=== PATIENT | female | born 1940 | race Caucasian/White ===

== ENCOUNTER 2018-02-14 10:00 | Emergency (ER) | payer MEDICARE ==
[~2018-02-14] VITALS: Ht 152.4 cm; Wt 63.5 kg
[~2018-02-14 10:00] MED LIST: MELO15TA14 PO; METO100T PO; QUIN1TAB3 PO
--- OUTSIDE RECORDS SUMMARY | 2018-02-14 10:07 | XMS REPORT ---
Author Author SAUL FREEDMAN Organization [employer] Address Unknown Phone Unavailable Care Team Providers Care [facility] [employer] Name Role Phone SAUL FREEDMAN CP Unavailable Allergies, Adverse Reactions, Alerts Substance Reaction Event Type N.K.D.A. Info Not Available Non Drug Allergy Problems Problem Type Condition Code Onset Dates Condition Status Assessment Cat bite, initial encounter [id number] Active Medications Medication Code System Code Instructions Start Date End Date Status Dosage Citalopram Hydrobromide [facility] [address]-74 10 MG Orally Once a day 1/2 tablet Metoprolol Tartrate [facility] [address]-11 50 MG Orally Twice a day 1 tablet Augmentin [facility] [address]-85 875-125 MG Orally every 12 hrs Nov 16, 2015 Nov 23, 2015 1 tablet with food Quinapril-Hydrochlorothiazide [facility] [address]-33 20-25 MG Orally Once a day 1 tablet Meloxicam [facility] [address]-33 15 MG Orally Once a day 1 tablet Procedures Procedure Coding System Code Date Office Visit, Est Pt., Level 3 CPT-4 64386 Nov 16, 2015 TDAP (BOOSTRIX) CPT-4 61431 Nov 16, 2015 [facility] VISIT ESTABLISHED PATIENT CPT-4 G0467 Nov 16, 2015 SINGLE IMMUNIZATION ADMIN CPT-4 38747 Nov 16, 2015 Vital Signs Date/Time: Nov 16, 2015 Temperature 98.1 F Weight 142.4 lbs Height 61 in BMI 26.90 Index Blood Pressure Diastolic 84 mmHg Blood Pressure Systolic 152 mmHg Cardiac Monitoring Heart Rate 64 bpm Results No Known Results Immunizations Vaccine Administration Date TDAP (BOOSTRIX) Nov 16, 2015 Summary Purpose [employer] Submission
--- OUTSIDE RECORDS SUMMARY | 2018-02-14 10:07 | XMS REPORT | Continuity of Care Document ---
Author Author [facility] Address Unknown Phone Unavailable Allergies There is no data. Medications There is no data. Problems There is no data. Procedures There is no data. Results There is no data. Encounters ACCT No. Visit Date/Time Discharge Status Pt. Type Provider Facility Loc./Unit Complaint [id number] 06/06/2015 22:05:58 06/06/2015 23:59:59 CLS Outpatient Catalina Vences
[2018-02-14] MEDS ORDERED: NS IV 500 ML 500 ML IV ONE (10:16)
[2018-02-14 10:37] LABS: BASOPHILS % (AUTO) 0 % (0-10); EOSINOPHILS % (AUTO) 0 % (0-10); HEMATOCRIT 38 % (35-52); HEMOGLOBIN 13.9 G/DL (11.5-16.0); LYMPHOCYTES # (AUTO) 1.2 X 10^3 (1.0-4.0); LYMPHOCYTES % (AUTO) 11 % (12-44); MEAN CORPUSCULAR HEMOGLOBIN 29 PG (25-34); MEAN CORPUSCULAR HGB CONC 37 G/DL (32-36); MEAN CORPUSCULAR VOLUME 79 FL (80-99); MEAN PLATELET VOLUME 10.2 FL (7.4-10.4); MONOCYTES # (AUTO) 0.9 X 10^3 (0.0-1.0); MONOCYTES % (AUTO) 9 % (0-12); NEUTROPHILS # (AUTO) 8.1 X 10^3 (1.8-7.8); NEUTROPHILS % (AUTO) 79 % (42-75); PLATELET COUNT 227 10^3/uL (130-400); RED BLOOD COUNT 4.84 10^6/uL (4.35-5.85); RED CELL DISTRIBUTION WIDTH 12.4 % (10.0-14.5); WHITE BLOOD COUNT 10.3 10^3/uL (4.3-11.0)
--- NOTE | 2018-02-14 10:45 | ED General ---
General Stated Complaint: N/V/FEVER/LEFT SIDE PAIN FROM FALLING 02/10 Source of Information: Patient Exam Limitations: No Limitations History of Present Illness Date Seen by Provider: Feb 14, 2018 Time Seen by Provider: 10:10 Initial Comments Here with report of left-sided pain from a fall that occurred 4 days ago. She states that she was moving a duck cage when the ground gave way and the cage tilted and pressure into a doorway. She has pain on her left posterior rib margin with bruising there. She's had some coughing since. Reports that she's had a mild cough for months now. Thought she may have had a some fever but none documented. Has history of falls. Timing/Duration: 4-5 Days Severity: Mild Associated Systoms: No Chest Pain; Cough, Fever/Chills, Nausea/Vomiting; No Shortness of Air, No Weakness Allergies and Home Medications Allergies Coded Allergies: No Known Drug Allergies (Unverified , 04/09/10) Home Medications Cefdinir 300 Mg Capsule, 300 MG PO BID Prescribed by: YA ALFONSO on 02/14/18 1218 Losartan Potassium 100 Mg Tablet, 100 MG PO DAILY Prescribed by: YA ALFONSO on 02/14/18 1218 Meloxicam 15 Mg Tablet, 1 EACH PO DAILY, (Reported) Metoprolol Tartrate 100 Mg Tablet, 1 EACH PO DAILY, (Reported) Quinapril/Hydrochlorothiazide 1 Tab Tablet, 1 TAB PO DAILY, (Reported) Patient Home Medication List Home Medication List Reviewed: Yes Review of Systems Constitutional: see HPI; No chills, No fever EENTM: no symptoms reported Respiratory: cough; No short of breath Cardiovascular: No chest pain, No edema Gastrointestinal: No abdominal pain, No diarrhea; nausea, vomiting Genitourinary: no symptoms reported Musculoskeletal: muscle pain, muscle stiffness Skin: change in color; No lesions Psychiatric/Neurological: Denies Headache, Denies Paresthesia Hematologic/Lymphatic: See HPI All Other Systems Reviewed Negative Unless Noted: Yes Past Pdjxvvi-Cyvsmx-Tjhfuj Hx Past Med/Social Hx: Reviewed Nursing Past Med/Soc Hx Patient Social History Alcohol Use: Denies Use Recreational Drug Use: No Smoking Status: Never a Smoker Recent Foreign Travel: No Contact w/Someone Who Travel: No Past Medical History Surgeries: No Respiratory: No Cardiac: Yes Hypertension Neurological: No Musculoskeletal: Yes Fractures Family Medical History Reviewed Nursing Family Hx No Pertinent Family Hx Physical Exam Vital Signs Vital Signs - First Documented 02/14/18 10:07 Temp 97.6 Pulse 66 B/P (MAP) 189/88 (121) O2 Delivery Room Air Capillary Refill : General Appearance: No Apparent Distress, WD/WN HEENT: PERRL/EOMI, Pharynx Normal Neck: Non Tender, Supple Respiratory: Lungs Clear, Normal Breath Sounds Cardiovascular: Regular Rate, Rhythm, No Murmur Gastrointestinal: Non Tender, Soft Back: Normal Inspection, No CVA Tenderness, No Vertebral Tenderness Extremity: Normal Range of Motion, Non Tender Neurologic/Psychiatric: Alert, Oriented x3 Skin: Warm/Dry, Ecchymosis (left posterior chest wall at the area of the scapula 4 x 10 cm ecchymosis noted.) Focused Exam Lactate Level 02/14/18 10:25: Lactic Acid Level 1.42 Lactic Acid Level Laboratory Tests Test 02/14/18 10:25 Lactic Acid Level 1.42 MMOL/L (0.50-2.00) Progress/Results/Core Measures Suspected Sepsis SIRS Temperature: Pulse: Respiratory Rate: Laboratory Tests 02/14/18 10:25: White Blood Count 10.3 Blood Pressure / Mean: 02/14/18 10:25: Lactic Acid Level 1.42 Laboratory Tests 02/14/18 10:25: Creatinine 0.74, Platelet Count 227, Total Bilirubin 3.2H Results/Orders Lab Results Laboratory Tests Test 02/14/18 10:25 Range/Units White Blood Count 10.3 4.3-11.0 10^3/uL Red Blood Count 4.84 4.35-5.85 10^6/uL Hemoglobin 13.9 11.5-16.0 G/DL Hematocrit 38 35-52 % Mean Corpuscular Volume 79 L 80-99 FL Mean Corpuscular Hemoglobin 29 25-34 PG Mean Corpuscular Hemoglobin Concent 37 H 32-36 G/DL Red Cell Distribution Width 12.4 10.0-14.5 % Platelet Count 227 130-400 10^3/uL Mean Platelet Volume 10.2 7.4-10.4 FL Neutrophils (%) (Auto) 79 H 42-75 % Lymphocytes (%) (Auto) 11 L 12-44 % Monocytes (%) (Auto) 9 0-12 % Eosinophils (%) (Auto) 0 0-10 % Basophils (%) (Auto) 0 0-10 % Neutrophils # (Auto) 8.1 H 1.8-7.8 X 10^3 Lymphocytes # (Auto) 1.2 1.0-4.0 X 10^3 Monocytes # (Auto) 0.9 0.0-1.0 X 10^3 Eosinophils # (Auto) 0.0 0.0-0.3 10^3/uL Basophils # (Auto) 0.0 0.0-0.1 10^3/uL Sodium Level 120 *L 135-145 MMOL/L Potassium Level 3.7 3.6-5.0 MMOL/L Chloride Level 84 L 98-107 MMOL/L Carbon Dioxide Level 27 21-32 MMOL/L Anion Gap 9 5-14 MMOL/L Blood Urea Nitrogen 11 7-18 MG/DL Creatinine 0.74 0.60-1.30 MG/DL Estimat Glomerular Filtration Rate > 60 BUN/Creatinine Ratio 15 Glucose Level 114 H 70-105 MG/DL Lactic Acid Level 1.42 0.50-2.00 MMOL/L Calcium Level 9.7 8.5-10.1 MG/DL Total Bilirubin 3.2 H 0.1-1.0 MG/DL Aspartate Amino Transf (AST/SGOT) 20 5-34 U/L Alanine Aminotransferase (ALT/SGPT) 10 0-55 U/L Alkaline Phosphatase 78 40-136 U/L C-Reactive Protein High Sensitivity 0.27 0.00-0.50 MG/DL Total Protein 7.2 6.4-8.2 GM/DL Albumin 4.5 3.2-4.5 GM/DL My Orders Orders - YA ALFONSO MD Chest Pa/Lat (2 View) (02/14/18 10:16) Cbc With Automated Diff (02/14/18 10:16) Comprehensive Metabolic Panel (02/14/18 10:16) Hs C Reactive Protein (02/14/18 10:16) Lactic Acid Analyzer (02/14/18 10:16) Blood Culture (02/14/18 10:16) Saline Lock/Iv-Start (02/14/18 10:16) Ns Iv 500 Ml (Sodium Chloride 0.9%) (02/14/18 10:16) Medications Given in ED Current Medications Medications Dose Ordered Sig/Carolyn Route Start Time Stop Time Status Last Admin Dose Admin Sodium Chloride 500 ml @ 0 mls/hr Q0M ONCE IV 02/14/18 10:16 02/14/18 10:22 DC 02/14/18 10:45 500 MLS/HR Vital Signs/I&O 02/14/18 10:07 Temp 97.6 Pulse 66 B/P (MAP) 189/88 (121) O2 Delivery Room Air Capillary Refill : Progress Note : Progress Note Seen and evaluated. IV, labs, chest x-ray, normal saline 500 mL bolus ordered. Monitor patient. Noted low sodium. I did discuss the case with Dr. Haney. She has noted low sodium at her office on previous visits and she is been directed to drink Gatorade twice a day. Given her history of low sodium in the range of 125 and the fact that she does not appear to be symptomatic and this appears to be chronic, we will attempt outpatient treatment. We will stop the hydrochlorothiazide combination and just keep her on low certain 100 mg daily. Patient has had increase of her metoprolol from 50-75 mg twice a day and we will increase that to 100 mg twice a day as her heart rate is currently in the mid to upper 60s to 70 and this could help control her blood pressure. I did discuss all this with the patient and her family. They're okay with outpatient attempt. I did discuss the need of drinking Gatorade with her and she says that she's never heard that before but will do as instructed. Patient is set up for appointment with a practitioner at Dr. Haney's office on Saturday at [address] Haney's instructions. 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 If this does not help, consideration for losartan as a cause will be made. All of the findings, concerns and instructions were discussed with the patient and family who agree. Repeat bolus of normal saline 500 mL bolus. Discharged home with return precautions. Patient and family verbalize understanding instructions and agreement with plan. Diagnostic Imaging Diagonstic Imaging: Xray Plain Films/CT/US/NM/MRI: chest Comments NAME: DINA MEAD MED REC#: [id number] PT STATUS: REG ER : 1940 PHYSICIAN: YA ALFONSO MD ADMIT DATE: 02/14/18/ER Signed Date of Exam: 02/14/18 CHEST PA/LAT (2 VIEW) INDICATION: Post recent fall, bruising, pain. Subsequent development of cough.. TECHNIQUE: Two view chest 11:15 AM CORRELATION STUDY: 12/03/2011 FINDINGS: Heart size is mildly enlarged with a left ventricular configuration. Annular valvular calcification is present. Vascularity overall within normal limits. There appears to be minimal subsegmental basilar atelectasis. No significant infiltrate, contusion or pneumothorax. No significant displaced fracture, accentuated thoracic kyphotic curvature. IMPRESSION: 1. No radiographic evidence for acute abnormality of the chest. Dictated by: Dictated on workstation # [id number] Dict: 02/14/18 1111 Trans: 02/14/18 1134 Interpreted by: STEFFANY AGUIRRE DO Electronically signed by: STEFFANY AGUIRRE DO 02/14/18 1134 Departure Impression Primary Impression: Hyponatremia Additional Impression: Chronic cough Disposition: 01 HOME, SELF-CARE Condition: Stable Departure-Patient Inst. Referrals: BEL HANEY MD (PCP/Family) Primary Care Physician Patient Instructions: Cough in Adults, Hyponatremia (DC) Add. Discharge Instructions: You should stop the combination medicine losartan/hydrochlorothiazide and start the losartan only medication that was prescribed today. Take the antibiotic as directed. Follow-up with your doctor on Saturday at 1030 at her office. You should take your metoprolol 2 tablets in the morning and evening now and it is important that you discussed all of your medicines and higher taken them with your doctor on Saturday. Return for worse pain, fever, vomiting, weakness, breathing problems or other concerns as needed. You should drink a small bottle of Gatorade twice daily to help keep your sodium level and a normal range. Scripts Ondansetron (Ondansetron Odt) 4 Mg Tab.rapdis 4 MG PO Q6H PRN for NAUSEA/VOMITING, #8 TAB 0 Refills Prov: YA ALFONSO MD 02/14/18 Cefdinir (Cefdinir) 300 Mg Capsule 300 MG PO BID, #20 CAP 0 Refills Prov: YA ALFONSO MD 02/14/18 Losartan Potassium (Losartan Potassium) 100 Mg Tablet 100 MG PO DAILY, #15 TAB 0 Refills Prov: YA ALFONSO MD 02/14/18 Copy Copies To 1: BEL HANEY MD, TIMOTHY D MD Feb 14, 2018 10:45
[2018-02-14 10:56] LABS: ALANINE AMINOTRANSFERASE 10 U/L (0-55); ALBUMIN 4.5 GM/DL (3.2-4.5); ALKALINE PHOSPHATASE 78 U/L (40-136); BILIRUBIN,TOTAL 3.2 MG/DL (0.1-1.0); BUN/CREATININE RATIO 15; CALCIUM 9.7 MG/DL (8.5-10.1); CARBON DIOXIDE 27 MMOL/L (21-32); CHLORIDE 84 MMOL/L (98-107); CREATININE SERUM 0.74 MG/DL (0.60-1.30); GFR ESTIMATED > 60; GLUCOSE 114 MG/DL (70-105); POTASSIUM 3.7 MMOL/L (3.6-5.0); TOTAL PROTEIN 7.2 GM/DL (6.4-8.2)
[2018-02-14 11:09] LABS: SODIUM 120 MMOL/L (135-145)
--- NOTE | 2018-02-14 11:28 | Diagnostic Imaging Report ---
INDICATION: Post recent fall, bruising, pain. Subsequent development of cough.. TECHNIQUE: Two view chest 11:15 AM CORRELATION STUDY: 12/03/2011 FINDINGS: Heart size is mildly enlarged with a left ventricular configuration. Annular valvular calcification is present. Vascularity overall within normal limits. There appears to be minimal subsegmental basilar atelectasis. No significant infiltrate, contusion or pneumothorax. No significant displaced fracture, accentuated thoracic kyphotic curvature. IMPRESSION: 1. No radiographic evidence for acute abnormality of the chest. Dictated by: Dictated on workstation # [id number]
[2018-02-14] MEDS ORDERED: NS IV 500 ML 500 ML IV SCH (12:00)
[2018-02-14] MEDS ORDERED: CEFD300C3 PO (12:18)
[2018-02-14] MEDS ORDERED: LOSA100T28 PO (12:18)
[2018-02-14] MEDS ORDERED: ONDANSETRON 4 MG (ZOFRAN) ORAL DISSOLVE TAB SL STA (12:19)
[2018-02-14] MEDS ORDERED: ONDA4TAB11 PO (12:20)
[2018-02-14 13:05] VITALS: BP 168/97
== END 2018-02-14 13:11 | disposition home or self-care (01) ==
LOC: EDUNIT# 10:00 → ER 10:03
DX: E87.1 Hypo-osmolality and hyponatremia (principal); R05 Cough; R29.6 Repeated falls; I10 Essential (primary) hypertension; Z87.81 Personal history of (healed) traumatic fracture
CPT/HCPCS: 36415; 71046; 80053; 83605; 85025; 86141; 87040; 96360; 96361

== ENCOUNTER 2019-08-25 08:38 | Inpatient (IN) | payer MEDICARE ==
[~2019-08-25] VITALS: Ht 152.4 cm; Wt 54.0 kg
[~2019-08-25 08:38] MED LIST changes: +CEFD300C3 PO; +LOSA100T57 PO; +ONDA4TAB11 PO
--- NOTE | 2019-08-25 11:58 | NUR ---
Gina Chandler admitted to room 230 , with an admitting diagnosis of Right Total Hip Replacment , on 08/25/19 from [facility] via private vehicle, accompanied by son.GINA CHANDLER introduced to surroundings, call light, bed controls, phone, TV, temperature control, lights, meal times, smoking policy, visitor policy, side rail policy, bathrooms and showers. Patient Rights given to patient in the handbook.GINA CHANDLER verbalizes understanding that [facility] is not responsible for the loss or damage to any personal effects or valuables that are kept in the patients possession during their hospitalization. The following Patient Care Plans were discussed with the patient: Discharge Planning, Altered Peripheral Tissue Perfusion,Pain, High Risk Post Op Complications and Knowledge Deficit of Total Hip Replacement. GINA CHANDLER verbalizes understanding of Interdisciplinary Patient Education. Patient received Patient Rights Booklet, which includes Privacy Act Statement and Data Collection Information Summary.
[2019-08-25 12:00] VITALS: BP 122/72
[2019-08-25] MEDS ORDERED: ASCO-262 PO (13:01)
[2019-08-25] MEDS ORDERED: AMLO10TA7 PO (13:01)
[2019-08-25] MEDS ORDERED: HYDR-3812 PO (13:01)
[2019-08-25] MEDS ORDERED: ESCI5TAB12 PO (13:01)
[2019-08-25] MEDS ORDERED: CHOL10007 PO (13:01)
[2019-08-25] MEDS ORDERED: NYST1POW4 TOP (13:01)
[2019-08-25] MEDS ORDERED: CYAN-41 PO (13:01)
[2019-08-25] MEDS ORDERED: OMG1KC PO (13:01)
[2019-08-25] MEDS ORDERED: DICL100G31 TOP (13:01)
[2019-08-25] MEDS ORDERED: LOSA100T57 PO (13:01)
[2019-08-25] MEDS ORDERED: VIT-10 PO (13:01)
[2019-08-25] MEDS ORDERED: DOCU-143 PO (13:01)
[2019-08-25] MEDS ORDERED: METO100T12 PO (13:01)
[2019-08-25] MEDS ORDERED: ACET325T38 PO (13:01)
--- NOTE | 2019-08-25 13:02 | NUR ---
UPDATED MED REC WITH DISCHARGE MEDICATION INSTRUCTIONS FROM [facility]. NOTE THE FOLLOWING CHANGES WERE MADE AT THAT DISCHARGE: START: HYDROCODONE 5-325MG 1 Q6H PRN STOP: MELOXICAM CLOBETASOL CREAM I WILL UPDATE THE MED REC BACK TO THE MEDICATIONS THE PATIENT WAS TAKING PRIOR TO THIS DISCHARGE AT A LATER DATE FOR PROPER DISCHARGE TO HOME ORDERS. Addendum: 08/25/19 at 1627 by ANGEL FRIAS [facility] REMOVED THE NEW SCRIPT FOR HYDROCODONE AND ADDED BACK THE MELOXICAM THAT WAS STOPPED. I DID NOT ADD THE CLOBETASOL CREAM AT THIS TIME IT DOES NOT LOOK LIKE IT HAS BEEN FILLED RECENTLY. IN ADDITION TO WHAT WAS ADDRESSED ON THE DISCHARGE ORDERS THE PATIENT HAS RECENTLY FILLED FLONASE NASAL SPRAY, I ADDED IT TO THE MED REC AT THIS TIME PRN TO BE ADDRESSED AT DISCHARGE. OTC MEDS REPORTED AT DISCHARGE FROM [facility]: TYLENOL 325MG 2 HS VITAMIN C 500MG 2 DAILY B12 1000MCG DAILY COLACE 100MG BID FISH OIL 1000MG HS VISION TAB DAILY VITAMIN D3 1000 UNITS 2 DAILY
--- NOTE | 2019-08-25 13:22 | Occupational Therapy Eval ---
OT Evaluation-General/PLF Medical Diagnosis Admission Date Aug 25, 2019 at 12:04 Medical Diagnosis: right total hip replacement Onset Date: Aug 20, 2019 Therapy Diagnosis Therapy Diagnosis: decreased self care skills Height/Weight Height (Feet): 5 Height (Inches): 0 Weight (Pounds): 140 Referral Physician: Moreno Medical History Pertinent Medical History: GERD, HTN, OA Additional Medical History depression, chronic edema, chronic pain, dermatitis, right humerus fracture, lef t TKA Current History Pt had fall with right hip fracture. Now s/p right total hip with hip precautions. Social History Home: Single Level Current Living Status: Spouse ADL-Prior Level of Function SCALE: Activities may be completed with or without assistive devices. 0-Euqewpeyee-qnouein completes the activity by him/herself with no assistance from a helper. 5-Set-up or Clean-up Assistance-helper sets up or cleans up; patient completes activity. [place] assists only prior to or following the activity. 4-Supervision or Touching Assistance-helper provides verbal cues and/or touching/steadying and/or contact guard assistance as patient completes ac tivity. Assistance may be provided throughout the activity or intermittently. 3-Partial/Moderate Assistance-helper does LESS THAN HALF the effort. [place] lifts, holds or supports trunk or limbs, but provides less than half the effort. 2-Substantial/Maximal Assistance-helper does MORE THAN HALF the effort. [place] lifts or holds trunk or limbs and provides more than half the effort. 5-Cghnwjydd-tcqimt does ALL the effort. Patient does none of the effort to complete the activity. Or, the assistance of 2 or more helpers is required for the patient to complete the activity. If activity was not attempted, code reason: 7-Patient Refused. 9-Not Applicable-not attempted and the patient did not perform the activity before the current illness, exacerbation or injury. 10-Not Attempted due to Environmental Limitations-(lack of equipment, weather restraints, etc.). 88-Not Attempted due to Medical Conditions or Safety Concerns. ADL PLOF Comments Pt reports being independent prior to fall. Does not use any assistive devices. Self Care: Independent DME/Equipment: Tub/Shower Drive Self: Yes OT Current Status Subjective Pt sitting in w/c, agrees to therapy. Pt reports no pain at rest. States pain is "not too bad" with movement, but does not rate. Mental Status/Objective Patient Orientation: Person, Place, Situation Current Glasses/Contacts: Yes Hearing Aids: No Dentures/Partials: Yes Hand Dominance: Right Upper Extremity ROM Grossly WFL Upper Extremity Coordination Intact Upper Extremity Sensation Intact per pt report Upper Extremity Strength Grossly 4/5 ADL-Treatment ADL-Current Pt sitting in w/c, participated in UE assessment. Pt combed hair and washed face with set up while seated. Pt performed sit to stand with mod assist and cues for hand placement. Pt stood with FWW for balance, cues for safety. Pt declined need to use restroom or transfer to chair at this time. Education was provided regarding role of OT and plan of care. Pt states understanding of education. Care was transferred to [facility] for continued therapy. No needs at this time. Education OT Patient Education: Rehab process Teaching Recipient: Patient Teaching Methods: Discussion Response to Teaching: Verbalize Understanding OT Short Term Goals Short Term Goals Time Frame: Sep 01, 2019 Lower Body Dressing(FIM): 4 Toileting(FIM): 4 Toilet/Commode Transfer(FIM): 4 Additional Short Term Goals: 2-Verbalize Understanding, 3-ImproveStrength/Miah 1=Demonstrate adherence to instructed precautions during ADL tasks. 2=Patient will verbalize/demonstrate understanding of assistive devices/modifications for ADL. 3=Patient will improve strength/tolerance for activity to enable patient to perform ADL's. OT Junior Php Developer Goals Detention Goals Time Frame: Sep 15, 2019 Eating (QC): 6 Oral Hygiene (QC): 6 Shower/Bathe Self (QC): 5 Upper Body Dressing (QC): 6 Lower Body Dressing (QC): 5 On/Off Footwear (QC): 5 Toileting Hygiene (QC): 6 Toilet/Commode Transfer (QC): 6 Additional Goals: 1-Demonstrate ADL Tasks, 2-Verbalize Understanding, 3- ImproveStrength/Miah 1=Demonstrate adherence to instructed precautions during ADL tasks. 2=Patient will verbalize/demonstrate understanding of assistive devices/modifications for ADL. 3=Patient will improve strength/tolerance for activity to enable patient to perform ADL's. OT Education/Plan Problem List/Assessment Assessment: Decreased Activ Tolerance, Decreased UE Strength, Dependent Transfers, Impaired Funct Balance, Impaired I ADL's, Impaired Self-Care Skills Pt to benefit from skilled OT intervention for ADL training, transfers, strengthening, and home safety education to increase level of independence and allow safe discharge home. Discharge Recommendations Plan/Recommendations: Continue POC Treatment Plan/Plan of Care Treatment,Training & Education: Yes Patient would benefit from OT for education, treatment and training to promote independence in ADL's, mobility, safety and/or upper extremity function for ADL's. Plan of Care: ADL Retraining, Functional Mobility, Group Exercise/Act as Ind, UE Funct Exercise/Act Treatment Duration: Sep 15, 2019 Frequency: At least 5 of 7 days/Wk (IRF) Estimated Hrs Per Day: 1.5 hours per day Rehab Potential: Good Time/GCodes Start Time: 12:30 Stop Time: 13:00 Total Time Billed (hr/min): 30 Billed Treatment Time 1 visit, EVM(20minutes), ADL(10minutes) PEGGY ACO OT Aug 25, 2019 13:22 POS
[2019-08-25] MEDS ORDERED: HYDROcodone/APAP 5 MG/325 MG (LORTAB) TAB PO PRN (14:00)
--- NOTE | 2019-08-25 14:07 | NUR ---
C/O PAIN AFTER WORKING WITH THERAPY. PER DR. ESCOBAR, CHANGE LORTAB TO Q4 HOURS INSTEAD OF Q6 HOURS.
--- NOTE | 2019-08-25 14:20 | Occupational Ther Daily Note ---
OT Current Status-Daily Note Subjective Pt alert, sitting in w/c. Took over care from OTR/L. Pt agrees to therapy. Pt c/o pain in R LE, reported to nrsg. Mental Status/Objective Patient Orientation: Person, Place, Time, Situation ADL-Treatment Pt states that she had a shower earlier today. Pt agrees to work on lower body dressing. Pt takes increased time to complete ADL tasks due to fatigue and pain. Max A for sit to stand from low surface, mod A for elevated surface. CGA in standing using FWW to hike pants over hips (down/up). Due to hip precautions, pt requires max A to don/doff pants, underpants, socks and shoes. Assist to don/doff ADIEL hose. Pt introduced to AE for lower body dressing. Pt requires verbal and physical cues to use effectively. Pt ambulated with CGA using FWW to bathroom. Using BSC, FWW and grabbars pt able to complete with toilet transfer SBA. Pt cleansed self on toilet then due to fatigue, assist to hike pants. LOB during transfer off of toilet to w/c, min A. Pt washed hands at sink. Lunch in front of pt. Pt is able to set meal up and use regular utensils to eat. After therapy, pt sitting in w/c with call light/phone in reach. All needs met in room. Therapy Code Descriptions/Definitions Functional [place] Measure: 0=Not Assessed/NA 4=Minimal Assistance 1=Total Assistance 5=Supervision or Setup 2=Maximal Assistance 6=Modified [place] 3=Moderate Assistance 7=Complete IndependenceSCALE: Activities may be completed with or without assistive devices. 9-Hqxxpkfqch-ciaijvq completes the activity by him/herself with no assistance from a helper. 5-Set-up or Clean-up Assistance-helper sets up or cleans up; patient completes activity. [place] assists only prior to or following the activity. 4-Supervision or Touching Assistance-helper provides verbal cues and/or touching/steadying and/or contact guard assistance as patient completes activity. Assistance may be provided throughout the activity or intermittently. 3-Partial/Moderate Assistance-helper does LESS THAN HALF the effort. [place] lifts, holds or supports trunk or limbs, but provides less than half the effort. 2-Substantial/Maximal Assistance-helper does MORE THAN HALF the effort. [place] lifts or holds trunk or limbs and provides more than half the effort. 4-Zwxapgodq-prvwkv does ALL the effort. Patient does none of the effort to complete the activity. Or, the assistance of 2 or more helpers is required for the patient to complete the activity. If activity was not attempted, code reason: 7-Patient Refused. 9-Not Applicable-not attempted and the patient did not perform the activity before the current illness, exacerbation or injury. 10-Not Attempted due to Environmental Limitations-(lack of equipment, weather restraints, etc.). 88-Not Attempted due to Medical Conditions or Safety Concerns. Eating (QC): 6 Oral Hygiene (QC): 7 (Stated that she had dentures and soaks them over night so declined to complete oral care at this time.) Shower/Bathe Self (QC): 7 Upper Body Dressing (QC): 5 (After set up, pt able to complete.) Lower Body Dressing (QC): 2 Toileting Hygiene (QC): 2 Toilet Transfer (QC): 3 OT Short Term Goals Short Term Goals Time Frame: Sep 01, 2019 Lower Body Dressing(FIM): 4 Toileting(FIM): 4 Toilet/Commode Transfer(FIM): 4 Additional Short Term Goals: 2-Verbalize Understanding, 3-ImproveStrength/Miah 1=Demonstrate adherence to instructed precautions during ADL tasks. 2=Patient will verbalize/demonstrate understanding of assistive devices/modifications for ADL. 3=Patient will improve strength/tolerance for activity to enable patient to pe rform ADL's. OT Console Operator Goals Mcfp Goals Time Frame: Sep 15, 2019 Eating (QC): 6 Oral Hygiene (QC): 6 Shower/Bathe Self (QC): 5 Upper Body Dressing (QC): 6 Lower Body Dressing (QC): 5 On/Off Footwear (QC): 5 Toileting Hygiene (QC): 6 Toilet/Commode Transfer (QC): 6 Additional Goals: 1-Demonstrate ADL Tasks, 2-Verbalize Understanding, 3- ImproveStrength/Miah 1=Demonstrate adherence to instructed precautions during ADL tasks. 2=Patient will verbalize/demonstrate understanding of assistive devices/modifications for ADL. 3=Patient will improve strength/tolerance for activity to enable patient to perform ADL's. OT Education/Plan Problem List/Assessment Assessment: Decreased Activ Tolerance, Decreased UE Strength, Impaired Coordination, Impaired Funct Balance, Impaired I ADL's, Impaired Self-Care Skills Pt to benefit from skilled OT intervention for ADL training, transfers, strengthening, and home safety education to increase level of independence and allow safe discharge home. Discharge Recommendations Plan/Recommendations: Continue POC Treatment Plan/Plan of Care Patient would benefit from OT for education, treatment and training to promote independence in ADL's, mobility, safety and/or upper extremity function for ADL's. Plan of Care: ADL Retraining, Functional Mobility, Group Exercise/Act as Ind, UE Funct Exercise/Act Treatment Duration: Sep 15, 2019 Frequency: At least 5 of 7 days/Wk (IRF) Estimated Hrs Per Day: 1.5 hours per day Rehab Potential: Good Time/GCodes Start Time: 13:00 Stop Time: 14:00 Total Time Billed (hr/min): 60 Billed Treatment Time 1 visit-ADL 4 (60 min) CONOR SAHU Aug 25, 2019 14:19 POS
--- NOTE | 2019-08-25 15:29 | Physical Therapy Evaluation ---
PT Evaluation-General Medical Diagnosis Admission Date Aug 25, 2019 at 12:04 Medical Diagnosis: right total hip replacement Onset Date: Aug 20, 2019 Therapy Diagnosis Therapy Diagnosis: decreased LE strength/endurance, abn gait, s/p surgical Height/Weight Height (Feet): 5 Height (Inches): 0 Weight (Pounds): 140 Precautions Precautions/Isolations: Fall Prevention, Standard Precautions Weight Bear Status Right Lower Extremity: Right Weight Bearing/Tolerated Left Lower Extremity: Left Full Weight Bearing Referral Physician: Moreno Reason for Referral: Evaluation/Treatment Medical History Pertinent Medical History: GERD, HTN, OA Additional Medical History Medical History Pertinent Medical History: GERD, HTN, OA Additional Medical History depression, chronic edema, chronic pain, dermatitis, right humerus fracture, left TKA Current History Pt had fall with right hip fracture. Now s/p right total hip with hip precautions. Social History Home: Single Level Current Living Status: Spouse Entry Into Home: Level Entry Prior Prior Level of Function SCALE: Activities may be completed with or without assistive devices. 6-Rqyqjqqhxx-misuluj completes the activity by him/herself with no assistance fr om a helper. 5-Set-up or Clean-up Assistance-helper sets up or cleans up; patient completes activity. [place] assists only prior to or following the activity. 4-Supervision or Touching Assistance-helper provides verbal cues and/or touching/steadying and/or contact guard assistance as patient completes activity. Assistance may be provided throughout the activity or intermittently. 3-Partial/Moderate Assistance-helper does LESS THAN HALF the effort. [place] lifts, holds or supports trunk or limbs, but provides less than half the effort. 2-Substantial/Maximal Assistance-helper does MORE THAN HALF the effort. [place] lifts or holds trunk or limbs and provides more than half the effort. 2-Rkbifaniy-syfxeh does ALL the effort. Patient does none of the effort to complete the activity. Or, the assistance of 2 or more helpers is required for the patient to complete the activity. If activity was not attempted, code reason: 7-Patient Refused. 9-Not Applicable-not attempted and the patient did not perform the activity before the current illness, exacerbation or injury. 10-Not Attempted due to Environmental Limitations-(lack of equipment, weather restraints, etc.). 88-Not Attempted due to Medical Conditions or Safety Concerns. Bed Mobility: 6 Transfers (B,C,W/C): 6 Gait: 6 Stairs: 6 Indoor Mobility (Ambulation): Independent Prior Devices Use: None PT Evaluation-Current Subjective pt in WC pre-tx. Pt agrees to PT this afternoon. Pt states she feels like she has been worn out today since she got here. Pt reports 8/10 pain in her R hip, nurse aware of pain and working on getting her pain meds. Pt/Family Goals pt in bed post-tx. pt with call light, room phone, tray table in reach and all needs met at this time. Pt with adductor pillow in place and bed alarm set at this time. RN in room at this time. Objective Patient Orientation: Person, Confused, Situation Attachments: IV Pt was asking what would happen here at this hospital and this PT was explaining rehab, directly after the explanation the pt asked "where the hell am I" pt knows her name and birthday and that she "broke her leg" but is forgetful and confused this session. Pt does not remember her hip precautions today. ROM/Strength Strength Lower Extremities RLE not tested secondary to S/P L LE hip flexion 4-/5, knee flexion 4/5, knee extension 4/5 Integumentary/Posture Integumentary see nursing notes. Bowel Incontinence: No Bladder Incontinence: No Sensory Vision: Wears Glasses Hearing: Functional Hand Dominance: Right Sensation Right Lower Extremit: Intact Sensation Left Lower Extremity: Intact Transfers Roll Left to Right (QC): 3 (Shawn) Sit to Lying (QC): 3 (modA for RLE into bed) Lying to Sitting/Side of Bed(Q: 2 (maxA to lower the RLE from the bed and for sitting shoulders up in bed.) Sit to Stand (QC): 2 (MaxA. Pt had multiple attempts that require only Shawn. pt seems to require more assist from lower surfaces to stand.) Chair/Xie-rs-Aafmg Xfer(QC): 3 (mod assist for stepping and turning) Car Transfer (QC): 2 (MaxA) Gait Does the Patient Walk?: Yes Mode of Locomotion: Both Anticipated Mode of Locomotion: Both Distance: 1=up to 49 ft Walk 10 feet (QC): 3 (Shawn) Walk 50 ft with 2 Turns(QC): 88 Walk 150 ft (QC): 88 Walking 10ft/uneven surface-QC: 88 Distance: 20' Gait Assistive Device: FWW Comments/Gait Description Pt ambulated 20' with FWW with a forward posture with a slow step through gait pattern. pt keeps the R knee in a flexed position and lacks TKE. the pt ambulates with the RLE in slight genu valgus and is reminded multiple times of hip precautions Pt ambulated 8'x2 in // bars with mod retropulsion and slow step through gait patterns. Wheelchair Training Does the Pt Use a Wheelchair?: Yes Distance: 150' Wheel 50 ft with 2 turns (QC): 3 (Shawn for steering.) Wheel 150 ft (QC): 3 (Shawn for steering) Type of Wheelchair: Manual Stairs 1 Step (curb) (QC): 88 4 Steps (QC): 88 12 Steps (QC): 88 Patient did not perform stairs due to having poor ambulation and she will not be safe to go up and down stairs. Balance Sitting Static: Normal Sitting Dynamic: Normal Standing Static: Fair Standing Dynamic: Poor Picking up an Object (QC): 88 Treatment pt performed supine LE ex (hip abd/add, SLR, AP's, SAQ's, heel slides, glute sets, quad sets. all 1set 10 reps) and seated LE ex (LAQ, AP's all 2 sets 10 reps), skilled ambulation training, transfer training, wheelchair training, and education this date. Assessment/Needs Pt is having mod pain this session that limits her ability to complete a mbulation and standing activities this afternoon. Pt seems to be forgetful at times and has difficulty following directions. Rehab Potential: Fair PT Short Term Goals Short Term Goals Time Frame: Sep 01, 2019 Gait Distance Comment: 50' Gait Assistive Device: FWW (CGA) PT Cable Engineer Outside Plant Goals Cable Engineer Outside Plant Goals PT Cable Engineer Outside Plant Goals Time Frame: Sep 15, 2019 Sit to Lying (QC): 4 (CGA) Lying-Sitting on Side/Bed(QC): 4 (CGA) Sit to Stand (QC): 4 (CGA) Roll Left to Right (QC): 4 (SBA) Chair/Rtb-ql-Rmbhm Xfer(QC): 4 (CGA) Car Transfer (QC): 4 (CGA) Does the Patient Walk: Yes Distance: 150' Walk 10 feet (QC): 4 (SBA) Walk 10ft-Uneven Surface(QC): 4 (CGA) Walk 50ft with 2 Turns (QC): 4 (CGA) Walk 150 ft (QC): 4 (SBA) Gait Assistive Device: FWW Distance: 300' Wheel 50 feet with 2 turns (QC: 4 (SBA) PT Plan Problem List Problem List: Activity Tolerance, Functional Strength, Safety, Balance, Gait, Transfer, Bed Mobility, ROM Treatment/Plan Treatment Plan: Continue Plan of Care Treatment Plan: Bed Mobility, Concurrent Therapy, Education, Functional Activity Miah, Functional Strength, Group Therapy, Gait, Safety, Therapeutic Exercise, Transfers Frequency: At least 5 of 7 days/Wk (IRF) Estimated Hrs Per Day: 1.5 hours per day Patient and/or Family Agrees t: Yes Safety Risks/Education Patient Education: Gait Training, Transfer Techniques, Reviewed Precautions, C orrect Positioning, W/C Management, Safety Issues Teaching Recipient: Patient Teaching Methods: Demonstration, Discussion Response to Teaching: Unable to Return Demonstration, Reinforcement Needed Discharge Recommendations Plan Patient will perform bed mobility and transfer training, balance and endurance training, functional strengthening, stair training, gait training, and education, to improve functional mobility and independence at home. Therapy Discharge Recommendati: Scheduled Assistance, Assisted Living, Other, See Comments (home with son that lives in home.) Equpiment Recommendations-D/C: Front Wheeled Walker, Manual Wheelchair Time/GCodes Time In: 1400 Time Out: 1530 Total Billed Treatment Time: 90 Total Billed Treatment 1 visit EVM 30' EX 30' WC 15' GT 15' MICHAELLE WILBURN PT Aug 25, 2019 15:29 POS
[2019-08-25 15:40] VITALS: BP 122/72
--- NOTE | 2019-08-25 15:46 | Progress Note ---
NOELLE MCDOWELL MED STUDENT 08/25/19 1546: Progress Note CC: s/p Right Total Hip Replacment Barriers to discharge * fell and broke R hip in [employer] last , had total hip replacement * Vitals: HR 82, RR 18, BP 122/72 * Only complaint when seen today is of pain in her R hip * Denies any fevers, chills, h/a, cough, congestion, sore throat, SOB, CP, dys uria, frequency, n/v, abdominal pain, constipation, diarrhea, paresthesia, numbness, or tingling * Reports having swelling in her legs and feet, particularly when she has been standing and working for a long time. Wearing compression stockings today. * On auscultation, lungs CTAB, heart RRR with no gallops or murmurs. 2+ pedal pulses bilaterally, mild pedal edema, no edema when palpating legs, no calf pain on palpation * Barriers: * Prior to admission, she was able to walk unassisted and performed all daily tasks without issue, including help feeding birds for her * She has her , son, and grandson living with her who are able to help her * Reports today that her main concern is with her ability to walk without pain, she currently uses a walker. * Some concern with her endurance. * Denies any concern with balance or strength. JOANNE ESCOBAR DO 08/26/19 1644: Supervisory-Addendum Brief Verification & Attestation Participated in pt care: history, MDM, physical Personally performed: exam, history, MDM, supervision of care Care discussed with: Medical Student Procedures: n/a Results interpretation: Verified all documentation Verification and Attestation of Medical Student E/M Service A medical student performed and documented this service in my presence. I reviewed and verified all information documented by the medical student and made modifications to such information, when appropriate. I personally performed the physical exam and medical decision making. Joanne Escobar, Aug 26, 2019,16:43 NOELLE MCDOWELL MED STUDENT Aug 25, 2019 15:46 JOANNE PATEL DO Aug 26, 2019 16:44 POS
--- NOTE | 2019-08-25 16:08 | NUR ---
PER DR. ESCOBAR, HOLD BP MEDS FOR SBP <120.
[2019-08-25] MEDS ORDERED: FLUT16SP22 NS (16:24)
[2019-08-25] MEDS ORDERED: MELO15TA39 PO (16:24)
--- NOTE | 2019-08-25 16:36 | NUR ---
PER DR. ESCOBAR, START LOVENOX- 40 MG SQ DAILY. CBC, CMP, AND IRON IN AM. PATIENT REC'D 30 MG OF LOVENOX THIS AM AT 0745 AT [facility].
[2019-08-25 17:25] VITALS: BP 138/70
[2019-08-25] MEDS: HYDROcodone/APAP 5 MG/325 MG (LORTAB) TAB PO PRN (18:29)
[2019-08-25 20:00] VITALS: BP 143/70
[2019-08-25] MEDS: DOCUSATE SODIUM 100 MG (COLACE) CAP PO SCH (20:38)
[2019-08-25] MEDS: OMEGA 3 (FISH OIL) 1000 MG CAP PO SCH (20:38)
[2019-08-25] MEDS: meTOprolol TARTRATE 50 MG (LOPRESSOR) TAB PO SCH (20:38)
[2019-08-25] MEDS: amLODIPine 10 MG (NORVASC) TAB PO SCH (20:39)
[2019-08-25] MEDS: ACETAMINOPHEN 325 MG TABLET PO SCH (20:41)
[2019-08-25] MEDS: MICONAZOLE 2% POWDER (DESENEX AF) 90 GM TOP SCH (20:42)
[2019-08-25 23:55] VITALS: BP 143/70
--- NOTE | 2019-08-26 04:20 | NUR ---
THIS RN NOTED DRESSING TO RT HIP INCISION PEELED AWAY FROM SKIN AND ADHESIVE MATERIAL STUCK TO ITSELF, SLIGHT SEROSANGUINEOUS DRAINAGE NOTED TO DRESSING. THIS RN CLEANED STAPLE LINE WITH ALCOHOL AND APPLIED [place] DRESSING. DRESSING DATED, TIMED AND INITIALED BY THIS RN.
[2019-08-26] MEDS: HYDROcodone/APAP 5 MG/325 MG (LORTAB) TAB PO PRN ×3 (04:35→21:04)
[2019-08-26 05:14] LABS: BASOPHILS % (AUTO) 0 % (0-10); EOSINOPHILS # (AUTO) 0.3 10^3/uL (0.0-0.3); EOSINOPHILS % (AUTO) 4 % (0-10); HEMATOCRIT 30 % (35-52); HEMOGLOBIN 9.7 G/DL (11.5-16.0); LYMPHOCYTES # (AUTO) 1.4 X 10^3 (1.0-4.0); LYMPHOCYTES % (AUTO) 20 % (12-44); MEAN CORPUSCULAR HEMOGLOBIN 30 PG (25-34); MEAN CORPUSCULAR HGB CONC 33 G/DL (32-36); MEAN CORPUSCULAR VOLUME 91 FL (80-99); MEAN PLATELET VOLUME 11.3 FL (7.4-10.4); MONOCYTES # (AUTO) 0.9 X 10^3 (0.0-1.0); MONOCYTES % (AUTO) 12 % (0-12); NEUTROPHILS # (AUTO) 4.5 X 10^3 (1.8-7.8); NEUTROPHILS % (AUTO) 63 % (42-75); PLATELET COUNT 247 10^3/uL (130-400); RED CELL DISTRIBUTION WIDTH 13.3 % (10.0-14.5); WHITE BLOOD COUNT 7.2 10^3/uL (4.3-11.0)
[2019-08-26 05:26] VITALS: BP 130/70
[2019-08-26 05:38] LABS: ALANINE AMINOTRANSFERASE 38 U/L (0-55); ALKALINE PHOSPHATASE 105 U/L (40-136); BILIRUBIN,TOTAL 1.7 MG/DL (0.1-1.0); BUN/CREATININE RATIO 21; CALCIUM 9.2 MG/DL (8.5-10.1); CARBON DIOXIDE 25 MMOL/L (21-32); CHLORIDE 103 MMOL/L (98-107); CREATININE SERUM 0.76 MG/DL (0.60-1.30); GFR ESTIMATED > 60; GLUCOSE 107 MG/DL (70-105); POTASSIUM 4.4 MMOL/L (3.6-5.0); SODIUM 138 MMOL/L (135-145); TOTAL PROTEIN 5.7 GM/DL (6.4-8.2)
[2019-08-26] MEDS: LOSARTAN 100 MG (COZAAR) TABLET PO SCH (08:07)
[2019-08-26] MEDS: DOCUSATE SODIUM 100 MG (COLACE) CAP PO SCH ×2 (08:07→20:31)
[2019-08-26] MEDS: CYANOCOBALAMIN 1,000 MCG (VITAMIN B-12) TABLET PO SCH (08:07)
[2019-08-26] MEDS: meTOprolol TARTRATE 50 MG (LOPRESSOR) TAB PO SCH ×2 (08:07→20:32)
[2019-08-26] MEDS: VITAMIN D3 1,000 UNITS (CHOLECALCIFEROL) TABLET PO SCH (08:07)
[2019-08-26] MEDS: ASCORBIC ACID (VIT C) 500 MG TABLET PO SCH (08:07)
[2019-08-26] MEDS: MULTIVIT W/MINERALS TAB (THERAGRAN M) PO SCH (08:07)
[2019-08-26] MEDS: ENOXAPARIN 40 MG/0.4 ML (LOVENOX) SYR SC SCH (08:07)
[2019-08-26] MEDS: MICONAZOLE 2% POWDER (DESENEX AF) 90 GM TOP SCH ×2 (08:08→20:34)
--- NOTE | 2019-08-26 08:20 | PM&R H&P / Post Admit Assess ---
History of Present Illness HPI/Chief Complaint Chief complaint: Right hip facture s/p uncomplicated repair on 08/22/[address] Benitez. HPI: This is a 79yoWF clinic Pt of Dr. Haney who presents to inpatient rehab in need of intense therapy prior to going home after suffering a fall at the [employer] dinner last , and resulted in right hip fracture s/p repai r by Dr. Benitez on Saturday08/22/19 after blood was obtained for adequate crossmatch of which she did receive 1 unit of blood in surgery. She has done very well at [facility] Hgb 8.6 today on repeat labs, and her bowels are moving, she is using her IS and her prior level of functioning was ambulating without assistive devices and completely independent with ADLs, living with her in [place], so the goal is to resume therapies and intensify to be able to go home with home health. She has indication for IV iron so that will be ordered. She does have some subtle memory deficit, so will evaluate slum score by speech therapy when they see her. Spoke to patient with son at the bedside and she appeared to be overwhelmed so I did speak with therapy and we will go at a slower pace today and allow her to regain her composure and gaining confidence in order to be successful in inpatient rehabilitation. I am waiting on the slums score since her memory deficit that I identified at the very beginning at [facility] appears to be a factor in slow recovery. Source: patient, RN/MD, old records Exam Limitations: no limitations Date Seen 08/26/19 Time Seen by a Provider: 08:30 Attending Physician Joanne Escobar DO PCP Anaid Haney MD Referring Physician Date of Admission Aug 25, 2019 at 12:04 Home Medications & Allergies Home Medications Reviewed patient Home Medication Reconciliation performed by pharmacy medication reconciliations orthodontic lab technician and/or nursing. Patients Allergies have been reviewed. Allergies Allergies Coded Allergies lisinopril (Verified Adverse Reaction, Unknown, COUGH, 08/25/19) Past Mminric-Hkxsub-Aidumw Hx Past Med/Social Hx: Reviewed Nursing Past Med/Soc Hx, Reviewed and Corrections made Patient Social History Marrital Status: Employed/Student: retired Alcohol Use: Denies Use Recreational Drug Use: No Smoking Status: Never a Smoker Physical Abuse Screen: No Sexual Abuse: No Recent Foreign Travel: No Contact w/other who traveled: No Recent Hopitalizations: No Recent Infectious Disease Expo: No Immunizations Up To Date Pediatric: No Date of Pneumonia Vaccine: Jul 28, 2019 Date of Influenza Vaccine: Jul 28, 2019 Seasonal Allergies Seasonal Allergies: Yes Past Medical History Surgeries: Orthopedic (08/22/[address] Benitez) Currently Using CPAP: No Currently Using BIPAP: No Cardiac: Hypertension Sexually Transmitted Disease: No HIV/AIDS: No Female Reproductive Disorders: Denies Musculoskeletal: Fractures Did You Recieve Any Treatments: No History of Blood Disorders: No Adverse Reaction to Blood Bell: No Family History No Pertinent Family Hx Review of Systems Constitutional: see HPI, weakness EENTM: no symptoms reported Respiratory: no symptoms reported Cardiovascular: no symptoms reported Gastrointestinal: no symptoms reported Genitourinary: no symptoms reported Musculoskeletal: joint pain (right hip) Psychiatric/Neurological: Anxiety All Other Systems Reviewed Negative Unless Noted: Yes Physical Exam Exam Vital Signs Vital Signs Date Time Temp Pulse Resp B/P (MAP) Pulse Ox O2 Delivery O2 Flow Rate FiO2 08/26/19 05:26 37.1 81 16 130/70 (90) 97 Room Air Capillary Refill : Less Than 3 Seconds General Appearance: No Apparent Distress, WD/WN, Chronically ill HEENT: PERRL/EOMI, Normal ENT Inspection, Pharynx Normal, Moist Mucous Membranes Neck: Full Range of Motion, Normal Inspection, Non Tender, Supple Respiratory: Chest Non Tender, Lungs Clear, Normal Breath Sounds, No Accessory Muscle Use, No Respiratory Distress Cardiovascular: Regular Rate, Rhythm, No Edema, No Gallop, No JVD, No Murmur Gastrointestinal: Normal Bowel Sounds, No Organomegaly, No Pulsatile Mass, Non Tender, Soft Back: Normal Inspection, No CVA Tenderness, No Vertebral Tenderness Extremity: Normal Capillary Refill, Normal Inspection, Normal Range of Motion (except right leg due to hip fracture repair pain), Non Tender, No Calf Tenderness, No Pedal Edema Neurologic/Psychiatric: Alert, Oriented x3, No Motor/Sensory Deficits (right leg weakness 3/5 limited ROM), Normal Mood/Affect Skin: Normal Color, Warm/Dry Lymphatic: No Adenopathy Results Results/Procedures Labs Laboratory Tests 08/26/19 04:30 08/26/19 04:40 Patient resulted labs reviewed. Assessment/Plan Assessment and Plan Assess & Plan/Chief Complaint Assessment: s/p right hip fracture repair following fall POD # 4 HTN Memory loss? Post op delirium Post op anemia Mild elevation in ALT Decreased albumin Plan: Monitor hgb Iron IRF protocol but slower pace today since she was overwhelmed yesterday Pain meds BM regimen (1) Hypertension (2) Memory deficit (3) Postoperative anemia (4) Transfusion of blood during current hospitalisation (5) Delirium (6) Fall (7) Hip fracture, right (8) Abnormal albumin (9) ALT (SGPT) level raised Post Admission Physician Asses Date seen by provider: Aug 26, 2019 Time seen by provider: 08:30 Admisison Dx: (1) Hip fracture, right The preadmission screen agrees with the post admission assessment that the patient is a good candidate for inpatient rehabilitation. The patient will have a comprehensive program of inpatient rehabilitation with a goal of maximizing level of functional independence prior to discharge home with . The patient will have PT/OT ninety minutes per day, each discipline, five days a week for gait, strengthening, conditioning, balance, ADLs, any patient/family/caregiver training as necessary. Speech therapy to do cognitive assessment and treat as indicated. Rehabilitation nursing to assist with bowel, bladder, skin, wound care, medication administration, pain management. Speedboat Operator to assist with discharge planning, community reentry. SCD's for DVT prophylaxis. She appears to be well motivated to participate in three hours of therapy a day. She should be able to tolerate three hours of therapy a day from a medical standpoint. She should benefit from the three hours of therapy a day. She has a reasonable discharge plan, reasonable discharge rehabilitation goals and a supportive family. She has various comorbidities that need to be closely monitored with medications and treatments adjusted on a daily basis as needed. These include: see list Barriers to discharge for this patient who had been independent prior to this are for her to be modified independent to supervision for ADLs and mobility skills prior to discharge home with , so as to lessen the burden of the caregivers. Risks for this patient include: 1. Fall 2. Fracture 3. DVT 4. Pulmonary embolism 5. Wound infection 6. Skin breakdown 7. Contractures 8. Poorly controlled pain 9. Urinary retention 10. UTI 11. Respiratory infection 12. Aspiration Estimated Length of Stay: 14 days Prognosis: Rehab prognosis appears good for goal of discharge home with modified independent to supervision for ADLs and mobility skills. JOANNE ESCOBAR DO Aug 26, 2019 08:20 POS
--- NOTE | 2019-08-26 08:30 | NUR ---
maparviz left on this worker's phone at 20:59, last night, stating, "My mother had rehab today and she had a very, very bad experience with it. The one doing rehab with her took it as being mean to her and after she had done the rehab couldn't hardly stand up as it is. I don't know what's going on, but I need something to get straightened out as it is. Like I said, I don't want to have this starting off the very first day of a bad experience and the next ten days she has a bad experience all together." The Hotel Assistant General Manager assigned to this patient has been informed.
--- NOTE | 2019-08-26 08:49 | Physical Therapy Daily Note ---
PT Daily Note-Current Subjective Patient is in bed and agrees to PT at this time. Patient reports that she feels uncomfortable and restrained with abduction pillow. Pain Numeric Pain Scale: 6 Location: Right Location Body Site: Hip Pain Description: Ache Mental Status Patient Orientation: Person, Place, Time, Situation, Normal For Age Attachments: Other-See Comments (hip abd pillow) Transfers SCALE: Activities may be completed with or without assistive devices. 0-Tfclazzrmp-iuvidle completes the activity by him/herself with no assistance from a helper. 5-Set-up or Clean-up Assistance-helper sets up or cleans up; patient completes activity. [place] assists only prior to or following the activity. 4-Supervision or Touching Assistance-helper provides verbal cues and/or touching/steadying and/or contact guard assistance as patient completes activity. Assistance may be provided throughout the activity or intermittently. 3-Partial/Moderate Assistance-helper does LESS THAN HALF the effort. [place] lifts, holds or supports trunk or limbs, but provides less than half the effort. 2-Substantial/Maximal Assistance-helper does MORE THAN HALF the effort. [place] lifts or holds trunk or limbs and provides more than half the effort. 6-Oycealmio-tojvhn does ALL the effort. Patient does none of the effort to complete the activity. Or, the assistance of 2 or more helpers is required for the patient to complete the activity. If activity was not attempted, code reason: 7-Patient Refused. 9-Not Applicable-not attempted and the patient did not perform the activity before the current illness, exacerbation or injury. 10-Not Attempted due to Environmental Limitations-(lack of equipment, weather restraints, etc.). 88-Not Attempted due to Medical Conditions or Safety Concerns. Transfers (B, C, W/C): 3 Roll Left to Right (QC): 3 Sit to Stand (QC): 3 (required raised bed to accomplish) Weight Bearing Right Lower Extremity: Right Weight Bearing/Tolerated Left Lower Extremity: Left Full Weight Bearing Gait Training Does the Patient Walk?: Yes Gait: 4 Distance: 30' Walk 10 feet (QC): 4 Gait Assistive Device: FWW Step through pattern, antalgic gait, lacked hip extension, uneven step length Exercises Supine Ex: Ankle pumps, Quad Set, Glut sets, Heel Slides, Scooting, Straight leg raise, Hip abd/add Supine Reps: 10 hip abd, SLR assisted Assessment Patient tolerated supine exercises well, with limited strength in heel slides and assistance required for SLR and hip abduction. Patient able to sit to EOB with assistance to move RLE and cues to push upper body up. Patient tolerated walking 30' with FWW with antalgic gait and required cues to not step too far into walker for safety. Positioned patient in chair with feet up for comfort and position change. PT Short Term Goals Short Term Goals Time Frame: Sep 01, 2019 Gait Distance Comment: 50' Gait Assistive Device: FWW (CGA) Wheelchair Distance: 150' PT Mcfp Goals Mcfp Goals PT Mcfp Goals Time Frame: Sep 15, 2019 Sit to Lying (QC): 4 (CGA) Lying-Sitting on Side/Bed(QC): 4 (CGA) Sit to Stand (QC): 4 (CGA) Roll Left to Right (QC): 4 (SBA) Chair/Mti-am-Fccqd Xfer(QC): 4 (CGA) Car Transfer (QC): 4 (CGA) Does the Patient Walk: Yes Distance: 150' Walk 10 feet (QC): 4 (SBA) Walk 10ft-Uneven Surface(QC): 4 (CGA) Walk 50ft with 2 Turns (QC): 4 (CGA) Walk 150 ft (QC): 4 (SBA) Gait Assistive Device: FWW Distance: 300' Wheel 50 feet with 2 turns (QC: 4 (SBA) PT Plan Treatment/Plan Treatment Plan: Continue Plan of Care Treatment Plan: Bed Mobility, Concurrent Therapy, Education, Functional Activity Miah, Functional Strength, Group Therapy, Gait, Safety, Therapeutic Exercise, Transfers Frequency: At least 5 of 7 days/Wk (IRF) Estimated Hrs Per Day: 1.5 hours per day Patient and/or Family Agrees t: Yes Safety Risks/Education Patient Education: Gait Training, Transfer Techniques, Correct Positioning, Disease Process, Safety Issues Teaching Recipient: Patient Teaching Methods: Demonstration, Discussion Response to Teaching: Verbalize Understanding, Return Demonstration Time/GCodes Time In: 800 Time Out: 845 Total Billed Treatment Time: 45 Total Billed Treatment 1 visit EX 15min GT 15min FA 15min JOHN ROMAN PTA Aug 26, 2019 08:49 POS
--- NOTE | 2019-08-26 09:07 | NUR ---
Met with patient and her son, Geremias, to compete initial assessment and to address concerns regarding intensity of therapy (see note entered by BEN Beard). Explained Medicare criteria guidelines for inpatient rehab to patient and her son; both verbalized understanding. Reassured patient and her son that the goal of therapy was to improve level of function and address deficits to ensure a safe discharge home. Both the patient and her son verbalized understanding and the patient stated, "I just want to go home." Provided encouragement and support to patient. Patient reported she lives at home with her spouse, Adal. The home is single-level with level entry. Patient reported she was independent with functional mobility and ADLs prior to hospitalization. Patient and her son report they have the following adaptive equipment at home available for use: FWW, 4WW, manual wheelchair, shower chair, BSC, hypoid gear tester and sock aid. Patient's son, Geremisa, lives across the street from the patient and is able to provided assistance as needed. Patient also has a daughter who lives in [place], [place] and is a nurse practitioner. Patient's preferred pharmacy is [facility] in [place]. Patient confirmed her PCP as Dr. Haney. She confirmed her primary insurance as Medicare with [employer] supplement secondary. Patient's son reported they would like to utilize [facility] at discharge. The weekly team conference was discussed with the patient and her son and both verbalized understanding.
--- NOTE | 2019-08-26 10:01 | Progress Note ---
NOELLE MCDOWELL MED STUDENT 08/26/19 1001: Progress Note CC: s/p total R hip replacement * Vitals: HR 81, RR 16, BP 130/7 * When seen today, she complains of being woken up at 2 in the morning, and hasn't slept well since. * Reports that her PT session yesterday was very rough on her, she had a lot of R hip pain * Complains of R hip pain when active but not at rest, complains of mild R knee pain at rest, which she reports is located on the medial and inferior knee, but has difficulty describing the qualities of the pain. The knee does not hurt on palpation. * Concerned about her family not being able to visit her, has not seen her in 4 days. Reports she did not eat breakfast due to anxiousness, but normally doesn't eat breakfast anyway. * Nursing reports dressing on R hip incision peeled away from skin and adhesive material stuck to itself, slight serosanguineous drainage noted on dressing. Nursing cleaned staple line with alcohol and applied new island dressing. * Noted patient seemed confused at times, somewhat overwhelmed by changing hospitals and by going to therapy. * Denies fevers/chills, headaches, congestion, cough, SOB, CP, palpitations, N/V, abdominal pain, constipation, diarrhea, dysuria, hematuria, paresthesias, numbness or tingling * On auscultation, lungs CTAB, heart RRR with no gallops or murmurs. * 2+ pedal pulses bilaterally, no pedal edema, no LE edema, no calf pain on palpation * Labs: iron level pending, Hgb 9.7, Hct 30, glucose 107, creatinine 0.76 JOANNE ESCOBAR DO 08/26/19 1644: Supervisory-Addendum Brief Verification & Attestation Participated in pt care: history, MDM, physical Personally performed: exam, history, MDM, supervision of care Care discussed with: Medical Student Procedures: n/a Results interpretation: Verified all documentation Verification and Attestation of Medical Student E/M Service A medical student performed and documented this service in my presence. I reviewed and verified all information documented by the medical student and made modifications to such information, when appropriate. I personally performed the physical exam and medical decision making. Joanne Escobar, Aug 26, 2019,16:47 NOELLE MCDOWELL STUDENT Aug 26, 2019 10:01 JOANNE PATEL DO Aug 26, 2019 16:44 POS
--- NOTE | 2019-08-26 10:31 | Occupational Ther Daily Note ---
OT Current Status-Daily Note Subjective Pt sitting in chair, agrees to treatment. Pt states she has been up since 2a.m. and is tired this morning. Pt reports pain in right hip, but does not rate. ADL-Treatment Pt declined to shower today, but agrees to sponge bath. Sit to stand from chair with min assist. Gait to restroom with FWW, slow pace. Sponge bath completed seated at sink. Upper body bathing completed with SBA. Pt able to wash bilateral upper legs and mayo area, but requires assist for lower legs/feet and buttocks. Pt unable to recall hip precautions and requires cues during ADL tasks. Pt donned pullover shirt with set up. Reviewed use of adaptive equipment for LE dressing. Pt required max assist overall to don underwear and pants using tungsten refiner to start over feet. Pt stood with min assist during pant hike. Pt donned socks with mod assist using sock aid. Transfer to [facility] over toilet with min assist. Pt requires assist for thorough hygiene and to manage clothing. Pt requires increased time for ADL tasks. Pt sitting in chair with needs met after session. Therapy Code Descriptions/Definitions Functional Edwards Measure: 0=Not Assessed/NA 4=Minimal Assistance 1=Total Assistance 5=Supervision or Setup 2=Maximal Assistance 6=Modified Edwards 3=Moderate Assistance 7=Complete IndependenceSCALE: Activities may be completed with or without assistive devices. 7-Rocnazfwai-bgracol completes the activity by him/herself with no assistance from a helper. 5-Set-up or Clean-up Assistance-helper sets up or cleans up; patient completes activity. [place] assists only prior to or following the activity. 4-Supervision or Touching Assistance-helper provides verbal cues and/or touching/steadying and/or contact guard assistance as patient completes activity. Assistance may be provided throughout the activity or intermittently. 3-Partial/Moderate Assistance-helper does LESS THAN HALF the effort. [place] lifts, holds or supports trunk or limbs, but provides less than half the effort. 2-Substantial/Maximal Assistance-helper does MORE THAN HALF the effort. [place] lifts or holds trunk or limbs and provides more than half the effort. 6-Blqtdsvwe-ozdseu does ALL the effort. Patient does none of the effort to complete the activity. Or, the assistance of 2 or more helpers is required for the patient to complete the activity. If activity was not attempted, code reason: 7-Patient Refused. 9-Not Applicable-not attempted and the patient did not perform the activity before the current illness, exacerbation or injury. 10-Not Attempted due to Environmental Limitations-(lack of equipment, weather restraints, etc.). 88-Not Attempted due to Medical Conditions or Safety Concerns. Shower/Bathe Self (QC): 3 Upper Body Dressing (QC): 5 Lower Body Dressing (QC): 2 Toilet Transfer (QC): 3 Education OT Patient Education: Modified ADL techniques Teaching Recipient: Patient Teaching Methods: Demonstration, Discussion Response to Teaching: Return Demonstration, Reinforcement Needed OT Short Term Goals Short Term Goals Time Frame: Sep 01, 2019 Lower Body Dressing(FIM): 4 Toileting(FIM): 4 Toilet/Commode Transfer(FIM): 4 Additional Short Term Goals: 2-Verbalize Understanding, 3-ImproveStrength/Miah 1=Demonstrate adherence to instructed precautions during ADL tasks. 2=Patient will verbalize/demonstrate understanding of assistive devices/modifications for ADL. 3=Patient will improve strength/tolerance for activity to enable patient to perform ADL's. OT Frame Straightener Goals Frame Straightener Goals Time Frame: Sep 15, 2019 Eating (QC): 6 Oral Hygiene (QC): 6 Shower/Bathe Self (QC): 5 Upper Body Dressing (QC): 6 Lower Body Dressing (QC): 5 On/Off Footwear (QC): 5 Toileting Hygiene (QC): 6 Toilet/Commode Transfer (QC): 6 Additional Goals: 1-Demonstrate ADL Tasks, 2-Verbalize Understanding, 3- ImproveStrength/Miah 1=Demonstrate adherence to instructed precautions during ADL tasks. 2=Patient will verbalize/demonstrate understanding of assistive devices/modifications for ADL. 3=Patient will improve strength/tolerance for activity to enable patient to perform ADL's. OT Education/Plan Discharge Recommendations Plan/Recommendations: Continue POC Treatment Plan/Plan of Care Patient would benefit from OT for education, treatment and training to promote independence in ADL's, mobility, safety and/or upper extremity function for ADL's. Plan of Care: ADL Retraining, Functional Mobility, Group Exercise/Act as Ind, UE Funct Exercise/Act Treatment Duration: Sep 15, 2019 Frequency: At least 5 of 7 days/Wk (IRF) Estimated Hrs Per Day: 1.5 hours per day Rehab Potential: Fair Time/GCodes Start Time: 09:00 Stop Time: 10:00 Total Time Billed (hr/min): 60 Billed Treatment Time 1 visit, ADLx4(60minutes) PEGGY CAO OT Aug 26, 2019 10:31 POS
--- NOTE | 2019-08-26 10:50 | NUR ---
Pastoral care visit.
--- NOTE | 2019-08-26 11:54 | ST Cognitive Linguistic Eval ---
Speech Evaluation-General Medical Diagnosis right total hip replacement Onset Date: Aug 20, 2019 Therapy Diagnosis Therapy Diagnosis: Cognitive-communication Referral Referring Physician: Dr. Mayer Medical History Pertinent Medical History: GERD, HTN, OA Reviewed History: Yes Social History Home: Single Level Current Living Status: Spouse Speech PLF-Current Status Prior Level of Function Patient lived at home with her . She was independent for much of her daily needs. Subjective Patient was cooperative with the cognitive assessment. Language Eval: Auditory Comprehends Simple Yes/No Ques: Functional Indent/Objects [place]: Functional Ident/Pics in [place]: Functional Follows 1-Step Commands: Functional Follows Complex Directions: Mild Follows General Conversations: Functional Language Eval: Verbal Language Completes Spontaneous Greeting: Functional Produces Auto, Serial Info: Functional Imitates Simple Words/Phrases: Functional Word Finding: Mild Requests Basic Needs: Functional States Basic Personal Info: Functional Expresses Complex Ideas: Mild Objective Cognitive Domain Attention: WNL Memory: Moderate Problem Solving: Mild Executive Functions: Mild Visuospatial Skills: Mild Composite Severity Rating: Mild Clock Drawing Severity Rating: WNL Objective Formal/Standardized Tests [facility] Mental Status ([facility]) Results , 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 The UMS was given with the results of . This score places patient in the MNCD range of function which indicates the need for skilled ST. Patient will receive skilled ST for memory, problem solving and safety awareness in order to return home safely. Speech Patient Assess Expression of Ideas/Wants: Exhibits (3) Understanding Verbal Content: Usually Understands (3) Brief Interview-Mental Status: Yes Repetition of Three Words: Three (3) Temporal Orientation: Year: Correct (3) Temporal Orientation: Month: Accurate within 5 days(2) Temporal Orientation: Day: Correct (1) Recall : Wear to say "Sock": No, could not recall (0) Recall : Color: Yes, after cueing (1) Recall : Bed: Yes,after cueing (1) Memory/Recall Ability: Current season, That he or she is in a hsp/hsp unit Speech Short Term Goals Short Term Goals Short Term Goals 1) The patient will complete memory tasks with 90% or greater given 10% cues. 2) The patient will complete problem solving tasks with 90% or greater given 10% cues. 3) The patient will complete safety awareness tasks with 90% or greater given 10% cues. Speech Photo Editor Goals Photo Editor Goals Patient will improve cognitive-communication necessary for safety and daily living tasks with minimal assist. Speech-Plan Patient/Family Goals Patient/Family Goals: The patient plans on returning home post rehab. Treatment Plan Speech Therapy Treatment Plan: Continue Plan of Care Patient will receive skilled ST services for improving cognitive functional level. Treatment Duration: Sep 04, 2019 Frequency: 5 times per week Estimated Hrs Per Day: .5 hour per day Rehab Potential: Fair Barriers to Learning: Patient has mild cognitive deficits. Pt/Family Agrees to Plan: Yes Safety Risks/Education Teaching Recipient: Patient Teaching Methods: Discussion Response to Teaching: Verbalize Understanding Education Topics Provided: Safety within her room and communication of her wants/needs. Time Speech Therapy Time In: 10:00 Speech Therapy Time Out: 10:15 Total Billed Time: 15 Billed Treatment Time 1, SPSNDAVNI [place] Aug 26, 2019 11:54 POS
--- NOTE | 2019-08-26 14:39 | Therapy Group Daily Note ---
Therapy Daily Group Note Patient Education Topic Other List Below (memory and strategies ) Exercises LE Seated Exercise, UE Exercise Session Ratio (pt:therapist): 4:1 Goal of Session: Education on ARU Expectations, Memory Strategies Goal Met for this Session: Yes Pt Benefit of Group: Contributions to Others, Increased Functional Safety, Increased Functional Strength, Improved Cognition, Socialization Other/Notes Pt. participated in group PT OT session . Pt. came went via w/c with assist. Pt. was social and participated sharing name and contributing to exercises session by demonstrating exercises from written illustrated card. Pt. also active participant in memory activity utilizing matching images challenge. Pts were reviewed in the routines and expectations of ARU. Pt. to room after group with assist to bed , call ball at hand Start Time: 13:00 Stop Time: 14:15 Total Billed Treatment Time: 75 Total Billed Treatment 1,GRP JOHN ROMAN HELPDESK SPECIALIST Aug 26, 2019 14:39 POS
--- NOTE | 2019-08-26 15:38 | NUR ---
"RD ASSESSMENT PMHx: HTN PT INTERACTION: Pt was awake and pleasant during nutrition assessment. Pt states current appetite is poor, and attributes to loss of appetite. Note pt has been refusing meals but drinking 2 Ensure a day, per chart review. Pt states following a regular diet at home and having no chewing/swallowing problems at this time. Pt states no issues with n/v/c/d at this time. Last BM was recorded 08/26. Pt states no recent wt changes. Note unable to determine recent wt hx, per chart review. ABNORMAL NUTRITION-RELATED LAB VALUES: glu 107 (H); bili 1.7 (H); AST 50 (H); Pro 5.7 (L); alb 3.0 (L) Est. kcal needs: 2278-5389 kcal (20-25 kcal/kg) Est. Pro needs: 54-68 g Pro (0.8-1.0 g Pro/kg) PES STATEMENT: Inadequate oral intake (NI-2.1) related to loss of appetite as evidenced by pt refusing meals | pt interview INTERVENTION: Continue with current diet order of Heart Healthy diet. Encouraged pt to eat when able. Continue with current supplementation order of Ensure Plus TID. Provides 350 kcal and 13 g Pro per serving. MONITOR/EVALUATE: PO Intake; Plan of Care; Hydration Status; Weight Status; Lab Values Shon Walton, MS, RD, LD Ext. 133"
--- NOTE | 2019-08-26 15:40 | NUR ---
Weekly team conference Attempted to meet with patient to discuss weekly team conference; however, patient has a visitor at bedside. Will attempt to meet with patient tomorrow.
--- NOTE | 2019-08-26 16:49 | Progress Note ---
Progress Note Hgb is 9.7 Albumin3.0 ALT of 60 Had very difficult time with PT yesterday so I did tell therapy to do a slower pace with 157 instead of 15/5 and that will allow her to gain some confidence Son at the bedside and I counseled the need to be patient and I will adjust the structure of PT to allow her the time to rest Did not sleep well after 2:00 had a BM Drinking Ensure but really didn't like breakfast and doesn't usually eat breakfast Conferred with RN Reviewed meds and labs Reviewed therapy notes DANIEL ESCOBAR DO Aug 26, 2019 16:49 POS
--- NOTE | 2019-08-26 16:56 | Individualized Plan of Care ---
Individualized Plan of Care Rehab Nursing IPOC Order Admission Date Aug 25, 2019 at 12:04 Current Orders Orders Admission Order(Inpt,Obs,Sdc) (08/25/19 08:54) Vital Signs: Per Unit Policy ( 08,16,00 (08/25/19 08:54) Strategic Planning Consultant-Inpt Rehab Con (08/25/19 08:54) Rehab Nursing Orders-Ipoc (08/25/19 08:54) Physical Therapy Rehab Orders (08/25/19 08:54) Occupational Therapy Rehab Ord (08/25/19 08:54) Speech Therapy Rehab Orders (08/25/19 08:54) Intake & Output 06,14,22 (08/25/19 08:54) Precautions (Aru) (08/25/19 08:54) Weekly Weight WEEK (08/25/19 08:54) Rehab-Intensity Of Therapy (08/25/19 08:54) Initiate Admission Nursing Pro .admission (08/25/19 08:54) Code/Resuscitation (08/25/19 08:54) Initiate Admission Nursing Pro .admission (08/25/19 08:54) Admission Arrival Bed Request (08/25/19 12:04) Follow-Up Appointment (08/25/19 12:23) Weight Bearing Status (08/25/19 12:23) Nursing Communication (Order) (08/25/19 12:23) Staple/Suture Removal ONCE (09/05/19 09:00) Heart Healthy (08/25/19 Lunch) Ensure Plus (08/25/19 Lunch) Hydrocodone/Apap 5/325 Tablet (Lortab 5 (08/25/19 14:00) Hydrocodone/Apap 5/325 Tablet (Lortab 5 (08/25/19 14:15) Acetaminophen Tablet/Caplet (Tylenol T (08/25/19 21:00) Cyanocobalamin Tablet (Vitamin B-12 Tabl (08/26/19 09:00) Docusate Sodium Capsule (Colace Capsule) (08/25/19 21:00) Losartan Tablet (Cozaar Tablet) (08/26/19 09:00) [place] 3 Capsule (Fish Oil Capsule) (08/25/19 21:00) Amlodipine Tablet (Norvasc Tablet) (08/25/19 21:00) Ascorbic Acid Tablet (Vitamin C Tablet) (08/26/19 09:00) Cholecalciferol Capsule/Tablet (Vitamin (08/26/19 09:00) Citalopram Tablet (Celexa Tablet) (08/26/19 09:00) Metoprolol Tartrate (Ir) Tab (Lopressor (08/25/19 21:00) Therapeutic Multivitamin Tab (Vitamins, (08/26/19 07:00) Miconazole 2% Powder (Desenex Af 2% Powd (08/25/19 21:00) Ambulate 08,12,20 (08/25/19 15:55) Sequential Compression Device Q4H (08/25/19 15:55) Dvt/Vte Risk - Notifiy Physici Q4H (08/25/19 15:55) Patient Visit (08/25/19 ) Pt Eval Moderate Complexity (08/25/19 ) Wheelchair Mgmt/Propulsn 15min (08/25/19 ) Gait Training, Ea 15 Min (08/25/19 ) Exercise Therap, Ea 15 Min (08/25/19 ) Cbc With Automated Diff (08/26/19 06:00) Comprehensive Metabolic Panel (08/26/19 06:00) Iron Test (Fe) (08/26/19 06:00) Enoxaparin Injection (Lovenox Injection) (08/26/19 09:00) Patient Visit (08/26/19 ) Speech Sound Lang Comp (08/26/19 ) Patient Visit (08/26/19 ) Gait Training, Ea 15 Min (08/26/19 ) Exercise Therap, Ea 15 Min (08/26/19 ) Functional Activities, Ea 15 (08/26/19 ) Therapeutic, Group (08/26/19 ) Iron Sucrose Injection (Venofer Injectio (08/27/19 09:00) Knee, Right, 3 Views (08/27/19 08:55) Patient Visit (08/27/19 ) Exercise Therap, Ea 15 Min (08/27/19 ) Gait Training, Ea 15 Min (08/27/19 ) Functional Activities, Ea 15 (08/27/19 ) Patient Visit (08/27/19 ) Treat. Speech/Lang/Voice (08/27/19 ) Rehab Nursing Orders: Ongoing Assess. of Cognitive Status, Ongoing Assess. of Function Status, Bladder Management, Bladder Scan, Bladder Training, Bowel Management, Bowel Training, Disease Management & Educaiton, DVT Prophylaxis, Fall Prevention, Fluid/Electrolyte/Nutrition Mgmt, Infection Prevention, Medication Management & Education, Management of Risks & Complications, Management of Skin Intergrity, Nutrition Management, Pain Management, Patient/Family Support, Safety Management Intensity of Therapy to be met Patient to be seen: 15 hrs over 7 cons. days PT IPOC Problem List: Activity Tolerance, Functional Strength, Safety, Balance, Gait, Transfer, Bed Mobility, ROM Treatment Plan: Continue Plan of Care Bed Mobility, Concurrent Therapy, Education, Functional Activity Miah, Functional Strength, Group Therapy, Gait, Safety, Therapeutic Exercise, Transfers Treatment Duration: Aug 26, 2019 Frequency: At least 5 of 7 days/Wk (IRF) Estimated Hrs Per Day: 1.5 hours per day OT IPOC Problems: Decreased Activ Tolerance, Decreased UE Strength, Impaired Coordination, Impaired Funct Balance, Impaired I ADL's, Impaired Self-Care Skills OT Treatment, Training and Edu: Yes Plan of Care: ADL Retraining, Functional Mobility, Group Exercise/Act as Ind, UE Funct Exercise/Act Treatment Duration: Sep 15, 2019 Frequency: At least 5 of 7 days/Wk (IRF) Estimated Hrs Per Day: 1.[address] IPOC Speech Therapy Treatment Plan: Continue Plan of Care Treatment Duration: Sep 04, 2019 Frequency: 5 times per week Estimated Hrs Per Day: .5 hour per day Strategic Planning Consultant/Case Mgmt Strategic Planning Consultant/Case Managemen: Discharge Planning Dietitian/Senior Lead Java Developer Dietitian/Senior Lead Java Developer to monitor nutritional status and make changes and/or recommendations as needed and work with speech pathology on dietary upgrades as the occur. Physician IPOC Medical Issues being managed closely and that require the 24 hour availability of a physician: Memory loss with anemia will require close monitoring of BP Medical Issues: Bowel/Bladder Function, DVT Prophylaxis, Falls Precautions, Fluid/Electrolyte/Nutrition Balance, Pain Management Brief Synthesis of Preadmission Screen, Post-Admission Evaluation, and Therapy Evaluations: PT will focus on regaining ambulation with walker OT will help ADL independence ST will focus on cognition Medical Prognosis: Good Anticipated Length of Stay: 14 days DANIEL ESCOBAR DO Aug 26, 2019 16:56 POS
[2019-08-26 18:13] VITALS: BP 133/73
--- NOTE | 2019-08-26 19:32 | Consultation ---
History of Present Illness History of Present Illness Patient Consulted On(krystina/time) 08/26/19 19:32 Date Seen by Provider: Aug 26, 2019 Time Seen by Provider: 19:00 Reason for Visit: HIP FRACUTRE AFTER CARE History of Present Illness PT IS A 79 Y/O FEMALE WHO IS KNOWN TO ME FROM CLINIC. SHE REPORTS THAT SHE WAS AT [employer] CLEANING UP AFTER A DINNER WHEN SHE WAS CARRYING HER FOOD CONTAINERS AROUND A TABLE. SHE REPORTS THAT HER FOOT GOT CAUGHT IN THE HANDLES OF A BAG THAT HAD BEEN PLACED AT THE EDGE OF THE TABLE AND SHE FELL DOWN TO THE FLOOR HITTING HER RIGHT HIP AND SUSTAINING A FRACTURE OF THE RIGHT HIP. SHE STATES THAT SHE HAD HIP FRACTURE REPAIR ON 08/22/19 AND WAS TRANSFERRED TO VIA [facility] FOR INTENSIVE THERAPY PRIOR TO GOING HOME SINCE SHE CARES FOR HER IN THEIR HOME. Allergies and Home Medications Allergies Coded Allergies: lisinopril (Verified Adverse Reaction, Unknown, COUGH, 08/25/19) Home Medications Acetaminophen 325 Mg Tablet, 650 MG PO HS, (Reported) TAKES 2 (325MG) TABLETS Amlodipine Besylate 10 Mg Tablet, 10 MG PO HS, (Reported) Ascorbate Calcium 500 Mg Tablet, 1,000 MG PO DAILY, (Reported) TAKES 2 (500MG) TABLETS Cholecalciferol (Vitamin D3) 1,000 Unit Capsule, 2,000 UNIT PO DAILY, (Reported) Cyanocobalamin (Vitamin B-12) 1,000 Mcg Tablet, 1,000 MCG PO DAILY, (Reported) Diclofenac Sodium 100 Gm Gel..gram., TOP QID, (Reported) APPLY TO BOTH HANDS AND KNEES Docusate Sodium 100 Mg Capsule, 100 MG PO BID, (Reported) Escitalopram Oxalate 5 Mg Tablet, 5 MG PO DAILY, (Reported) Fluticasone Propionate 16 Gm [place].susp, 2 SPRAYS NS DAILY PRN for ALLERGIES, (Reported) Losartan Potassium 100 Mg Tablet, 100 MG PO DAILY, (Reported) Meloxicam 15 Mg Tablet, 15 MG PO DAILY, (Reported) Metoprolol Tartrate 100 Mg Tablet, 100 MG PO BID, (Reported) Nystatin 1 Each Powder.ea., TOP TID PRN for RASH, (Reported) [place] 3 Polyunsat Fatty Acids 1,000 Mg Cap, 1,000 MG PO HS, (Reported) Vit A/C/E/Zinc/Selenium/Copper 1 Each Tablet, 1 TAB PO DAILY, (Reported) Patient Home Medication List Home Medication List Reviewed: Yes Past Uvnnpbs-Yyfwzj-Ujzpbz Hx Past Med/Social Hx: Reviewed Nursing Past Med/Soc Hx, Reviewed and Corrections made Patient Social History Alcohol Use: Denies Use Recreational Drug Use: No Smoking Status: Never a Smoker 2nd Hand Smoke Exposure: No Recent Foreign Travel: No Contact w/Someone Who Travel: No Recent Infectious Disease Expo: No Recent Hopitalizations: No Immunizations Up To Date PED Vaccines UTD: No Date of Pneumonia Vaccine: Jul 28, 2019 Date of Influenza Vaccine: Jul 28, 2019 Seasonal Allergies Seasonal Allergies: Yes Past Medical History Surgeries: No Orthopedic (08/22/[address] Benitez) Respiratory: No Currently Using CPAP: No Currently Using BIPAP: No Cardiac: No Hypertension Neurological: No Female Reproductive Disorders: Denies Sexually Transmitted Disease: No HIV/AIDS: No Genitourinary: No Gastrointestinal: No Musculoskeletal: No Fractures Endocrine: No HEENT: No Cancer: No Did You Recieve Any Treatments: No Psychosocial: No Integumentary: No Blood Disorders: No Adverse Reaction/Blood Tranf: No Family Medical History Reviewed Nursing Family Hx No Pertinent Family Hx Review of Systems-General Constitutional: No chills, No fever, No malaise, No weakness EENTM: No hoarseness, No throat pain Respiratory: No cough, No dyspnea on exertion, No short of breath Cardiovascular: No chest pain, No palpitations Gastrointestinal: No abdominal pain, No constipation, No diarrhea, No nausea, No vomiting Genitourinary: no symptoms reported Musculoskeletal: No back pain; joint pain (RIGHT HIP) Skin: no symptoms reported Psychiatric/Neurological: Denies Anxiety, Denies Depressed; Weakness All Other Systems Reviewed Negative Unless Noted: Yes Physical Exam-General Problems Physical Exam Vital Signs Vital Signs - First Documented 08/25/19 12:00 Temp 37.0 Pulse 82 Resp 18 B/P (MAP) 122/72 (89) Pulse Ox 97 O2 Delivery Room Air Capillary Refill : Less Than 3 Seconds General Appearance: WD/WN, no apparent distress Eyes: Bilateral Eye Normal Inspection, Bilateral Eye PERRL, Bilateral Eye EOMI HEENT: PERRL/EOMI, pharynx normal Neck: non-tender, full range of motion, supple, normal inspection Respiratory: chest non-tender, lungs clear, normal breath sounds Cardiovascular: regular rate, rhythm Gastrointestinal: normal bowel sounds, non tender, soft, no organomegaly, no pulsatile mass Back: normal inspection Extremities: normal capillary refill, other (DECREASED MOVEMENT RIGHT LEG AT HIP) Neurologic/Psychiatric: registrar museum II-XII nml as tested, no motor/sensory deficits, alert, normal mood/affect, oriented x 3 Skin: normal color, warm/dry Lymphatic: no adenopathy Assessment/Plan Assessment/Plan Admission Diagnosis/Plan STATUS POST RIGHT HIP FRACTURE WITH REPAIR HYPERTENSION HYPERLIPIDEMIA DEPRESSION CHRONIC OSTEOARTHRITIS CHRONIC CONSTIPATION STATUS POST RIGHT HIP FRACTURE WITH REPAIR - PT IS PARTICIPATING IN THERAPY - HAD TO DECREASE THE INTENSITY A LITTLE DINA WAS FEELING A LITTLE OVERWHELMED BY THE INTENSITY OF THE ACTIVITY. - CONTINUE WITH PT/OT/REC THERAPY HYPERTENSION - PT'S HOME REGIMEN HAS BEEN RE-INITIATED- MONITOR BLOOD PRESSURE HYPERLIPIDEMIA - CONTINUE WITH FISH OIL SUPPLEMENTATION DEPRESSION - PT ON LEXAPRO OUTPATIENT - WILL BE ON CELEXA INPATIENT AND RESTART UPON DISCHARGE HER USUAL LEXAPRO DOSING. CHRONIC OSTEOARTHRITIS - PT ON MELOXICAM OUTPATIENT CHRONIC CONSTIPATION Admission Status: Inpatient Order (span 2 midnights) Reason for Inpatient Admission: INPT REHAB UNIT Clinical Quality Measures DVT/VTE Risk/Contraindication: Risk Factor Score Per Nursin RFS Level Per Nursing on Admit: 4+=Very High BEL GRAY MD Aug 26, 2019 19:32 POS
[2019-08-26] MEDS: amLODIPine 10 MG (NORVASC) TAB PO SCH (20:31)
[2019-08-26] MEDS: OMEGA 3 (FISH OIL) 1000 MG CAP PO SCH (20:32)
[2019-08-26] MEDS: ACETAMINOPHEN 325 MG TABLET PO SCH (20:32)
[2019-08-27] MEDS: MULTIVIT W/MINERALS TAB (THERAGRAN M) PO SCH (05:29)
[2019-08-27] MEDS: HYDROcodone/APAP 5 MG/325 MG (LORTAB) TAB PO PRN ×3 (05:29→17:51)
[2019-08-27 05:30] VITALS: BP 159/93
--- NOTE | 2019-08-27 09:12 | Occupational Ther Daily Note ---
OT Current Status-Daily Note Subjective Pt sleeping in bed, woke to name. Pt agrees to therapy. Pt c/o pain though does not rate, reported to nrsg and nrsg brought pain medications. Mental Status/Objective Patient Orientation: Person, Place, Time, Situation Attachments: IV ADL-Treatment Pt agrees to shower. Min A supine to sitting with HOB elevated. With bed raised, sit to stand with CGA, lower surfaces pt requires max A. Pt ambulated to bathroom using FWW, CGA. CGA stand to sit for toilet transfer, min A sit to stand toilet transfer. CGA to manipulate clothing and cleansing self. Min A for shower transfer using shower bench, grabbars and FWW. Pt complete all bathing/drying in sitting, assist only for lower legs/feet. Donned/doffed upper body clothing by self after set up. Pt required continued education to use AE for lower body clothing appropriately. Physical cues for placement and position of equipment to don/doff lower body clothing. CGA in standing to hike pants over hips. Modified independent sitting at sink to complete oral care. Therapy Code Descriptions/Definitions Functional [place] Measure: 0=Not Assessed/NA 4=Minimal Assistance 1=Total Assistance 5=Supervision or Setup 2=Maximal Assistance 6=Modified [place] 3=Moderate Assistance 7=Complete IndependenceSCALE: Activities may be completed with or without assistive devices. 2-Svxmjusjyz-outwiee completes the activity by him/herself with no assistance from a helper. 5-Set-up or Clean-up Assistance-helper sets up or cleans up; patient completes activity. [place] assists only prior to or following the activity. 4-Supervision or Touching Assistance-helper provides verbal cues and/or touching/steadying and/or contact guard assistance as patient completes activity. Assistance may be provided throughout the activity or intermittently. 3-Partial/Moderate Assistance-helper does LESS THAN HALF the effort. [place] lifts, holds or supports trunk or limbs, but provides less than half the effort. 2-Substantial/Maximal Assistance-helper does MORE THAN HALF the effort. [place] lifts or holds trunk or limbs and provides more than half the effort. 4-Ndbwabvov-iwepmo does ALL the effort. Patient does none of the effort to complete the activity. Or, the assistance of 2 or more helpers is required for the patient to complete the activity. If activity was not attempted, code reason: 7-Patient Refused. 9-Not Applicable-not attempted and the patient did not perform the activity before the current illness, exacerbation or injury. 10-Not Attempted due to Environmental Limitations-(lack of equipment, weather restraints, etc.). 88-Not Attempted due to Medical Conditions or Safety Concerns. Oral Hygiene (QC): 6 Shower/Bathe Self (QC): 3 Upper Body Dressing (QC): 5 Lower Body Dressing (QC): 2 Toileting Hygiene (QC): 4 Toilet Transfer (QC): 3 Other Treatment Pt ambulated out of room and to [facility] using FWW with CGA then recovery break taken before returning to room. After therapy, pt sitting in recliner with call light/phone in reach. All needs met in room. OT Short Term Goals Short Term Goals Time Frame: Sep 01, 2019 Lower Body Dressing(FIM): 4 Toileting(FIM): 4 Toilet/Commode Transfer(FIM): 4 Additional Short Term Goals: 2-Verbalize Understanding, 3-ImproveStrength/Miah 1=Demonstrate adherence to instructed precautions during ADL tasks. 2=Patient will verbalize/demonstrate understanding of assistive devices/modifications for ADL. 3=Patient will improve strength/tolerance for activity to enable patient to perform ADL's. OT Nursing Home Goals Nursing Home Goals Time Frame: Sep 15, 2019 Eating (QC): 6 Oral Hygiene (QC): 6 Shower/Bathe Self (QC): 5 Upper Body Dressing (QC): 6 Lower Body Dressing (QC): 5 On/Off Footwear (QC): 5 Toileting Hygiene (QC): 6 Toilet/Commode Transfer (QC): 6 Additional Goals: 1-Demonstrate ADL Tasks, 2-Verbalize Understanding, 3- ImproveStrength/Miah 1=Demonstrate adherence to instructed precautions during ADL tasks. 2=Patient will verbalize/demonstrate understanding of assistive devices/modifications for ADL. 3=Patient will improve strength/tolerance for activity to enable patient to perform ADL's. OT Education/Plan Problem List/Assessment Assessment: Decreased Activ Tolerance, Decreased Safety Aware, Decreased UE Strength, Impaired Coordination, Impaired Funct Balance, Impaired Self-Care Skills, Restricted Funct UE ROM Discharge Recommendations Plan/Recommendations: Continue POC Treatment Plan/Plan of Care Patient would benefit from OT for education, treatment and training to promote independence in ADL's, mobility, safety and/or upper extremity function for ADL's. Plan of Care: ADL Retraining, Functional Mobility, Group Exercise/Act as Ind, UE Funct Exercise/Act Treatment Duration: Sep 15, 2019 Frequency: At least 5 of 7 days/Wk (IRF) Estimated Hrs Per Day: 1.5 hours per day Rehab Potential: Fair Time/GCodes Start Time: 08:30 Stop Time: 10:00 Total Time Billed (hr/min): 90 Billed Treatment Time 1 visit-ADL 5 (80 min) FA 1 (10 min) CONOR SAHU Aug 27, 2019 09:12 POS
[2019-08-27] MEDS: CYANOCOBALAMIN 1,000 MCG (VITAMIN B-12) TABLET PO SCH (09:31)
[2019-08-27] MEDS: VITAMIN D3 1,000 UNITS (CHOLECALCIFEROL) TABLET PO SCH (09:32)
[2019-08-27] MEDS: ASCORBIC ACID (VIT C) 500 MG TABLET PO SCH (09:33)
[2019-08-27] MEDS: LOSARTAN 100 MG (COZAAR) TABLET PO SCH (09:33)
[2019-08-27] MEDS: meTOprolol TARTRATE 50 MG (LOPRESSOR) TAB PO SCH ×2 (09:34→20:37)
[2019-08-27] MEDS: DOCUSATE SODIUM 100 MG (COLACE) CAP PO SCH ×2 (09:36→20:37)
[2019-08-27] MEDS: ENOXAPARIN 40 MG/0.4 ML (LOVENOX) SYR SC SCH (09:37)
[2019-08-27] MEDS: MICONAZOLE 2% POWDER (DESENEX AF) 90 GM TOP SCH ×3 (09:37→20:38)
--- NOTE | 2019-08-27 09:39 | NUR ---
Pt denies needing the Desenex powder. States that she doesn't need it anywhere.
--- NOTE | 2019-08-27 10:06 | Progress Note ---
NOELLE MCDOWELL MED STUDENT 08/27/19 1006: Progress Note CC: s/p total R hip replacement * Vitals: HR 74, RR 18, BP 159/93 * When seen today, she continues to report not getting enough sleep, reports waking up frequently during the night * Reports that her PT session yesterday went better. Was taken at a slower pace. * Continues to have R hip pain when active but not at rest * Complains of increase R knee pain today. Yesterday did not hurt to palpation and was located on the medial and inferior knee. Today it was tender to palpation, and she reports it hurts all over. Reports swelling and heat in that leg yesterday. On exam today, R knee was slightly swollen, did not note any heat * Patient seemed more comfortable this morning, settling into routine may help with prior confusion * Denies fevers/chills, headaches, congestion, cough, SOB, CP, N/V, abdominal pain, constipation, diarrhea, dysuria, hematuria, paresthesias, numbness, or tingling * On auscultation, lungs CTAB, heart RRR with no gallops or murmurs. * 2+ pedal pulses bilaterally, no pedal edema, no LE edema, no calf pain on palpation * Labs: iron level 26, Hgb 9.7, Hct 30, glucose 107, creatinine 0.76 JOANNE ESCOBAR DO 08/28/19 0828: Supervisory-Addendum Brief Verification & Attestation Participated in pt care: history, MDM, physical Personally performed: exam, history, MDM, supervision of care Care discussed with: Medical Student Procedures: n/a Results interpretation: Verified all documentation Verification and Attestation of Medical Student E/M Service A medical student performed and documented this service in my presence. I reviewed and verified all information documented by the medical student and made modifications to such information, when appropriate. I personally performed the physical exam and medical decision making. Joanne Escobar, Aug 28, 2019,08:28 NOELLE MCDOWELL MED STUDENT Aug 27, 2019 10:06 JOANNE PATEL DO Aug 28, 2019 08:28 POS
--- NOTE | 2019-08-27 10:34 | Diagnostic Imaging Report ---
INDICATION: Right knee pain. TECHNIQUE: AP and lateral and oblique views of the right knee are obtained. FINDINGS: There is advanced degenerative change of the right knee joint with prominent medial and lateral and patellofemoral joint space narrowing. There is some chondrocalcinosis. There is no acute fracture. There is abnormal soft tissue gas noted in the distal thigh posteriorly, best seen on the lateral view. The possibility of an infectious process is therefore not excluded. 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 Abnormal soft tissue gas is seen in the posterior thigh soft tissues, just posterior to distal femur, raising the possibility of an infectious process. Consider CT or MRI if clinically warranted. Dictated by: Dictated on workstation # [id number]
--- NOTE | 2019-08-27 11:13 | Speech Therapy Daily Note ---
Speech Daily Progress Note Subjective Date Seen by Provider: Aug 27, 2019 Time Seen by Provider: 00:30 Patient was resting in her bed when I entered her room. Patient stated her pain is getting better. Objective Patient completed q/a related to her daily needs at 80% with self correction noted and 20% verbal cuing. Assessment Assessment Current Status: Good Progress Treatment Plan Continue Plan of Care Speech Short Term Goals Short Term Goals Short Term Goals 1) The patient will complete memory tasks with 90% or greater given 10% cues. 2) The patient will complete problem solving tasks with 90% or greater given 10% cues. 3) The patient will complete safety awareness tasks with 90% or greater given 10% cues. Speech Jail Goals Pest Control Pilot Goals Patient will improve cognitive-communication necessary for safety and daily living tasks with minimal assist. Speech-Plan Patient/Family Goals Patient/Family Goals: Patient plans on returning home where she lives with her son and . Treatment Plan Speech Therapy Treatment Plan: Continue Plan of Care Patient was more alert and oriented today. Treatment Duration: Sep 04, 2019 Frequency: 5 times per week Estimated Hrs Per Day: .5 hour per day Rehab Potential: Fair Barriers to Learning: Patient has cognitive deficits. Pt/Family Agrees to Plan: Yes Safety Risks/Education Teaching Recipient: Patient Teaching Methods: Demonstration, Discussion Response to Teaching: Verbalize Understanding, Return Demonstration Education Topics Provided: Continued safety within her room Time Speech Therapy Time In: 10:30 Speech Therapy Time Out: 11:00 Total Billed Time: 30 Billed Treatment Time [id number] ST Aug 27, 2019 11:13 POS
--- NOTE | 2019-08-27 12:04 | NUR ---
Weekly team conference Met with patient to discuss weekly team conference and recommendation to reevaluate patient next Saturday. Patient verbalized understanding and is agreeable to plan.
--- NOTE | 2019-08-27 12:07 | Physical Therapy Daily Note ---
PT Daily Note-Current Subjective Pt laying Supine in bed upon arrival. Pt agrees to PT but reports pain in R hip. Pain Numeric Pain Scale: 7 Location: Right Location Body Site: Hip Pain Description: Ache, Tightness Comment: Pt reports pain in R hip, Nurse notified. Mental Status Patient Orientation: Person, Place, Time, Situation Transfers SCALE: Activities may be completed with or without assistive devices. 8-Sxnxikkdsc-msmqrev completes the activity by him/herself with no assistance from a helper. 5-Set-up or Clean-up Assistance-helper sets up or cleans up; patient completes activity. [place] assists only prior to or following the activity. 4-Supervision or Touching Assistance-helper provides verbal cues and/or touching/steadying and/or contact guard assistance as patient completes activity. Assistance may be provided throughout the activity or intermittently. 3-Partial/Moderate Assistance-helper does LESS THAN HALF the effort. [place] lifts, holds or supports trunk or limbs, but provides less than half the effort. 2-Substantial/Maximal Assistance-helper does MORE THAN HALF the effort. [place] lifts or holds trunk or limbs and provides more than half the effort. 4-Ivtnrukkw-knwnop does ALL the effort. Patient does none of the effort to complete the activity. Or, the assistance of 2 or more helpers is required for the patient to complete the activity. If activity was not attempted, code reason: 7-Patient Refused. 9-Not Applicable-not attempted and the patient did not perform the activity before the current illness, exacerbation or injury. 10-Not Attempted due to Environmental Limitations-(lack of equipment, weather restraints, etc.). 88-Not Attempted due to Medical Conditions or Safety Concerns. Roll Left to Right (QC): 4 Sit to Lying (QC): 4 Sit to Stand (QC): 4 Weight Bearing Right Lower Extremity: Right Weight Bearing/Tolerated Left Lower Extremity: Left Full Weight Bearing Gait Training Does the Patient Walk?: Yes Gait: 4 Distance: 50' x2 Walk 10 feet (QC): 4 Walk 50 ft with 2 Turns(QC): 4 Gait Persons Needed: 1 Gait Assistive Device: FWW Pt walks with slow but steady jorgito. Pt walks with antalgic gait pattern and is encouraged to WBAT. Exercises Supine Ex: Ankle pumps, Quad Set, Glut sets, Heel Slides, Straight leg raise, Hip abd/add Supine Reps: 15 Seated Therapy Exercises: Ankle pumps, Long arc quads, Hip flexion, Kicking activity Seated Reps: 15 Treatments Pt completes Supine Ex in bed with RB as needed. Pt transfers from Supine to EOB needing assistance lifting R LE out of bed. Pt transfers to standing then ambulates in hallway before resting in chair. Pt completes Seated EX before returning to room to rest in bed. SENIOR TECHNICAL BUSINESS ANALYST instructs on importance of sitting up to improve deeper breathing. Pt has all needs met, call light in hand. Assessment Current Status: Fair Progress Pain and anxiety limits pt at this time. SENIOR TECHNICAL BUSINESS ANALYST encourages pt with benefits of PT. PT Short Term Goals Short Term Goals Time Frame: Sep 01, 2019 Gait Distance Comment: 50' Gait Assistive Device: FWW (CGA) Wheelchair Distance: 150' PT Group Home Goals Binding Nicker Goals PT Group Home Goals Time Frame: Sep 15, 2019 Sit to Lying (QC): 4 (CGA) Lying-Sitting on Side/Bed(QC): 4 (CGA) Sit to Stand (QC): 4 (CGA) Roll Left to Right (QC): 4 (SBA) Chair/Hcy-hm-Rsujg Xfer(QC): 4 (CGA) Car Transfer (QC): 4 (CGA) Does the Patient Walk: Yes Distance: 150' Walk 10 feet (QC): 4 (SBA) Walk 10ft-Uneven Surface(QC): 4 (CGA) Walk 50ft with 2 Turns (QC): 4 (CGA) Walk 150 ft (QC): 4 (SBA) Gait Assistive Device: FWW Distance: 300' Wheel 50 feet with 2 turns (QC: 4 (SBA) PT Plan Problem List Problem List: Activity Tolerance, Functional Strength, Safety, Balance, Gait, Transfer, Bed Mobility Treatment/Plan Treatment Plan: Continue Plan of Care Treatment Plan: Bed Mobility, Concurrent Therapy, Education, Functional Activity Miah, Functional Strength, Group Therapy, Gait, Safety, Therapeutic Exercise, Transfers Frequency: At least 5 of 7 days/Wk (IRF) Estimated Hrs Per Day: 1.5 hours per day Patient and/or Family Agrees t: Yes Safety Risks/Education Patient Education: Gait Training, Transfer Techniques, Correct Positioning, Safety Issues Teaching Recipient: Patient Teaching Methods: Discussion Response to Teaching: Verbalize Understanding Time/GCodes Time In: 1100 Time Out: 1145 Total Billed Treatment Time: 45 Total Billed Treatment 1, EX x2 (30m) & GT (15m) ABRAM QUIJANO SENIOR TECHNICAL BUSINESS ANALYST Aug 27, 2019 12:07 POS
--- NOTE | 2019-08-27 13:36 | PM&R Progress Note ---
Subjective HPI/CC On Admission Date Seen by Provider: Aug 27, 2019 Time Seen by Provider: 09:00 Chief complaint: Right hip facture s/p uncomplicated repair on 08/22/[address] Benitez. HPI: This is a 79yoWF clinic Pt of Dr. Haney who presents to inpatient rehab in need of intense therapy prior to going home after suffering a fall at the [employer] dinner last , and resulted in right hip fracture s/p repair by Dr. Benitez on Saturday08/22/19 after blood was obtained for adequate crossmatch of which she did receive 1 unit of blood in surgery. She has done very [place] [facility] [place] 8.6 today on repeat labs, and her bowels are moving, she is using her IS and her prior level of functioning was ambulating without assistive devices and completely independent with ADLs, living with her in [place], so the goal is to resume therapies and intensify to be able to go home with home health. She has indication for IV iron so that will be ordered. She does have some subtle memory deficit, so will evaluate slum score by speech therapy when they see her. Spoke to patient with son at the bedside and she appeared to be overwhelmed so I did speak with therapy and we will go at a slower pace today and allow her to regain her composure and gaining confidence in order to be successful in inpatient rehabilitation. I am waiting on the slums score since her memory deficit that I identified at the very beginning at [facility] appears to be a factor in slow recovery. Subjective/Events-last exam Slower therapy activity is helpful. Drainage of the incision as expected and the dressing is being changed. Iron level is 26, will initiate IV iron as I discussed with her. X-Ray of the right knee will be obtained because since she does have some pain and swelling with that. Bowels are moving. Doesn't eat real well but that is a chronic issue, she does drink ensure. Checked meds and labs Reviewed therapy notes Conferred with box coverer hand of Systems General: Fatigue Musculoskeletal: leg pain Objective Exam Vital Signs Vital Signs Date Time Temp Pulse Resp B/P (MAP) Pulse Ox O2 Delivery O2 Flow Rate FiO2 08/28/19 08:07 79 134/81 (98) 08/28/19 05:05 36.8 16 96 Room Air Capillary Refill : Less Than 3 Seconds General Appearance: No Apparent Distress, WD/WN, Chronically ill HEENT: PERRL/EOMI, Normal ENT Inspection, Pharynx Normal, Moist Mucous Membranes Neck: Full Range of Motion, Normal Inspection, Non Tender, Supple Respiratory: Chest Non Tender, Lungs Clear, Normal Breath Sounds, No Accessory Muscle Use, No Respiratory Distress Cardiovascular: Regular Rate, Rhythm, No Edema, No Gallop, No JVD, No Murmur Gastrointestinal: Normal Bowel Sounds, No Organomegaly, No Pulsatile Mass, Non Tender, Soft Back: Normal Inspection, No CVA Tenderness, No Vertebral Tenderness Extremity: Normal Capillary Refill, Normal Inspection, Normal Range of Motion (except right leg due to hip fracture repair pain), Non Tender, No Calf Tenderness, No Pedal Edema Neurologic/Psychiatric: Alert, Oriented x3, No Motor/Sensory Deficits (right leg weakness 3/5 limited ROM), Normal Mood/Affect Skin: Normal Color, Warm/Dry Lymphatic: No Adenopathy Results/Procedures Lab Patient resulted labs reviewed. FIM Transfers Therapy Code Descriptions/Definitions Functional [place] Measure: 0=Not Assessed/NA 4=Minimal Assistance 1=Total Assistance 5=Supervision or Setup 2=Maximal Assistance 6=Modified [place] 3=Moderate Assistance 7=Complete IndependenceSCALE: Activities may be completed with or without assistive devices. 2-Aamfzkmwdv-ehjubms completes the activity by him/herself with no assistance from a helper. 5-Set-up or Clean-up Assistance-helper sets up or cleans up; patient completes activity. [place] assists only prior to or following the activity. 4-Supervision or Touching Assistance-helper provides verbal cues and/or touc bob/steadying and/or contact guard assistance as patient completes activity. Assistance may be provided throughout the activity or intermittently. 3-Partial/Moderate Assistance-helper does LESS THAN HALF the effort. [place] lifts, holds or supports trunk or limbs, but provides less than half the effort. 2-Substantial/Maximal Assistance-helper does MORE THAN HALF the effort. [place] lifts or holds trunk or limbs and provides more than half the effort. 2-Rzeisygfe-flqkpv does ALL the effort. Patient does none of the effort to complete the activity. Or, the assistance of 2 or more helpers is required for the patient to complete the activity. If activity was not attempted, code reason: 7-Patient Refused. 9-Not Applicable-not attempted and the patient did not perform the activity before the current illness, exacerbation or injury. 10-Not Attempted due to Environmental Limitations-(lack of equipment, weather restraints, etc.). 88-Not Attempted due to Medical Conditions or Safety Concerns. Transfers (B, C, W/C) (FIM): 3 Roll Left to Right (QC): 3 Sit to Lying (QC): 3 (modA for RLE into bed) Sit to Stand (QC): 3 (required raised bed to accomplish) Chair/Dch-ja-Fqrcl Xfer(QC): 3 (mod assist for stepping and turning) Car Transfer (QC): 2 (MaxA) Gait Training Does the Patient Walk?: Yes Gait (FIM): 4 Distance (FIM): 1=up to 49 ft Distance: 30' Walk 10 feet (QC): 4 Walk 50 ft with 2 Turns(QC): 88 Walk 150 ft (QC): 88 Walking 10ft/uneven surface-QC: 88 Gait Assistive Device: FWW Wheelchair Training Does the Pt Use a Wheelchair?: Yes Distance: 150' Wheel 50 ft with 2 turns (QC): 3 (Shawn for steering.) Wheel 150 ft (QC): 3 (Shawn for steering) Type of Wheelchair: Manual Stair Training 1 Step (curb) (QC): 88 4 Steps (QC): 88 12 Steps (QC): 88 Balance Picking up an Object (QC): 88 ADL-Treatment Eating (QC): 6 Oral Hygiene (QC): 6 Shower/Bathe Self (QC): 3 Upper Body Dressing (QC): 5 Lower Body Dressing (QC): 2 Toileting Hygiene (QC): 4 Toilet Transfer (QC): 3 Assessment/Plan Assessment and Plan Assess & Plan/Chief Complaint Assessment: s/p right hip fracture repair following fall POD # 5 HTN Memory loss? Post op delirium Post op anemia Mild elevation in ALT Decreased albumin Plan: Monitor hgb Iron IRF protocol but slower pace is successful Pain meds BM regimen (1) Hip fracture, right (2) Delirium (3) Hypertension (4) Fall (5) Memory deficit (6) Postoperative anemia (7) Transfusion of blood during current hospitalisation (8) Abnormal albumin (9) ALT (SGPT) level raised DANIEL ESCOBAR DO Aug 27, 2019 13:36 POS
--- NOTE | 2019-08-27 15:16 | Physical Therapy Daily Note ---
PT Daily Note-Current Subjective Pt asleep Supine in bed upon arrival. Pt reluctantly agrees to PT stating, "I just can't get my mind awake, give me a minute". Pain Numeric Pain Scale: 7 Location: Right Location Body Site: Hip Pain Description: Ache, Tightness Mental Status Patient Orientation: Person, Place, Time, Situation Transfers SCALE: Activities may be completed with or without assistive devices. 1-Bmseymvgbd-tpcvhsk completes the activity by him/herself with no assistance from a helper. 5-Set-up or Clean-up Assistance-helper sets up or cleans up; patient completes activity. [place] assists only prior to or following the activity. 4-Supervision or Touching Assistance-helper provides verbal cues and/or touching/steadying and/or contact guard assistance as patient completes acti vity. Assistance may be provided throughout the activity or intermittently. 3-Partial/Moderate Assistance-helper does LESS THAN HALF the effort. [place] lifts, holds or supports trunk or limbs, but provides less than half the effort. 2-Substantial/Maximal Assistance-helper does MORE THAN HALF the effort. [place] lifts or holds trunk or limbs and provides more than half the effort. 6-Mpnasqfws-bxaldl does ALL the effort. Patient does none of the effort to complete the activity. Or, the assistance of 2 or more helpers is required for the patient to complete the activity. If activity was not attempted, code reason: 7-Patient Refused. 9-Not Applicable-not attempted and the patient did not perform the activity before the current illness, exacerbation or injury. 10-Not Attempted due to Environmental Limitations-(lack of equipment, weather restraints, etc.). 88-Not Attempted due to Medical Conditions or Safety Concerns. Roll Left to Right (QC): 4 Sit to Lying (QC): 4 Sit to Stand (QC): 4 Weight Bearing Right Lower Extremity: Right Weight Bearing/Tolerated Left Lower Extremity: Left Full Weight Bearing Gait Training Does the Patient Walk?: Yes Gait: 4 Distance: 50' x2 Walk 10 feet (QC): 4 Walk 50 ft with 2 Turns(QC): 4 Gait Persons Needed: 1 Gait Assistive Device: FWW Pt reports fatigue and pain limiting distance of ambulation. Treatments Pt transfers from Supine to EOB with assistance from BLURB WRITER for lifting R LE out of bed. Pt stands then ambulates to restroom. After finishing, pt ambulates in hallway before needing to RB. Pt then ambulates back to room to rest in bed. BLURB WRITER, pt & son discuss progress, benefits of PT and fall prevention techniques and practice of getting up from floor that will be practiced at later date when pt is stronger. Pt has all needs met, call light in hand. Assessment Current Status: Fair Progress Pt is limited by pain which limits participation in Rx. PT Short Term Goals Short Term Goals Time Frame: Sep 01, 2019 Gait Distance Comment: 50' Gait Assistive Device: FWW (CGA) Wheelchair Distance: 150' PT Loss Prevention Agent Goals Nursing Home Goals PT Nursing Home Goals Time Frame: Sep 15, 2019 Sit to Lying (QC): 4 (CGA) Lying-Sitting on Side/Bed(QC): 4 (CGA) Sit to Stand (QC): 4 (CGA) Roll Left to Right (QC): 4 (SBA) Chair/Tgr-un-Nvavm Xfer(QC): 4 (CGA) Car Transfer (QC): 4 (CGA) Does the Patient Walk: Yes Distance: 150' Walk 10 feet (QC): 4 (SBA) Walk 10ft-Uneven Surface(QC): 4 (CGA) Walk 50ft with 2 Turns (QC): 4 (CGA) Walk 150 ft (QC): 4 (SBA) Gait Assistive Device: FWW Distance: 300' Wheel 50 feet with 2 turns (QC: 4 (SBA) PT Plan Problem List Problem List: Activity Tolerance, Functional Strength, Safety, Balance, Gait, Transfer, Bed Mobility Treatment/Plan Treatment Plan: Continue Plan of Care Treatment Plan: Bed Mobility, Concurrent Therapy, Education, Functional Activity Miah, Functional Strength, Group Therapy, Gait, Safety, Therapeutic Exercise, Transfers Frequency: At least 5 of 7 days/Wk (IRF) Estimated Hrs Per Day: 1.5 hours per day Patient and/or Family Agrees t: Yes Safety Risks/Education Patient Education: Gait Training, Transfer Techniques, Correct Positioning, Safety Issues Teaching Recipient: Patient, Family Teaching Methods: Discussion Response to Teaching: Verbalize Understanding Time/GCodes Time In: 1330 Time Out: 1400 Total Billed Treatment Time: 30 Total Billed Treatment 1, FA (15m) & GT (15m) ABRAM QUIJANO BLURB WRITER Aug 27, 2019 15:16 POS
[2019-08-27] MEDS: IRON SUCROSE 200 MG/10 ML (VENOFER) VIAL IV SCH (15:38)
[2019-08-27 17:42] VITALS: BP 148/80
[2019-08-27 20:35] VITALS: BP 151/74
[2019-08-27] MEDS: OMEGA 3 (FISH OIL) 1000 MG CAP PO SCH (20:36)
[2019-08-27] MEDS: amLODIPine 10 MG (NORVASC) TAB PO SCH (20:37)
[2019-08-27] MEDS: ACETAMINOPHEN 325 MG TABLET PO SCH (20:37)
[2019-08-28] MEDS: HYDROcodone/APAP 5 MG/325 MG (LORTAB) TAB PO PRN ×3 (04:16→17:58)
[2019-08-28 05:05] VITALS: BP 154/71
[2019-08-28] MEDS: MULTIVIT W/MINERALS TAB (THERAGRAN M) PO SCH (06:01)
[2019-08-28 08:07] VITALS: BP 134/81
[2019-08-28] MEDS: CYANOCOBALAMIN 1,000 MCG (VITAMIN B-12) TABLET PO SCH (08:08)
[2019-08-28] MEDS: LOSARTAN 100 MG (COZAAR) TABLET PO SCH (08:08)
[2019-08-28] MEDS: meTOprolol TARTRATE 50 MG (LOPRESSOR) TAB PO SCH ×2 (08:08→21:01)
[2019-08-28] MEDS: ENOXAPARIN 40 MG/0.4 ML (LOVENOX) SYR SC SCH (08:09)
[2019-08-28] MEDS: DOCUSATE SODIUM 100 MG (COLACE) CAP PO SCH ×2 (08:09→21:01)
[2019-08-28] MEDS: ASCORBIC ACID (VIT C) 500 MG TABLET PO SCH (08:09)
[2019-08-28] MEDS: VITAMIN D3 1,000 UNITS (CHOLECALCIFEROL) TABLET PO SCH (08:09)
[2019-08-28] MEDS: MICONAZOLE 2% POWDER (DESENEX AF) 90 GM TOP SCH ×2 (08:15→21:06)
--- NOTE | 2019-08-28 10:12 | Occupational Ther Daily Note ---
OT Current Status-Daily Note Subjective Pt sitting in chair, agrees to therapy. Pt reports pain in right hip, but does not rate. ADL-Treatment Pt declined shower today, agrees to sponge bath. Doff shirt without assist. Pt completed upper body bathing with SBA. Pt sit to stand with min assist to pull pants down over hips. Used dressing stick to doff pants over feet and to doff socks. Pt requires skilled cues for technique. Pt able to wash buttocks and mayo area while standing with min assist for balance. Instructed in use of long handled sponge to wash lower legs and feet. Pt able to recall 2/3 hip precautions, but requires cues to follow them during ADL tasks. Don shirt with SBA.Pt used picture enlarger to start underwear and pants over feet with min assist. Stood with min assist for pant hike. Pt donned socks with min assist using sock aid, skilled cues for technique. Pt requires increased time for bathing and dressing tasks. Sit to stand with min assist. Gait to restroom with FWW, slow pace. Pt transferred to [facility] over toilet with CGA. Pt able to manipulate clothing with CGA, min assist for thorough hygiene. Pt stood at sink to wash hands, comb hair, and rinse dentures with SBA. Pt returned to chair with needs met after session. Therapy Code Descriptions/Definitions Functional [place] Measure: 0=Not Assessed/NA 4=Minimal Assistance 1=Total Assistance 5=Supervision or Setup 2=Maximal Assistance 6=Modified [place] 3=Moderate Assistance 7=Complete IndependenceSCALE: Activities may be completed with or without assistive devices. 0-Rqvulhyoue-kwiqlmj completes the activity by him/herself with no assistance from a helper. 5-Set-up or Clean-up Assistance-helper sets up or cleans up; patient completes activity. [place] assists only prior to or following the activity. 4-Supervision or Touching Assistance-helper provides verbal cues and/or touching/steadying and/or contact guard assistance as patient completes activity. Assistance may be provided throughout the activity or intermittently. 3-Partial/Moderate Assistance-helper does LESS THAN HALF the effort. [place] lifts, holds or supports trunk or limbs, but provides less than half the effort. 2-Substantial/Maximal Assistance-helper does MORE THAN HALF the effort. [place] lifts or holds trunk or limbs and provides more than half the effort. 7-Xrwwnyqtm-riajhq does ALL the effort. Patient does none of the effort to complete the activity. Or, the assistance of 2 or more helpers is required for the patient to complete the activity. If activity was not attempted, code reason: 7-Patient Refused. 9-Not Applicable-not attempted and the patient did not perform the activity before the current illness, exacerbation or injury. 10-Not Attempted due to Environmental Limitations-(lack of equipment, weather restraints, etc.). 88-Not Attempted due to Medical Conditions or Safety Concerns. Oral Hygiene (QC): 4 Shower/Bathe Self (QC): 3 Upper Body Dressing (QC): 4 Lower Body Dressing (QC): 3 Toileting Hygiene (QC): 3 Toilet Transfer (QC): 3 Education OT Patient Education: Modified ADL techniques Teaching Recipient: Patient Teaching Methods: Discussion Response to Teaching: Verbalize Understanding, Reinforcement Needed OT Short Term Goals Short Term Goals Time Frame: Sep 01, 2019 Lower Body Dressing(FIM): 4 Toileting(FIM): 4 Toilet/Commode Transfer(FIM): 4 Additional Short Term Goals: 2-Verbalize Understanding, 3-ImproveStrength/Miah 1=Demonstrate adherence to instructed precautions during ADL tasks. 2=Patient will verbalize/demonstrate understanding of assistive devices /modifications for ADL. 3=Patient will improve strength/tolerance for activity to enable patient to perform ADL's. OT Long-Term Goals Certified Registered Locksmith Goals Time Frame: Sep 15, 2019 Eating (QC): 6 Oral Hygiene (QC): 6 Shower/Bathe Self (QC): 5 Upper Body Dressing (QC): 6 Lower Body Dressing (QC): 5 On/Off Footwear (QC): 5 Toileting Hygiene (QC): 6 Toilet/Commode Transfer (QC): 6 Additional Goals: 1-Demonstrate ADL Tasks, 2-Verbalize Understanding, 3- ImproveStrength/Miah 1=Demonstrate adherence to instructed precautions during ADL tasks. 2=Patient will verbalize/demonstrate understanding of assistive devices/modifications for ADL. 3=Patient will improve strength/tolerance for activity to enable patient to perform ADL's. OT Education/Plan Discharge Recommendations Plan/Recommendations: Continue POC Treatment Plan/Plan of Care Patient would benefit from OT for education, treatment and training to promote independence in ADL's, mobility, safety and/or upper extremity function for ADL's. Plan of Care: ADL Retraining, Functional Mobility, Group Exercise/Act as Ind, UE Funct Exercise/Act Treatment Duration: Sep 15, 2019 Frequency: At least 5 of 7 days/Wk (IRF) Estimated Hrs Per Day: 1.5 hours per day Rehab Potential: Fair Time/GCodes Start Time: 09:00 Stop Time: 10:00 Total Time Billed (hr/min): 60 Billed Treatment Time 1 visit, ADLx4(60minutes) PEGGY CAO OT Aug 28, 2019 10:12 POS
--- NOTE | 2019-08-28 10:48 | PM&R Progress Note ---
Subjective HPI/CC On Admission Date Seen by Provider: Aug 28, 2019 Time Seen by Provider: 08:45 Chief complaint: Right hip facture s/p uncomplicated repair on 08/22/[address] Benitez. HPI: This is a 79yoWF clinic Pt of Dr. Haney who presents to inpatient rehab in need of intense therapy prior to going home after suffering a fall at the [employer] dinner last , and resulted in right hip fracture s/p repair by Dr. Benitez on Saturday08/22/19 after blood was obtained for adequate crossmatch of which she did receive 1 unit of blood in surgery. She has done very well at [facility] Hgb 8.6 today on repeat labs, and her bowels are moving, she is using her IS and her prior level of functioning was ambulating without assistive devices and completely independent with ADLs, living with her in [place], so the goal is to resume therapies and intensify to be able to go home with home health. She has indication for IV iron so that will be ordered. She does have some subtle memory deficit, so will evaluate slum score by speech therapy when they see her. Spoke to patient with son at the bedside and she appeared to be overwhelmed so I did speak with therapy and we will go at a slower pace today and allow her to regain her composure and gaining confidence in order to be successful in inpatient rehabilitation. I am waiting on the slums score since her memory deficit that I identified at the very beginning at [facility] appears to be a factor in slow recovery. Subjective/Events-last exam Slower therapy activity is helpful and she feels really good about the fact that she gave herself a shower and wash her hair today A lot more pain in the hip and I think should be present so we'll check x-ray IV iron as tolerated X-Ray of the right knee updated the patient and she reports she was supposed to have the knee replacement many years ago until her fell ill Bowels are moving. Doesn't eat real well but that is a chronic issue, she does drink ensure. Checked meds and labs Reviewed therapy notes Conferred with runway model of Systems Musculoskeletal: leg pain Objective Exam Vital Signs Vital Signs Date Time Temp Pulse Resp B/P (MAP) Pulse Ox O2 Delivery O2 Flow Rate FiO2 08/28/19 08:27 Room Air 08/28/19 08:07 79 134/81 (98) 08/28/19 05:05 36.8 16 96 Capillary Refill : Less Than 3 Seconds General Appearance: No Apparent Distress, WD/WN, Chronically ill HEENT: PERRL/EOMI, Normal ENT Inspection, Pharynx Normal, Moist Mucous Membranes Neck: Full Range of Motion, Normal Inspection, Non Tender, Supple Respiratory: Chest Non Tender, Lungs Clear, Normal Breath Sounds, No Accessory Muscle Use, No Respiratory Distress Cardiovascular: Regular Rate, Rhythm, No Edema, No Gallop, No JVD, No Murmur Gastrointestinal: Normal Bowel Sounds, No Organomegaly, No Pulsatile Mass, Non Tender, Soft Back: Normal Inspection, No CVA Tenderness, No Vertebral Tenderness Extremity: Normal Capillary Refill, Normal Inspection, Normal Range of Motion (except right leg due to hip fracture repair pain), Non Tender, No Calf Tenderness, No Pedal Edema Neurologic/Psychiatric: Alert, Oriented x3, No Motor/Sensory Deficits (right leg weakness 3/5 limited ROM), Normal Mood/Affect Skin: Normal Color, Warm/Dry Lymphatic: No Adenopathy Results/Procedures Lab Patient resulted labs reviewed. FIM Transfers Therapy Code Descriptions/Definitions Functional [place] Measure: 0=Not Assessed/NA 4=Minimal Assistance 1=Total Assistance 5=Supervision or Setup 2=Maximal Assistance 6=Modified [place] 3=Moderate Assistance 7=Complete IndependenceSCALE: Activities may be completed with or without assistive devices. 6-Ctsunblzzd-azrvhrs completes the activity by him/herself with no assistance from a helper. 5-Set-up or Clean-up Assistance-helper sets up or cleans up; patient completes activity. [place] assists only prior to or following the activity. 4-Supervision or Touching Assistance-helper provides verbal cues and/or touching/steadying and/or contact guard assistance as patient completes activity. Assistance may be provided throughout the activity or intermittently. 3-Partial/Moderate Assistance-helper does LESS THAN HALF the effort. [place] lifts, holds or supports trunk or limbs, but provides less than half the effort. 2-Substantial/Maximal Assistance-helper does MORE THAN HALF the effort. [place] lifts or holds trunk or limbs and provides more than half the effort. 2-Nuvmdtbqc-farbsh does ALL the effort. Patient does none of the effort to complete the activity. Or, the assistance of 2 or more helpers is required for the patient to complete the activity. If activity was not attempted, code reason: 7-Patient Refused. 9-Not Applicable-not attempted and the patient did not perform the activity before the current illness, exacerbation or injury. 10-Not Attempted due to Environmental Limitations-(lack of equipment, weather restraints, etc.). 88-Not Attempted due to Medical Conditions or Safety Concerns. Transfers (B, C, W/C) (FIM): 3 Roll Left to Right (QC): 4 Sit to Lying (QC): 4 Sit to Stand (QC): 4 Chair/Ljp-og-Quuih Xfer(QC): 3 (mod assist for stepping and turning) Car Transfer (QC): 2 (MaxA) Gait Training Does the Patient Walk?: Yes Gait (FIM): 4 Distance (FIM): 1=up to 49 ft Distance: 50' x2 Walk 10 feet (QC): 4 Walk 50 ft with 2 Turns(QC): 4 Walk 150 ft (QC): 88 Walking 10ft/uneven surface-QC: 88 Gait Persons Needed: 1 Gait Assistive Device: FWW Wheelchair Training Does the Pt Use a Wheelchair?: Yes Distance: 150' Wheel 50 ft with 2 turns (QC): 3 (Shawn for steering.) Wheel 150 ft (QC): 3 (Shawn for steering) Type of Wheelchair: Manual Stair Training 1 Step (curb) (QC): 88 4 Steps (QC): 88 12 Steps (QC): 88 Balance Picking up an Object (QC): 88 ADL-Treatment Eating (QC): 6 Oral Hygiene (QC): 4 Shower/Bathe Self (QC): 3 Upper Body Dressing (QC): 4 Lower Body Dressing (QC): 3 Toileting Hygiene (QC): 3 Toilet Transfer (QC): 3 Assessment/Plan Assessment and Plan Assess & Plan/Chief Complaint Assessment: s/p right hip fracture repair following fall POD # 6 HTN Memory loss? Post op delirium Post op anemia Mild elevation in ALT Decreased albumin Plan: Monitor hgb Iron IRF protocol but slower pace is successful Pain meds BM regimen Increase pain medication but check right hip x-ray to be sure alignment is okay (1) Hip fracture, right (2) Delirium (3) Hypertension (4) Fall (5) Memory deficit (6) Postoperative anemia (7) Transfusion of blood during current hospitalisation (8) Abnormal albumin (9) ALT (SGPT) level raised DANIEL ESCOBAR DO Aug 28, 2019 10:48 POS
--- NOTE | 2019-08-28 11:14 | Physical Therapy Daily Note ---
PT Daily Note-Current Subjective Pt agreeable to PT session. States she is tired and didn't sleep well at all last night. Pain Numeric Pain Scale: 8 Comment: 8-9/10 R hip with movement, 1-2 at rest, states had pain med early this am Appearance At beginning of session, pt sitting up in recliner with LE's elevated, awake and alert. At end of session, pt sitting up in recliner with LE's elevated, call light, phone and bedside table within reach Mental Status Patient Orientation: Person, Place, Time, Eyes Open, Situation Attachments: [place] Transfers SCALE: Activities may be completed with or without assistive devices. 9-Iehvxapkwv-yjxntzt completes the activity by him/herself with no assistance from a helper. 5-Set-up or Clean-up Assistance-helper sets up or cleans up; patient completes activity. [place] assists only prior to or following the activity. 4-Supervision or Touching Assistance-helper provides verbal cues and/or touching/steadying and/or contact guard assistance as patient completes activity. Assistance may be provided throughout the activity or intermittently. 3-Partial/Moderate Assistance-helper does LESS THAN HALF the effort. [place] lifts, holds or supports trunk or limbs, but provides less than half the effort. 2-Substantial/Maximal Assistance-helper does MORE THAN HALF the effort. [place] lifts or holds trunk or limbs and provides more than half the effort. 7-Ctqodresy-ggbrai does ALL the effort. Patient does none of the effort to complete the activity. Or, the assistance of 2 or more helpers is required for the patient to complete the activity. If activity was not attempted, code reason: 7-Patient Refused. 9-Not Applicable-not attempted and the patient did not perform the activity before the current illness, exacerbation or injury. 10-Not Attempted due to Environmental Limitations-(lack of equipment, weather restraints, etc.). 88-Not Attempted due to Medical Conditions or Safety Concerns. Transfers (B, C, W/C): 4 Sit to Stand (QC): 4 (SBA to CGA provided for safety, mod skilled instruction for technique with body positioning to ease transition, decrease pain and maintain R hip precautions) Weight Bearing Right Lower Extremity: Right Weight Bearing/Tolerated Left Lower Extremity: Left Full Weight Bearing Gait Training Does the Patient Walk?: Yes Distance: 120 x2 Walk 10 feet (QC): 4 Walk 50 ft with 2 Turns(QC): 4 Walk 150 ft (QC): 4 Gait Persons Needed: 1 Gait Assistive Device: FWW very slow pace, inconsistent steps and step length, antalgic with decreased stance time RLE, decreased hip R hip flex during swing through, increased R knee flex Exercises Seated Therapy Exercises: Ankle pumps (x20), Sit to stand (2x5 ), Long arc quads (x10), Hip abd/add (x10) fatigued easily, several rest breaks, skilled inst required to maintain hip neutral to slight ER as pt tends to IR R hip Treatments Education, safety, transfers, hip precaution review, gait, strength, balance, activity tolerance, functional mobility Assessment Current Status: Good Progress PT Short Term Goals Short Term Goals Time Frame: Sep 01, 2019 Gait Distance Comment: 50' Gait Assistive Device: FWW (CGA) Wheelchair Distance: 150' PT Senior Living Goals Senior Living Goals PT Senior Living Goals Time Frame: Sep 15, 2019 Sit to Lying (QC): 4 (CGA) Lying-Sitting on Side/Bed(QC): 4 (CGA) Sit to Stand (QC): 4 (CGA) Roll Left to Right (QC): 4 (SBA) Chair/Wor-md-Zrhos Xfer(QC): 4 (CGA) Car Transfer (QC): 4 (CGA) Does the Patient Walk: Yes Distance: 150' Walk 10 feet (QC): 4 (SBA) Walk 10ft-Uneven Surface(QC): 4 (CGA) Walk 50ft with 2 Turns (QC): 4 (CGA) Walk 150 ft (QC): 4 (SBA) Gait Assistive Device: FWW Distance: 300' Wheel 50 feet with 2 turns (QC: 4 (SBA) PT Plan Treatment/Plan Treatment Plan: Continue Plan of Care Treatment Plan: Bed Mobility, Concurrent Therapy, Education, Functional Activity Miah, Functional Strength, Group Therapy, Gait, Safety, Therapeutic Exercise, Transfers Treatment Duration: Aug 26, 2019 Frequency: At least 5 of 7 days/Wk (IRF) Estimated Hrs Per Day: 1.5 hours per day Patient and/or Family Agrees t: Yes Safety Risks/Education Patient Education: Gait Training, Transfer Techniques, Reviewed Precautions, Correct Positioning, Safety Issues Teaching Recipient: Patient Teaching Methods: Demonstration, Discussion Response to Teaching: Verbalize Understanding, Return Demonstration, Reinforcement Needed pt able to recall x1 hip precaution by memory, other 2 with min cuing twice during treatment session Time/GCodes Time In: 1100 Time Out: 1151 Total Billed Treatment Time: 51 Total Billed Treatment 1 visit, GT x31 min, EX x20 min ARNAUD MOSES LARD BLEACHER Aug 28, 2019 11:14 POS
--- NOTE | 2019-08-28 11:24 | NUR ---
PATIENT DIFFICULTY WORKING WITH THERAPY DUE TO C/O PAIN 04/06 POST MEDICATION ADMINISTRATION OF HYDROCODONE 5. DR ESCOBAR NOTIFIED WITH NEW ORDERS FOR XRAY FEMUR , HIP, INCREASE HYDRO 1-2 TABS. PATIENT INFORMED OF NEW ORDERS. CONT TO MONITOR.
[2019-08-28] MEDS ORDERED: HYDROcodone/APAP 5 MG/325 MG (LORTAB) TAB PO PRN (11:30)
--- NOTE | 2019-08-28 11:32 | Speech Therapy Daily Note ---
Speech Daily Progress Note Subjective Date Seen by Provider: Aug 28, 2019 Time Seen by Provider: 00:30 Patient was resting in her recliner when I entered her room. Objective Patient completed a series of safety awareness cards with unsafe scenarios she may encounter when he returns home at 80% with 25% verbal cues. Assessment Assessment Current Status: Good Progress Treatment Plan Continue Plan of Care Speech Short Term Goals Short Term Goals Short Term Goals 1) The patient will complete memory tasks with 90% or greater given 10% cues. 2) The patient will complete problem solving tasks with 90% or greater given 10% cues. 3) The patient will complete safety awareness tasks with 90% or greater given 10% cues. Speech Intermediate Goals Auriculotherapist Goals Patient will improve cognitive-communication necessary for safety and daily living tasks with minimal assist. Speech-Plan Patient/Family Goals Patient/Family Goals: Patient plans on returning to her home with family post rehab. Treatment Plan Speech Therapy Treatment Plan: Continue Plan of Care Patient participates well with therapy. Treatment Duration: Sep 04, 2019 Frequency: 5 times per week Estimated Hrs Per Day: .5 hour per day Rehab Potential: Fair Barriers to Learning: Patient has cognitive deficits. Pt/Family Agrees to Plan: Yes Safety Risks/Education Teaching Recipient: Patient Teaching Methods: Demonstration, Discussion Response to Teaching: Verbalize Understanding, Return Demonstration Education Topics Provided: Continued safety within her room. Time Speech Therapy Time In: 10:30 Speech Therapy Time Out: 11:00 Total Billed Time: 30 Billed Treatment Time [address]MYA [address] ST Aug 28, 2019 11:32 POS
--- NOTE | 2019-08-28 14:00 | NUR ---
DR GRAY HERE THIS AFTERNOON TO SEE PATIENT. NEW ORDERS RECEIVED.
--- NOTE | 2019-08-28 14:12 | Progress Note ---
Subjective Date Seen by a Provider: Aug 28, 2019 Time Seen by a Provider: 14:00 Subjective/Events-last exam PT IS A 79 Y/O FEMALE WHO IS KNOWN TO ME FROM CLINIC. SHE HAS HX OF A RIGHT HIP FRACTURE SUSTAINED AT A [facility] WITH SURGICAL FIXATION AT [facility]. SHE IS AT [facility] WITH PLANS TO RETURN HOME ON DISCHARGE. SHE STATES THAT SHE IS HAVING PAIN, BUT IT IS FAIRLY WELL MANAGED. SHE DENIES ANY OTHER CONCERNS AT THIS TIME. Review of Systems General: Fatigue HEENT: No Head Aches Pulmonary: No Dyspnea, No Cough Cardiovascular: No: Chest Pain, Palpitations Gastrointestinal: No: Nausea, Abdominal Pain Genitourinary: No Dysuria Neurological: Weakness; No: Confusion Objective Exam Last Set of Vital Signs Vital Signs Date Time Temp Pulse Resp B/P (MAP) Pulse Ox O2 Delivery O2 Flow Rate FiO2 08/28/19 08:27 Room Air 08/28/19 08:07 79 134/81 (98) 08/28/19 05:05 36.8 16 96 Capillary Refill : Less Than 3 Seconds I&O Intake and Output 08/28/19 00:00 Intake Total 1275 ml Balance 1275 ml Intake Oral 1275 ml # Voids 6 # Bowel Movements 1 General: Alert, Oriented X3, Cooperative, No Acute Distress HEENT: Atraumatic, PERRLA Neck: Supple Lungs: Clear to Auscultation Heart: Regular Rate Abdomen: Normal Bowel Sounds, Soft, No Tenderness Extremities: Other (PAIN IN RIGHT HIP) Psych/Mental Status: Mental Status NL, Mood NL Assessment/Plan Assessment/Plan Assess & Plan/Chief Complaint STATUS POST RIGHT HIP FRACTURE WITH REPAIR HYPERTENSION HYPERLIPIDEMIA DEPRESSION CHRONIC OSTEOARTHRITIS CHRONIC CONSTIPATION STATUS POST RIGHT HIP FRACTURE WITH REPAIR - PT IS PARTICIPATING IN THERAPY - HAD TO DECREASE THE INTENSITY A LITTLE DINA WAS FEELING A LITTLE OVERWHELMED BY THE INTENSITY OF THE ACTIVITY. - CONTINUE WITH PT/OT/REC THERAPY HYPERTENSION - PT'S HOME REGIMEN HAS BEEN RE-INITIATED- MONITOR BLOOD PRESSURE HYPERLIPIDEMIA - CONTINUE WITH FISH OIL SUPPLEMENTATION DEPRESSION - PT ON LEXAPRO OUTPATIENT - WILL BE ON CELEXA INPATIENT AND RESTART UPON DISCHARGE HER USUAL LEXAPRO DOSING. CHRONIC OSTEOARTHRITIS - PT ON MELOXICAM OUTPATIENT CHRONIC CONSTIPATION Clinical Quality Measures DVT/VTE Risk/Contraindication: Risk Factor Score Per Nursin RFS Level Per Nursing on Admit: 4+=Very High BEL GRAY MD Aug 28, 2019 14:12 POS
[2019-08-28 14:53] LABS: HEMOGLOBIN 10.6 G/DL (11.5-16.0); MEAN PLATELET VOLUME 10.4 FL (7.4-10.4); WHITE BLOOD COUNT 9.6 10^3/uL (4.3-11.0)
--- NOTE | 2019-08-28 14:56 | Diagnostic Imaging Report ---
INDICATION: Increased pain. COMPARISON: Imaging from the same date. TECHNIQUE: Four radiographs of the right femur obtained dated August 28, 2019. FINDINGS: Recent placement of a right total hip arthroplasty is noted with postsurgical skin cuong in place. No evidence of hardware complication. Subcutaneous emphysema also noted posterior to the distal femoral shaft. No acute fracture or dislocation. No destructive osseous process. Advanced degenerative changes of the right knee are noted with joint space narrowing and osteophyte formation. Chondrocalcinosis of the menisci. No suspicious radiopaque foreign body. IMPRESSION: Recent placement of a right total hip arthroplasty without evidence of hardware complication or acute osseous abnormality. Soft tissue gas posterior to the distal femoral shaft, relatively similar to the prior exam. This may be postsurgical in nature, though gas-forming organism is not excluded. Advanced degenerative changes of the knee. Dictated by: Dictated on workstation # [id number]
--- NOTE | 2019-08-28 15:00 | Diagnostic Imaging Report ---
INDICATION: Increased pain. COMPARISON: Imaging from the same date. TECHNIQUE: Two radiographs of the right hip are obtained dated August 28, 2019. FINDINGS: Recent placement of a right total hip arthroplasty with postsurgical subcutaneous emphysema and surgical skin clips in place. No evidence of hardware complication. No acute fracture or dislocation. No destructive osseous process. No suspicious radiopaque foreign body. IMPRESSION: Recent placement of a right total hip arthroplasty without evidence of hardware complication or acute osseous abnormality. Dictated by: Dictated on workstation # [id number]
--- NOTE | 2019-08-28 15:08 | Therapy Group Daily Note ---
Therapy Daily Group Note Patient Education Topic Home Safety, Other List Below (handwashing) Exercises LE Seated Exercise, UE Exercise Session Ratio (pt:therapist): 7:2 Goal of Session: Home Safety Strategies, UE/LE Strengthing Goal Met for this Session: Yes Pt Benefit of Group: Contributions to Others, F/U Use of Strategies @Home, Increased Functional Safety, Increased Functional Strength, Improved Cognition, Recognition of Peers, Socialization Other/Notes Pt ambulated to [facility] for OT/PT group. Group consisted of introductions (name, place born, favorite fall food), socialization, UE/LE seated exercises, educational topics of hand washing and home safety. Pt able to introduce self appropriately and actively listened to peers. Pt was able to complete exercises and tolerated well. Pt acknowledge understanding of educational topics by giving own personal strategies and stories pertaining to topic. After therapy, pt lying in bed with call light/phone in reach. All needs met in room. Start Time: 13:00 Stop Time: 14:10 Total Billed Treatment Time: 70 Total Billed Treatment 1-GRP CONOR SAHU Aug 28, 2019 15:08 POS
[2019-08-28 15:15] LABS: ALANINE AMINOTRANSFERASE 29 U/L (0-55); ALBUMIN 3.4 GM/DL (3.2-4.5); ALKALINE PHOSPHATASE 106 U/L (40-136); BILIRUBIN,TOTAL 1.2 MG/DL (0.1-1.0); BUN/CREATININE RATIO 22; CALCIUM 9.1 MG/DL (8.5-10.1); CARBON DIOXIDE 24 MMOL/L (21-32); CHLORIDE 102 MMOL/L (98-107); CREATININE SERUM 0.87 MG/DL (0.60-1.30); GFR ESTIMATED > 60; GLUCOSE 112 MG/DL (70-105); SODIUM 140 MMOL/L (135-145); TOTAL PROTEIN 6.2 GM/DL (6.4-8.2)
--- NOTE | 2019-08-28 15:40 | NUR ---
LAB RESULTS FAXED TO DR GRAY'S OFFICE.
[2019-08-28 18:10] VITALS: BP 146/80
--- NOTE | 2019-08-28 18:30 | NUR ---
PATIENT PAIN MANAGED. RATING PAIN 1/10. UP IN CHAIR. DENIES NEEDS OR C/O. CONT TO MONITOR.
[2019-08-28] MEDS: amLODIPine 10 MG (NORVASC) TAB PO SCH (21:01)
[2019-08-28] MEDS: OMEGA 3 (FISH OIL) 1000 MG CAP PO SCH (21:02)
[2019-08-28] MEDS: ACETAMINOPHEN 325 MG TABLET PO SCH (21:02)
[2019-08-29 05:26] VITALS: BP 126/71
[2019-08-29] MEDS: HYDROcodone/APAP 5 MG/325 MG (LORTAB) TAB PO PRN ×2 (06:24→18:43)
[2019-08-29] MEDS: MULTIVIT W/MINERALS TAB (THERAGRAN M) PO SCH (06:24)
[2019-08-29] MEDS: ENOXAPARIN 40 MG/0.4 ML (LOVENOX) SYR SC SCH (08:58)
[2019-08-29] MEDS: IRON SUCROSE 200 MG/10 ML (VENOFER) VIAL IV SCH (08:58)
[2019-08-29] MEDS: VITAMIN D3 1,000 UNITS (CHOLECALCIFEROL) TABLET PO SCH (08:58)
[2019-08-29] MEDS: MICONAZOLE 2% POWDER (DESENEX AF) 90 GM TOP SCH ×3 (08:59→20:06)
[2019-08-29] MEDS: LOSARTAN 100 MG (COZAAR) TABLET PO SCH (08:59)
[2019-08-29] MEDS: CYANOCOBALAMIN 1,000 MCG (VITAMIN B-12) TABLET PO SCH (08:59)
[2019-08-29] MEDS: meTOprolol TARTRATE 50 MG (LOPRESSOR) TAB PO SCH ×2 (08:59→20:05)
[2019-08-29] MEDS: DOCUSATE SODIUM 100 MG (COLACE) CAP PO SCH ×2 (08:59→20:04)
[2019-08-29] MEDS: ASCORBIC ACID (VIT C) 500 MG TABLET PO SCH (08:59)
--- NOTE | 2019-08-29 11:49 | PM&R Progress Note ---
Subjective HPI/CC On Admission Date Seen by Provider: Aug 29, 2019 Time Seen by Provider: 11:30 Chief complaint: Right hip facture s/p uncomplicated repair on 08/22/[address] Benitez. HPI: This is a 79yoWF clinic Pt of Dr. Haney who presents to inpatient rehab in need of intense therapy prior to going home after suffering a fall at the [employer] dinner last , and resulted in right hip fracture s/p repair by Dr. Benitez on Saturday08/22/19 after blood was obtained for adequate crossmatch of which she did receive 1 unit of blood in surgery. She has done very well at [facility] Hgb 8.6 today on repeat labs, and her bowels are moving, she is using her IS and her prior level of functioning was ambulating without assistive devices and completely independent with ADLs, living with her in [place], so the goal is to resume therapies and intensify to be able to go home with home health. She has indication for IV iron so that will be ordered. She does have some subtle memory deficit, so will evaluate slum score by speech therapy when they see her. Spoke to patient with son at the bedside and she appeared to be overwhelmed so I did speak with therapy and we will go at a slower pace today and allow her to re gain her composure and gaining confidence in order to be successful in inpatient rehabilitation. I am waiting on the slums score since her memory deficit that I identified at the very beginning at [facility] appears to be a factor in slow recovery. Subjective/Events-last exam Slower therapy activity is helpful and she feels really good about that Hip x-ray was reviewed IV iron is tolerated Pain of the hip is much improved today Bowels are moving. Doesn't eat real well but that is a chronic issue, she does drink ensure. Checked meds and labs Reviewed therapy notes Conferred with plastering supervisor of Systems Musculoskeletal: leg pain Objective Exam Vital Signs Vital Signs Date Time Temp Pulse Resp B/P (MAP) Pulse Ox O2 Delivery O2 Flow Rate FiO2 08/29/19 09:00 Room Air 08/29/19 07:20 36.8 08/29/19 05:26 72 18 126/71 (89) 95 Capillary Refill : Less Than 3 Seconds General Appearance: No Apparent Distress, WD/WN, Chronically ill HEENT: PERRL/EOMI, Normal ENT Inspection, Pharynx Normal, Moist Mucous Membr anes Neck: Full Range of Motion, Normal Inspection, Non Tender, Supple Respiratory: Chest Non Tender, Lungs Clear, Normal Breath Sounds, No Accessory Muscle Use, No Respiratory Distress Cardiovascular: Regular Rate, Rhythm, No Edema, No Gallop, No JVD, No Murmur Gastrointestinal: Normal Bowel Sounds, No Organomegaly, No Pulsatile Mass, Non Tender, Soft Back: Normal Inspection, No CVA Tenderness, No Vertebral Tenderness Extremity: Normal Capillary Refill, Normal Inspection, Normal Range of Motion (except right leg due to hip fracture repair pain), Non Tender, No Calf Tenderness, No Pedal Edema Neurologic/Psychiatric: Alert, Oriented x3, No Motor/Sensory Deficits (right leg weakness 3/5 limited ROM), Normal Mood/Affect Skin: Normal Color, Warm/Dry Lymphatic: No Adenopathy Results/Procedures Lab Laboratory Tests 08/28/19 14:40 Patient resulted labs reviewed. FIM Transfers Therapy Code Descriptions/Definitions Functional [place] Measure: 0=Not Assessed/NA 4=Minimal Assistance 1=Total Assistance 5=Supervision or Setup 2=Maximal Assistance 6=Modified [place] 3=Moderate Assistance 7=Complete IndependenceSCALE: Activities may be completed with or without assistive devices. 4-Wsewscdkaq-edktehb completes the activity by him/herself with no assistance from a helper. 5-Set-up or Clean-up Assistance-helper sets up or cleans up; patient completes activity. [place] assists only prior to or following the activity. 4-Supervision or Touching Assistance-helper provides verbal cues and/or touching/steadying and/or contact guard assistance as patient completes activity. Assistance may be provided throughout the activity or intermittently. 3-Partial/Moderate Assistance-helper does LESS THAN HALF the effort. [place] lifts, holds or supports trunk or limbs, but provides less than half the effort. 2-Substantial/Maximal Assistance-helper does MORE THAN HALF the effort. [place] lifts or holds trunk or limbs and provides more than half the effort. 5-Gjdinvlly-bfowoc does ALL the effort. Patient does none of the effort to complete the activity. Or, the assistance of 2 or more helpers is required for the patient to complete the activity. If activity was not attempted, code reason: 7-Patient Refused. 9-Not Applicable-not attempted and the patient did not perform the activity before the current illness, exacerbation or injury. 10-Not Attempted due to Environmental Limitations-(lack of equipment, weather restraints, etc.). 88-Not Attempted due to Medical Conditions or Safety Concerns. Transfers (B, C, W/C) (FIM): 4 Roll Left to Right (QC): 4 Sit to Lying (QC): 4 Sit to Stand (QC): 4 (SBA to CGA provided for safety, mod skilled instruction for technique with body positioning to ease transition, decrease pain and maintain R hip precautions) Chair/Nzc-oo-Isghh Xfer(QC): 3 (mod assist for stepping and turning) Car Transfer (QC): 2 (MaxA) Gait Training Does the Patient Walk?: Yes Gait (FIM): 4 Distance (FIM): 1=up to 49 ft Distance: 120 x2 Walk 10 feet (QC): 4 Walk 50 ft with 2 Turns(QC): 4 Walk 150 ft (QC): 4 Walking 10ft/uneven surface-QC: 88 Gait Persons Needed: 1 Gait Assistive Device: FWW Wheelchair Training Does the Pt Use a Wheelchair?: Yes Distance: 150' Wheel 50 ft with 2 turns (QC): 3 (Shawn for steering.) Wheel 150 ft (QC): 3 (Shawn for steering) Type of Wheelchair: Manual Stair Training 1 Step (curb) (QC): 88 4 Steps (QC): 88 12 Steps (QC): 88 Balance Picking up an Object (QC): 88 ADL-Treatment Eating (QC): 6 Oral Hygiene (QC): 4 Shower/Bathe Self (QC): 3 Upper Body Dressing (QC): 4 Lower Body Dressing (QC): 3 Toileting Hygiene (QC): 3 Toilet Transfer (QC): 3 Assessment/Plan Assessment and Plan Assess & Plan/Chief Complaint Assessment: s/p right hip fracture repair following fall POD # 7 HTN Memory loss? Post op delirium Post op anemia Mild elevation in ALT Decreased albumin Plan: Monitor hgb IRF protocol but slower pace is successful Pain meds BM regimen Much improved the pain today and feels like she is making progress IV iron (1) Hip fracture, right (2) Delirium (3) Hypertension (4) Fall (5) Memory deficit (6) Postoperative anemia (7) Transfusion of blood during current hospitalisation (8) Abnormal albumin (9) ALT (SGPT) level raised DANIEL ESCOBAR DO Aug 29, 2019 11:48 POS
--- NOTE | 2019-08-29 12:16 | Physical Therapy Daily Note ---
PT Daily Note-Current Subjective Pt agreeable to treatment. REviewed Hip precautions. Pt able to recall 2/3 hip precautions, explained and reminder of avoiding hip flexion >90deg required. Mental Status Patient Orientation: Person, Place, Situation Transfers SCALE: Activities may be completed with or without assistive devices. 3-Ebezrtdqvm-loyruws completes the activity by him/herself with no assistance fr om a helper. 5-Set-up or Clean-up Assistance-helper sets up or cleans up; patient completes activity. [place] assists only prior to or following the activity. 4-Supervision or Touching Assistance-helper provides verbal cues and/or touching/steadying and/or contact guard assistance as patient completes activity. Assistance may be provided throughout the activity or intermittently. 3-Partial/Moderate Assistance-helper does LESS THAN HALF the effort. [place] lifts, holds or supports trunk or limbs, but provides less than half the effort. 2-Substantial/Maximal Assistance-helper does MORE THAN HALF the effort. [place] lifts or holds trunk or limbs and provides more than half the effort. 9-Bduendagh-dstfko does ALL the effort. Patient does none of the effort to complete the activity. Or, the assistance of 2 or more helpers is required for the patient to complete the activity. If activity was not attempted, code reason: 7-Patient Refused. 9-Not Applicable-not attempted and the patient did not perform the activity before the current illness, exacerbation or injury. 10-Not Attempted due to Environmental Limitations-(lack of equipment, weather restraints, etc.). 88-Not Attempted due to Medical Conditions or Safety Concerns. Weight Bearing Right Lower Extremity: Right Weight Bearing/Tolerated Left Lower Extremity: Left Full Weight Bearing Treatments Pt performed (B) LE ther ex per protocol with min A as needed for heel slide, hip abd (R) LE. Transfers min A for (R) LE. Pt able vanita lower leg and scoot to EOB as needed once (R) LE passively moved to EOB. Pt sit to stand mod (I). Pt used BR with SBA for all. Pt amb with FWW and CGA, WBAT 120ft. Pt back to bedside chair with call light and all needs met. Assessment Current Status: Good Progress Pt making steady progress with pt noting today was her best day yet as she was able to move the (R) LE better getting out of bed and able to toilet herself. Pt vanita very well without increased pain during treatment session. Pt denied pain post therapy session. PT Short Term Goals Short Term Goals Time Frame: Sep 01, 2019 Gait Distance Comment: 50' Gait Assistive Device: FWW (CGA) Wheelchair Distance: 150' PT Fdc Goals Truck Farmer Goals PT Truck Farmer Goals Time Frame: Sep 15, 2019 Sit to Lying (QC): 4 (CGA) Lying-Sitting on Side/Bed(QC): 4 (CGA) Sit to Stand (QC): 4 (CGA) Roll Left to Right (QC): 4 (SBA) Chair/Wsj-jk-Obfnd Xfer(QC): 4 (CGA) Car Transfer (QC): 4 (CGA) Does the Patient Walk: Yes Distance: 150' Walk 10 feet (QC): 4 (SBA) Walk 10ft-Uneven Surface(QC): 4 (CGA) Walk 50ft with 2 Turns (QC): 4 (CGA) Walk 150 ft (QC): 4 (SBA) Gait Assistive Device: FWW Distance: 300' Wheel 50 feet with 2 turns (QC: 4 (SBA) PT Plan Treatment/Plan Treatment Plan: Continue Plan of Care Treatment Plan: Bed Mobility, Concurrent Therapy, Education, Functional Activity Miah, Functional Strength, Group Therapy, Gait, Safety, Therapeutic Exercise, Transfers Treatment Duration: Aug 26, 2019 Frequency: At least 5 of 7 days/Wk (IRF) Estimated Hrs Per Day: 1.5 hours per day Patient and/or Family Agrees t: Yes Time/GCodes Time In: 925 Time Out: 1000 Total Billed Treatment Time: 35 Total Billed Treatment 1, Gait 15', Ther ex 15', FA 5' ANNI SMITH CPTA Aug 29, 2019 12:16 POS
[2019-08-29 17:24] VITALS: BP 135/73
--- NOTE | 2019-08-29 18:43 | NUR ---
pt requested 1 pain pill at this time
[2019-08-29] MEDS: OMEGA 3 (FISH OIL) 1000 MG CAP PO SCH (20:04)
[2019-08-29] MEDS: amLODIPine 10 MG (NORVASC) TAB PO SCH (20:04)
[2019-08-29] MEDS: ACETAMINOPHEN 325 MG TABLET PO SCH (20:04)
[2019-08-30 05:08] VITALS: BP 127/71
[2019-08-30] MEDS: MULTIVIT W/MINERALS TAB (THERAGRAN M) PO SCH (06:13)
[2019-08-30] MEDS: HYDROcodone/APAP 5 MG/325 MG (LORTAB) TAB PO PRN ×2 (06:13→16:56)
[2019-08-30] MEDS: MICONAZOLE 2% POWDER (DESENEX AF) 90 GM TOP SCH ×2 (09:58→21:02)
[2019-08-30] MEDS: ASCORBIC ACID (VIT C) 500 MG TABLET PO SCH (09:58)
[2019-08-30] MEDS: DOCUSATE SODIUM 100 MG (COLACE) CAP PO SCH ×2 (09:58→21:00)
[2019-08-30] MEDS: LOSARTAN 100 MG (COZAAR) TABLET PO SCH (09:58)
[2019-08-30] MEDS: VITAMIN D3 1,000 UNITS (CHOLECALCIFEROL) TABLET PO SCH (09:58)
[2019-08-30] MEDS: ENOXAPARIN 40 MG/0.4 ML (LOVENOX) SYR SC SCH (09:58)
[2019-08-30] MEDS: meTOprolol TARTRATE 50 MG (LOPRESSOR) TAB PO SCH ×2 (09:58→20:59)
[2019-08-30] MEDS: CYANOCOBALAMIN 1,000 MCG (VITAMIN B-12) TABLET PO SCH (09:58)
--- NOTE | 2019-08-30 14:03 | PM&R Progress Note ---
Subjective HPI/CC On Admission Date Seen by Provider: Aug 30, 2019 Time Seen by Provider: 13:30 Chief complaint: Right hip facture s/p uncomplicated repair on 08/22/[address] Benitez. HPI: This is a 79yoWF clinic Pt of Dr. Haney who presents to inpatient rehab in need of intense therapy prior to going home after suffering a fall at the [employer] dinner last , and resulted in right hip fracture s/p repair by Dr. Benitez on Saturday08/22/19 after blood was obtained for adequate crossmatch of which she did receive 1 unit of blood in surgery. She has done very well at [facility] [place] Hgb 8.6 today on repeat labs, and her bowels are moving, she is using her IS and her prior level of functioning was ambulating without assistive devices and completely independent with ADLs, living with her in [place], so the goal is to resume therapies and intensify to be able to go home with home health. She has indication for IV iron so that will be ordered. She does have some subtle memory deficit, so will evaluate slum score by speech therapy when they see her. Spoke to patient with son at the bedside and she appeared to be overwhelmed so I did speak with therapy and we will go at a slower pace today and allow her to regain her composure and gaining confidence in order to be successful in inpatient rehabilitation. I am waiting on the slums score since her memory deficit that I identified at the very beginning at [facility] appears to be a factor in slow recovery. Subjective/Events-last exam Slower therapy activity is helpful and she feels really good about that and is ambulating well today Hip pain comes and goes she reports IV iron is tolerated, 2nd dose today [place] removed 09/05/19 No drainage from the incision now Pain of the hip is much improved today Bowels are moving. Doesn't eat real well but that is a chronic issue, she does drink ensure. Checked meds and labs Reviewed therapy notes Conferred with research phlebotomist of Systems Musculoskeletal: leg pain Objective Exam Vital Signs Vital Signs Date Time Temp Pulse Resp B/P (MAP) Pulse Ox O2 Delivery O2 Flow Rate FiO2 08/30/19 08:45 Room Air 08/30/19 05:08 36.8 69 18 127/71 (89) 99 Capillary Refill : Less Than 3 Seconds General Appearance: No Apparent Distress, WD/WN, Chronically ill HEENT: PERRL/EOMI, Normal ENT Inspection, Pharynx Normal, Moist Mucous Membranes Neck: Full Range of Motion, Normal Inspection, Non Tender, Supple Respiratory: Chest Non Tender, Lungs Clear, Normal Breath Sounds, No Accessory Muscle Use, No Respiratory Distress Cardiovascular: Regular Rate, Rhythm, No Edema, No Gallop, No JVD, No Murmur Gastrointestinal: Normal Bowel Sounds, No Organomegaly, No Pulsatile Mass, Non Tender, Soft Back: Normal Inspection, No CVA Tenderness, No Vertebral Tenderness Extremity: Normal Capillary Refill, Normal Inspection, Normal Range of Motion (except right leg due to hip fracture repair pain), Non Tender, No Calf Tenderness, No Pedal Edema Neurologic/Psychiatric: Alert, Oriented x3, No Motor/Sensory Deficits (right leg weakness 3/5 limited ROM), Normal Mood/Affect Skin: Normal Color, Warm/Dry Lymphatic: No Adenopathy Results/Procedures Lab Patient resulted labs reviewed. FIM Transfers Therapy Code Descriptions/Definitions Functional [place] Measure: 0=Not Assessed/NA 4=Minimal Assistance 1=Total Assistance 5=Supervision or Setup 2=Maximal Assistance 6=Modified [place] 3=Moderate Assistance 7=Complete IndependenceSCALE: Activities may be completed with or without assistive devices. 0-Gldodqqbvx-aszrzko completes the activity by him/herself with no assistance from a helper. 5-Set-up or Clean-up Assistance-helper sets up or cleans up; patient completes activity. [place] assists only prior to or following the activity. 4-Supervision or Touching Assistance-helper provides verbal cues and/or touching/steadying and/or contact guard assistance as patient completes activity. Assistance may be provided throughout the activity or intermittently. 3-Partial/Moderate Assistance-helper does LESS THAN HALF the effort. [place] lifts, holds or supports trunk or limbs, but provides less than half the effort. 2-Substantial/Maximal Assistance-helper does MORE THAN HALF the effort. [place] lifts or holds trunk or limbs and provides more than half the effort. 0-Dfpimwwsi-xqoqwv does ALL the effort. Patient does none of the effort to complete the activity. Or, the assistance of 2 or more helpers is required for the patient to complete the activity. If activity was not attempted, code reason: 7-Patient Refused. 9-Not Applicable-not attempted and the patient did not perform the activity before the current illness, exacerbation or injury. 10-Not Attempted due to Environmental Limitations-(lack of equipment, weather restraints, etc.). 88-Not Attempted due to Medical Conditions or Safety Concerns. Transfers (B, C, W/C) (FIM): 4 Roll Left to Right (QC): 4 Sit to Lying (QC): 4 Sit to Stand (QC): 4 (SBA to CGA provided for safety, mod skilled instruction for technique with body positioning to ease transition, decrease pain and maintain R hip precautions) Chair/Wav-uv-Vfvvl Xfer(QC): 3 (mod assist for stepping and turning) Car Transfer (QC): 2 (MaxA) Gait Training Does the Patient Walk?: Yes Gait (FIM): 4 Distance (FIM): 1=up to 49 ft Distance: 120 x2 Walk 10 feet (QC): 4 Walk 50 ft with 2 Turns(QC): 4 Walk 150 ft (QC): 4 Walking 10ft/uneven surface-QC: 88 Gait Persons Needed: 1 Gait Assistive Device: FWW Wheelchair Training Does the Pt Use a Wheelchair?: Yes Distance: 150' Wheel 50 ft with 2 turns (QC): 3 (Shawn for steering.) Wheel 150 ft (QC): 3 (Shawn for steering) Type of Wheelchair: Manual Stair Training 1 Step (curb) (QC): 88 4 Steps (QC): 88 12 Steps (QC): 88 Balance Picking up an Object (QC): 88 ADL-Treatment Eating (QC): 6 Oral Hygiene (QC): 4 Shower/Bathe Self (QC): 3 Upper Body Dressing (QC): 4 Lower Body Dressing (QC): 3 Toileting Hygiene (QC): 3 Toilet Transfer (QC): 3 Assessment/Plan Assessment and Plan Assess & Plan/Chief Complaint Assessment: s/p right hip fracture repair following fall POD # 8 HTN Memory loss? Post op delirium Post op anemia Mild elevation in ALT Decreased albumin Plan: Monitor hgb IRF protocol but slower pace is successful Pain meds BM regimen Much improved the pain today and feels like she is making progress IV iron (1) Hip fracture, right (2) Delirium (3) Hypertension (4) Fall (5) Memory deficit (6) Postoperative anemia (7) Transfusion of blood during current hospitalisation (8) Abnormal albumin (9) ALT (SGPT) level raised DANIEL ESCOBAR DO Aug 30, 2019 14:03 POS
[2019-08-30 17:05] VITALS: BP 155/69
[2019-08-30 20:59] VITALS: BP 127/80
[2019-08-30] MEDS: OMEGA 3 (FISH OIL) 1000 MG CAP PO SCH (21:00)
[2019-08-30] MEDS: amLODIPine 10 MG (NORVASC) TAB PO SCH (21:00)
[2019-08-30] MEDS: ACETAMINOPHEN 325 MG TABLET PO SCH (21:01)
[2019-08-31] MEDS: MULTIVIT W/MINERALS TAB (THERAGRAN M) PO SCH (05:34)
[2019-08-31] MEDS: HYDROcodone/APAP 5 MG/325 MG (LORTAB) TAB PO PRN ×3 (05:35→19:17)
[2019-08-31 05:49] VITALS: BP 121/81
[2019-08-31 06:13] LABS: BASOPHILS # (AUTO) 0.1 10^3/uL (0.0-0.1); BASOPHILS % (AUTO) 1 % (0-10); EOSINOPHILS # (AUTO) 0.5 10^3/uL (0.0-0.3); EOSINOPHILS % (AUTO) 5 % (0-10); HEMATOCRIT 34 % (35-52); LYMPHOCYTES # (AUTO) 2.1 X 10^3 (1.0-4.0); LYMPHOCYTES % (AUTO) 23 % (12-44); MEAN CORPUSCULAR HEMOGLOBIN 30 PG (25-34); MEAN CORPUSCULAR HGB CONC 32 G/DL (32-36); MEAN CORPUSCULAR VOLUME 92 FL (80-99); MEAN PLATELET VOLUME 10.3 FL (7.4-10.4); MONOCYTES # (AUTO) 0.7 X 10^3 (0.0-1.0); MONOCYTES % (AUTO) 8 % (0-12); NEUTROPHILS # (AUTO) 5.9 X 10^3 (1.8-7.8); NEUTROPHILS % (AUTO) 64 % (42-75); PLATELET COUNT 414 10^3/uL (130-400); RED CELL DISTRIBUTION WIDTH 13.7 % (10.0-14.5); WHITE BLOOD COUNT 9.3 10^3/uL (4.3-11.0)
[2019-08-31 06:27] LABS: ALANINE AMINOTRANSFERASE 22 U/L (0-55); ALBUMIN 3.6 GM/DL (3.2-4.5); ALKALINE PHOSPHATASE 88 U/L (40-136); BUN/CREATININE RATIO 17; CALCIUM 9.7 MG/DL (8.5-10.1); CARBON DIOXIDE 24 MMOL/L (21-32); CHLORIDE 103 MMOL/L (98-107); CREATININE SERUM 0.82 MG/DL (0.60-1.30); GFR ESTIMATED > 60; GLUCOSE 95 MG/DL (70-105); POTASSIUM 4.2 MMOL/L (3.6-5.0); SODIUM 139 MMOL/L (135-145); TOTAL PROTEIN 6.3 GM/DL (6.4-8.2)
[2019-08-31] MEDS: MICONAZOLE 2% POWDER (DESENEX AF) 90 GM TOP SCH ×2 (09:00→19:18)
--- NOTE | 2019-08-31 09:01 | PM&R Progress Note ---
Subjective HPI/CC On Admission Date Seen by Provider: Aug 31, 2019 Time Seen by Provider: 08:30 Chief complaint: Right hip facture s/p uncomplicated repair on 08/22/[address] Benitez. HPI: This is a 79yoWF clinic Pt of Dr. Haney who presents to inpatient rehab in need of intense therapy prior to going home after suffering a fall at the [employer] dinner last , and resulted in right hip fracture s/p repair by Dr. Benitez on Saturday08/22/19 after blood was obtained for adequate crossmatch of which she did receive 1 unit of blood in surgery. She has done very well at [facility] Hgb 8.6 today on repeat labs, and her bowels are moving, she is using her IS and her prior level of functioning was ambulating without assistive devices and completely independent with ADLs, living with her in [place], so the goal is to resume therapies and intensify to be able to go home with home health. She has indication for IV iron so that will be ordered. She does have some subtle memory deficit, so will evaluate slum score by speech therapy when they see her. Spoke to patient with son at the bedside and she appeared to be overwhelmed so I did speak with therapy and we will go at a slower pace today and allow her to re gain her composure and gaining confidence in order to be successful in inpatient rehabilitation. I am waiting on the slums score since her memory deficit that I identified at the very beginning at [facility] appears to be a factor in slow recovery. Subjective/Events-last exam Pt feels like she is doing pretty good but she feels like she does have a confidence problem Hgb is already increased to 11.0 Checked meds and labs Pain is pretty well tolerated as long as she is not moving Overall improved form admission Checked meds and labs Reviewed therapy notes Conferred with electrician's helper of Systems Musculoskeletal: leg pain Objective Exam Vital Signs Vital Signs Date Time Temp Pulse Resp B/P (MAP) Pulse Ox O2 Delivery O2 Flow Rate FiO2 08/31/19 16:09 37.0 68 16 124/76 (92) 97 Room Air Capillary Refill : Less Than 3 Seconds General Appearance: No Apparent Distress, WD/WN, Chronically ill HEENT: PERRL/EOMI, Normal ENT Inspection, Pharynx Normal, Moist Mucous Membranes Neck: Full Range of Motion, Normal Inspection, Non Tender, Supple Respiratory: Chest Non Tender, Lungs Clear, Normal Breath Sounds, No Accessory Muscle Use, No Respiratory Distress Cardiovascular: Regular Rate, Rhythm, No Edema, No Gallop, No JVD, No Murmur Gastrointestinal: Normal Bowel Sounds, No Organomegaly, No Pulsatile Mass, Non Tender, Soft Back: Normal Inspection, No CVA Tenderness, No Vertebral Tenderness Extremity: Normal Capillary Refill, Normal Inspection, Normal Range of Motion (except right leg due to hip fracture repair pain), Non Tender, No Calf Tenderness, No Pedal Edema Neurologic/Psychiatric: Alert, Oriented x3, No Motor/Sensory Deficits (right leg weakness 3/5 limited ROM), Normal Mood/Affect Skin: Normal Color, Warm/Dry Lymphatic: No Adenopathy Results/Procedures Lab Laboratory Tests 08/31/19 05:37 Patient resulted labs reviewed. FIM Transfers Therapy Code Descriptions/Definitions Functional [place] Measure: 0=Not Assessed/NA 4=Minimal Assistance 1=Total Assistance 5=Supervision or Setup 2=Maximal Assistance 6=Modified [place] 3=Moderate Assistance 7=Complete IndependenceSCALE: Activities may be completed with or without assistive devices. 4-Nwhizpjznc-lfmnefi completes the activity by him/herself with no assistance from a helper. 5-Set-up or Clean-up Assistance-helper sets up or cleans up; patient completes activity. [place] assists only prior to or following the activity. 4-Supervision or Touching Assistance-helper provides verbal cues and/or touching/steadying and/or contact guard assistance as patient completes activity. Assistance may be provided throughout the activity or intermittently. 3-Partial/Moderate Assistance-helper does LESS THAN HALF the effort. [place] lifts, holds or supports trunk or limbs, but provides less than half the effort. 2-Substantial/Maximal Assistance-helper does MORE THAN HALF the effort. [place] lifts or holds trunk or limbs and provides more than half the effort. 4-Apsiwocom-lkwbma does ALL the effort. Patient does none of the effort to complete the activity. Or, the assistance of 2 or more helpers is required for the patient to complete the activity. If activity was not attempted, code reason: 7-Patient Refused. 9-Not Applicable-not attempted and the patient did not perform the activity before the current illness, exacerbation or injury. 10-Not Attempted due to Environmental Limitations-(lack of equipment, weather restraints, etc.). 88-Not Attempted due to Medical Conditions or Safety Concerns. Transfers (B, C, W/C) (FIM): 4 Roll Left to Right (QC): 4 Sit to Lying (QC): 4 Sit to Stand (QC): 4 (SBA to CGA provided for safety, mod skilled instruction for technique with body positioning to ease transition, decrease pain and maintain R hip precautions) Chair/Yuo-gw-Wtsxf Xfer(QC): 3 (mod assist for stepping and turning) Car Transfer (QC): 2 (MaxA) Gait Training Does the Patient Walk?: Yes Gait (FIM): 4 Distance (FIM): 1=up to 49 ft Distance: 120 x2 Walk 10 feet (QC): 4 Walk 50 ft with 2 Turns(QC): 4 Walk 150 ft (QC): 4 Walking 10ft/uneven surface-QC: 88 Gait Persons Needed: 1 Gait Assistive Device: FWW Wheelchair Training Does the Pt Use a Wheelchair?: Yes Distance: 150' Wheel 50 ft with 2 turns (QC): 3 (Shawn for steering.) Wheel 150 ft (QC): 3 (Shawn for steering) Type of Wheelchair: Manual Stair Training 1 Step (curb) (QC): 88 4 Steps (QC): 88 12 Steps (QC): 88 Balance Picking up an Object (QC): 88 ADL-Treatment Eating (QC): 6 Oral Hygiene (QC): 4 Shower/Bathe Self (QC): 3 Upper Body Dressing (QC): 4 Lower Body Dressing (QC): 3 Toileting Hygiene (QC): 3 Toilet Transfer (QC): 3 Assessment/Plan Assessment and Plan Assess & Plan/Chief Complaint Assessment: s/p right hip fracture repair following fall POD # 9 HTN Memory loss? Post op delirium Post op anemia Mild elevation in ALT Decreased albumin Plan: Monitor hgb IRF protocol but slower pace is successful Pain meds BM regimen Much improved the pain today and feels like she is making progress IV iron (1) Hip fracture, right (2) Delirium (3) Hypertension (4) Fall (5) Memory deficit (6) Postoperative anemia (7) Transfusion of blood during current hospitalisation (8) Abnormal albumin (9) ALT (SGPT) level raised DANIEL ESCOBAR DO Aug 31, 2019 09:01 POS
[2019-08-31] MEDS: meTOprolol TARTRATE 50 MG (LOPRESSOR) TAB PO SCH ×2 (09:09→19:20)
[2019-08-31] MEDS: VITAMIN D3 1,000 UNITS (CHOLECALCIFEROL) TABLET PO SCH (09:09)
[2019-08-31] MEDS: ENOXAPARIN 40 MG/0.4 ML (LOVENOX) SYR SC SCH (09:09)
[2019-08-31] MEDS: DOCUSATE SODIUM 100 MG (COLACE) CAP PO SCH ×2 (09:09→19:17)
[2019-08-31] MEDS: CYANOCOBALAMIN 1,000 MCG (VITAMIN B-12) TABLET PO SCH (09:09)
[2019-08-31] MEDS: ASCORBIC ACID (VIT C) 500 MG TABLET PO SCH (09:09)
[2019-08-31] MEDS: LOSARTAN 100 MG (COZAAR) TABLET PO SCH (09:09)
--- NOTE | 2019-08-31 09:36 | Physical Therapy Daily Note ---
PT Daily Note-Current Subjective Pt. states she is very happy that she has made such improvement. Feels some pain but it decreases with movement Pain Location: No Pain Reported Mental Status Patient Orientation: Normal For Age Transfers SCALE: Activities may be completed with or without assistive devices. 3-Fryiawbywz-ywanjqq completes the activity by him/herself with no assistance from a helper. 5-Set-up or Clean-up Assistance-helper sets up or cleans up; patient completes activity. [place] assists only prior to or following the activity. 4-Supervision or Touching Assistance-helper provides verbal cues and/or touching/steadying and/or contact guard assistance as patient completes activity. Assistance may be provided throughout the activity or intermittently. 3-Partial/Moderate Assistance-helper does LESS THAN HALF the effort. [place] lifts, holds or supports trunk or limbs, but provides less than half the effort. 2-Substantial/Maximal Assistance-helper does MORE THAN HALF the effort. [place] lifts or holds trunk or limbs and provides more than half the effort. 1-Vmxtqxasv-almsdo does ALL the effort. Patient does none of the effort to complete the activity. Or, the assistance of 2 or more helpers is required for the patient to complete the activity. If activity was not attempted, code reason: 7-Patient Refused. 9-Not Applicable-not attempted and the patient did not perform the activity before the current illness, exacerbation or injury. 10-Not Attempted due to Environmental Limitations-(lack of equipment, weather restraints, etc.). 88-Not Attempted due to Medical Conditions or Safety Concerns. Transfers (B, C, W/C): 4 Roll Left to Right (QC): 5 Sit to Lying (QC): 4 Sit to Stand (QC): 5 Chair/Oqg-wj-Jnrqz Xfer(QC): 5 Bed to/from Chair: 5 Weight Bearing Right Lower Extremity: Right Weight Bearing/Tolerated Left Lower Extremity: Left Full Weight Bearing Gait Training Does the Patient Walk?: Yes Gait: 5 Walk 10 feet (QC): 5 Walk 50 ft with 2 Turns(QC): 5 Walk 150 ft (QC): 5 Gait Persons Needed: 1 Gait Assistive Device: FWW some step to and some step through, equalizes with cuing Exercises Supine Ex: Ankle pumps, Quad Set, Rolling, Glut sets, Heel Slides, Short Arc Quads, Scooting, Straight leg raise (assisted), Hip abd/add (assisted) Supine Reps: 15 Seated Therapy Exercises: Ankle pumps, Sit to stand, Long arc quads Seated Reps: 15 NuStep Minutes: 8 NuStep Workload: 2 Assessment Current Status: Good Progress PT Short Term Goals Short Term Goals Time Frame: Sep 01, 2019 Gait Distance Comment: 50' Gait Assistive Device: FWW (CGA) Wheelchair Distance: 150' PT Skilled Nursing Goals Resolution Specialist Goals PT Resolution Specialist Goals Time Frame: Sep 15, 2019 Sit to Lying (QC): 4 (CGA) Lying-Sitting on Side/Bed(QC): 4 (CGA) Sit to Stand (QC): 4 (CGA) Roll Left to Right (QC): 4 (SBA) Chair/Sgi-jq-Vthzt Xfer(QC): 4 (CGA) Car Transfer (QC): 4 (CGA) Does the Patient Walk: Yes Distance: 150' Walk 10 feet (QC): 4 (SBA) Walk 10ft-Uneven Surface(QC): 4 (CGA) Walk 50ft with 2 Turns (QC): 4 (CGA) Walk 150 ft (QC): 4 (SBA) Gait Assistive Device: FWW Distance: 300' Wheel 50 feet with 2 turns (QC: 4 (SBA) PT Plan Treatment/Plan Treatment Plan: Continue Plan of Care Treatment Plan: Bed Mobility, Concurrent Therapy, Education, Functional Activity Miah, Functional Strength, Group Therapy, Gait, Safety, Therapeutic Exercise, Transfers Treatment Duration: Aug 26, 2019 Frequency: At least 5 of 7 days/Wk (IRF) Estimated Hrs Per Day: 1.5 hours per day Patient and/or Family Agrees t: Yes Safety Risks/Education Patient Education: Gait Training, Transfer Techniques, Steps, Correct Positioning, Disease Process, Safety Issues Teaching Recipient: Patient Teaching Methods: Demonstration, Discussion Response to Teaching: Verbalize Understanding, Return Demonstration, Reinforcement Needed Time/GCodes Time In: 845 Time Out: 930 Total Billed Treatment Time: 45 Total Billed Treatment 1,EX20m,FA10m,GT15m JOHN ROMAN TRANSIT PLANNING MANAGER Aug 31, 2019 09:36 POS
--- NOTE | 2019-08-31 10:31 | Occupational Ther Daily Note ---
OT Current Status-Daily Note Subjective Pt alert and willing to participate with ADL training this morning. Pt complaining of no pain this date, however reports a mild burning sensation at site of incision. Nursing notified and came to assess incision. ADL-Treatment Therapy Code Descriptions/Definitions Functional [place] Measure: 0=Not Assessed/NA 4=Minimal Assistance 1=Total Assistance 5=Supervision or Setup 2=Maximal Assistance 6=Modified [place] 3=Moderate Assistance 7=Complete IndependenceSCALE: Activities may be completed with or without assistive devices. 8-Wvkoymchxt-wygtcul completes the activity by him/herself with no assistance from a helper. 5-Set-up or Clean-up Assistance-helper sets up or cleans up; patient completes activity. [place] assists only prior to or following the activity. 4-Supervision or Touching Assistance-helper provides verbal cues and/or touching/steadying and/or contact guard assistance as patient completes activity. Assistance may be provided throughout the activity or intermittently. 3-Partial/Moderate Assistance-helper does LESS THAN HALF the effort. [place] lif ts, holds or supports trunk or limbs, but provides less than half the effort. 2-Substantial/Maximal Assistance-helper does MORE THAN HALF the effort. [place] lifts or holds trunk or limbs and provides more than half the effort. 3-Azgwckdll-vuedng does ALL the effort. Patient does none of the effort to complete the activity. Or, the assistance of 2 or more helpers is required for the patient to complete the activity. If activity was not attempted, code reason: 7-Patient Refused. 9-Not Applicable-not attempted and the patient did not perform the activity before the current illness, exacerbation or injury. 10-Not Attempted due to Environmental Limitations-(lack of equipment, weather restraints, etc.). 88-Not Attempted due to Medical Conditions or Safety Concerns. Shower/Bathe Self (QC): 3 (Pt required [place] to thoroughly cleanse buttocks region while standing with grab bars and CGA. ) Upper Body Dressing (QC): 5 (Pt required Set-up for UBD. ) Lower Body Dressing (QC): 3 (Pt required [place] to linh shoe on RLE. Pt utilized fur dry cleaner and shoe horn for LBD tasks, and was able to following total hip precautions with minimal verbal cues. ) Toileting Hygiene (QC): 4 (CGA for toileting hygiene. ) Toilet Transfer (QC): 4 (CGA for toileting transfers. ) Education OT Patient Education: Modified ADL techniques, Reviewed precautions, Safety issues, Transfer techniques, Use of adapted equipment Teaching Recipient: Patient Teaching Methods: Demonstration, Discussion Response to Teaching: Verbalize Understanding OT Short Term Goals Short Term Goals Time Frame: Sep 01, 2019 Lower Body Dressing(FIM): 4 Toileting(FIM): 4 Toilet/Commode Transfer(FIM): 4 Additional Short Term Goals: 2-Verbalize Understanding, 3-ImproveStrength/Miah 1=Demonstrate adherence to instructed precautions during ADL tasks. 2=Patient will verbalize/demonstrate understanding of assistive devices/modifications for ADL. 3=Patient will improve strength/tolerance for activity to enable patient to perform ADL's. OT Chief Mechanical Officer Goals Chief Mechanical Officer Goals Time Frame: Sep 15, 2019 Eating (QC): 6 Oral Hygiene (QC): 6 Shower/Bathe Self (QC): 5 Upper Body Dressing (QC): 6 Lower Body Dressing (QC): 5 On/Off Footwear (QC): 5 Toileting Hygiene (QC): 6 Toilet/Commode Transfer (QC): 6 Additional Goals: 1-Demonstrate ADL Tasks, 2-Verbalize Understanding, 3- ImproveStrength/Miah 1=Demonstrate adherence to instructed precautions during ADL tasks. 2=Patient will verbalize/demonstrate understanding of assistive samra dagmar/modifications for ADL. 3=Patient will improve strength/tolerance for activity to enable patient to perform ADL's. OT Education/Plan Discharge Recommendations Plan/Recommendations: Continue POC Treatment Plan/Plan of Care Patient would benefit from OT for education, treatment and training to promote independence in ADL's, mobility, safety and/or upper extremity function for ADL's. Plan of Care: ADL Retraining, Functional Mobility, Group Exercise/Act as Ind, UE Funct Exercise/Act Treatment Duration: Sep 15, 2019 Frequency: At least 5 of 7 days/Wk (IRF) Estimated Hrs Per Day: 1.5 hours per day Rehab Potential: Fair Time/GCodes Start Time: 09:30 Stop Time: 10:30 Total Time Billed (hr/min): 60 Billed Treatment Time 1, ADL4 MICHELLE LOW OT Aug 31, 2019 10:31 POS
[2019-08-31] MEDS: IRON SUCROSE 200 MG/10 ML (VENOFER) VIAL IV SCH (10:57)
--- NOTE | 2019-08-31 13:31 | Speech Therapy Daily Note ---
Speech Daily Progress Note Subjective Date Seen by Provider: Aug 31, 2019 Time Seen by Provider: 00:30 Patient resting in her recliner when I entered her room. Patient alert and participated well with therapy. Objective Patient completed memory tasks related to her daily needs upon her return home with 80% given 10% verbal cuing. Assessment Assessment Current Status: Good Progress Treatment Plan Continue Plan of Care Speech Short Term Goals Short Term Goals Short Term Goals 1) The patient will complete memory tasks with 90% or greater given 10% cues. 2) The patient will complete problem solving tasks with 90% or greater given 10% cues. 3) The patient will complete safety awareness tasks with 90% or greater given 10% cues. Speech Die Grinder Goals Die Grinder Goals Patient will improve cognitive-communication necessary for safety and daily living tasks with minimal assist. Speech-Plan Patient/Family Goals Patient/Family Goals: Patient plans to return home where she lives with her and son. Treatment Plan Speech Therapy Treatment Plan: Continue Plan of Care Patient participates well with skilled ST sessions. Treatment Duration: Sep 04, 2019 Frequency: 5 times per week Estimated Hrs Per Day: .5 hour per day Rehab Potential: Fair Barriers to Learning: Patient has cognitive deficits.. Pt/Family Agrees to Plan: Yes Safety Risks/Education Teaching Recipient: Patient Teaching Methods: Demonstration, Discussion Response to Teaching: Verbalize Understanding, Return Demonstration Education Topics Provided: Continued safety in her room. Time Speech Therapy Time In: 11:30 Speech Therapy Time Out: 12:00 Total Billed Time: 30 Billed Treatment Time 1SOWMYA [address] ST Aug 31, 2019 13:31 POS
--- NOTE | 2019-08-31 14:41 | Therapy Group Daily Note ---
Therapy Daily Group Note Patient Education Topic Other List Below (pain strategies management, bed mob and TRF skills) Exercises LE Seated Exercise, Sit to/from Stand Session Ratio (pt:therapist): 4:1 Goal of Session: Safety with Transfers, Other (list) (pain and the brain, bed mob and TRF skills) Goal Met for this Session: Yes Pt Benefit of Group: F/U Use of Strategies @Home, Increased Functional Safety, Increased Functional Strength, Socialization Other/Notes Pt. participated in group PT OT session this date. Pt. came and went via ambulation with CGA . Pt. was pleasant and social, sharing her name and her favorite place she has traveled. Education focused on bed mobility , sup to side to sit TRFs, sit to stand TRFs, car TRFs and tub bench TRFs all demonstrated with equipment and explanation. Pts. participated, shared their experiences and asked pertinent questions. Pts participated in group exercises sharing the seated exercises they could recall and demonstrating them for others . Sit to stand was broken down and practiced by each participant. Pain management strategies were discussed as well as information derived from "explain pain" topics. Pt. to room after group, in bed with pope at hand, needs met Start Time: 13:00 Stop Time: 14:15 Total Billed Treatment Time: 75 Total Billed Treatment 1,GRP JOHN ROMAN THIRD HAND Aug 31, 2019 14:41 POS
[2019-08-31 16:09] VITALS: BP 124/76
[2019-08-31 19:15] VITALS: BP 118/67
[2019-08-31] MEDS: OMEGA 3 (FISH OIL) 1000 MG CAP PO SCH (19:16)
[2019-08-31] MEDS: ACETAMINOPHEN 325 MG TABLET PO SCH (19:17)
[2019-08-31] MEDS: amLODIPine 10 MG (NORVASC) TAB PO SCH (19:20)
[2019-09-01 06:02] VITALS: BP 135/79
[2019-09-01] MEDS: MULTIVIT W/MINERALS TAB (THERAGRAN M) PO SCH (06:02)
[2019-09-01] MEDS: HYDROcodone/APAP 5 MG/325 MG (LORTAB) TAB PO PRN ×2 (06:02→19:06)
[2019-09-01] MEDS: VITAMIN D3 1,000 UNITS (CHOLECALCIFEROL) TABLET PO SCH (08:00)
[2019-09-01] MEDS: DOCUSATE SODIUM 100 MG (COLACE) CAP PO SCH ×2 (08:00→21:03)
[2019-09-01] MEDS: ASCORBIC ACID (VIT C) 500 MG TABLET PO SCH (08:00)
[2019-09-01] MEDS: LOSARTAN 100 MG (COZAAR) TABLET PO SCH (08:00)
[2019-09-01] MEDS: meTOprolol TARTRATE 50 MG (LOPRESSOR) TAB PO SCH ×2 (08:00→21:03)
[2019-09-01] MEDS: CYANOCOBALAMIN 1,000 MCG (VITAMIN B-12) TABLET PO SCH (08:00)
[2019-09-01] MEDS: MICONAZOLE 2% POWDER (DESENEX AF) 90 GM TOP SCH ×2 (08:00→21:04)
[2019-09-01] MEDS: ENOXAPARIN 40 MG/0.4 ML (LOVENOX) SYR SC SCH (08:00)
--- NOTE | 2019-09-01 08:51 | Occupational Ther Daily Note ---
OT Current Status-Daily Note Subjective Pt in bed, agrees to therapy. Pt reports no pain at rest and "minimal" pain with movement. ADL-Treatment Pt declined shower this morning, but agrees to sponge bath. Supine to sit with SBA. Sit to stand with supervision. Gait to restroom with FWW. Transfer to [facility] over toilet with supervision. Pt able to complete toileting hygiene and clothing management with supervision. Sponge bath completed seated at sink. Pt able to state 1/3 hip precautions and requires cues to follow them during session. Doffed shirt without assist. Pt used dressing stick to doff lower body clothing Upper body bathing completed with SBA. Pt uses long handled sponge to wash lower legs and feet. Don shirt with set up. Pt used wealth management consultant to thread LE into underwear and pants. Stood with supervision for balance during pant hike. Don slip on shoes using long handled shoe horn. Pt able to don left without assist, min assist to don right shoe. Therapy Code Descriptions/Definitions Functional [place] Measure: 0=Not Assessed/NA 4=Minimal Assistance 1=Total Assistance 5=Supervision or Setup 2=Maximal Assistance 6=Modified [place] 3=Moderate Assistance 7=Complete IndependenceSCALE: Activities may be completed with or without assistive devices. 7-Dmmuhzzien-yfjzlnk completes the activity by him/herself with no assistance from a helper. 5-Set-up or Clean-up Assistance-helper sets up or cleans up; patient completes activity. [place] assists only prior to or following the activity. 4-Supervision or Touching Assistance-helper provides verbal cues and/or touching/steadying and/or contact guard assistance as patient completes activity. Assistance may be provided throughout the activity or intermittently. 3-Partial/Moderate Assistance-helper does LESS THAN HALF the effort. [place] lifts, holds or supports trunk or limbs, but provides less than half the effort. 2-Substantial/Maximal Assistance-helper does MORE THAN HALF the effort. [place] lifts or holds trunk or limbs and provides more than half the effort. 7-Nobddwduy-kbutal does ALL the effort. Patient does none of the effort to complete the activity. Or, the assistance of 2 or more helpers is required for the patient to complete the activity. If activity was not attempted, code reason: 7-Patient Refused. 9-Not Applicable-not attempted and the patient did not perform the activity before the current illness, exacerbation or injury. 10-Not Attempted due to Environmental Limitations-(lack of equipment, weather restraints, etc.). 88-Not Attempted due to Medical Conditions or Safety Concerns. Other Treatment Gait to therapy gym with FWW. Arm bike [id number] to increase overall strength and activity tolerance needed for functional task completion. Pt completed task with minimal resistance and slow pace. No rest breaks needed. Pt completed bilateral UE exercises to increase strength for ADLs and transfers. Pt completed 3 exercises x10 reps with 1# dowel pam. Pt returned to room, transferred to bed with SBA. Sit to supine with SBA. Pt resting in bed with needs met after session. OT Short Term Goals Short Term Goals Time Frame: Sep 01, 2019 Lower Body Dressing(FIM): 4 Toileting(FIM): 4 Toilet/Commode Transfer(FIM): 4 Additional Short Term Goals: 2-Verbalize Understanding, 3-ImproveStrength/Miah 1=Demonstrate adherence to instructed precautions during ADL tasks. 2=Patient will verbalize/demonstrate understanding of assistive devices/modifications for ADL. 3=Patient will improve strength/tolerance for activity to enable patient to perform ADL's. OT Fdc Goals Fdc Goals Time Frame: Sep 15, 2019 Eating (QC): 6 Oral Hygiene (QC): 6 Shower/Bathe Self (QC): 5 Upper Body Dressing (QC): 6 Lower Body Dressing (QC): 5 On/Off Footwear (QC): 5 Toileting Hygiene (QC): 6 Toilet/Commode Transfer (QC): 6 Additional Goals: 1-Demonstrate ADL Tasks, 2-Verbalize Understanding, 3- ImproveStrength/Miah 1=Demonstrate adherence to instructed precautions during ADL tasks. 2=Patient will verbalize/demonstrate understanding of assistive d evices/modifications for ADL. 3=Patient will improve strength/tolerance for activity to enable patient to perform ADL's. OT Education/Plan Discharge Recommendations Plan/Recommendations: Continue POC Treatment Plan/Plan of Care Patient would benefit from OT for education, treatment and training to promote independence in ADL's, mobility, safety and/or upper extremity function for ADL's. Plan of Care: ADL Retraining, Functional Mobility, Group Exercise/Act as Ind, UE Funct Exercise/Act Treatment Duration: Sep 15, 2019 Frequency: At least 5 of 7 days/Wk (IRF) Estimated Hrs Per Day: 1.5 hours per day Rehab Potential: Fair Time/GCodes Start Time: 08:00 Stop Time: 09:15 Total Time Billed (hr/min): 75 Billed Treatment Time 1 visit, ADLx3(50minutes), EXx2(25minutes) PEGGY CAO OT Sep 01, 2019 08:51 POS
--- NOTE | 2019-09-01 09:21 | NUR ---
Medications not able to be scanned in room due to computer issues. Morning medications marked manually.
--- NOTE | 2019-09-01 10:54 | Physical Therapy Daily Note ---
PT Daily Note-Current Subjective Pt layijng Supine in bed upon arrival. Pt agrees to PT. Pt reports feeling much less pain with movement. Pain Numeric Pain Scale: 7 Location: Right Location Body Site: Hip Pain Description: Tightness, Sharp Comment: Pt reports pain with NuStep. Pt is not always reliable fbi profiler of pain. Mental Status Patient Orientation: Person, Place Transfers SCALE: Activities may be completed with or without assistive devices. 5-Dvwmiyxxhb-mikqbcy completes the activity by him/herself with no assistance from a helper. 5-Set-up or Clean-up Assistance-helper sets up or cleans up; patient completes activity. [place] assists only prior to or following the activity. 4-Supervision or Touching Assistance-helper provides verbal cues and/or touch ing/steadying and/or contact guard assistance as patient completes activity. Assistance may be provided throughout the activity or intermittently. 3-Partial/Moderate Assistance-helper does LESS THAN HALF the effort. [place] lifts, holds or supports trunk or limbs, but provides less than half the effort. 2-Substantial/Maximal Assistance-helper does MORE THAN HALF the effort. [place] lifts or holds trunk or limbs and provides more than half the effort. 2-Qrxioramu-bpukib does ALL the effort. Patient does none of the effort to complete the activity. Or, the assistance of 2 or more helpers is required for the patient to complete the activity. If activity was not attempted, code reason: 7-Patient Refused. 9-Not Applicable-not attempted and the patient did not perform the activity before the current illness, exacerbation or injury. 10-Not Attempted due to Environmental Limitations-(lack of equipment, weather restraints, etc.). 88-Not Attempted due to Medical Conditions or Safety Concerns. Roll Left to Right (QC): 4 Sit to Lying (QC): 4 Sit to Stand (QC): 5 Weight Bearing Right Lower Extremity: Right Weight Bearing/Tolerated Left Lower Extremity: Left Full Weight Bearing Gait Training Does the Patient Walk?: Yes Gait: 5 Distance: 150' Walk 10 feet (QC): 5 Walk 50 ft with 2 Turns(QC): 5 Walk 150 ft (QC): 5 Gait Persons Needed: 1 Gait Assistive Device: FWW Pt walks with slightly flexed posture at hips. Pt walks with slow jorgito. Exercises Supine Ex: Ankle pumps, Quad Set, Glut sets, Heel Slides, Straight leg raise, Hip abd/add Supine Reps: 20 Seated Therapy Exercises: Ankle pumps, Long arc quads, Hip flexion, Kicking activity, Hamstring Curls Seated Reps: 15 Treatments Pt completes Supine Ex in bed. Pt transfers from bed to standing then ambulates in hallway. Pt completes Seated Ex then ambulates in hallway before returning to room to rest Supine in bed. Pt has all needs met, call light in hand. Assessment Current Status: Good Progress Pt is fixated on discomfort after attempting NuStep. Pt needs redirection to complete Rx. PT Short Term Goals Short Term Goals Time Frame: Sep 01, 2019 Gait Distance Comment: 50' Gait Assistive Device: FWW (CGA) Wheelchair Distance: 150' PT Intermediate Goals Intermediate Goals PT Intermediate Goals Time Frame: Sep 15, 2019 Sit to Lying (QC): 4 (CGA) Lying-Sitting on Side/Bed(QC): 4 (CGA) Sit to Stand (QC): 4 (CGA) Roll Left to Right (QC): 4 (SBA) Chair/Yow-sx-Jsmgy Xfer(QC): 4 (CGA) Car Transfer (QC): 4 (CGA) Does the Patient Walk: Yes Distance: 150' Walk 10 feet (QC): 4 (SBA) Walk 10ft-Uneven Surface(QC): 4 (CGA) Walk 50ft with 2 Turns (QC): 4 (CGA) Walk 150 ft (QC): 4 (SBA) Gait Assistive Device: FWW Distance: 300' Wheel 50 feet with 2 turns (QC: 4 (SBA) PT Plan Problem List Problem List: Activity Tolerance, Functional Strength, Safety, Balance, Gait Treatment/Plan Treatment Plan: Continue Plan of Care Treatment Plan: Bed Mobility, Concurrent Therapy, Education, Functional Activity Miah, Functional Strength, Group Therapy, Gait, Safety, Therapeutic Exercise, Transfers Treatment Duration: Aug 26, 2019 Frequency: At least 5 of 7 days/Wk (IRF) Estimated Hrs Per Day: 1.5 hours per day Patient and/or Family Agrees t: Yes Safety Risks/Education Patient Education: Gait Training, Transfer Techniques, Correct Positioning, Safety Issues Teaching Recipient: Patient Teaching Methods: Discussion Response to Teaching: Verbalize Understanding Time/GCodes Time In: 1000 Time Out: 1045 Total Billed Treatment Time: 45 Total Billed Treatment 1, GT (20m) & EX x2 (25m) ABRAM QUIJANO RETAIL BRANCH MANAGER Sep 01, 2019 10:54 POS
--- NOTE | 2019-09-01 11:51 | NUR ---
Met with patient to discuss discharge planning. Patient states her pain is much improved since admission. She reports she was able to lift her legs off the bed and move to the edge of the bed without pain today. Patient confirms she would like to utilize [facility] at discharge. Will discuss discharge at team conference tomorrow. Patient verbalizes no concerns at this time. Continue with plan of care.
--- NOTE | 2019-09-01 12:02 | PM&R Progress Note ---
Subjective HPI/CC On Admission Date Seen by Provider: Sep 01, 2019 Time Seen by Provider: 07:30 Chief complaint: Right hip facture s/p uncomplicated repair on 08/22/[address] Benitez. HPI: This is a 79yoWF clinic Pt of Dr. Haney who presents to inpatient rehab in need of intense therapy prior to going home after suffering a fall at the [employer] dinner last , and resulted in right hip fracture s/p repair by Dr. Benitez on Saturday08/22/19 after blood was obtained for adequate crossmatch of which she did receive 1 unit of blood in surgery. She has done very well at [facility] Hgb 8.6 today on repeat labs, and her bowels are moving, she is using her IS and her prior level of functioning was ambulating without assistive devices and completely independent with ADLs, living with her in [place], so the goal is to resume therapies and intensify to be able to go home with home health. She has indication for IV iron so that will be ordered. She does have some subtle memory deficit, so will evaluate slum score by speech therapy when they see her. Spoke to patient with son at the bedside and she appeared to be overwhelmed so I did speak with therapy and we will go at a slower pace today and allow her to regain her composure and gaining confidence in order to be successful in inpatient rehabilitation. I am waiting on the slums score since her memory deficit that I identified at the very beginning at [facility] appears to be a factor in slow recovery. Subjective/Events-last exam Pt doing much better. Bowels are moving. Pain is well controlled on pain medication. Gaining more and more confidence as the days go by. Checked meds and labs Reviewed therapy notes Conferred with plastics sheet finishing press operator of Systems Musculoskeletal: leg pain Objective Exam Vital Signs Vital Signs Date Time Temp Pulse Resp B/P (MAP) Pulse Ox O2 Delivery O2 Flow Rate FiO2 09/01/19 18:19 36.9 89 20 146/79 (101) 100 Room Air Capillary Refill : Less Than 3 Seconds General Appearance: No Apparent Distress, WD/WN, Chronically ill HEENT: PERRL/EOMI, Normal ENT Inspection, Pharynx Normal, Moist Mucous Membranes Neck: Full Range of Motion, Normal Inspection, Non Tender, Supple Respiratory: Chest Non Tender, Lungs Clear, Normal Breath Sounds, No Accessory Muscle Use, No Respiratory Distress Cardiovascular: Regular Rate, Rhythm, No Edema, No Gallop, No JVD, No Murmur Gastrointestinal: Normal Bowel Sounds, No Organomegaly, No Pulsatile Mass, Non Tender, Soft Back: Normal Inspection, No CVA Tenderness, No Vertebral Tenderness Extremity: Normal Capillary Refill, Normal Inspection, Normal Range of Motion (except right leg due to hip fracture repair pain), Non Tender, No Calf Tenderness, No Pedal Edema Neurologic/Psychiatric: Alert, Oriented x3, No Motor/Sensory Deficits (right leg weakness 3/5 limited ROM), Normal Mood/Affect Skin: Normal Color, Warm/Dry Lymphatic: No Adenopathy Results/Procedures Lab Patient resulted labs reviewed. FIM Transfers Therapy Code Descriptions/Definitions Functional [place] Measure: 0=Not Assessed/NA 4=Minimal Assistance 1=Total Assistance 5=Supervision or Setup 2=Maximal Assistance 6=Modified [place] 3=Moderate Assistance 7=Complete IndependenceSCALE: Activities may be completed with or without assistive devices. 4-Ubqttqabzp-cqimuua completes the activity by him/herself with no assistance from a helper. 5-Set-up or Clean-up Assistance-helper sets up or cleans up; patient completes activity. [place] assists only prior to or following the activity. 4-Supervision or Touching Assistance-helper provides verbal cues and/or touching/steadying and/or contact guard assistance as patient completes activity. Assistance may be provided throughout the activity or intermittently. 3-Partial/Moderate Assistance-helper does LESS THAN HALF the effort. [place] lifts, holds or supports trunk or limbs, but provides less than half the effort. 2-Substantial/Maximal Assistance-helper does MORE THAN HALF the effort. [place] lifts or holds trunk or limbs and provides more than half the effort. 2-Gdmwejbib-uafpgn does ALL the effort. Patient does none of the effort to complete the activity. Or, the assistance of 2 or more helpers is required for the patient to complete the activity. If activity was not attempted, code reason: 7-Patient Refused. 9-Not Applicable-not attempted and the patient did not perform the activity before the current illness, exacerbation or injury. 10-Not Attempted due to Environmental Limitations-(lack of equipment, weather restraints, etc.). 88-Not Attempted due to Medical Conditions or Safety Concerns. Transfers (B, C, W/C) (FIM): 4 Roll Left to Right (QC): 5 Sit to Lying (QC): 4 Sit to Stand (QC): 5 Chair/Cbh-rr-Rnnyx Xfer(QC): 5 Bed to/from Chair: 5 Car Transfer (QC): 2 (MaxA) Gait Training Does the Patient Walk?: Yes Gait (FIM): 5 Distance (FIM): 1=up to 49 ft Distance: 120 x2 Walk 10 feet (QC): 5 Walk 50 ft with 2 Turns(QC): 5 Walk 150 ft (QC): 5 Walking 10ft/uneven surface-QC: 88 Gait Persons Needed: 1 Gait Assistive Device: FWW Wheelchair Training Does the Pt Use a Wheelchair?: Yes Distance: 150' Wheel 50 ft with 2 turns (QC): 3 (Shawn for steering.) Wheel 150 ft (QC): 3 (Shawn for steering) Type of Wheelchair: Manual Stair Training 1 Step (curb) (QC): 88 4 Steps (QC): 88 12 Steps (QC): 88 Balance Picking up an Object (QC): 88 ADL-Treatment Eating (QC): 6 Oral Hygiene (QC): 4 Shower/Bathe Self (QC): 3 (Pt required Shawn to thoroughly cleanse buttocks region while standing with grab bars and CGA. ) Upper Body Dressing (QC): 5 (Pt required Set-up for UBD. ) Lower Body Dressing (QC): 3 (Pt required Shawn to linh shoe on RLE. Pt utilized skiver welt end and shoe horn for LBD tasks, and was able to following total hip precautions with minimal verbal cues. ) Toileting Hygiene (QC): 4 (CGA for toileting hygiene. ) Toilet Transfer (QC): 4 (CGA for toileting transfers. ) Assessment/Plan Assessment and Plan Assess & Plan/Chief Complaint Assessment: s/p right hip fracture repair following fall POD # 10 HTN Memory loss? Post op delirium Post op anemia Mild elevation in ALT Decreased albumin Plan: Monitor hgb IRF protocol but slower pace is successful Pain meds BM regimen Much improved the pain today and feels like she is making progress IV iron (1) Hip fracture, right (2) Delirium (3) Hypertension (4) Fall (5) Memory deficit (6) Postoperative anemia (7) Transfusion of blood during current hospitalisation (8) Abnormal albumin (9) ALT (SGPT) level raised DANIEL ESCOBAR DO Sep 01, 2019 12:01 POS
--- NOTE | 2019-09-01 13:25 | Speech Therapy Daily Note ---
Speech Daily Progress Note Subjective Date Seen by Provider: Sep 01, 2019 Time Seen by Provider: 00:30 Patient c/o leg pain bilaterally due to difficulty on the NuStep. Objective Patient completed a series of q/a related to her daily needs with 80% given 15% cues and/or repetitions. Assessment Assessment Current Status: Good Progress Treatment Plan Continue Plan of Care Speech Short Term Goals Short Term Goals Short Term Goals 1) The patient will complete memory tasks with 90% or greater given 10% cues. 2) The patient will complete problem solving tasks with 90% or greater given 10% cues. 3) The patient will complete safety awareness tasks with 90% or greater given 10% cues. Speech Prison Goals Prison Goals Patient will improve cognitive-communication necessary for safety and daily li ving tasks with minimal assist. Speech-Plan Patient/Family Goals Patient/Family Goals: Patient plans on returning to her home where she lives with her and son. Treatment Plan Speech Therapy Treatment Plan: Continue Plan of Care Patient is progressing as a result of skilled ST. Treatment Duration: Sep 09, 2019 Frequency: 5 times per week Estimated Hrs Per Day: .5 hour per day Rehab Potential: Fair Barriers to Learning: Patient has cognitive deficits Pt/Family Agrees to Plan: Yes Safety Risks/Education Teaching Recipient: Patient Teaching Methods: Demonstration, Discussion Response to Teaching: Verbalize Understanding, Return Demonstration Education Topics Provided: Continued safety and communication of her wants/needs. Time Speech Therapy Time In: 11:00 Speech Therapy Time Out: 11:30 Total Billed Time: 30 Billed Treatment Time 1, AVNI Brito Sep 01, 2019 13:25 POS
--- NOTE | 2019-09-01 14:38 | Physical Therapy Daily Note ---
PT Daily Note-Current Subjective Pt laying Supine in bed upon arrival. Pt agrees to PT. Pain Numeric Pain Scale: 5-Moderate Pain Location: Right Location Body Site: Hip Pain Description: Ache, Tightness Mental Status Patient Orientation: Person, Confused, Place Transfers SCALE: Activities may be completed with or without assistive devices. 5-Atudtxqbhn-cquvory completes the activity by him/herself with no assistance from a helper. 5-Set-up or Clean-up Assistance-helper sets up or cleans up; patient completes activity. [place] assists only prior to or following the activity. 4-Supervision or Touching Assistance-helper provides verbal cues and/or touching/steadying and/or contact guard assistance as patient completes activity. Assistance may be provided throughout the activity or intermittently. 3-Partial/Moderate Assistance-helper does LESS THAN HALF the effort. [place] lifts, holds or supports trunk or limbs, but provides less than half the effort. 2-Substantial/Maximal Assistance-helper does MORE THAN HALF the effort. [place] lifts or holds trunk or limbs and provides more than half the effort. 4-Gdxakpwak-idlzje does ALL the effort. Patient does none of the effort to complete the activity. Or, the assistance of 2 or more helpers is required for the patient to complete the activity. If activity was not attempted, code reason: 7-Patient Refused. 9-Not Applicable-not attempted and the patient did not perform the activity before the current illness, exacerbation or injury. 10-Not Attempted due to Environmental Limitations-(lack of equipment, weather restraints, etc.). 88-Not Attempted due to Medical Conditions or Safety Concerns. Roll Left to Right (QC): 4 Sit to Lying (QC): 4 Sit to Stand (QC): 5 Weight Bearing Right Lower Extremity: Right Weight Bearing/Tolerated Left Lower Extremity: Left Full Weight Bearing Gait Training Does the Patient Walk?: Yes Gait: 5 Distance: 250' Walk 10 feet (QC): 5 Walk 50 ft with 2 Turns(QC): 5 Walk 150 ft (QC): 5 Gait Persons Needed: 1 Gait Assistive Device: FWW Wheelchair Training Does the Pt Use a Wheelchair?: No Treatments Pt transfers from bed to standing then ambulates in hallway before returning to use restroom. Pt returns to bed to rest at end of Rx with all needs met, call light in hand. Assessment Current Status: Good Progress Pt tolerated Rx well. PT Short Term Goals Short Term Goals Time Frame: Sep 01, 2019 Gait Distance Comment: 50' Gait Assistive Device: FWW (CGA) Wheelchair Distance: 150' PT Metal Riveting Machine Operator Goals Custodial Goals PT Metal Riveting Machine Operator Goals Time Frame: Sep 15, 2019 Sit to Lying (QC): 4 (CGA) Lying-Sitting on Side/Bed(QC): 4 (CGA) Sit to Stand (QC): 4 (CGA) Roll Left to Right (QC): 4 (SBA) Chair/Wxe-oq-Zrrcx Xfer(QC): 4 (CGA) Car Transfer (QC): 4 (CGA) Does the Patient Walk: Yes Distance: 150' Walk 10 feet (QC): 4 (SBA) Walk 10ft-Uneven Surface(QC): 4 (CGA) Walk 50ft with 2 Turns (QC): 4 (CGA) Walk 150 ft (QC): 4 (SBA) Gait Assistive Device: FWW Distance: 300' Wheel 50 feet with 2 turns (QC: 4 (SBA) PT Plan Problem List Problem List: Activity Tolerance, Functional Strength Treatment/Plan Treatment Plan: Continue Plan of Care Treatment Plan: Bed Mobility, Concurrent Therapy, Education, Functional Activity Miah, Functional Strength, Group Therapy, Gait, Safety, Therapeutic Exercise, Transfers Treatment Duration: Aug 26, 2019 Frequency: At least 5 of 7 days/Wk (IRF) Estimated Hrs Per Day: 1.5 hours per day Patient and/or Family Agrees t: Yes Safety Risks/Education Patient Education: Gait Training, Transfer Techniques, Correct Positioning, Safety Issues Teaching Recipient: Patient Teaching Methods: Discussion Response to Teaching: Verbalize Understanding Time/GCodes Time In: 1400 Time Out: 1430 Total Billed Treatment Time: 30 Total Billed Treatment 1, GT (15m) & FA (15m) ABRAM QUIJANO TRAIN RESERVATION CLERK Sep 01, 2019 14:37 POS
[2019-09-01] MEDS: POLYETHYLENE GLYCOL 17 GM (MIRALAX) PACK PO PRN (17:35)
[2019-09-01 18:19] VITALS: BP 146/79
[2019-09-01 21:03] VITALS: BP 135/76
[2019-09-01] MEDS: amLODIPine 10 MG (NORVASC) TAB PO SCH (21:03)
[2019-09-01] MEDS: OMEGA 3 (FISH OIL) 1000 MG CAP PO SCH (21:03)
[2019-09-01] MEDS: ACETAMINOPHEN 325 MG TABLET PO SCH (21:03)
[2019-09-02 06:00] VITALS: BP 138/74
[2019-09-02] MEDS: HYDROcodone/APAP 5 MG/325 MG (LORTAB) TAB PO PRN ×2 (06:05→17:32)
[2019-09-02] MEDS: MULTIVIT W/MINERALS TAB (THERAGRAN M) PO SCH (06:05)
--- NOTE | 2019-09-02 08:50 | PM&R Progress Note ---
Subjective HPI/CC On Admission Date Seen by Provider: Sep 02, 2019 Time Seen by Provider: 08:45 Chief complaint: Right hip facture s/p uncomplicated repair on 08/22/[address] Benitez. HPI: This is a 79yoWF clinic Pt of Dr. Haney who presents to inpatient rehab in need of intense therapy prior to going home after suffering a fall at the [employer] dinner last , and resulted in right hip fracture s/p repair by Dr. Benitez on Saturday08/22/19 after blood was obtained for adequate crossmatch of which she did receive 1 unit of blood in surgery. She has [place] [facility] [place].6 today on repeat labs, and her bowels are moving, she is using her IS and her prior level of functioning was ambulating without assistive devices and completely independent with ADLs, living with her in [place], so the goal is to resume therapies and intensify to be able to go home with home health. She has indication for IV iron so that will be ordered. She does have some subtle memory deficit, so will evaluate slum score by speech therapy when they see her. Spoke to patient with son at the bedside and she appeared to be overwhelmed so I did speak with therapy and we will go at a slower pace today and allow her to regain her composure and gaining confidence in order to be successful in inpatient rehabilitation. I am waiting on the slums score since her memory deficit that I identified at the very beginning at [facility] appears to be a factor in slow recovery. Subjective/Events-last exam Doing pretty well Knee pain continues to be an issue Needs to have a BM so will initiate aggressive medications for that Doing better than she feels like she is DC date 09/09/19 Checked meds and labs Reviewed therapy notes Conferred with neon sign servicer of Systems General: Fatigue Musculoskeletal: leg pain Objective Exam Vital Signs Vital Signs Date Time Temp Pulse Resp B/P (MAP) Pulse Ox O2 Delivery O2 Flow Rate FiO2 09/03/19 05:07 36.2 62 16 138/76 (96) 99 Room Air Capillary Refill : Less Than 3 Seconds General Appearance: No Apparent Distress, WD/WN, Chronically ill HEENT: PERRL/EOMI, Normal ENT Inspection, Pharynx Normal, Moist Mucous Membranes Neck: Full Range of Motion, Normal Inspection, Non Tender, Supple Respiratory: Chest Non Tender, Lungs Clear, Normal Breath Sounds, No Accessory Muscle Use, No Respiratory Distress Cardiovascular: Regular Rate, Rhythm, No Edema, No Gallop, No JVD, No Murmur Gastrointestinal: Normal Bowel Sounds, No Organomegaly, No Pulsatile Mass, Non Tender, Soft Back: Normal Inspection, No CVA Tenderness, No Vertebral Tenderness Extremity: Normal Capillary Refill, Normal Inspection, Normal Range of Motion (except right leg due to hip fracture repair pain), Non Tender, No Calf Tenderness, No Pedal Edema Neurologic/Psychiatric: Alert, Oriented x3, No Motor/Sensory Deficits (right leg weakness 3/5 limited ROM), Normal Mood/Affect Skin: Normal Color, Warm/Dry Lymphatic: No Adenopathy Results/Procedures Lab Patient resulted labs reviewed. FIM Transfers Therapy Code Descriptions/Definitions Functional [place] Measure: 0=Not Assessed/NA 4=Minimal Assistance 1=Total Assistance 5=Supervision or Setup 2=Maximal Assistance 6=Modified [place] 3=Moderate Assistance 7=Complete IndependenceSCALE: Activities may be completed with or without assistive devices. 3-Oozyhjyxmq-jjplmzf completes the activity by him/herself with no assistance from a helper. 5-Set-up or Clean-up Assistance-helper sets up or cleans up; patient completes activity. [place] assists only prior to or following the activity. 4-Supervision or Touching Assistance-helper provides verbal cues and/or touching/steadying and/or contact guard assistance as patient completes activity. Assistance may be provided throughout the activity or intermittently. 3-Partial/Moderate Assistance-helper does LESS THAN HALF the effort. [place] lifts, holds or supports trunk or limbs, but provides less than half the effort. 2-Substantial/Maximal Assistance-helper does MORE THAN HALF the effort. [place] lifts or holds trunk or limbs and provides more than half the effort. 4-Nmwiojufk-maivzi does ALL the effort. Patient does none of the effort to complete the activity. Or, the assistance of 2 or more helpers is required for the patient to complete the activity. If activity was not attempted, code reason: 7-Patient Refused. 9-Not Applicable-not attempted and the patient did not perform the activity before the current illness, exacerbation or injury. 10-Not Attempted due to Environmental Limitations-(lack of equipment, weather restraints, etc.). 88-Not Attempted due to Medical Conditions or Safety Concerns. Transfers (B, C, W/C) (FIM): 4 Roll Left to Right (QC): 4 Sit to Lying (QC): 4 Sit to Stand (QC): 5 Chair/Yeb-ny-Gghdk Xfer(QC): 5 Bed to/from Chair: 5 Car Transfer (QC): 2 (MaxA) Gait Training Does the Patient Walk?: Yes Gait (FIM): 5 Distance (FIM): 1=up to 49 ft Distance: 250' Walk 10 feet (QC): 5 Walk 50 ft with 2 Turns(QC): 5 Walk 150 ft (QC): 5 Walking 10ft/uneven surface-QC: 88 Gait Persons Needed: 1 Gait Assistive Device: FWW Wheelchair Training Does the Pt Use a Wheelchair?: No Distance: 150' Wheel 50 ft with 2 turns (QC): 3 (Shawn for steering.) Wheel 150 ft (QC): 3 (Shawn for steering) Type of Wheelchair: Manual Stair Training 1 Step (curb) (QC): 88 4 Steps (QC): 88 12 Steps (QC): 88 Balance Picking up an Object (QC): 88 ADL-Treatment Eating (QC): 6 Oral Hygiene (QC): 4 Shower/Bathe Self (QC): 3 (Pt required Shawn to thoroughly cleanse buttocks region while standing with grab bars and CGA. ) Upper Body Dressing (QC): 5 (Pt required Set-up for UBD. ) Lower Body Dressing (QC): 3 (Pt required Shawn to linh shoe on RLE. Pt utilized supplier engineer and shoe horn for LBD tasks, and was able to following total hip precautions with minimal verbal cues. ) Toileting Hygiene (QC): 4 (CGA for toileting hygiene. ) Toilet Transfer (QC): 4 (CGA for toileting transfers. ) Assessment/Plan Assessment and Plan Assess & Plan/Chief Complaint Assessment: s/p right hip fracture repair following fall POD # 11 HTN Memory loss? Post op delirium Post op anemia Mild elevation in ALT Decreased albumin Plan: Monitor hgb IRF protocol but slower pace is successful Pain meds BM regimen Much improved the pain today and feels like she is making progress IV iron to complete by pass? (1) Hip fracture, right (2) Delirium (3) Hypertension (4) Fall (5) Memory deficit (6) Postoperative anemia (7) Transfusion of blood during current hospitalisation (8) Abnormal albumin (9) ALT (SGPT) level raised DANIEL ESCOBAR DO Sep 02, 2019 08:50 POS
[2019-09-02] MEDS: LOSARTAN 100 MG (COZAAR) TABLET PO SCH (09:41)
[2019-09-02] MEDS: meTOprolol TARTRATE 50 MG (LOPRESSOR) TAB PO SCH ×2 (09:42→20:08)
[2019-09-02] MEDS: ASCORBIC ACID (VIT C) 500 MG TABLET PO SCH (09:42)
[2019-09-02] MEDS: ENOXAPARIN 40 MG/0.4 ML (LOVENOX) SYR SC SCH (09:42)
[2019-09-02] MEDS: DOCUSATE SODIUM 100 MG (COLACE) CAP PO SCH ×2 (09:42→20:08)
[2019-09-02] MEDS: CYANOCOBALAMIN 1,000 MCG (VITAMIN B-12) TABLET PO SCH (09:42)
[2019-09-02] MEDS: MICONAZOLE 2% POWDER (DESENEX AF) 90 GM TOP SCH ×2 (09:43→20:14)
[2019-09-02] MEDS: IRON SUCROSE 200 MG/10 ML (VENOFER) VIAL IV SCH (09:43)
--- NOTE | 2019-09-02 10:08 | Occupational Ther Daily Note ---
OT Current Status-Daily Note Subjective Pt sitting EOB, agrees to treatment. Pt states she is having very minimal pain this morning. ADL-Treatment Pt declined shower or sponge bath, but requests to get dressed. Pt donned bra and pullover shirt with set up while seated EOB. Pt able to state 2/3 hip precautions. Pt used drivability technician to thread bilateral LE into pants. Stood with supervision for balance during pant hike using FWW for balance. Increased time for dressing tasks. Pt washed face with set up. States she already completed oral care. Therapy Code Descriptions/Definitions Functional [place] Measure: 0=Not Assessed/NA 4=Minimal Assistance 1=Total Assistance 5=Supervision or Setup 2=Maximal Assistance 6=Modified [place] 3=Moderate Assistance 7=Complete IndependenceSCALE: Activities may be completed with or without assistive devices. 7-Hjoqkewglw-dbchelo completes the activity by him/herself with no assistance from a helper. 5-Set-up or Clean-up Assistance-helper sets up or cleans up; patient completes activity. [place] assists only prior to or following the activity. 4-Supervision or Touching Assistance-helper provides verbal cues and/or touching/steadying and/or contact guard assistance as patient completes activity. Assistance may be provided throughout the activity or intermittently. 3-Partial/Moderate Assistance-helper does LESS THAN HALF the effort. [place] lifts, holds or supports trunk or limbs, but provides less than half the effort. 2-Substantial/Maximal Assistance-helper does MORE THAN HALF the effort. [place] lifts or holds trunk or limbs and provides more than half the effort. 9-Wmslmwhwr-povjft does ALL the effort. Patient does none of the effort to complete the activity. Or, the assistance of 2 or more helpers is required for the patient to complete the activity. If activity was not attempted, code reason: 7-Patient Refused. 9-Not Applicable-not attempted and the patient did not perform the activity before the current illness, exacerbation or injury. 10-Not Attempted due to Environmental Limitations-(lack of equipment, weather restraints, etc.). 88-Not Attempted due to Medical Conditions or Safety Concerns. Upper Body Dressing (QC): 5 Lower Body Dressing (QC): 4 Other Treatment Pt performed gait to therapy gym with FWW, slow pace. Pt completed resistance peg activity with bilateral UE with 1# weights in place to increase strength and coordination/manipulation. Pt completed task with increased time. Arm bike [id number] to increase overall strength and activity tolerance needed for functional task completion. Pt completed task with minimal resistance and slow pace. No rest breaks needed. Putty activity completed with bilateral hands to increase lime kiln and recausticizing operator strength and coordination. Pt returned to room, transferred to bed with supervision. Sit to supine with min assist for right LE. Pt resting in bed with needs met after session. OT Short Term Goals Short Term Goals Time Frame: Sep 01, 2019 Lower Body Dressing(FIM): 4 Toileting(FIM): 4 Toilet/Commode Transfer(FIM): 4 Additional Short Term Goals: 2-Verbalize Understanding, 3-ImproveStrength/Miah 1=Demonstrate adherence to instructed precautions during ADL tasks. 2=Patient will verbalize/demonstrate understanding of assistive devices/modifications for ADL. 3=Patient will improve strength/tolerance for activity to enable patient to perform ADL's. OT Shelter Goals Shelter Goals Time Frame: Sep 15, 2019 Eating (QC): 6 Oral Hygiene (QC): 6 Shower/Bathe Self (QC): 5 Upper Body Dressing (QC): 6 Lower Body Dressing (QC): 5 On/Off Footwear (QC): 5 Toileting Hygiene (QC): 6 Toilet/Commode Transfer (QC): 6 Additional Goals: 1-Demonstrate ADL Tasks, 2-Verbalize Understanding, 3- ImproveStrength/Miah 1=Demonstrate adherence to instructed precautions during ADL tasks. 2=Patient will verbalize/demonstrate understanding of assistive devices/mod ifications for ADL. 3=Patient will improve strength/tolerance for activity to enable patient to perform ADL's. OT Education/Plan Discharge Recommendations Plan/Recommendations: Continue POC Treatment Plan/Plan of Care Patient would benefit from OT for education, treatment and training to promote independence in ADL's, mobility, safety and/or upper extremity function for ADL's. Plan of Care: ADL Retraining, Functional Mobility, Group Exercise/Act as Ind, UE Funct Exercise/Act Treatment Duration: Sep 15, 2019 Frequency: At least 5 of 7 days/Wk (IRF) Estimated Hrs Per Day: 1.5 hours per day Rehab Potential: Fair Time/GCodes Start Time: 08:00 Stop Time: 09:00 Total Time Billed (hr/min): 60 Billed Treatment Time 1 visit, ADLx2(30minutes), EXx2(30minutes) PEGGY CAO OT Sep 02, 2019 10:08 POS
--- NOTE | 2019-09-02 10:57 | Physical Therapy Daily Note ---
PT Daily Note-Current Subjective Patient agrees to PT at this time. Patient is lying in bed with HOB elevated. Patient reports that she is having a moderate amount of pain in the anterior aspect of her R hip but she is willing to work today. Pain Numeric Pain Scale: 5-Moderate Pain Location: Right Location Body Site: Hip Pain Description: Ache Mental Status Patient Orientation: Normal For Age Transfers SCALE: Activities may be completed with or without assistive devices. 5-Qlcklylsnm-wxirrrj completes the activity by him/herself with no assistance from a helper. 5-Set-up or Clean-up Assistance-helper sets up or cleans up; patient completes activity. [place] assists only prior to or following the activity. 4-Supervision or Touching Assistance-helper provides verbal cues and/or touching /steadying and/or contact guard assistance as patient completes activity. Assistance may be provided throughout the activity or intermittently. 3-Partial/Moderate Assistance-helper does LESS THAN HALF the effort. [place] lifts, holds or supports trunk or limbs, but provides less than half the effort. 2-Substantial/Maximal Assistance-helper does MORE THAN HALF the effort. [place] lifts or holds trunk or limbs and provides more than half the effort. 5-Vqpqthypi-nfpouj does ALL the effort. Patient does none of the effort to complete the activity. Or, the assistance of 2 or more helpers is required for the patient to complete the activity. If activity was not attempted, code reason: 7-Patient Refused. 9-Not Applicable-not attempted and the patient did not perform the activity before the current illness, exacerbation or injury. 10-Not Attempted due to Environmental Limitations-(lack of equipment, weather restraints, etc.). 88-Not Attempted due to Medical Conditions or Safety Concerns. Transfers (B, C, W/C): 4 Roll Left to Right (QC): 4 Sit to Lying (QC): 4 Sit to Stand (QC): 5 Weight Bearing Right Lower Extremity: Right Weight Bearing/Tolerated Left Lower Extremity: Left Full Weight Bearing Gait Training Does the Patient Walk?: Yes Gait: 5 Distance: 125' Walk 10 feet (QC): 5 Walk 50 ft with 2 Turns(QC): 5 Gait Assistive Device: FWW Antalgic gait, slight internal rotation of R hip Stair Training Stair Training: Handrails/: uses walker #of Steps: 1 1 Step (curb) (QC): 4 Pt. required skilled verbal instruction for sequence ans safety thru this task Exercises Supine Ex: Ankle pumps, Quad Set, Glut sets, Heel Slides, Straight leg raise, Hip abd/add Supine Reps: 10 Seated Therapy Exercises: Ankle pumps, Sit to stand, Long arc quads, Hip abd/add Seated Reps: 10 NuStep Minutes: 10 NuStep Workload: 4 Assessment Patient able to perform bed mobility with little assistance, mainly to maneuver RLE into the bed. Patient instructed on how to use LLE to bring RLE into bed but still had difficulty with lifting fully to height of bed. Patient performed supine exercises in bed, requiring assistance with L SLR and heel slides to a chieve full ROM. Patient ambulated 125' to therapy gym with slightly antalgic gait, requiring no rests, and then ambulated another 100' at conclusion of treatment. Patient performed seated exercises independently, demonstrating fair strength. NuStep was used for 10 minutes to improve strength and joint mobility in BLE. Patient performed one step using walker to practice proper stair technique. Patient left supine in bed with HOB elevated at conclusion of treatment. PT Short Term Goals Short Term Goals Time Frame: Sep 01, 2019 Gait Distance Comment: 50' Gait Assistive Device: FWW (CGA) Wheelchair Distance: 150' PT Class C Truck Driver Goals Group Home Goals PT Class C Truck Driver Goals Time Frame: Sep 15, 2019 Sit to Lying (QC): 4 (CGA) Lying-Sitting on Side/Bed(QC): 4 (CGA) Sit to Stand (QC): 4 (CGA) Roll Left to Right (QC): 4 (SBA) Chair/Aoq-ht-Bggdp Xfer(QC): 4 (CGA) Car Transfer (QC): 4 (CGA) Does the Patient Walk: Yes Distance: 150' Walk 10 feet (QC): 4 (SBA) Walk 10ft-Uneven Surface(QC): 4 (CGA) Walk 50ft with 2 Turns (QC): 4 (CGA) Walk 150 ft (QC): 4 (SBA) Gait Assistive Device: FWW Distance: 300' Wheel 50 feet with 2 turns (QC: 4 (SBA) PT Plan Treatment/Plan Treatment Plan: Continue Plan of Care Treatment Plan: Bed Mobility, Concurrent Therapy, Education, Functional Activity Miah, Functional Strength, Group Therapy, Gait, Safety, Therapeutic Exercise, Transfers Treatment Duration: Aug 26, 2019 Frequency: At least 5 of 7 days/Wk (IRF) Estimated Hrs Per Day: 1.5 hours per day Patient and/or Family Agrees t: Yes Safety Risks/Education Patient Education: Gait Training, Steps, Reviewed Precautions, Disease Process Teaching Recipient: Patient Teaching Methods: Demonstration, Discussion Response to Teaching: Verbalize Understanding, Return Demonstration Time/GCodes Time In: 1000 Time Out: 1100 Total Billed Treatment Time: 60 Total Billed Treatment 1 visit EX x2 30min GT 15min FA 15min JOHN ROMAN ACCOUNTING PROFESSOR Sep 02, 2019 10:57 POS
[2019-09-02] MEDS: VITAMIN D3 1,000 UNITS (CHOLECALCIFEROL) TABLET PO SCH (11:27)
--- NOTE | 2019-09-02 11:58 | Speech Therapy Daily Note ---
Speech Daily Progress Note Subjective Date Seen by Provider: Sep 02, 2019 Time Seen by Provider: 00:30 Patient was resting in bed following PT. She stated her pain isn't bad today but just got tired during PT. Objective Patient completed general information questions with 80% given 10% cues and/or repetitions. Assessment Assessment Current Status: Good Progress Treatment Plan Continue Plan of Care Speech Short Term Goals Short Term Goals Short Term Goals 1) The patient will complete memory tasks with 90% or greater given 10% cues. 2) The patient will complete problem solving tasks with 90% or greater given 10% cues. 3) The patient will complete safety awareness tasks with 90% or greater given 10% cues. Speech Prison Goals Medicaid Eligibility Specialist Goals Patient will improve cognitive-communication necessary for safety and daily living tasks with minimal assist. Speech-Plan Patient/Family Goals Patient/Family Goals: Patient plans on returning home with family upon rehab discharge. Treatment Plan Speech Therapy Treatment Plan: Continue Plan of Care Patient is progressing well toward meeting goals. Treatment Duration: Sep 09, 2019 Frequency: 5 times per week Estimated Hrs Per Day: .5 hour per day Rehab Potential: Fair Barriers to Learning: Cognitive deficits Pt/Family Agrees to Plan: Yes Safety Risks/Education Teaching Recipient: Patient Teaching Methods: Demonstration, Discussion Response to Teaching: Verbalize Understanding, Return Demonstration Education Topics Provided: Continued safety within her room. Time Speech Therapy Time In: 11:00 Speech Therapy Time Out: 11:30 Total Billed Time: 30 Billed Treatment Time 1SOWMYA BETHAN[address] ST Sep 02, 2019 11:58 POS
--- NOTE | 2019-09-02 14:24 | NUR ---
"RD ASSESSMENT PMHx: HTN PT INTERACTION: Pt was awake and pleasant during nutrition follow-up. Pt states current is still pretty poor since last assessment. Note pt avg PO intake of 25% x2d, per chart review. Pt states consuming at least 2 Ensure supplements per day. Pt states no issues with n/v since last assessment, but is still dealing with some constipation. Note last BM was 08/31, and pt currently on bowel regimen of miralax, colace, per chart review. ABNORMAL NUTRITION-RELATED LAB VALUES: Pro 5.3 (L) Est. kcal needs: 3994-3098 kcal (25-30 kcal/kg) Est. Pro needs: 54-68 g Pro (0.8-1.0 g Pro/kg) PES STATEMENT: Inadequate oral intake (NI-2.1) related to loss of appetite as evidenced by avg PO intake 25% meals x2d | pt interview INTERVENTION: Continue with current diet order of Heart Healthy diet. Continue with current supplementation order of Ensure Plus with meals TID. Encouraged pt to eat when able. MONITOR/EVALUATE: PO Intake; Plan of Care; Hydration Status; Weight Status; Lab Values Shon Walton, MS, RD, LD Ext. 133"
--- NOTE | 2019-09-02 14:36 | Therapy Group Daily Note ---
Therapy Daily Group Note Patient Education Topic Home Safety Exercises LE Seated Exercise, UE Exercise Session Ratio (pt:therapist): 6:2 Goal of Session: Home Safety Strategies, UE/LE Strengthing Goal Met for this Session: Yes Pt Benefit of Group: Contributions to Others, F/U Use of Strategies @Home, Increased Functional Safety, Increased Functional Strength, Improved Cognition, Recognition of Peers, Socialization Other/Notes Pt ambulated using FWW to [facility] for OT/PT group. Group consisted of introductions (name, place living, favorite room), socialization, UE/LE seated exercises and educational topics over home safety environment/adaptive equipment. Pt introduced self appropriately and actively listened to peers. Pt was able to complete UE/LE exercises without difficulty. Pt acknowledged understanding of educational topics with personal stories and strategies used at own home. After therapy, pt lying in bed with call light/phone in reach. All needs met in room. Start Time: 12:55 Stop Time: 14:10 Total Billed Treatment Time: 75 Total Billed Treatment 1-GRP CONOR SAHU Sep 02, 2019 14:36 POS
--- NOTE | 2019-09-02 14:53 | NUR ---
Weekly Team Conference Discussed weekly team conference with patient. Recommendation is for discharge home with spouse and assistance from son on 09/09/19. Patient is agreeable to this plan. Discussed a day pass for this weekend; patient would like to check with her son regarding this and will let this worker know if she will leave on pass. Also discussed moving patient to independent living room on 09/04/19. Patient wants to make sure the bed is not too high and that she is able to get into and out of the bed. Will ask PT to show patient the independent living room tomorrow during treatment. If patient is agreeable, she will move to independent living room on Saturday. Julia Becerril, PT will work with patient tomorrow and show her the independent living room; if appropriate, will proceed with moving patient on Saturday. Patient needs a hip kit; however, she reports having a engine assembler, sock aid and long handled sponge at home, and does not feel she will need a hip kit. Will clarify this with her son. Therapy team feels patient would benefit from home health care PT and OT; however, on admission, patient's son verbalized wanting to utilize [facility] outpatient therapy. Will discuss recommendation for home health care with son and patient and proceed with ordering PT and OT, either in home or outpatient, at discharge.
[2019-09-02] MEDS ORDERED: BISACODYL 10 MG SUPP (DULCOLAX) PR PRN (15:45)
[2019-09-02 17:33] VITALS: BP 129/78
[2019-09-02] MEDS: OMEGA 3 (FISH OIL) 1000 MG CAP PO SCH (20:08)
[2019-09-02] MEDS: amLODIPine 10 MG (NORVASC) TAB PO SCH (20:08)
[2019-09-02] MEDS: ACETAMINOPHEN 325 MG TABLET PO SCH (20:09)
[2019-09-02] MEDS: POLYETHYLENE GLYCOL 17 GM (MIRALAX) PACK PO PRN (20:10)
[2019-09-03 05:07] VITALS: BP 138/76
[2019-09-03] MEDS: HYDROcodone/APAP 5 MG/325 MG (LORTAB) TAB PO PRN ×3 (06:28→21:17)
[2019-09-03] MEDS: MULTIVIT W/MINERALS TAB (THERAGRAN M) PO SCH (06:28)
[2019-09-03] MEDS: CYANOCOBALAMIN 1,000 MCG (VITAMIN B-12) TABLET PO SCH (07:57)
[2019-09-03] MEDS: meTOprolol TARTRATE 50 MG (LOPRESSOR) TAB PO SCH ×2 (07:57→21:17)
[2019-09-03] MEDS: LOSARTAN 100 MG (COZAAR) TABLET PO SCH (07:57)
[2019-09-03] MEDS: VITAMIN D3 1,000 UNITS (CHOLECALCIFEROL) TABLET PO SCH (07:58)
[2019-09-03] MEDS: MICONAZOLE 2% POWDER (DESENEX AF) 90 GM TOP SCH ×2 (07:58→21:21)
[2019-09-03] MEDS: DOCUSATE SODIUM 100 MG (COLACE) CAP PO SCH ×2 (07:58→21:17)
[2019-09-03] MEDS: ASCORBIC ACID (VIT C) 500 MG TABLET PO SCH (07:58)
[2019-09-03] MEDS: ENOXAPARIN 40 MG/0.4 ML (LOVENOX) SYR SC SCH (08:01)
--- NOTE | 2019-09-03 09:06 | Speech Therapy Daily Note ---
Speech Daily Progress Note Subjective Date Seen by Provider: Sep 03, 2019 Time Seen by Provider: 00:30 Patient sitting up in her chair following breakfast. Patient c/o constipation, however she states she is getting help at 1:00 today. Objective Patient completed a series of problem solving tasks with cards related to various situations at 90% with 10% verbal cues and/or repetitions. Assessment Assessment Current Status: Good Progress Treatment Plan Continue Plan of Care Speech Short Term Goals Short Term Goals Short Term Goals 1) The patient will complete memory tasks with 90% or greater given 10% cues. 2) The patient will complete problem solving tasks with 90% or greater given 10% cues. 3) The patient will complete safety awareness tasks with 90% or greater given 10% cues. Speech Alf Goals Used Equipment Sales Representative Goals Patient will improve cognitive-communication necessary for safety and daily living tasks with minimal assist. Speech-Plan Patient/Family Goals Patient/Family Goals: Patient plans on returning home with family post rehab. Treatment Plan Speech Therapy Treatment Plan: Continue Plan of Care Patient has progressed well with ST. Treatment Duration: Sep 09, 2019 Frequency: 5 times per week Estimated Hrs Per Day: .5 hour per day Rehab Potential: Fair Barriers to Learning: Patient has cognitive deficits. Pt/Family Agrees to Plan: Yes Safety Risks/Education Teaching Recipient: Patient Teaching Methods: Demonstration, Discussion Response to Teaching: Verbalize Understanding, Return Demonstration Education Topics Provided: Continued safety within her room. Time Speech Therapy Time In: 09:00 Speech Therapy Time Out: 09:30 Total Billed Time: 30 Billed Treatment Time 1SOWMYA BETHAN[address] ST Sep 03, 2019 09:06 POS
--- NOTE | 2019-09-03 10:07 | PM&R Progress Note ---
Subjective HPI/CC On Admission Date Seen by Provider: Sep 03, 2019 Time Seen by Provider: 08:30 Chief complaint: Right hip facture s/p uncomplicated repair on 08/22/[address] Benitez. HPI: This is a 79yoWF clinic Pt of Dr. Haney who presents to inpatient rehab in need of intense therapy prior to going home after suffering a fall at the [employer] dinner last , and resulted in right hip fracture s/p repair by Dr. Benitez on Saturday08/22/19 after blood was obtained for adequate crossmatch of which she did receive 1 unit of blood in surgery. She has done very well at [facility] Hgb 8.6 today on repeat labs, and her bowels are moving, she is using her IS and her prior level of functioning was ambulating without assistive devices and completely independent with ADLs, living with her in [place], so the goal is to resume therapies and intensify to be able to go home with home health. She has indication for IV iron so that will be ordered. She does have some subtle memory deficit, so will evaluate slum score by speech therapy when they see her. Spoke to patient with son at the bedside and she appeared to be overwhelmed so I did speak with therapy and we will go at a slower pace today and allow her to regain her composure and gaining confidence in order to be successful in inpatient rehabilitation. I am waiting on the slums score since her memory deficit that I identified at the very beginning at [facility] appears to be a factor in slow recovery. Subjective/Events-last exam Transferred to [facility], the independent room today. Is not satisfied with her bowels so will initiate a soap suds enema. Day pass will be provided this weekend. Overall doing very well and pain is well controlled. Checked meds and labs Reviewed therapy notes Conferred with restaurant associate of Systems General: Fatigue Objective Exam Vital Signs Vital Signs Date Time Temp Pulse Resp B/P (MAP) Pulse Ox O2 Delivery O2 Flow Rate FiO2 09/03/19 16:30 36.6 62 16 112/71 (85) 97 Room Air Capillary Refill : Less Than 3 Seconds General Appearance: No Apparent Distress, WD/WN, Chronically ill HEENT: PERRL/EOMI, Normal ENT Inspection, Pharynx Normal, Moist Mucous Membranes Neck: Full Range of Motion, Normal Inspection, Non Tender, Supple Respiratory: Chest Non Tender, Lungs Clear, Normal Breath Sounds, No Accessory Muscle Use, No Respiratory Distress Cardiovascular: Regular Rate, Rhythm, No Edema, No Gallop, No JVD, No Murmur Gastrointestinal: Normal Bowel Sounds, No Organomegaly, No Pulsatile Mass, Non Tender, Soft Back: Normal Inspection, No CVA Tenderness, No Vertebral Tenderness Extremity: Normal Capillary Refill, Normal Inspection, Normal Range of Motion (except right leg due to hip fracture repair pain), Non Tender, No Calf Tenderness, No Pedal Edema Neurologic/Psychiatric: Alert, Oriented x3, No Motor/Sensory Deficits (right leg weakness 3/5 limited ROM), Normal Mood/Affect Skin: Normal Color, Warm/Dry Lymphatic: No Adenopathy Results/Procedures Lab Patient resulted labs reviewed. FIM Transfers Therapy Code Descriptions/Definitions Functional [place] Measure: 0=Not Assessed/NA 4=Minimal Assistance 1=Total Assistance 5=Supervision or Setup 2=Maximal Assistance 6=Modified [place] 3=Moderate Assistance 7=Complete IndependenceSCALE: Activities may be completed with or without assistive devices. 9-Wqdbsdpfxj-zacmgfi completes the activity by him/herself with no assistance from a helper. 5-Set-up or Clean-up Assistance-helper sets up or cleans up; patient completes a ctivity. [place] assists only prior to or following the activity. 4-Supervision or Touching Assistance-helper provides verbal cues and/or touching/steadying and/or contact guard assistance as patient completes activity. Assistance may be provided throughout the activity or intermittently. 3-Partial/Moderate Assistance-helper does LESS THAN HALF the effort. [place] lifts, holds or supports trunk or limbs, but provides less than half the effort. 2-Substantial/Maximal Assistance-helper does MORE THAN HALF the effort. [place] lifts or holds trunk or limbs and provides more than half the effort. 6-Boaucvxca-jbrjyy does ALL the effort. Patient does none of the effort to complete the activity. Or, the assistance of 2 or more helpers is required for the patient to complete the activity. If activity was not attempted, code reason: 7-Patient Refused. 9-Not Applicable-not attempted and the patient did not perform the activity before the current illness, exacerbation or injury. 10-Not Attempted due to Environmental Limitations-(lack of equipment, weather restraints, etc.). 88-Not Attempted due to Medical Conditions or Safety Concerns. Transfers (B, C, W/C) (FIM): 4 Roll Left to Right (QC): 4 Sit to Lying (QC): 4 Sit to Stand (QC): 5 Chair/Bzo-ht-Ptslm Xfer(QC): 5 Bed to/from Chair: 5 Car Transfer (QC): 2 (MaxA) Gait Training Does the Patient Walk?: Yes Gait (FIM): 5 Distance (FIM): 1=up to 49 ft Distance: 125' Walk 10 feet (QC): 5 Walk 50 ft with 2 Turns(QC): 5 Walk 150 ft (QC): 5 Walking 10ft/uneven surface-QC: 88 Gait Persons Needed: 1 Gait Assistive Device: FWW Wheelchair Training Does the Pt Use a Wheelchair?: No Distance: 150' Wheel 50 ft with 2 turns (QC): 3 (Shawn for steering.) Wheel 150 ft (QC): 3 (Shawn for steering) Type of Wheelchair: Manual Stair Training Stair Training: Handrails/: uses walker #of Steps: 1 1 Step (curb) (QC): 4 4 Steps (QC): 88 12 Steps (QC): 88 Balance Picking up an Object (QC): 88 ADL-Treatment Eating (QC): 6 Oral Hygiene (QC): 4 Shower/Bathe Self (QC): 3 (Pt required Shawn to thoroughly cleanse buttocks region while standing with grab bars and CGA. ) Upper Body Dressing (QC): 5 Lower Body Dressing (QC): 4 Toileting Hygiene (QC): 4 (CGA for toileting hygiene. ) Toilet Transfer (QC): 4 (CGA for toileting transfers. ) Assessment/Plan Assessment and Plan Assess & Plan/Chief Complaint Assessment: s/p right hip fracture repair following fall POD # 12 HTN Memory loss? Post op delirium Post op anemia Mild elevation in ALT Decreased albumin Plan: Monitor hgb IRF protocol but slower pace is successful Pain meds BM regimen Much improved the pain today and feels like she is making progress IV iron to complete by Day pass? Move to independent room? (1) Hip fracture, right (2) Delirium (3) Hypertension (4) Fall (5) Memory deficit (6) Postoperative anemia (7) Transfusion of blood during current hospitalisation (8) Abnormal albumin (9) ALT (SGPT) level raised DANIEL ESCOBAR DO Sep 03, 2019 10:06 POS
--- NOTE | 2019-09-03 10:53 | Physical Therapy Daily Note ---
PT Daily Note-Current Subjective pt in recliner pre-tx and agrees to PT this morning. Pt reports she has a little soreness in the R hip but nothing she would rate as pain. Appearance pt in recliner post-tx with call light, room phone, tray table in reach with all needs met at this time. Mental Status Patient Orientation: Person, Place, Time, Situation Attachments: IV Transfers SCALE: Activities may be completed with or without assistive devices. 4-Zknctwabwg-zsaxall completes the activity by him/herself with no assistance from a helper. 5-Set-up or Clean-up Assistance-helper sets up or cleans up; patient completes a ctivity. [place] assists only prior to or following the activity. 4-Supervision or Touching Assistance-helper provides verbal cues and/or touching/steadying and/or contact guard assistance as patient completes activity. Assistance may be provided throughout the activity or intermittently. 3-Partial/Moderate Assistance-helper does LESS THAN HALF the effort. [place] lifts, holds or supports trunk or limbs, but provides less than half the effort. 2-Substantial/Maximal Assistance-helper does MORE THAN HALF the effort. [place] lifts or holds trunk or limbs and provides more than half the effort. 7-Eswissgvm-ylmrvo does ALL the effort. Patient does none of the effort to complete the activity. Or, the assistance of 2 or more helpers is required for the patient to complete the activity. If activity was not attempted, code reason: 7-Patient Refused. 9-Not Applicable-not attempted and the patient did not perform the activity before the current illness, exacerbation or injury. 10-Not Attempted due to Environmental Limitations-(lack of equipment, weather restraints, etc.). 88-Not Attempted due to Medical Conditions or Safety Concerns. Roll Left to Right (QC): 6 Sit to Lying (QC): 6 Sit to Stand (QC): 6 pt transfers and completes bed mobility independently in regular bed in room 426. Weight Bearing Right Lower Extremity: Right Weight Bearing/Tolerated Left Lower Extremity: Left Full Weight Bearing Gait Training Distance: 150', 100' Walk 10 feet (QC): 4 (SBA) Walk 50 ft with 2 Turns(QC): 4 (SBA) Walk 150 ft (QC): 4 (SBA) Gait Assistive Device: FWW pt ambulates SBA with step through pattern with decreased swing length with the L LE. pt multiple times removes 1 hand from walker to scratch her nose or adjust clothes while ambulating and has no LOB or unsteadiness. Exercises Seated Therapy Exercises: Long arc quads Seated Reps: 30 (15reps 2 sets) Standing: Hip Abduction, Heel/toe raises Standing Reps: 30 (15reps 2 sets) NuStep Minutes: 10 NuStep Workload: 3 Treatments pt performed functional LE strength/endurance training, transfer training, bed mobility training, skilled ambulation training, and education this date. Assessment Current Status: Good Progress Pt has difficulty keep R knee from falling into genu valgus while on the Nustep. Pt given verbal and tactile cues multiple times to correct, which pt is able to maintain for majority of the time but starts to fall into valgus again near the end of the exercise. PT Short Term Goals Short Term Goals Time Frame: Sep 01, 2019 Gait Distance Comment: 50' Gait Assistive Device: FWW (CGA) Wheelchair Distance: 150' PT Gold Beater Goals Gold Beater Goals PT Gold Beater Goals Time Frame: Sep 15, 2019 Sit to Lying (QC): 4 (CGA) Lying-Sitting on Side/Bed(QC): 4 (CGA) Sit to Stand (QC): 4 (CGA) Roll Left to Right (QC): 4 (SBA) Chair/Zcg-gn-Shont Xfer(QC): 4 (CGA) Car Transfer (QC): 4 (CGA) Does the Patient Walk: Yes Distance: 150' Walk 10 feet (QC): 4 (SBA) Walk 10ft-Uneven Surface(QC): 4 (CGA) Walk 50ft with 2 Turns (QC): 4 (CGA) Walk 150 ft (QC): 4 (SBA) Gait Assistive Device: FWW Distance: 300' Wheel 50 feet with 2 turns (QC: 4 (SBA) PT Plan Problem List Problem List: Activity Tolerance, Functional Strength, Safety, Balance, Gait, Transfer, Bed Mobility, ROM Treatment/Plan Treatment Plan: Continue Plan of Care Treatment Plan: Bed Mobility, Concurrent Therapy, Education, Functional Activity Miah, Functional Strength, Group Therapy, Gait, Safety, Therapeutic Exercise, Transfers Treatment Duration: Aug 26, 2019 Frequency: At least 5 of 7 days/Wk (IRF) Estimated Hrs Per Day: 1.5 hours per day Patient and/or Family Agrees t: Yes Safety Risks/Education Patient Education: Gait Training, Transfer Techniques, Correct Positioning, Safety Issues Teaching Recipient: Patient Teaching Methods: Demonstration, Discussion Response to Teaching: Return Demonstration, Reinforcement Needed Time/GCodes Time In: 1000 Time Out: 1100 Total Billed Treatment Time: 60 Total Billed Treatment 1 visit FA 45' GT 15' MICHAELLE WILBURN PT Sep 03, 2019 10:53 POS
--- NOTE | 2019-09-03 11:48 | NUR ---
Patient's son, Geremias, on unit. Discussed discharge plan with patient's son. He is in agreement with discharge date of 09/09/19. Discussed moving patient to independent living room tomorrow, and he is in agreement. PT reported patient was able to get in and out of bed this morning during treatment session. Patient and her son discussed option of day pass and both decline at this time as they feel it would be too difficult for patient's . Discussed recommendation of hip kit and Geremias reports they have all recommended equipment at home and a hip kit is not necessary. Also discussed home health care versus outpatient and patient and her son would like to pursue outpatient PT and OT through [facility]. A follow-up appointment with Dr. Benitez has been scheduled for 10/02/19 at 0930 with x-rays scheduled for 0900 at [facility].
--- NOTE | 2019-09-03 11:50 | Occupational Ther Daily Note ---
OT Current Status-Daily Note Subjective Pt seen in room, up in recliner, agreeable to OT. No pain mentioned until midway through therapy and nursing notified. Appearance Alert, cooperative ADL-Treatment Pt wanted to change clothes and wash up a little with bath pack. Pt recalled 2 of 3 hip precautions, struggling a little with limited hip flexion. She was able to wash upper body with setup and change clothing with setup. Used scrap charger to doff and don underwear and pants, following hip precautions and SBA for clothing management, FWW. Washed [place] area SBA, FWW. Got up from recliner with SBA and walked to bathroom, SBA, FWW. Toilet transfer and toileting SBA, BSC over toilet, grab bars, FWW. Pt walked to commons are and requested a recovery break and reported pain in her R knee. Nursing notified. Therapy Code Descriptions/Definitions Functional [place] Measure: 0=Not Assessed/NA 4=Minimal Assistance 1=Total Assistance 5=Supervision or Setup 2=Maximal Assistance 6=Modified [place] 3=Moderate Assistance 7=Complete IndependenceSCALE: Activities may be completed with or without assistive devices. 1-Nvxsxkjmzq-obmvcmy completes the activity by him/herself with no assistance from a helper. 5-Set-up or Clean-up Assistance-helper sets up or cleans up; patient completes activity. [place] assists only prior to or following the activity. 4-Supervision or Touching Assistance-helper provides verbal cues and/or touching/steadying and/or contact guard assistance as patient completes activity. Assistance may be provided throughout the activity or intermittently. 3-Partial/Moderate Assistance-helper does LESS THAN HALF the effort. [place] lifts, holds or supports trunk or limbs, but provides less than half the effort. 2-Substantial/Maximal Assistance-helper does MORE THAN HALF the effort. [place] lifts or holds trunk or limbs and provides more than half the effort. 3-Dhogewtej-wlnekg does ALL the effort. Patient does none of the effort to complete the activity. Or, the assistance of 2 or more helpers is required for the patient to complete the activity. If activity was not attempted, code reason: 7-Patient Refused. 9-Not Applicable-not attempted and the patient did not perform the activity before the current illness, exacerbation or injury. 10-Not Attempted due to Environmental Limitations-(lack of equipment, weather restraints, etc.). 88-Not Attempted due to Medical Conditions or Safety Concerns. Upper Body Dressing (QC): 5 Lower Body Dressing (QC): 4 (SBA, FWW. Colloid Mill Operator) Toileting Hygiene (QC): 4 (SBA) Toilet Transfer (QC): 4 (SBA) Other Treatment Pt continued walk to gym with SBA, FWW. Completed 12 minutes bilat UE exercise with arm bike set at 15W resistance, taking one brief recovery break at midpoint. Also completed graded clothespins with 1# weight on each arm. Both to strengthen arms to help with transfers and sit to stand. Pt noted arms were tired after exercises. Got up form chair with SBA, FWW and walked to [facility] are to have lunch with her son. Pt educ to keep walker in front of her until she is ready to sit, for safety. All needs met. Education OT Patient Education: Modified ADL techniques, Progress toward Goal/Update tx plan, Purpose of tx/functional activities, Safety issues, Transfer techniques Teaching Recipient: Patient Teaching Methods: Demonstration, Discussion Response to Teaching: Verbalize Understanding, Return Demonstration OT Short Term Goals Short Term Goals Time Frame: Sep 01, 2019 Lower Body Dressing(FIM): 4 Toileting(FIM): 4 Toilet/Commode Transfer(FIM): 4 Additional Short Term Goals: 2-Verbalize Understanding, 3-ImproveStrength/Miah 1=Demonstrate adherence to instructed precautions during ADL tasks. 2=Patient will verbalize/demonstrate understanding of assistive devices/modifications for ADL. 3=Patient will improve strength/tolerance for activity to enable patient to perform ADL's. OT Traveling Passenger Agent Goals Traveling Passenger Agent Goals Time Frame: Sep 15, 2019 Eating (QC): 6 Oral Hygiene (QC): 6 Shower/Bathe Self (QC): 5 Upper Body Dressing (QC): 6 Lower Body Dressing (QC): 5 On/Off Footwear (QC): 5 Toileting Hygiene (QC): 6 Toilet/Commode Transfer (QC): 6 Additional Goals: 1-Demonstrate ADL Tasks, 2-Verbalize Understanding, 3-Improv eStrength/Miah 1=Demonstrate adherence to instructed precautions during ADL tasks. 2=Patient will verbalize/demonstrate understanding of assistive devices/modifications for ADL. 3=Patient will improve strength/tolerance for activity to enable patient to p erform ADL's. OT Education/Plan Discharge Recommendations Plan/Recommendations: Continue POC Treatment Plan/Plan of Care Patient would benefit from OT for education, treatment and training to promote independence in ADL's, mobility, safety and/or upper extremity function for ADL's. Plan of Care: ADL Retraining, Functional Mobility, Group Exercise/Act as Ind, UE Funct Exercise/Act Treatment Duration: Sep 15, 2019 Frequency: At least 5 of 7 days/Wk (IRF) Estimated Hrs Per Day: 1.5 hours per day Rehab Potential: Fair Time/GCodes Start Time: 11:00 Stop Time: 12:15 Total Time Billed (hr/min): 75 Billed Treatment Time visit, 35 minutes ADL, 40 minutes exercise ALBIN VALENTIN OT Sep 03, 2019 11:50 POS
--- NOTE | 2019-09-03 14:54 | Physical Therapy Daily Note ---
PT Daily Note-Current Subjective pt in bed asleep pre-tx. pt agrees to PT but reports she just had an enema and wants to stay in bed for PT. pt reports pain 2/10 in her R hip. Appearance pt in bed post-tx. pt with call light, room phone, tray table in reach with all needs met at this time. Mental Status Patient Orientation: Person, Place, Time, Situation Attachments: IV Transfers SCALE: Activities may be completed with or without assistive devices. 2-Lghrddlbpw-vnqiqit completes the activity by him/herself with no assistance from a helper. 5-Set-up or Clean-up Assistance-helper sets up or cleans up; patient completes activity. [place] assists only prior to or following the activity. 4-Supervision or Touching Assistance-helper provides verbal cues and/or touching/steadying and/or contact guard assistance as patient completes activity. Assistance may be provided throughout the activity or intermittently. 3-Partial/Moderate Assistance-helper does LESS THAN HALF the effort. [place] lif ts, holds or supports trunk or limbs, but provides less than half the effort. 2-Substantial/Maximal Assistance-helper does MORE THAN HALF the effort. [place] lifts or holds trunk or limbs and provides more than half the effort. 2-Syauagilz-lsmpsu does ALL the effort. Patient does none of the effort to complete the activity. Or, the assistance of 2 or more helpers is required for the patient to complete the activity. If activity was not attempted, code reason: 7-Patient Refused. 9-Not Applicable-not attempted and the patient did not perform the activity before the current illness, exacerbation or injury. 10-Not Attempted due to Environmental Limitations-(lack of equipment, weather restraints, etc.). 88-Not Attempted due to Medical Conditions or Safety Concerns. Weight Bearing Right Lower Extremity: Right Weight Bearing/Tolerated Left Lower Extremity: Left Full Weight Bearing Exercises Supine Ex: Ankle pumps, Quad Set, Short Arc Quads, Straight leg raise, Hip abd/add Supine Reps: 40 (2 sets 20 reps) Treatments pt performed supine LE functional strengthening exercises, bed mobility, and education this date. Assessment Current Status: Fair Progress pt performed bed mobility and LE strengthening indep. and had no increase in pain from baseline. PT Short Term Goals Short Term Goals Time Frame: Sep 01, 2019 Gait Distance Comment: 50' Gait Assistive Device: FWW (CGA) Wheelchair Distance: 150' PT Early Childhood Education Worker Goals Correction Goals PT Correction Goals Time Frame: Sep 15, 2019 Sit to Lying (QC): 4 (CGA) Lying-Sitting on Side/Bed(QC): 4 (CGA) Sit to Stand (QC): 4 (CGA) Roll Left to Right (QC): 4 (SBA) Chair/Gcd-ap-Qqben Xfer(QC): 4 (CGA) Car Transfer (QC): 4 (CGA) Does the Patient Walk: Yes Distance: 150' Walk 10 feet (QC): 4 (SBA) Walk 10ft-Uneven Surface(QC): 4 (CGA) Walk 50ft with 2 Turns (QC): 4 (CGA) Walk 150 ft (QC): 4 (SBA) Gait Assistive Device: FWW Distance: 300' Wheel 50 feet with 2 turns (QC: 4 (SBA) PT Plan Problem List Problem List: Activity Tolerance, Functional Strength, Safety, Balance, Gait, Transfer, Bed Mobility, ROM Treatment/Plan Treatment Plan: Continue Plan of Care Treatment Plan: Bed Mobility, Concurrent Therapy, Education, Functional A ctivity Miah, Functional Strength, Group Therapy, Gait, Safety, Therapeutic Exercise, Transfers Treatment Duration: Aug 26, 2019 Frequency: At least 5 of 7 days/Wk (IRF) Estimated Hrs Per Day: 1.5 hours per day Patient and/or Family Agrees t: Yes Safety Risks/Education Patient Education: Correct Positioning, Safety Issues Teaching Recipient: Patient Teaching Methods: Demonstration, Discussion Response to Teaching: Return Demonstration, Reinforcement Needed Time/GCodes Time In: 1400 Time Out: 1415 Total Billed Treatment Time: 15 Total Billed Treatment 1 visit EX Rudi' MICHAELLE WILBURN PT Sep 03, 2019 14:54 POS
[2019-09-03 16:30] VITALS: BP 112/71
[2019-09-03] MEDS: ACETAMINOPHEN 325 MG TABLET PO SCH (21:16)
[2019-09-03] MEDS: OMEGA 3 (FISH OIL) 1000 MG CAP PO SCH (21:17)
[2019-09-03] MEDS: amLODIPine 10 MG (NORVASC) TAB PO SCH (21:18)
[2019-09-04] MEDS: MULTIVIT W/MINERALS TAB (THERAGRAN M) PO SCH (06:05)
[2019-09-04 06:24] VITALS: BP 119/67
[2019-09-04] MEDS: MICONAZOLE 2% POWDER (DESENEX AF) 90 GM TOP SCH ×2 (07:43→20:17)
[2019-09-04] MEDS: LOSARTAN 100 MG (COZAAR) TABLET PO SCH (08:47)
[2019-09-04] MEDS: VITAMIN D3 1,000 UNITS (CHOLECALCIFEROL) TABLET PO SCH (08:47)
[2019-09-04] MEDS: IRON SUCROSE 200 MG/10 ML (VENOFER) VIAL IV SCH ×2 (08:47→08:54)
[2019-09-04] MEDS: meTOprolol TARTRATE 50 MG (LOPRESSOR) TAB PO SCH ×2 (08:47→20:17)
[2019-09-04] MEDS: ASCORBIC ACID (VIT C) 500 MG TABLET PO SCH (08:47)
[2019-09-04] MEDS: ENOXAPARIN 40 MG/0.4 ML (LOVENOX) SYR SC SCH (08:47)
[2019-09-04] MEDS: CYANOCOBALAMIN 1,000 MCG (VITAMIN B-12) TABLET PO SCH (08:47)
[2019-09-04] MEDS: DOCUSATE SODIUM 100 MG (COLACE) CAP PO SCH ×2 (08:48→20:16)
--- NOTE | 2019-09-04 08:56 | Physical Therapy Daily Note ---
PT Daily Note-Current Subjective pt in bathroom with nurse pre-tx on toilet. pt agrees to PT this morning. pt has soreness but no rated pain at this time in the hip. Appearance pt in recliner with feet elevated post-tx. pt with call light, room phone, tray table in reach with all needs met at this time. Mental Status Patient Orientation: Person, Place, Time, Situation Transfers SCALE: Activities may be completed with or without assistive devices. 0-Zwyvigwojh-lbndush completes the activity by him/herself with no assistance from a helper. 5-Set-up or Clean-up Assistance-helper sets up or cleans up; patient completes activity. [place] assists only prior to or following the activity. 4-Supervision or Touching Assistance-helper provides verbal cues and/or touchi ng/steadying and/or contact guard assistance as patient completes activity. Assistance may be provided throughout the activity or intermittently. 3-Partial/Moderate Assistance-helper does LESS THAN HALF the effort. [place] lifts, holds or supports trunk or limbs, but provides less than half the effort. 2-Substantial/Maximal Assistance-helper does MORE THAN HALF the effort. [place] lifts or holds trunk or limbs and provides more than half the effort. 7-Ayybrbmvm-laqzaz does ALL the effort. Patient does none of the effort to complete the activity. Or, the assistance of 2 or more helpers is required for the patient to complete the activity. If activity was not attempted, code reason: 7-Patient Refused. 9-Not Applicable-not attempted and the patient did not perform the activity before the current illness, exacerbation or injury. 10-Not Attempted due to Environmental Limitations-(lack of equipment, weather restraints, etc.). 88-Not Attempted due to Medical Conditions or Safety Concerns. Sit to Stand (QC): 4 (SBA) Weight Bearing Right Lower Extremity: Right Weight Bearing/Tolerated Left Lower Extremity: Left Full Weight Bearing Gait Training Distance: 200' Walk 10 feet (QC): 4 (SBA) Walk 50 ft with 2 Turns(QC): 4 (SBA) Walk 150 ft (QC): 4 (SBA) Gait Assistive Device: FWW Pt continues to walk with a slow step through pattern and stops after every step with the left LE Balance Special Test Comments pt performed 1 minute standing in // bars playing catch. Pt was SBA with no gross LOB this session. Pt performed 30seconds x2 standing on Aerex playing catch. Pt had 3-4 LOB requiring Shawn and pt to reach for // bars to correct imbalance. Pt demonstrates sway at the ankle with decreased hip strategy. Exercises Seated Therapy Exercises: Long arc quads, Hamstring Curls Seated Reps: 30 (15x2) Standing: Hip Abduction, Heel/toe raises Standing Reps: 30 (15x2) NuStep Minutes: 10 NuStep Workload: 3 Treatments pt performed functional strength/endurance training, balance training, skilled ambulation training, and education this date. Assessment Current Status: Good Progress pt demonstrates balance challenges on Aerex this date requiring Shawn and use of hands to regain balance. Pt vanita increased ambulation distance. Pt continues to demonstrate a genu valgus collapse while using the Nustep. PT Short Term Goals Short Term Goals Time Frame: Sep 01, 2019 Gait Distance Comment: 50' Gait Assistive Device: FWW (CGA) Wheelchair Distance: 150' PT Golf Sales Manager Goals Golf Sales Manager Goals PT Intermediate Goals Time Frame: Sep 15, 2019 Sit to Lying (QC): 4 (CGA) Lying-Sitting on Side/Bed(QC): 4 (CGA) Sit to Stand (QC): 4 (CGA) Roll Left to Right (QC): 4 (SBA) Chair/Knq-ng-Lrcmv Xfer(QC): 4 (CGA) Car Transfer (QC): 4 (CGA) Does the Patient Walk: Yes Distance: 150' Walk 10 feet (QC): 4 (SBA) Walk 10ft-Uneven Surface(QC): 4 (CGA) Walk 50ft with 2 Turns (QC): 4 (CGA) Walk 150 ft (QC): 4 (SBA) Gait Assistive Device: FWW Distance: 300' Wheel 50 feet with 2 turns (QC: 4 (SBA) PT Plan Problem List Problem List: Activity Tolerance, Functional Strength, Safety, Balance, Gait, Transfer, Bed Mobility, ROM Treatment/Plan Treatment Plan: Continue Plan of Care Treatment Plan: Bed Mobility, Concurrent Therapy, Education, Functional Activity Miah, Functional Strength, Group Therapy, Gait, Safety, Therapeutic Exercise, Transfers Treatment Duration: Aug 26, 2019 Frequency: At least 5 of 7 days/Wk (IRF) Estimated Hrs Per Day: 1.5 hours per day Patient and/or Family Agrees t: Yes Safety Risks/Education Patient Education: Gait Training, Transfer Techniques, Correct Positioning, Safety Issues Teaching Recipient: Patient Teaching Methods: Demonstration, Discussion Response to Teaching: Return Demonstration, Reinforcement Needed Time/GCodes Time In: 800 Time Out: 900 Total Billed Treatment Time: 60 Total Billed Treatment 1 visit EX 15' FA 30 GT 15' MICHAELLE WILBURN PT Sep 04, 2019 08:56 POS
--- NOTE | 2019-09-04 09:05 | PM&R Progress Note ---
Subjective HPI/CC On Admission Date Seen by Provider: Sep 04, 2019 Time Seen by Provider: 08:30 Chief complaint: Right hip facture s/p uncomplicated repair on 08/22/[address] Benitez. HPI: This is a 79yoWF clinic Pt of Dr. Haney who presents to inpatient rehab in need of intense therapy prior to going home after suffering a fall at the [employer] dinner last , and resulted in right hip fracture s/p repair by Dr. Benitez on Saturday08/22/19 after blood was obtained for adequate crossmatch of which she did receive 1 unit of blood in surgery. She has done very well at [facility] Hgb 8.6 today on repeat labs, and her bowels are moving, she is using her IS and her prior level of functioning was ambulating without assistive devices and completely independent with ADLs, living with her in [place], so the goal is to resume therapies and intensify to be able to go home with home health. She has indication for IV iron so that will be ordered. She does have some subtle memory deficit, so will evaluate slum score by speech therapy when they see her. Spoke to patient with son at the bedside and she appeared to be overwhelmed so I did speak with therapy and we will go at a slower pace today and allow her to regain her composure and gaining confidence in order to be successful in inpatient rehabilitation. I am waiting on the slums score since her memory deficit that I identified at the very beginning at [facility] appears to be a factor in slow recovery. Subjective/Events-last exam Had a BM after suppository yesterday Christian out tomorrow Will DC IV and DC the last IV iron infusion that was due today Overall feels like she is doing much better Checked meds and labs Reviewed therapy notes Conferred with wagon driver salesperson of Systems General: Fatigue Musculoskeletal: leg pain Objective Exam Vital Signs Vital Signs Date Time Temp Pulse Resp B/P (MAP) Pulse Ox O2 Delivery O2 Flow Rate FiO2 09/04/19 08:10 Room Air 09/04/19 06:24 36.6 74 18 119/67 (84) 95 Capillary Refill : Less Than 3 Seconds General Appearance: No Apparent Distress, WD/WN, Chronically ill HEENT: PERRL/EOMI, Normal ENT Inspection, Pharynx Normal, Moist Mucous Memb ranes Neck: Full Range of Motion, Normal Inspection, Non Tender, Supple Respiratory: Chest Non Tender, Lungs Clear, Normal Breath Sounds, No Accessory Muscle Use, No Respiratory Distress Cardiovascular: Regular Rate, Rhythm, No Edema, No Gallop, No JVD, No Murmur Gastrointestinal: Normal Bowel Sounds, No Organomegaly, No Pulsatile Mass, Non Tender, Soft Back: Normal Inspection, No CVA Tenderness, No Vertebral Tenderness Extremity: Normal Capillary Refill, Normal Inspection, Normal Range of Motion (except right leg due to hip fracture repair pain), Non Tender, No Calf Tenderness, No Pedal Edema Neurologic/Psychiatric: Alert, Oriented x3, No Motor/Sensory Deficits (right leg weakness 3/5 limited ROM), Normal Mood/Affect Skin: Normal Color, Warm/Dry Lymphatic: No Adenopathy Results/Procedures Lab Patient resulted labs reviewed. FIM Transfers Therapy Code Descriptions/Definitions Functional [place] Measure: 0=Not Assessed/NA 4=Minimal Assistance 1=Total Assistance 5=Supervision or Setup 2=Maximal Assistance 6=Modified [place] 3=Moderate Assistance 7=Complete IndependenceSCALE: Activities may be completed with or without assistive devices. 9-Jvhzfkahns-artwxsx completes the activity by him/herself with no assistance from a helper. 5-Set-up or Clean-up Assistance-helper sets up or cleans up; patient completes activity. [place] assists only prior to or following the activity. 4-Supervision or Touching Assistance-helper provides verbal cues and/or touching/steadying and/or contact guard assistance as patient completes activity. Assistance may be provided throughout the activity or intermittently. 3-Partial/Moderate Assistance-helper does LESS THAN HALF the effort. [place] lifts, holds or supports trunk or limbs, but provides less than half the effort. 2-Substantial/Maximal Assistance-helper does MORE THAN HALF the effort. [place] lifts or holds trunk or limbs and provides more than half the effort. 9-Hqtqmriex-thjscm does ALL the effort. Patient does none of the effort to complete the activity. Or, the assistance of 2 or more helpers is required for the patient to complete the activity. If activity was not attempted, code reason: 7-Patient Refused. 9-Not Applicable-not attempted and the patient did not perform the activity before the current illness, exacerbation or injury. 10-Not Attempted due to Environmental Limitations-(lack of equipment, weather restraints, etc.). 88-Not Attempted due to Medical Conditions or Safety Concerns. Transfers (B, C, W/C) (FIM): 4 Roll Left to Right (QC): 6 Sit to Lying (QC): 6 Sit to Stand (QC): 4 (SBA) Chair/Fwc-ry-Hfwmp Xfer(QC): 5 Bed to/from Chair: 5 Car Transfer (QC): 2 (MaxA) Gait Training Does the Patient Walk?: Yes Gait (FIM): 5 Distance (FIM): 1=up to 49 ft Distance: 200' Walk 10 feet (QC): 4 (SBA) Walk 50 ft with 2 Turns(QC): 4 (SBA) Walk 150 ft (QC): 4 (SBA) Walking 10ft/uneven surface-QC: 88 Gait Persons Needed: 1 Gait Assistive Device: FWW Wheelchair Training Does the Pt Use a Wheelchair?: No Distance: 150' Wheel 50 ft with 2 turns (QC): 3 (Shawn for steering.) Wheel 150 ft (QC): 3 (Shawn for steering) Type of Wheelchair: Manual Stair Training Stair Training: Handrails/: uses walker #of Steps: 1 1 Step (curb) (QC): 4 4 Steps (QC): 88 12 Steps (QC): 88 Balance Picking up an Object (QC): 88 ADL-Treatment Eating (QC): 6 Oral Hygiene (QC): 4 Shower/Bathe Self (QC): 3 (Pt required Shawn to thoroughly cleanse buttocks region while standing with grab bars and CGA. ) Upper Body Dressing (QC): 5 Lower Body Dressing (QC): 4 (SBA, FWW. Neurology Technologist) Toileting Hygiene (QC): 4 (SBA) Toilet Transfer (QC): 4 (SBA) Assessment/Plan Assessment and Plan Assess & Plan/Chief Complaint Assessment: s/p right hip fracture repair following fall POD # 13 HTN Memory loss? Post op delirium Post op anemia Mild elevation in ALT Decreased albumin Plan: Monitor hgb IRF protocol but slower pace is successful Pain meds BM regimen Much improved the pain today and feels like she is making progress IV iron completed (1) Hip fracture, right (2) Delirium (3) Hypertension (4) Fall (5) Memory deficit (6) Postoperative anemia (7) Transfusion of blood during current hospitalisation (8) Abnormal albumin (9) ALT (SGPT) level raised DANIEL ESCOBAR DO Sep 04, 2019 09:04 POS
--- NOTE | 2019-09-04 11:31 | Progress Note ---
Subjective Date Seen by a Provider: Sep 04, 2019 Time Seen by a Provider: 11:31 Subjective/Events-last exam PT REPORTS THAT SHE CONTINUES TO FEEL GREAT - SHE DENIES ABDOMINAL PAIN, NAUSEA, DOES HAVE SOME PAIN WITH AMBULATION AND SOME PAIN IN HER HIP IF SHE SITS DOWN WRONG. SHE DENIES ANY CHEST PAIN, SHORTNESS OF BREATH. Review of Systems General: No Fatigue, No Malaise HEENT: No Head Aches Pulmonary: No Dyspnea, No Cough Cardiovascular: No: Chest Pain, Palpitations Gastrointestinal: Constipation (INTERMITTENT); No: Nausea, Abdominal Pain Musculoskeletal: leg pain (RIGTH HIP) Neurological: Weakness; No: Confusion Objective Exam Last Set of Vital Signs Vital Signs Date Time Temp Pulse Resp B/P (MAP) Pulse Ox O2 Delivery O2 Flow Rate FiO2 09/04/19 06:24 36.6 74 18 119/67 (84) 95 Room Air Capillary Refill : Less Than 3 Seconds I&O Intake and Output 09/04/19 00:00 Intake Total 1350 ml Balance 1350 ml Intake Oral 1350 ml # Voids 8 # Bowel Movements 3 General: Alert, Oriented X3, Cooperative, No Acute Distress HEENT: Atraumatic, PERRLA, Mucous Memb Moist/[place] Neck: Supple Lungs: Clear to Auscultation, Normal Air Movement Heart: Regular Rate Abdomen: Normal Bowel Sounds, Soft, No Tenderness Extremities: Other (RIGHT HIP INCISION SLIGHTLY PINK, STERI STRIPS IN PLACE) Neuro: Normal Speech, Cranial Nerves 3-12 NL Psych/Mental Status: Mood NL Results Lab Microbiology 09/01/19 Influenza Types A,B Antigen ([place]) - Final, Complete Assessment/Plan Assessment/Plan Assess & Plan/Chief Complaint STATUS POST RIGHT HIP FRACTURE WITH REPAIR HYPERTENSION HYPERLIPIDEMIA DEPRESSION CHRONIC OSTEOARTHRITIS CHRONIC CONSTIPATION STATUS POST RIGHT HIP FRACTURE WITH REPAIR - PT IS PARTICIPATING IN THERAPY - HAD TO DECREASE THE INTENSITY A LITTLE DINA WAS FEELING A LITTLE OVERWHELMED BY THE INTENSITY OF THE ACTIVITY, HOWEVER THEY HAVE BEEN ABLE TO BRING THE INTENSITY BACK UP TO NORMAL AND SHE IS PROGRESSING WELL WITH INCREASE IN HER INDEPENDENCE OF ACTIVITY. - CONTINUE WITH PT/OT/REC THERAPY HYPERTENSION - PT'S HOME REGIMEN HAS BEEN RE-INITIATED- MONITOR BLOOD PRESSURE HYPERLIPIDEMIA - CONTINUE WITH FISH OIL SUPPLEMENTATION DEPRESSION - PT ON LEXAPRO OUTPATIENT - WILL BE ON CELEXA INPATIENT AND RESTART UPON DISCHARGE HER USUAL LEXAPRO DOSING. CHRONIC OSTEOARTHRITIS - PT ON MELOXICAM OUTPATIENT - WILL HOLD THIS FOR A TIME UNTIL OKAY TO RESTART PER ORTHO. CHRONIC CONSTIPATION - SYMPTOMS STABLE ON CURRENT REGIMEN. PLAN WILL BE HOME NEXT WEEK WITH OUTPATIENT PHYSICAL THERAPY PT DID NOT WANT HOME HEALTH. Clinical Quality Measures DVT/VTE Risk/Contraindication: Risk Factor Score Per Nursin RFS Level Per Nursing on Admit: 4+=Very High BEL GRAY MD Sep 04, 2019 11:31 POS
--- NOTE | 2019-09-04 11:55 | Occupational Ther Daily Note ---
OT Current Status-Daily Note Subjective Pt seen in room, up in recliner, agreeable to OT. No pain mentioned. Appearance Alert, cooperative ADL-Treatment Pt declined ADLs, stating that she already washed up. Declined toileting. She was able to state 3/3 hip precautions and appeared to follow them throughout tx. Therapy Code Descriptions/Definitions Functional [place] Measure: 0=Not Assessed/NA 4=Minimal Assistance 1=Total Assistance 5=Supervision or Setup 2=Maximal Assistance 6=Modified [place] 3=Moderate Assistance 7=Complete IndependenceSCALE: Activities may be completed with or without assistive devices. 5-Iqysjvpugr-dwlonhc completes the activity by him/herself with no assistance from a helper. 5-Set-up or Clean-up Assistance-helper sets up or cleans up; patient completes activity. [place] assists only prior to or following the activity. 4-Supervision or Touching Assistance-helper provides verbal cues and/or touching/steadying and/or contact guard assistance as patient completes activity. Assistance may be provided throughout the activity or intermittently. 3-Partial/Moderate Assistance-helper does LESS THAN HALF the effort. [place] lifts, holds or supports trunk or limbs, but provides less than half the effort. 2-Substantial/Maximal Assistance-helper does MORE THAN HALF the effort. [place] lifts or holds trunk or limbs and provides more than half the effort. 0-Hylcshrij-cltdxh does ALL the effort. Patient does none of the effort to complete the activity. Or, the assistance of 2 or more helpers is required for the patient to complete the activity. If activity was not attempted, code reason: 7-Patient Refused. 9-Not Applicable-not attempted and the patient did not perform the activity before the current illness, exacerbation or injury. 10-Not Attempted due to Environmental Limitations-(lack of equipment, weather restraints, etc.). 88-Not Attempted due to Medical Conditions or Safety Concerns. Other Treatment Pt got up from recliner, with a little help adjusting the chair. She walked SBA, FWW to gym with no breaks. Got into chair with arms without incident. She completed 12 minutes bilat UE exercise on arm bike set at 15W resistance, with no recovery breaks. She also completed 10 reps bilat UE exercises with 1# weight on exercise bar and with 1# barbell, with pt education to do the different exercises and occasional verbal or physical cues. All to strengthen arms to help with transfers and ADLs, Pt walked back to her room and got into recliner, with safe positioning of FWW during transfer. Pt left up in recliner, all needs met. Education OT Patient Education: Exercise program, Progress toward Goal/Update tx plan, Purpose of tx/functional activities, Transfer techniques Teaching Recipient: Patient Teaching Methods: Demonstration, Discussion Response to Teaching: Verbalize Understanding, Return Demonstration OT Short Term Goals Short Term Goals Time Frame: Sep 01, 2019 Lower Body Dressing(FIM): 4 Toileting(FIM): 4 Toilet/Commode Transfer(FIM): 4 Additional Short Term Goals: 2-Verbalize Understanding, 3-ImproveStrength/Miah 1=Demonstrate adherence to instructed precautions during ADL tasks. 2=Patient will verbalize/demonstrate understanding of assistive devices/modifications for ADL. 3=Patient will improve strength/tolerance for activity to enable patient to perform ADL's. OT Retirement Goals Retirement Goals Time Frame: Sep 15, 2019 Eating (QC): 6 Oral Hygiene (QC): 6 Shower/Bathe Self (QC): 5 Upper Body Dressing (QC): 6 Lower Body Dressing (QC): 5 On/Off Footwear (QC): 5 Toileting Hygiene (QC): 6 Toilet/Commode Transfer (QC): 6 Additional Goals: 1-Demonstrate ADL Tasks, 2-Verbalize Understanding, 3- ImproveStrength/Miah 1=Demonstrate adherence to instructed precautions during ADL tasks. 2=Patient will verbalize/demonstrate understanding of assistive devices/modifications for ADL. 3=Patient will improve strength/tolerance for activity to enable patient to perform ADL's. OT Education/Plan Discharge Recommendations Plan/Recommendations: Continue POC Treatment Plan/Plan of Care Patient would benefit from OT for education, treatment and training to promote independence in ADL's, mobility, safety and/or upper extremity function for ADL's. Plan of Care: ADL Retraining, Functional Mobility, Group Exercise/Act as Ind, UE Funct Exercise/Act Treatment Duration: Sep 15, 2019 Frequency: At least 5 of 7 days/Wk (IRF) Estimated Hrs Per Day: 1.5 hours per day Rehab Potential: Fair Time/GCodes Start Time: 11:00 Stop Time: 11:45 Total Time Billed (hr/min): 45 Billed Treatment Time visit, 45 minutes exercise ALBIN VALENTIN OT Sep 04, 2019 11:55 POS
--- NOTE | 2019-09-04 13:38 | Speech Therapy Daily Note ---
Speech Daily Progress Note Subjective Date Seen by Provider: Sep 04, 2019 Time Seen by Provider: 00:30 Patient was resting in her recliner following her PT session. Objective The patient completed a series of memory questions of general information with 90% given 10% verbal cues. Assessment Assessment Current Status: Good Progress Treatment Plan Continue Plan of Care Speech Short Term Goals Short Term Goals Short Term Goals 1) The patient will complete memory tasks with 90% or greater given 10% cues. 2) The patient will complete problem solving tasks with 90% or greater given 10% cues. 3) The patient will complete safety awareness tasks with 90% or greater given 10% cues. Speech Fire Regulator Goals Fire Regulator Goals Patient will improve cognitive-communication necessary for safety and daily living tasks with minimal assist. Speech-Plan Patient/Family Goals Patient/Family Goals: Patient plans on returning home with family upon rehab discharge. Treatment Plan Speech Therapy Treatment Plan: Continue Plan of Care Patient is progressing well with skilled ST. Treatment Duration: Sep 09, 2019 Frequency: 5 times per week Estimated Hrs Per Day: .5 hour per day Rehab Potential: Fair Barriers to Learning: Patient has memory deficits Pt/Family Agrees to Plan: Yes Safety Risks/Education Teaching Recipient: Patient Teaching Methods: Demonstration, Discussion Response to Teaching: Return Demonstration Education Topics Provided: Continued safety within the ARU and upon her return home. Time Speech Therapy Time In: 09:00 Speech Therapy Time Out: 09:30 Total Billed Time: 30 Billed Treatment Time 1SOWMYA BETHANIA ST Sep 04, 2019 13:38 POS
--- NOTE | 2019-09-04 14:39 | Therapy Group Daily Note ---
Therapy Daily Group Note Patient Education Topic Other List Below (winter safety environment/health) Exercises LE Seated Exercise, UE Exercise Session Ratio (pt:therapist): 3:1 Goal of Session: Home Safety Strategies, UE/LE Strengthing Goal Met for this Session: Yes Pt Benefit of Group: Contributions to Others, F/U Use of Strategies @Home, Increased Functional Strength, Improved Cognition, Recognition of Peers, Socialization Other/Notes Pt ambulated using FWW to Counts include [facility] beds at the [facility] for OT/PT group. Group consisted of introductions (name, place, favorite chili ingredient), socialization, pt led UE/LE seated exercises, winter safety in environment and health. Pt introduced self appropriately and actively listened to peers. Pt demonstrated understanding of educational topics by giving personal stories and own strategies used. Pt then was able to lead one exercise and complete other exercises without difficulty. After therapy, pt sitting in recliner with call light/phone in reach. All needs met in room. Start Time: 13:00 Stop Time: 14:10 Total Billed Treatment Time: 70 Total Billed Treatment 1-GRP CONOR SAHU Sep 04, 2019 14:39 POS
[2019-09-04] MEDS: DICLOFENAC 1% GEL 100 GM (VOLTAREN) TUBE TOP SCH ×3 (14:42→20:18)
[2019-09-04 16:00] VITALS: BP 92/51
[2019-09-04 20:15] VITALS: BP 131/77
[2019-09-04] MEDS: OMEGA 3 (FISH OIL) 1000 MG CAP PO SCH (20:16)
[2019-09-04] MEDS: amLODIPine 10 MG (NORVASC) TAB PO SCH (20:17)
[2019-09-04] MEDS: ACETAMINOPHEN 325 MG TABLET PO SCH (20:17)
[2019-09-05 05:30] VITALS: BP 120/71
[2019-09-05] MEDS: MULTIVIT W/MINERALS TAB (THERAGRAN M) PO SCH (06:10)
[2019-09-05] MEDS: HYDROcodone/APAP 5 MG/325 MG (LORTAB) TAB PO PRN ×2 (06:10→23:30)
[2019-09-05 08:37] VITALS: BP 133/66
[2019-09-05] MEDS: VITAMIN D3 1,000 UNITS (CHOLECALCIFEROL) TABLET PO SCH (08:38)
[2019-09-05] MEDS: meTOprolol TARTRATE 50 MG (LOPRESSOR) TAB PO SCH ×2 (08:38→20:25)
[2019-09-05] MEDS: CYANOCOBALAMIN 1,000 MCG (VITAMIN B-12) TABLET PO SCH (08:38)
[2019-09-05] MEDS: LOSARTAN 100 MG (COZAAR) TABLET PO SCH (08:38)
[2019-09-05] MEDS: MICONAZOLE 2% POWDER (DESENEX AF) 90 GM TOP SCH ×2 (08:38→20:26)
[2019-09-05] MEDS: ENOXAPARIN 40 MG/0.4 ML (LOVENOX) SYR SC SCH (08:38)
[2019-09-05] MEDS: DOCUSATE SODIUM 100 MG (COLACE) CAP PO SCH ×2 (08:38→20:25)
[2019-09-05] MEDS: ASCORBIC ACID (VIT C) 500 MG TABLET PO SCH (08:38)
[2019-09-05] MEDS: DICLOFENAC 1% GEL 100 GM (VOLTAREN) TUBE TOP SCH ×4 (08:38→21:45)
--- NOTE | 2019-09-05 09:47 | PM&R Progress Note ---
Subjective HPI/CC On Admission Date Seen by Provider: Sep 05, 2019 Time Seen by Provider: 09:45 Chief complaint: Right hip facture s/p uncomplicated repair on 08/22/[address] Benitez. HPI: This is a 79yoWF clinic Pt of Dr. Haney who presents to inpatient rehab in need of intense therapy prior to going home after suffering a fall at the [employer] dinner last , and resulted in right hip fracture s/p repair by Dr. Benitez on Saturday08/22/19 after blood was obtained for adequate crossmatch of which she did receive 1 unit of blood in surgery. She has done very well at [facility] Hgb 8.6 today on repeat labs, and her bowels are moving, she is using her IS and her prior level of functioning was ambulating without assistive devices and completely independent with ADLs, living with her in [place], so the goal is to resume therapies and intensify to be able to go home with home health. She has indication for IV iron so that will be ordered. She does have some subtle memory deficit, so will evaluate slum score by speech therapy when they see her. Spoke to patient with son at the bedside and she appeared to be overwhelmed so I did speak with therapy and we will go at a slower pace today and allow her to regain her composure and gaining confidence in order to be successful in inpatient rehabilitation. I am waiting on the slums score since her memory deficit that I identified at the very beginning at [facility] appears to be a factor in slow recovery. Subjective/Events-last exam Had a BM so she is doing very well with that [place] out and did have some pustules around them so Bactroban started BID with dressing changes IV infusions really helped her Overall feels like she is doing much better Checked meds and labs Reviewed therapy notes Conferred with feller operator of Systems Musculoskeletal: leg pain Objective Exam Vital Signs Vital Signs Date Time Temp Pulse Resp B/P (MAP) Pulse Ox O2 Delivery O2 Flow Rate FiO2 09/06/19 19:30 77 137/77 (97) 09/06/19 17:33 37.0 18 95 Room Air Capillary Refill : Less Than 3 Seconds General Appearance: No Apparent Distress, WD/WN, Chronically ill HEENT: PERRL/EOMI, Normal ENT Inspection, Pharynx Normal, Moist Mucous Membranes Neck: Full Range of Motion, Normal Inspection, Non Tender, Supple Respiratory: Chest Non Tender, Lungs Clear, Normal Breath Sounds, No Accessory Muscle Use, No Respiratory Distress Cardiovascular: Regular Rate, Rhythm, No Edema, No Gallop, No JVD, No Murmur Gastrointestinal: Normal Bowel Sounds, No Organomegaly, No Pulsatile Mass, Non Tender, Soft Back: Normal Inspection, No CVA Tenderness, No Vertebral Tenderness Extremity: Normal Capillary Refill, Normal Inspection, Normal Range of Motion (except right leg due to hip fracture repair pain), Non Tender, No Calf Tenderness, No Pedal Edema Neurologic/Psychiatric: Alert, Oriented x3, No Motor/Sensory Deficits (right leg weakness 3/5 limited ROM), Normal Mood/Affect Skin: Normal Color, Warm/Dry Lymphatic: No Adenopathy Results/Procedures Lab Patient resulted labs reviewed. FIM Transfers Therapy Code Descriptions/Definitions Functional [place] Measure: 0=Not Assessed/NA 4=Minimal Assistance 1=Total Assistance 5=Supervision or Setup 2=Maximal Assistance 6=Modified [place] 3=Moderate Assistance 7=Complete IndependenceSCALE: Activities may be completed with or without assistive devices. 9-Mlvnkphbem-tkeatzg completes the activity by him/herself with no assistance from a helper. 5-Set-up or Clean-up Assistance-helper sets up or cleans up; patient completes activity. [place] assists only prior to or following the activity. 4-Supervision or Touching Assistance-helper provides verbal cues and/or touching/steadying and/or contact guard assistance as patient completes activity. Assistance may be provided throughout the activity or intermittently. 3-Partial/Moderate Assistance-helper does LESS THAN HALF the effort. [place] lifts, holds or supports trunk or limbs, but provides less than half the effort. 2-Substantial/Maximal Assistance-helper does MORE THAN HALF the effort. [place] lifts or holds trunk or limbs and provides more than half the effort. 3-Udhddnqms-jipcbq does ALL the effort. Patient does none of the effort to complete the activity. Or, the assistance of 2 or more helpers is required for the patient to complete the activity. If activity was not attempted, code reason: 7-Patient Refused. 9-Not Applicable-not attempted and the patient did not perform the activity before the current illness, exacerbation or injury. 10-Not Attempted due to Environmental Limitations-(lack of equipment, weather restraints, etc.). 88-Not Attempted due to Medical Conditions or Safety Concerns. Transfers (B, C, W/C) (FIM): 4 Roll Left to Right (QC): 6 Sit to Lying (QC): 6 Sit to Stand (QC): 4 (SBA) Chair/Tlu-uv-Dpcmj Xfer(QC): 5 Bed to/from Chair: 5 Car Transfer (QC): 2 (MaxA) Gait Training Does the Patient Walk?: Yes Gait (FIM): 5 Distance (FIM): 1=up to 49 ft Distance: 200' Walk 10 feet (QC): 4 (SBA) Walk 50 ft with 2 Turns(QC): 4 (SBA) Walk 150 ft (QC): 4 (SBA) Walking 10ft/uneven surface-QC: 88 Gait Persons Needed: 1 Gait Assistive Device: FWW Wheelchair Training Does the Pt Use a Wheelchair?: No Distance: 150' Wheel 50 ft with 2 turns (QC): 3 (Shawn for steering.) Wheel 150 ft (QC): 3 (Shawn for steering) Type of Wheelchair: Manual Stair Training Stair Training: Handrails/: uses walker #of Steps: 1 1 Step (curb) (QC): 4 4 Steps (QC): 88 12 Steps (QC): 88 Balance Picking up an Object (QC): 88 ADL-Treatment Eating (QC): 6 Oral Hygiene (QC): 4 Shower/Bathe Self (QC): 3 (Pt required Shawn to thoroughly cleanse buttocks region while standing with grab bars and CGA. ) Upper Body Dressing (QC): 5 Lower Body Dressing (QC): 4 (SBA, FWW. Valet Service Attendant) Toileting Hygiene (QC): 4 (SBA) Toilet Transfer (QC): 4 (SBA) Assessment/Plan Assessment and Plan Assess & Plan/Chief Complaint Assessment: s/p right hip fracture repair following fall POD # 14 HTN Memory loss? Post op delirium Post op anemia Mild elevation in ALT Decreased albumin Incision pustules Plan: Monitor hgb IRF protocol but slower pace is successful Pain meds BM regimen Much improved the pain today and feels like she is making progress IV iron completed (1) Hip fracture, right (2) Delirium (3) Hypertension (4) Fall (5) Memory deficit (6) Postoperative anemia (7) Transfusion of blood during current hospitalisation (8) Abnormal albumin (9) ALT (SGPT) level raised DANIEL ESCOBAR DO Sep 05, 2019 09:47 POS
--- NOTE | 2019-09-05 09:55 | Physical Therapy Daily Note ---
PT Daily Note-Current Subjective Agrees to rx, states she is getting better Pain Location: No Pain Reported Mental Status Patient Orientation: Normal For Age Transfers SCALE: Activities may be completed with or without assistive devices. 7-Mdagprnvct-zyigyih completes the activity by him/herself with no assistance from a helper. 5-Set-up or Clean-up Assistance-helper sets up or cleans up; patient completes activity. [place] assists only prior to or following the activity. 4-Supervision or Touching Assistance-helper provides verbal cues and/or touching/steadying and/or contact guard assistance as patient completes activity. Assistance may be provided throughout the activity or intermittently. 3-Partial/Moderate Assistance-helper does LESS THAN HALF the effort. [place] lifts, holds or supports trunk or limbs, but provides less than half the effort. 2-Substantial/Maximal Assistance-helper does MORE THAN HALF the effort. [place] lifts or holds trunk or limbs and provides more than half the effort. 2-Gkncesifh-nufbgk does ALL the effort. Patient does none of the effort to complete the activity. Or, the assistance of 2 or more helpers is required for the patient to complete the activity. If activity was not attempted, code reason: 7-Patient Refused. 9-Not Applicable-not attempted and the patient did not perform the activity before the current illness, exacerbation or injury. 10-Not Attempted due to Environmental Limitations-(lack of equipment, weather restraints, etc.). 88-Not Attempted due to Medical Conditions or Safety Concerns. Transfers (B, C, W/C): 5 Sit to Stand (QC): 5 Weight Bearing Right Lower Extremity: Right Weight Bearing/Tolerated Left Lower Extremity: Left Full Weight Bearing Gait Training Does the Patient Walk?: Yes Gait: 5 Walk 10 feet (QC): 5 Walk 50 ft with 2 Turns(QC): 5 Walk 150 ft (QC): 5 Gait Persons Needed: 1 Gait Assistive Device: FWW Exercises Seated Therapy Exercises: Ankle pumps, Sit to stand, Long arc quads, Hip abd/add Seated Reps: 12 Assessment Current Status: Good Progress PT Short Term Goals Short Term Goals Time Frame: Sep 01, 2019 Gait Distance Comment: 50' Gait Assistive Device: FWW ([facility]) Wheelchair Distance: 150' PT Appliance Mechanic Goals Appliance Mechanic Goals PT Fpc Goals Time Frame: Sep 15, 2019 Sit to Lying (QC): 4 (CGA) Lying-Sitting on Side/Bed(QC): 4 (CGA) Sit to Stand (QC): 4 (CGA) Roll Left to Right (QC): 4 (SBA) Chair/Rrn-nq-Zlkix Xfer(QC): 4 (CGA) Car Transfer (QC): 4 (CGA) Does the Patient Walk: Yes Distance: 150' Walk 10 feet (QC): 4 (SBA) Walk 10ft-Uneven Surface(QC): 4 (CGA) Walk 50ft with 2 Turns (QC): 4 (CGA) Walk 150 ft (QC): 4 (SBA) Gait Assistive Device: FWW Distance: 300' Wheel 50 feet with 2 turns (QC: 4 (SBA) PT Plan Treatment/Plan Treatment Plan: Continue Plan of Care Treatment Plan: Bed Mobility, Concurrent Therapy, Education, Functional Activity Miah, Functional Strength, Group Therapy, Gait, Safety, Therapeutic Exercise, Transfers Treatment Duration: Aug 26, 2019 Frequency: At least 5 of 7 days/Wk (IRF) Estimated Hrs Per Day: 1.5 hours per day Patient and/or Family Agrees t: Yes Safety Risks/Education Patient Education: Gait Training, Transfer Techniques, Correct Positioning, Safety Issues Teaching Recipient: Patient Teaching Methods: Demonstration Response to Teaching: Verbalize Understanding, Unable to Return Demonstration, Return Demonstration, Reinforcement Needed Time/GCodes Time In: 850 Time Out: 910 Total Billed Treatment Time: 20 Total Billed Treatment 1,GT20m JOHN ROMAN CONCAVER Sep 05, 2019 09:55 POS
--- NOTE | 2019-09-05 13:00 | NUR ---
[place] removed from right hip per physician orders. Incision has been noted to be red. Several areas with small amounts of pus noted at staple sites. Steri strips applied. Physician notified, new orders received for Bactroban BID.
[2019-09-05] MEDS: MUPIROCIN 2% OINT 22 GM (BACTROBAN) TUBE TOP SCH ×2 (16:20→20:25)
[2019-09-05 16:49] VITALS: BP 127/68
[2019-09-05 20:24] VITALS: BP 133/76
[2019-09-05] MEDS: ACETAMINOPHEN 325 MG TABLET PO SCH (20:25)
[2019-09-05] MEDS: amLODIPine 10 MG (NORVASC) TAB PO SCH (20:25)
[2019-09-05] MEDS: OMEGA 3 (FISH OIL) 1000 MG CAP PO SCH (20:25)
[2019-09-05] MEDS: TRIAMCINOLONE 0.1% CR (KENALOG) 15 GM TUBE TOP SCH (20:26)
[2019-09-06 05:06] VITALS: BP 112/70
[2019-09-06] MEDS: MULTIVIT W/MINERALS TAB (THERAGRAN M) PO SCH (06:18)
[2019-09-06 08:28] VITALS: BP 131/73
[2019-09-06] MEDS: LOSARTAN 100 MG (COZAAR) TABLET PO SCH (08:36)
[2019-09-06] MEDS: meTOprolol TARTRATE 50 MG (LOPRESSOR) TAB PO SCH ×2 (08:36→19:33)
[2019-09-06] MEDS: DICLOFENAC 1% GEL 100 GM (VOLTAREN) TUBE TOP SCH ×4 (08:36→19:34)
[2019-09-06] MEDS: TRIAMCINOLONE 0.1% CR (KENALOG) 15 GM TUBE TOP SCH ×2 (08:36→19:34)
[2019-09-06] MEDS: ASCORBIC ACID (VIT C) 500 MG TABLET PO SCH (08:36)
[2019-09-06] MEDS: DOCUSATE SODIUM 100 MG (COLACE) CAP PO SCH ×2 (08:36→19:32)
[2019-09-06] MEDS: VITAMIN D3 1,000 UNITS (CHOLECALCIFEROL) TABLET PO SCH (08:36)
[2019-09-06] MEDS: CYANOCOBALAMIN 1,000 MCG (VITAMIN B-12) TABLET PO SCH (08:36)
[2019-09-06] MEDS: MUPIROCIN 2% OINT 22 GM (BACTROBAN) TUBE TOP SCH ×2 (08:36→19:34)
[2019-09-06] MEDS: ENOXAPARIN 40 MG/0.4 ML (LOVENOX) SYR SC SCH (08:36)
[2019-09-06] MEDS: MICONAZOLE 2% POWDER (DESENEX AF) 90 GM TOP SCH ×2 (09:00→19:35)
[2019-09-06 17:33] VITALS: BP 140/71
--- NOTE | 2019-09-06 18:03 | PM&R Progress Note ---
Subjective HPI/CC On Admission Date Seen by Provider: Sep 06, 2019 Time Seen by Provider: 17:45 Chief complaint: Right hip facture s/p uncomplicated repair on 08/22/[address] Benitez. HPI: This is a 79yoWF clinic Pt of Dr. Haney who presents to inpatient rehab in need of intense therapy prior to going home after suffering a fall at the [employer] dinner last , and resulted in right hip fracture s/p repair by Dr. Benitez on Saturday08/22/19 after blood was obtained for adequate crossmatch of which she did receive 1 unit of blood in surgery. She has done very well at [facility] Hgb 8.6 today on repeat labs, and her bowels are moving, she is using her IS and her prior level of functioning was ambulating without assistive devices and completely independent with ADLs, living with her in [place], so the goal is to resume therapies and intensify to be able to go home with home health. She has indication for IV iron so that will be ordered. She does have some subtle memory deficit, so will evaluate slum score by speech therapy when they see her. Spoke to patient with son at the bedside and she appeared to be overwhelmed so I did speak with therapy and we will go at a slower pace today and allow her to regain her composure and gaining confidence in order to be successful in inpatient rehabilitation. I am waiting on the slums score since her memory deficit that I identified at the very beginning at [facility] appears to be a factor in slow recovery. Subjective/Events-last exam Had 3 BM after meds for several days Staple line still red but improved Monitoring BP Overall feels like she is doing much better Checked meds and labs Reviewed therapy notes Conferred with licensed psychiatric technician of Systems Musculoskeletal: leg pain Objective Exam Vital Signs Vital Signs Date Time Temp Pulse Resp B/P (MAP) Pulse Ox O2 Delivery O2 Flow Rate FiO2 09/06/19 19:30 77 137/77 (97) 09/06/19 17:33 37.0 18 95 Room Air Capillary Refill : Less Than 3 Seconds General Appearance: No Apparent Distress, WD/WN, Chronically ill HEENT: PERRL/EOMI, Normal ENT Inspection, Pharynx Normal, Moist Mucous Membranes Neck: Full Range of Motion, Normal Inspection, Non Tender, Supple Respiratory: Chest Non Tender, Lungs Clear, Normal Breath Sounds, No Accessory Muscle Use, No Respiratory Distress Cardiovascular: Regular Rate, Rhythm, No Edema, No Gallop, No JVD, No Murmur Gastrointestinal: Normal Bowel Sounds, No Organomegaly, No Pulsatile Mass, Non Tender, Soft Back: Normal Inspection, No CVA Tenderness, No Vertebral Tenderness Extremity: Normal Capillary Refill, Normal Inspection, Normal Range of Motion (except right leg due to hip fracture repair pain), Non Tender, No Calf Tenderne ss, No Pedal Edema Neurologic/Psychiatric: Alert, Oriented x3, No Motor/Sensory Deficits (right leg weakness 3/5 limited ROM), Normal Mood/Affect Skin: Normal Color, Warm/Dry Lymphatic: No Adenopathy Results/Procedures Lab Patient resulted labs reviewed. FIM Transfers Therapy Code Descriptions/Definitions Functional [place] Measure: 0=Not Assessed/NA 4=Minimal Assistance 1=Total Assistance 5=Supervision or Setup 2=Maximal Assistance 6=Modified [place] 3=Moderate Assistance 7=Complete IndependenceSCALE: Activities may be completed with or without assistive devices. 2-Oiovrilvlo-nyfvwlc completes the activity by him/herself with no assistance from a helper. 5-Set-up or Clean-up Assistance-helper sets up or cleans up; patient completes activity. [place] assists only prior to or following the activity. 4-Supervision or Touching Assistance-helper provides verbal cues and/or touching/steadying and/or contact guard assistance as patient completes activity. Assistance may be provided throughout the activity or intermittently. 3-Partial/Moderate Assistance-helper does LESS THAN HALF the effort. [place] lifts, holds or supports trunk or limbs, but provides less than half the effort. 2-Substantial/Maximal Assistance-helper does MORE THAN HALF the effort. [place] lifts or holds trunk or limbs and provides more than half the effort. 0-Mcdurnhax-mgnfeb does ALL the effort. Patient does none of the effort to co mplete the activity. Or, the assistance of 2 or more helpers is required for the patient to complete the activity. If activity was not attempted, code reason: 7-Patient Refused. 9-Not Applicable-not attempted and the patient did not perform the activity before the current illness, exacerbation or injury. 10-Not Attempted due to Environmental Limitations-(lack of equipment, weather restraints, etc.). 88-Not Attempted due to Medical Conditions or Safety Concerns. Transfers (B, C, W/C) (FIM): 5 Roll Left to Right (QC): 6 Sit to Lying (QC): 6 Sit to Stand (QC): 5 Chair/Aia-cc-Tyqwa Xfer(QC): 5 Bed to/from Chair: 5 Car Transfer (QC): 2 (MaxA) Gait Training Does the Patient Walk?: Yes Gait (FIM): 5 Distance (FIM): 1=up to 49 ft Distance: 200' Walk 10 feet (QC): 5 Walk 50 ft with 2 Turns(QC): 5 Walk 150 ft (QC): 5 Walking 10ft/uneven surface-QC: 88 Gait Persons Needed: 1 Gait Assistive Device: FWW Wheelchair Training Does the Pt Use a Wheelchair?: No Distance: 150' Wheel 50 ft with 2 turns (QC): 3 (Shawn for steering.) Wheel 150 ft (QC): 3 (Shawn for steering) Type of Wheelchair: Manual Stair Training Stair Training: Handrails/: uses walker #of Steps: 1 1 Step (curb) (QC): 4 4 Steps (QC): 88 12 Steps (QC): 88 Balance Picking up an Object (QC): 88 ADL-Treatment Eating (QC): 6 Oral Hygiene (QC): 4 Shower/Bathe Self (QC): 3 (Pt required Shawn to thoroughly cleanse buttocks region while standing with grab bars and CGA. ) Upper Body Dressing (QC): 5 Lower Body Dressing (QC): 4 (SBA, FWW. Kaitara Taraka) Toileting Hygiene (QC): 4 (SBA) Toilet Transfer (QC): 4 (SBA) Assessment/Plan Assessment and Plan Assess & Plan/Chief Complaint Assessment: s/p right hip fracture repair following fall POD # 15 HTN Memory loss? Post op delirium Post op anemia Mild elevation in ALT Decreased albumin Plan: Monitor hgb IRF protocol but slower pace is successful Pain meds BM regimen Much improved the pain today and feels like she is making progress IV iron completed Monitor staple line closely (1) Hip fracture, right (2) Delirium (3) Hypertension (4) Fall (5) Memory deficit (6) Postoperative anemia (7) Transfusion of blood during current hospitalisation (8) Abnormal albumin (9) ALT (SGPT) level raised DANIEL ESCOBAR DO Sep 06, 2019 18:03 POS
[2019-09-06 19:30] VITALS: BP 137/77
[2019-09-06] MEDS: ACETAMINOPHEN 325 MG TABLET PO SCH (19:33)
[2019-09-06] MEDS: OMEGA 3 (FISH OIL) 1000 MG CAP PO SCH (19:33)
[2019-09-06] MEDS: amLODIPine 10 MG (NORVASC) TAB PO SCH (19:33)
[2019-09-06] MEDS: HYDROcodone/APAP 5 MG/325 MG (LORTAB) TAB PO PRN (23:08)
[2019-09-07 05:02] VITALS: BP 129/81
[2019-09-07 05:14] LABS: BASOPHILS % (AUTO) 1 % (0-10); EOSINOPHILS # (AUTO) 0.4 10^3/uL (0.0-0.3); EOSINOPHILS % (AUTO) 7 % (0-10); HEMATOCRIT 33 % (35-52); HEMOGLOBIN 10.9 G/DL (11.5-16.0); LYMPHOCYTES # (AUTO) 1.6 X 10^3 (1.0-4.0); LYMPHOCYTES % (AUTO) 28 % (12-44); MEAN CORPUSCULAR HEMOGLOBIN 30 PG (25-34); MEAN CORPUSCULAR HGB CONC 33 G/DL (32-36); MEAN CORPUSCULAR VOLUME 92 FL (80-99); MEAN PLATELET VOLUME 10.3 FL (7.4-10.4); MONOCYTES # (AUTO) 0.7 X 10^3 (0.0-1.0); MONOCYTES % (AUTO) 13 % (0-12); NEUTROPHILS # (AUTO) 2.9 X 10^3 (1.8-7.8); NEUTROPHILS % (AUTO) 51 % (42-75); PLATELET COUNT 301 10^3/uL (130-400); WHITE BLOOD COUNT 5.6 10^3/uL (4.3-11.0)
[2019-09-07] MEDS: MULTIVIT W/MINERALS TAB (THERAGRAN M) PO SCH (05:20)
[2019-09-07 05:37] LABS: ALANINE AMINOTRANSFERASE 16 U/L (0-55); ALBUMIN 3.5 GM/DL (3.2-4.5); ALKALINE PHOSPHATASE 76 U/L (40-136); BILIRUBIN,TOTAL 0.7 MG/DL (0.1-1.0); BUN/CREATININE RATIO 9; CALCIUM 9.2 MG/DL (8.5-10.1); CARBON DIOXIDE 24 MMOL/L (21-32); CHLORIDE 105 MMOL/L (98-107); CREATININE SERUM 0.76 MG/DL (0.60-1.30); GFR ESTIMATED > 60; GLUCOSE 92 MG/DL (70-105); POTASSIUM 3.9 MMOL/L (3.6-5.0); SODIUM 138 MMOL/L (135-145); TOTAL PROTEIN 5.8 GM/DL (6.4-8.2)
[2019-09-07] MEDS: VITAMIN D3 1,000 UNITS (CHOLECALCIFEROL) TABLET PO SCH (08:31)
[2019-09-07] MEDS: meTOprolol TARTRATE 50 MG (LOPRESSOR) TAB PO SCH ×2 (08:31→20:35)
[2019-09-07] MEDS: CYANOCOBALAMIN 1,000 MCG (VITAMIN B-12) TABLET PO SCH (08:31)
[2019-09-07] MEDS: LOSARTAN 100 MG (COZAAR) TABLET PO SCH (08:32)
[2019-09-07] MEDS: ASCORBIC ACID (VIT C) 500 MG TABLET PO SCH (08:32)
[2019-09-07] MEDS: MICONAZOLE 2% POWDER (DESENEX AF) 90 GM TOP SCH ×2 (08:32→20:38)
[2019-09-07] MEDS: ENOXAPARIN 40 MG/0.4 ML (LOVENOX) SYR SC SCH (08:32)
[2019-09-07] MEDS: HYDROcodone/APAP 5 MG/325 MG (LORTAB) TAB PO PRN ×2 (08:32→20:37)
[2019-09-07] MEDS: DOCUSATE SODIUM 100 MG (COLACE) CAP PO SCH ×2 (08:32→20:36)
--- NOTE | 2019-09-07 09:53 | Physical Therapy Daily Note ---
PT Daily Note-Current Subjective Pt. agrees to Rx. Pt. is tearful and states she would like to go home as soon as it is safe as she really misses her . Pt explains that he has dementia and has "snuck out" away from her sons keeping while she has been here and he does so much better when she is home. Pt asks to leave before projected date of . Pain Location: No Pain Reported Mental Status Patient Orientation: Normal For Age Transfers SCALE: Activities may be completed with or without assistive devices. 4-Afpeeyhcdv-txotiys completes the activity by him/herself with no assistance from a helper. 5-Set-up or Clean-up Assistance-helper sets up or cleans up; patient completes activity. [place] assists only prior to or following the activity. 4-Supervision or Touching Assistance-helper provides verbal cues and/or touching/steadying and/or contact guard assistance as patient completes activity. Assistance may be provided throughout the activity or intermittently. 3-Partial/Moderate Assistance-helper does LESS THAN HALF the effort. [place] lifts, holds or supports trunk or limbs, but provides less than half the effort. 2-Substantial/Maximal Assistance-helper does MORE THAN HALF the effort. [place] lifts or holds trunk or limbs and provides more than half the effort. 2-Suyzsrhfo-ibbcsc does ALL the effort. Patient does none of the effort to complete the activity. Or, the assistance of 2 or more helpers is required for the patient to complete the activity. If activity was not attempted, code reason: 7-Patient Refused. 9-Not Applicable-not attempted and the patient did not perform the activity before the current illness, exacerbation or injury. 10-Not Attempted due to Environmental Limitations-(lack of equipment, weather restraints, etc.). 88-Not Attempted due to Medical Conditions or Safety Concerns. Transfers (B, C, W/C): 6 Roll Left to Right (QC): 6 Sit to Lying (QC): 6 Sit to Stand (QC): 6 Chair/Coz-xg-Yvxqp Xfer(QC): 6 Bed to/from Chair: 6 Car Transfer (QC): 6 Weight Bearing Right Lower Extremity: Right Weight Bearing/Tolerated Left Lower Extremity: Left Full Weight Bearing Gait Training Does the Patient Walk?: Yes Gait: 6 Walk 10 feet (QC): 6 Walk 50 ft with 2 Turns(QC): 6 Walk 150 ft (QC): 6 Walking 10ft/uneven surface-QC: 6 Gait Persons Needed: 0 Gait Assistive Device: FWW even step length, no LOB Stair Training Stair Training: Handrails/: 2 handrails #of Steps: 5 1 Step (curb) (QC): 5 4 Steps (QC): 5 12 Steps (QC): 88 Stairs: Pattern: Step to Level of Assist: 5 minimal instruction for sequence Balance Picking up an Object (QC): 88 (unsafe to trial) Exercises Supine Ex: Ankle pumps, Quad Set, Rolling, Glut sets, Heel Slides, Scooting, Hip abd/add Supine Reps: 20 Assessment Current Status: Good Progress pt. states she is so pleased she is not having any pain at all today and also notices improved gait pattern, really wants to go home with soon if at all possible PT Short Term Goals Short Term Goals Time Frame: Sep 01, 2019 Gait Distance Comment: 50' Gait Assistive Device: FWW (CGA) Wheelchair Distance: 150' PT Steam Cleaning Machine Operator Goals Steam Cleaning Machine Operator Goals PT Steam Cleaning Machine Operator Goals Time Frame: Sep 15, 2019 Sit to Lying (QC): 4 (CGA) Lying-Sitting on Side/Bed(QC): 4 (CGA) Sit to Stand (QC): 4 (CGA) Roll Left to Right (QC): 4 (SBA) Chair/Xgy-yz-Kbfop Xfer(QC): 4 (CGA) Car Transfer (QC): 4 (CGA) Does the Patient Walk: Yes Distance: 150' Walk 10 feet (QC): 4 (SBA) Walk 10ft-Uneven Surface(QC): 4 (CGA) Walk 50ft with 2 Turns (QC): 4 (CGA) Walk 150 ft (QC): 4 (SBA) Gait Assistive Device: FWW Distance: 300' Wheel 50 feet with 2 turns (QC: 4 (SBA) PT Plan Treatment/Plan Treatment Plan: Continue Plan of Care Treatment Plan: Bed Mobility, Concurrent Therapy, Education, Functional Activity Miah, Functional Strength, Group Therapy, Gait, Safety, Therapeutic Exercise, Transfers Treatment Duration: Aug 26, 2019 Frequency: At least 5 of 7 days/Wk (IRF) Estimated Hrs Per Day: 1.5 hours per day Patient and/or Family Agrees t: Yes Safety Risks/Education Patient Education: Gait Training, Transfer Techniques, Steps, Correct Positioning, Disease Process, Safety Issues Teaching Recipient: Patient Teaching Methods: Demonstration, Discussion Response to Teaching: Verbalize Understanding, Return Demonstration, Reinforcement Needed Time/GCodes Time In: 900 Time Out: 1000 Total Billed Treatment Time: 60 Total Billed Treatment 1,FA30m,GT15m,EX15m JOHN ROMAN [employer] CONCRETE IRONWORKER Sep 07, 2019 09:53 POS
--- NOTE | 2019-09-07 11:12 | NUR ---
Approached by PT this morning with reports that patient was very tearful this morning and would like to discharge home tomorrow, instead of Saturday. Patient reported she just wanted to get home to her . Telephoned patient's son, Geremias, to discuss discharge. Geremias is on his way to the hospital and states he will discuss discharge with his mother at that time.
[2019-09-07] MEDS: MUPIROCIN 2% OINT 22 GM (BACTROBAN) TUBE TOP SCH ×2 (11:48→20:37)
[2019-09-07] MEDS: TRIAMCINOLONE 0.1% CR (KENALOG) 15 GM TUBE TOP SCH ×2 (11:48→20:37)
[2019-09-07] MEDS: DICLOFENAC 1% GEL 100 GM (VOLTAREN) TUBE TOP SCH ×4 (11:48→20:38)
--- NOTE | 2019-09-07 11:52 | Progress Note ---
[facility] 1152: Progress Note CC: Right Hip Fracture Barriers: Pt is doing very well and has no worries currently about returning home She states she has been walking with the walker unassisted and been able to put weight on both feet She did not use a walker before and would like to be able to return to that level eventually, but has no problem using the walker until her strength is better She states she tried the stairs today in therapy and did fine, but she states that they do not have stairs at home anyway She lives with her who is starting to have some dementia symptoms, but her son and grandson live across the street and stay with them frequently She does not want to drive currently but states her son will be able to help with that for a while JOANNE ESCOBAR DO 09/07/192024: Supervisory-Addendum Brief Verification & Attestation Participated in pt care: history, MDM, physical Personally performed: exam, history, MDM, supervision of care Care discussed with: Medical Student Procedures: n/a Results interpretation: Verified all documentation Verification and Attestation of Medical Student E/M Service A medical student performed and documented this service in my presence. I reviewed and verified all information documented by the medical student and made modifications to such information, when appropriate. I personally performed the physical exam and medical decision making. Joanne Escobar, Sep 07, 2019,20:25 JUNE CHAPPELL Sep 07, 2019 11:52 JOANNE PATEL DO Sep 07, 2019 20:25 POS
--- NOTE | 2019-09-07 12:45 | Occupational Ther Daily Note ---
OT Current Status-Daily Note Subjective Pt alert, sitting EOB. Pt agrees to therapy. Pt states she feels pretty good today. Mental Status/Objective Patient Orientation: Person, Place, Time, Situation ADL-Treatment Pt declines shower, stating that she had just washed up when going to the bathr oom. Pt did ambulate to closet using FWW, supervision, then retrieve clothing and doff/don using AE when required. Pt demonstrated ability to complete mobility in kitchen by using counter to stabilize self. Pt used reach to grape picker objects from different heights without LOB. Therapy Code Descriptions/Definitions Functional [place] Measure: 0=Not Assessed/NA 4=Minimal Assistance 1=Total Assistance 5=Supervision or Setup 2=Maximal Assistance 6=Modified [place] 3=Moderate Assistance 7=Complete IndependenceSCALE: Activities may be completed with or without assistive devices. 1-Rtalzdkiia-mkqrboe completes the activity by him/herself with no assistance from a helper. 5-Set-up or Clean-up Assistance-helper sets up or cleans up; patient completes activity. [place] assists only prior to or following the activity. 4-Supervision or Touching Assistance-helper provides verbal cues and/or touching/steadying and/or contact guard assistance as patient completes activity. Assistance may be provided throughout the activity or intermittently. 3-Partial/Moderate Assistance-helper does LESS THAN HALF the effort. [place] lifts, holds or supports trunk or limbs, but provides less than half the effort. 2-Substantial/Maximal Assistance-helper does MORE THAN HALF the effort. [place] lifts or holds trunk or limbs and provides more than half the effort. 0-Rxxinmfnx-xbpehm does ALL the effort. Patient does none of the effort to complete the activity. Or, the assistance of 2 or more helpers is required for the patient to complete the activity. If activity was not attempted, code reason: 7-Patient Refused. 9-Not Applicable-not attempted and the patient did not perform the activity before the current illness, exacerbation or injury. 10-Not Attempted due to Environmental Limitations-(lack of equipment, weather restraints, etc.). 88-Not Attempted due to Medical Conditions or Safety Concerns. Upper Body Dressing (QC): 4 Lower Body Dressing (QC): 4 (footwear (QC) 6) Other Treatment Pt completed 2 sets of 6 UE exercises in all planes with 1# wt, 10 reps each, to increase strength and activity tolerance for daily functional tasks. After therapy, pt sitting in recliner with call light/phone in reach. All needs met in room. OT Short Term Goals Short Term Goals Time Frame: Sep 01, 2019 Lower Body Dressing(FIM): 4 Toileting(FIM): 4 Toilet/Commode Transfer(FIM): 4 Additional Short Term Goals: 2-Verbalize Understanding, 3-ImproveStrength/Miah 1=Demonstrate adherence to instructed precautions during ADL tasks. 2=Patient will verbalize/demonstrate understanding of assistive devices/modifications for ADL. 3=Patient will improve strength/tolerance for activity to enable patient to perform ADL's. OT Residential Goals Torpedoman'S Mate Goals Time Frame: Sep 15, 2019 Eating (QC): 6 Oral Hygiene (QC): 6 Shower/Bathe Self (QC): 5 Upper Body Dressing (QC): 6 Lower Body Dressing (QC): 5 On/Off Footwear (QC): 5 Toileting Hygiene (QC): 6 Toilet/Commode Transfer (QC): 6 Additional Goals: 1-Demonstrate ADL Tasks, 2-Verbalize Understanding, 3- ImproveStrength/Miah 1=Demonstrate adherence to instructed precautions during ADL tasks. 2=Patient will verbalize/demonstrate understanding of assistive devices/modifications for ADL. 3=Patient will improve strength/tolerance for activity to enable patient to perform ADL's. OT Education/Plan Problem List/Assessment Assessment: Decreased Activ Tolerance, Decreased UE Strength, Impaired Self- Care Skills Discharge Recommendations Plan/Recommendations: Continue POC Treatment Plan/Plan of Care Patient would benefit from OT for education, treatment and training to promote independence in ADL's, mobility, safety and/or upper extremity function for ADL's. Plan of Care: ADL Retraining, Functional Mobility, Group Exercise/Act as Ind, UE Funct Exercise/Act Treatment Duration: Sep 15, 2019 Frequency: At least 5 of 7 days/Wk (IRF) Estimated Hrs Per Day: 1.5 hours per day Rehab Potential: Fair Time/GCodes Start Time: 08:00 Stop Time: 09:00 Total Time Billed (hr/min): 60 Billed Treatment Time 1 visit-ADL 1 (15 min) FA 2 (30 min) EX 1 (15 min) CONOR SAHU Sep 07, 2019 12:45 POS
--- NOTE | 2019-09-07 13:37 | Speech Therapy Daily Note ---
Speech Daily Progress Note Subjective Date Seen by Provider: Sep 07, 2019 Time Seen by Provider: 00:30 Patient reported she walked "normal" today and she was so proud of herself. Objective Patient completed a series of cards of safety scenarios she may face upon her return home with 90% given minimal cues. Assessment Assessment Current Status: Good Progress Treatment Plan Continue Plan of Care Speech Short Term Goals Short Term Goals Short Term Goals 1) The patient will complete memory tasks with 90% or greater given 10% cues. 2) The patient will complete problem solving tasks with 90% or greater given 10% cues. 3) The patient will complete safety awareness tasks with 90% or greater given 10% cues. Speech Certified Coding Specialist Goals Certified Coding Specialist Goals Patient will improve cognitive-communication necessary for safety and daily living tasks with minimal assist. Speech-Plan Patient/Family Goals Patient/Family Goals: Patient plans on returning home with family upon discharge from rehab. Treatment Plan Speech Therapy Treatment Plan: Continue Plan of Care Patient has made good progress toward meeting ST goals. Treatment Duration: Sep 09, 2019 Frequency: 5 times per week Estimated Hrs Per Day: .5 hour per day Rehab Potential: Fair Barriers to Learning: Patient has mild cognitive deficits Pt/Family Agrees to Plan: Yes Safety Risks/Education Teaching Recipient: Patient Teaching Methods: Demonstration, Discussion Response to Teaching: Verbalize Understanding, Return Demonstration Education Topics Provided: Continued safety upon her return home. Time Speech Therapy Time In: 11:30 Speech Therapy Time Out: 12:00 Total Billed Time: 30 Billed Treatment Time 1SOWMYA BETHANIA ST Sep 07, 2019 13:37 POS
--- NOTE | 2019-09-07 14:44 | Therapy Group Daily Note ---
Therapy Daily Group Note Patient Education Topic Other List Below (memory, handwashing) Exercises LE Seated Exercise, UE Exercise Session Ratio (pt:therapist): 4:1 Goal of Session: Memory Strategies, UE/LE Strengthing, Other (list) (handwashing) Goal Met for this Session: Yes Pt Benefit of Group: Contributions to Others, F/U Use of Strategies @Home, Increased Functional Strength, Improved Cognition, Recognition of Peers, Socialization Other/Notes Pt ambulated with FWW to [facility] for OT/PT group. Group consisted of introductions (name, building born in, makes you proud), socialization, B UE/LE seated exercises, education for handwashing and memory. Pt introduced self appropriately and actively listened to peers. Pt demonstrated ability to complete exercises without out difficulty. Pt acknowledged understanding of educational topics by giving personal strategies and ideas. Pt was able to match images during a memory activity and assisted peers when needed. After therapy, pt lying in bed with call light/phone in reach. All needs met in room. Start Time: 13:00 Stop Time: 14:15 Total Billed Treatment Time: 75 Total Billed Treatment 1-GRP CONOR SAHU Sep 07, 2019 14:44 POS
[2019-09-07 16:00] VITALS: BP 118/75
--- NOTE | 2019-09-07 20:26 | PM&R Progress Note ---
Subjective HPI/CC On Admission Date Seen by Provider: Sep 07, 2019 Time Seen by Provider: 08:15 Chief complaint: Right hip facture s/p uncomplicated repair on 08/22/[address] Benitez. HPI: This is a 79yoWF clinic Pt of Dr. Haney who presents to inpatient rehab in need of intense therapy prior to going home after suffering a fall at the [email or web address] dinner last , and resulted in right hip fracture s/p repair by Dr. Benitez on Saturday08/22/19 after blood was obtained for adequate crossmatch of which she did receive 1 unit of blood in surgery. [place] [facility] [place] 8.6 today on repeat labs, and her bowels are moving, she is using her IS and her prior level of functioning was ambulating without assistive devices and completely independent with ADLs, living with her in [place], so the goal is to resume therapies and intensify to be able to go home with home health. She has indication for IV iron so that will be ordered. She does have some subtle memory deficit, so will evaluate slum score by speech therapy when they see her. Spoke to patient with son at the bedside and she appeared to be overwhelmed so I did speak with therapy and we will go at a slower pace today and allow her to r egain her composure and gaining confidence in order to be successful in inpatient rehabilitation. I am waiting on the slums score since her memory deficit that I identified at the very beginning at [facility] appears to be a factor in slow recovery. Subjective/Events-last exam Hgb 10.9 Completed IV iron Pain is managed well Bowels are moving to her satisfaction DC planning for probably by the end of the week Checked meds and labs Reviewed therapy notes Conferred with painter interior finish of Systems General: Fatigue Musculoskeletal: leg pain Objective Exam Vital Signs Vital Signs Date Time Temp Pulse Resp B/P (MAP) Pulse Ox O2 Delivery O2 Flow Rate FiO2 09/07/19 16:00 36.8 60 16 118/75 (89) 93 Room Air Capillary Refill : Less Than 3 Seconds General Appearance: No Apparent Distress, WD/WN, Chronically ill HEENT: PERRL/EOMI, Normal ENT Inspection, Pharynx Normal, Moist Mucous Membranes Neck: Full Range of Motion, Normal Inspection, Non Tender, Supple Respiratory: Chest Non Tender, Lungs Clear, Normal Breath Sounds, No Accessory Muscle Use, No Respiratory Distress Cardiovascular: Regular Rate, Rhythm, No Edema, No Gallop, No JVD, No Murmur Gastrointestinal: Normal Bowel Sounds, No Organomegaly, No Pulsatile Mass, Non Tender, Soft Back: Normal Inspection, No CVA Tenderness, No Vertebral Tenderness Extremity: Normal Capillary Refill, Normal Inspection, Normal Range of Motion (except right leg due to hip fracture repair pain), Non Tender, No Calf Tenderness, No Pedal Edema Neurologic/Psychiatric: Alert, Oriented x3, No Motor/Sensory Deficits (right leg weakness 3/5 limited ROM), Normal Mood/Affect Skin: Normal Color, Warm/Dry Lymphatic: No Adenopathy Results/Procedures Lab Laboratory Tests 09/07/19 04:50 Patient resulted labs reviewed. FIM Transfers Therapy Code Descriptions/Definitions Functional [place] Measure: 0=Not Assessed/NA 4=Minimal Assistance 1=Total Assistance 5=Supervision or Setup 2=Maximal Assistance 6=Modified [place] 3=Moderate Assistance 7=Complete IndependenceSCALE: Activities may be completed with or without assistive devices. 5-Wzscpbooll-mctohrz completes the activity by him/herself with no assistance from a helper. 5-Set-up or Clean-up Assistance-helper sets up or cleans up; patient completes activity. [place] assists only prior to or following the activity. 4-Supervision or Touching Assistance-helper provides verbal cues and/or touching/steadying and/or contact guard assistance as patient completes activity. Assistance may be provided throughout the activity or intermittently. 3-Partial/Moderate Assistance-helper does LESS THAN HALF the effort. [place] lifts, holds or supports trunk or limbs, but provides less than half the effort. 2-Substantial/Maximal Assistance-helper does MORE THAN HALF the effort. [place] lifts or holds trunk or limbs and provides more than half the effort. 2-Oilsladsj-ruikeb does ALL the effort. Patient does none of the effort to complete the activity. Or, the assistance of 2 or more helpers is required for the patient to complete the activity. If activity was not attempted, code reason: 7-Patient Refused. 9-Not Applicable-not attempted and the patient did not perform the activity before the current illness, exacerbation or injury. 10-Not Attempted due to Environmental Limitations-(lack of equipment, weather restraints, etc.). 88-Not Attempted due to Medical Conditions or Safety Concerns. Transfers (B, C, W/C) (FIM): 6 Roll Left to Right (QC): 6 Sit to Lying (QC): 6 Sit to Stand (QC): 6 Chair/Owj-yh-Xxuwy Xfer(QC): 6 Bed to/from Chair: 6 Car Transfer (QC): 6 Gait Training Does the Patient Walk?: Yes Gait (FIM): 6 Distance (FIM): 1=up to 49 ft Distance: 200' Walk 10 feet (QC): 6 Walk 50 ft with 2 Turns(QC): 6 Walk 150 ft (QC): 6 Walking 10ft/uneven surface-QC: 6 Gait Persons Needed: 0 Gait Assistive Device: FWW Wheelchair Training Does the Pt Use a Wheelchair?: No Distance: 150' Wheel 50 ft with 2 turns (QC): 3 (Shawn for steering.) Wheel 150 ft (QC): 3 (Shawn for steering) Type of Wheelchair: Manual Stair Training Stair Training: Handrails/: 2 handrails #of Steps: 5 1 Step (curb) (QC): 5 4 Steps (QC): 5 12 Steps (QC): 88 Stairs: Pattern: Step to Level of Assist: 5 Balance Picking up an Object (QC): 88 (unsafe to trial) ADL-Treatment Eating (QC): 6 Oral Hygiene (QC): 4 Shower/Bathe Self (QC): 3 (Pt required Shawn to thoroughly cleanse buttocks region while standing with grab bars and CGA. ) Upper Body Dressing (QC): 4 Lower Body Dressing (QC): 4 (footwear (QC) 6) Toileting Hygiene (QC): 4 (SBA) Toilet Transfer (QC): 4 (SBA) Assessment/Plan Assessment and Plan Assess & Plan/Chief Complaint Assessment: s/p right hip fracture repair following fall POD # 16 HTN Memory loss? Post op delirium Post op anemia Mild elevation in ALT Decreased albumin Plan: Monitor hgb IRF protocol but slower pace is successful Pain meds BM regimen Much improved the pain today and feels like she is making progress IV iron completed Monitor staple line closely DC planned (1) Hip fracture, right (2) Delirium (3) Hypertension (4) Fall (5) Memory deficit (6) Postoperative anemia (7) Transfusion of blood during current hospitalisation (8) Abnormal albumin (9) ALT (SGPT) level raised DANIEL ESCOBAR DO Sep 07, 2019 20:26 POS
[2019-09-07] MEDS: OMEGA 3 (FISH OIL) 1000 MG CAP PO SCH (20:36)
[2019-09-07] MEDS: amLODIPine 10 MG (NORVASC) TAB PO SCH (20:36)
[2019-09-07] MEDS: ACETAMINOPHEN 325 MG TABLET PO SCH (20:37)
[2019-09-08 05:53] VITALS: BP 146/77
[2019-09-08] MEDS: MULTIVIT W/MINERALS TAB (THERAGRAN M) PO SCH (06:20)
--- NOTE | 2019-09-08 08:28 | PM&R Progress Note ---
Subjective HPI/CC On Admission Date Seen by Provider: Sep 08, 2019 Time Seen by Provider: 08:30 Chief complaint: Right hip facture s/p uncomplicated repair on 08/22/[address] Benitez. HPI: This is a 79yoWF clinic Pt of Dr. Haney who presents to inpatient rehab in need of intense therapy prior to going home after suffering a fall at the [employer] last , and resulted in right hip fracture s/p repair by Dr. Benitez on Saturday08/22/19 after blood was obtained for adequate crossmatch of which she did receive 1 unit of blood in surgery. [place] [facility] [place] 8.6 today on repeat labs, and her bowels are moving, she is using her IS and her prior level of functioning was ambulating without assistive devices and completely independent with ADLs, living with her in [place], so the goal is to resume therapies and intensify to be able to go home with home health. She has indication for IV iron so that will be ordered. She does have some subtle memory deficit, so will evaluate slum score by speech therapy when they see her. Spoke to patient with son at the bedside and she appeared to be overwhelmed so I did speak with therapy and we will go at a slower pace today and allow her to regain her composure and gaining confidence in order to be successful in inpatient rehabilitation. I am waiting on the slums score since her memory deficit that I identified at the very beginning at [facility] appears to be a factor in slow recovery. Subjective/Events-last exam Pt ready for discharge tomorrow. Incision appears to be improved with the use of Bactroban. Steri-strips placed. Overall feels like her pain is well controlled. Already printed off pain pill prescription and signed it. Set-up outpatient PT as [facility] from [facility]. Checked meds and labs Reviewed therapy notes Conferred with information broker of Systems General: Fatigue Musculoskeletal: leg pain Objective Exam Vital Signs Vital Signs Date Time Temp Pulse Resp B/P (MAP) Pulse Ox O2 Delivery O2 Flow Rate FiO2 09/08/19 16:21 37.2 68 16 103/64 (77) 93 Room Air Capillary Refill : Less Than 3 Seconds General Appearance: No Apparent Distress, WD/WN, Chronically ill HEENT: PERRL/EOMI, Normal ENT Inspection, Pharynx Normal, Moist Mucous Membranes Neck: Full Range of Motion, Normal Inspection, Non Tender, Supple Respiratory: Chest Non Tender, Lungs Clear, Normal Breath Sounds, No Accessory Muscle Use, No Respiratory Distress Cardiovascular: Regular Rate, Rhythm, No Edema, No Gallop, No JVD, No Murmur Gastrointestinal: Normal Bowel Sounds, No Organomegaly, No Pulsatile Mass, Non Tender, Soft Back: Normal Inspection, No CVA Tenderness, No Vertebral Tenderness Extremity: Normal Capillary Refill, Normal Inspection, Normal Range of Motion (except right leg due to hip fracture repair pain), Non Tender, No Calf Tenderness, No Pedal Edema Neurologic/Psychiatric: Alert, Oriented x3, No Motor/Sensory Deficits (right leg weakness 3/5 limited ROM), Normal Mood/Affect Skin: Normal Color, Warm/Dry Lymphatic: No Adenopathy Results/Procedures Lab Patient resulted labs reviewed. FIM Transfers Therapy Code Descriptions/Definitions Functional [place] Measure: 0=Not Assessed/NA 4=Minimal Assistance 1=Total Assistance 5=Supervision or Setup 2=Maximal Assistance 6=Modified [place] 3=Moderate Assistance 7=Complete IndependenceSCALE: Activities may be completed with or without assistive devices. 9-Mtnzrsueej-eeeayyb completes the activity by him/herself with no assistance from a helper. 5-Set-up or Clean-up Assistance-helper sets up or cleans up; patient completes activity. [place] assists only prior to or following the activity. 4-Supervision or Touching Assistance-helper provides verbal cues and/or ra danyelle/steadying and/or contact guard assistance as patient completes activity. Assistance may be provided throughout the activity or intermittently. 3-Partial/Moderate Assistance-helper does LESS THAN HALF the effort. [place] lifts, holds or supports trunk or limbs, but provides less than half the effort. 2-Substantial/Maximal Assistance-helper does MORE THAN HALF the effort. [place] lifts or holds trunk or limbs and provides more than half the effort. 1-Cymnfzzdc-mmwpgb does ALL the effort. Patient does none of the effort to complete the activity. Or, the assistance of 2 or more helpers is required for the patient to complete the activity. If activity was not attempted, code reason: 7-Patient Refused. 9-Not Applicable-not attempted and the patient did not perform the activity before the current illness, exacerbation or injury. 10-Not Attempted due to Environmental Limitations-(lack of equipment, weather restraints, etc.). 88-Not Attempted due to Medical Conditions or Safety Concerns. Transfers (B, C, W/C) (FIM): 6 Roll Left to Right (QC): 6 Sit to Lying (QC): 6 Sit to Stand (QC): 6 Chair/Pbz-cy-Sslcc Xfer(QC): 6 Bed to/from Chair: 6 Car Transfer (QC): 6 Gait Training Does the Patient Walk?: Yes Gait (FIM): 6 Distance (FIM): 1=up to 49 ft Distance: 200' Walk 10 feet (QC): 6 Walk 50 ft with 2 Turns(QC): 6 Walk 150 ft (QC): 6 Walking 10ft/uneven surface-QC: 6 Gait Persons Needed: 0 Gait Assistive Device: FWW Wheelchair Training Does the Pt Use a Wheelchair?: No Distance: 150' Wheel 50 ft with 2 turns (QC): 3 (Shawn for steering.) Wheel 150 ft (QC): 3 (Shawn for steering) Type of Wheelchair: Manual Stair Training Stair Training: Handrails/: 2 handrails #of Steps: 5 1 Step (curb) (QC): 5 4 Steps (QC): 5 12 Steps (QC): 88 Stairs: Pattern: Step to Level of Assist: 5 Balance Picking up an Object (QC): 88 (unsafe to trial) ADL-Treatment Eating (QC): 6 Oral Hygiene (QC): 4 Shower/Bathe Self (QC): 3 (Pt required Shawn to thoroughly cleanse buttocks region while standing with grab bars and CGA. ) Upper Body Dressing (QC): 4 Lower Body Dressing (QC): 4 (footwear (QC) 6) Toileting Hygiene (QC): 4 (SBA) Toilet Transfer (QC): 4 (SBA) Assessment/Plan Assessment and Plan Assess & Plan/Chief Complaint Assessment: s/p right hip fracture repair following fall POD # 17 HTN Memory loss? Post op delirium Post op anemia Mild elevation in ALT Decreased albumin Plan: Monitor hgb IRF protocol but slower pace is successful Pain meds BM regimen Much improved the pain today and feels like she is making progress IV iron completed Monitor staple line closely DC planned for tomorrow (1) Hip fracture, right Qualifiers: Qualified Codes: S72.001A - Fracture of unspecified part of neck of right femur, initial encounter for closed fracture (2) Delirium (3) Hypertension (4) Fall (5) Memory deficit (6) Postoperative anemia (7) Transfusion of blood during current hospitalisation (8) Abnormal albumin (9) ALT (SGPT) level raised DANIEL ESCOBAR DO Sep 08, 2019 08:28 POS
[2019-09-08] MEDS ORDERED: CITA10TA7 PO (09:15)
[2019-09-08] MEDS ORDERED: ACHD5005 PO (09:15)
[2019-09-08] MEDS ORDERED: MUPI22OI2 TOP (09:15)
--- NOTE | 2019-09-08 09:22 | Progress Note ---
Subjective Date Seen by a Provider: Sep 08, 2019 Time Seen by a Provider: 09:20 Subjective/Events-last exam PT REPORTS THAT SHE DOES HAVE SOME DISCOMFORT IN HER HIP WITH AMBULATION, BUT IT IS BETTER THAN SEVERAL DAYS AGO. SHE DENIES ANY CONCERNS, HOWEVER THE NURSE BROUGHT UP THE FACT THAT SHE HAS SOME DISCHARGE FROM HER RIGHT HIP INCISION SITE THAT THEY HAVE PLACED MUPIROCIN OINTMENT ON AND SHE WANTED ME TO LOOK AT THE SITE AGAIN. Review of Systems General: No Fatigue, No Malaise HEENT: No Head Aches Pulmonary: No Dyspnea, No Cough Cardiovascular: No: Chest Pain, Palpitations Gastrointestinal: No: Nausea, Abdominal Pain Genitourinary: No Dysuria, No Frequency Musculoskeletal: leg pain Neurological: No: Weakness, Confusion WOUND ON RIGHT HIP Objective Exam Last Set of Vital Signs Vital Signs Date Time Temp Pulse Resp B/P (MAP) Pulse Ox O2 Delivery O2 Flow Rate FiO2 09/08/19 05:53 36.6 66 18 146/77 (100) 96 Room Air Capillary Refill : Less Than 3 Seconds I&O Intake and Output 09/08/19 00:00 Intake Total 1500 ml Balance 1500 ml Intake Oral 1500 ml # Voids 6 # Bowel Movements 1 General: Alert, Oriented X3, Cooperative, No Acute Distress HEENT: Atraumatic, PERRLA Neck: Supple Lungs: Clear to Auscultation, Normal Air Movement Heart: Regular Rate Abdomen: Normal Bowel Sounds, Soft, No Tenderness Skin: Other (ERYTHEMA WITH SOME SLIGHT OOZING FROM RIGHT HIP INCISION - NONTENDER TO PALPATION) Neuro: Normal Speech, Cranial Nerves 3-12 NL Psych/Mental Status: Mental Status NL, Mood NL Results Lab Microbiology 09/01/19 Influenza Types A,B Antigen ([place]) - Final, Complete Assessment/Plan Assessment/Plan Assess & Plan/Chief Complaint STATUS POST RIGHT HIP FRACTURE WITH REPAIR HYPERTENSION HYPERLIPIDEMIA DEPRESSION CHRONIC OSTEOARTHRITIS CHRONIC CONSTIPATION CELLULITIS RIGHT HIP AT INCISION STATUS POST RIGHT HIP FRACTURE WITH REPAIR - PT IS PARTICIPATING IN THERAPY - HAD TO DECREASE THE INTENSITY A LITTLE DINA WAS FEELING A LITTLE OVERWHELMED BY THE INTENSITY OF THE ACTIVITY, HOWEVER THEY HAVE BEEN ABLE TO BRING THE INTENSITY BACK UP TO NORMAL AND SHE IS PROGRESSING WELL WITH INCREASE IN HER INDEPENDENCE OF ACTIVITY. - CONTINUE WITH PT/OT/REC THERAPY HYPERTENSION - PT'S HOME REGIMEN HAS BEEN RE-INITIATED- MONITOR BLOOD PRESSURE HYPERLIPIDEMIA - CONTINUE WITH FISH OIL SUPPLEMENTATION DEPRESSION - PT ON LEXAPRO OUTPATIENT - WILL BE ON CELEXA INPATIENT AND RESTART UPON DISCHARGE HER USUAL LEXAPRO DOSING. CHRONIC OSTEOARTHRITIS - PT ON MELOXICAM OUTPATIENT - WILL HOLD THIS FOR A TIME UNTIL OKAY TO RESTART PER ORTHO. CHRONIC CONSTIPATION - SYMPTOMS STABLE ON CURRENT REGIMEN. CELLULITIS RIGHT HIP - AT INCISION SITE - RX FOR TOPICAL AND ORAL ANTIBIOTIC SENT TO PHARMACY FOR PT TO TAKE ON DISCHARGE, WILL SEE HER AN OUTPATIENT IN A WEEK FROM DISCHARGE. PLAN WILL BE HOME THIS WEEK WITH OUTPATIENT PHYSICAL THERAPY PT DID NOT WANT HOME HEALTH. Clinical Quality Measures DVT/VTE Risk/Contraindication: Risk Factor Score Per Nursin RFS Level Per Nursing on Admit: 4+=Very High BEL GRAY MD Sep 08, 2019 09:22 POS
[2019-09-08] MEDS ORDERED: SULF1TAB35 PO (09:27)
--- NOTE | 2019-09-08 09:30 | Discharge Inst-Complex ---
PDI Reconcile Patient Problems Problems Reviewed?: Yes Med Rec & Follow Up Appt. New Medications: Sulfamethoxazole/Trimethoprim (Bactrim Ds Tablet) 1 Each Tablet 1 EACH PO BID, #10 TAB Citalopram Hydrobromide (Citalopram HBr) 10 Mg Tablet 10 MG PO DAILY, #30 TAB Hydrocodone Bit/Acetaminophen (Hydrocodone/Acetaminophen 5/325mg Tablet) 1 Tab Tab 1-2 TAB PO Q4H PRN for PAIN-MODERATE, #30 TAB Mupirocin (Mupirocin) 22 Gm Oint...g. 1 GM TOP BID, #1 TUBE Continued Medications: Acetaminophen (Tylenol) 325 Mg Tablet 650 MG PO HS, TAB TAKES 2 (325MG) TABLETS Amlodipine Besylate (Amlodipine Besylate) 10 Mg Tablet 10 MG PO HS, TAB Ascorbate Calcium (Vitamin C) 500 Mg Tablet 1000 MG PO DAILY, TAB TAKES 2 (500MG) TABLETS Cholecalciferol (Vitamin D3) (Vitamin D3) 1,000 Unit Capsule 2000 UNIT PO DAILY, CAP Cyanocobalamin (Vitamin B-12) (Vitamin B-12) 1,000 Mcg Tablet 1000 MCG PO DAILY, TAB Diclofenac Sodium (Diclofenac Sodium) 100 Gm Gel..gram. TOP QID, EA APPLY TO BOTH HANDS AND KNEES Docusate Sodium (Colace) 100 Mg Capsule 100 MG PO BID, CAP Fluticasone Propionate (Fluticasone Propionate) 16 Gm [place].susp 2 SPRAYS NS DAILY PRN for ALLERGIES, EA Losartan Potassium (Losartan Potassium) 100 Mg Tablet 100 MG PO DAILY, TAB Meloxicam (Meloxicam) 15 Mg Tablet 15 MG PO DAILY, TAB Metoprolol Tartrate (Metoprolol Tartrate) 100 Mg Tablet 100 MG PO BID, TAB Nystatin (Nystatin) 1 Each Powder.ea. TOP TID PRN for RASH, UNIT [place] 3 Polyunsat Fatty Acids (Fish Oil 1,000 mg Capsule) 1,000 Mg Cap 1000 MG PO HS, CAP Vit A/C/E/Zinc/Selenium/Copper (Vision Formula Tablet) 1 Each Tablet 1 TAB PO DAILY, TAB Discontinued Medications: Escitalopram Oxalate (Escitalopram Oxalate) 5 Mg Tablet 5 MG PO DAILY, TAB Prescription: Transmitted to Pharmacy ([facility]) Patient Instructions: take a probiotic 1 tab three times daily while on the oral antibiotics Activity, Diet and PDI Resume Normal Activity: No Discharge Diet: Regular Diet Drink 6-8 Glasses of Fluid/Day: Yes Driving Instructions: No Driving for 2 Weeks Return to The Hospital For: concern for infection, worsening pain, fever, or any concern for life threatening illness or injury Symptoms to Reoprt to : Appetite Changes, Fever Over 101 Degrees F, Pain/Pressure in Chest, Diarrhea(Persistant), Shortness of Breath, Weight Gain Over 2 Pounds For Problems or Questions: Contact Your Physician, Go to Emergency Room Infection Signs and Symptoms: Increased Redness, Foul Odor of Wound, Increased Drainage, Skin Itchy or Has a Rash, Increased Swelling, Temperature Above 101 F Operative Area Clean and Dry: Keep Incision Clean/Dry (use mupirocin ointment on the incision twice daily x 5 days) BEL GRAY MD Sep 08, 2019 09:30 POS
[2019-09-08] MEDS: LOSARTAN 100 MG (COZAAR) TABLET PO SCH (09:42)
[2019-09-08] MEDS: DOCUSATE SODIUM 100 MG (COLACE) CAP PO SCH ×2 (09:42→20:23)
[2019-09-08] MEDS: CYANOCOBALAMIN 1,000 MCG (VITAMIN B-12) TABLET PO SCH (09:43)
[2019-09-08] MEDS: ASCORBIC ACID (VIT C) 500 MG TABLET PO SCH (09:43)
[2019-09-08] MEDS: VITAMIN D3 1,000 UNITS (CHOLECALCIFEROL) TABLET PO SCH (09:43)
[2019-09-08] MEDS: meTOprolol TARTRATE 50 MG (LOPRESSOR) TAB PO SCH ×2 (09:43→20:22)
[2019-09-08] MEDS: MICONAZOLE 2% POWDER (DESENEX AF) 90 GM TOP SCH ×2 (09:44→20:24)
[2019-09-08] MEDS: ENOXAPARIN 40 MG/0.4 ML (LOVENOX) SYR SC SCH (09:44)
[2019-09-08] MEDS: DICLOFENAC 1% GEL 100 GM (VOLTAREN) TUBE TOP SCH ×4 (09:44→20:27)
[2019-09-08] MEDS: TRIAMCINOLONE 0.1% CR (KENALOG) 15 GM TUBE TOP SCH ×2 (09:44→20:27)
[2019-09-08] MEDS: MUPIROCIN 2% OINT 22 GM (BACTROBAN) TUBE TOP SCH ×2 (09:44→20:26)
--- NOTE | 2019-09-08 09:46 | NUR ---
Referral faxed to [facility] Outpatient Therapy Department for continued therapy per patient's request.
[2019-09-08] MEDS: TRIM/SULFAMETH 160/800 (SEPTRA DS) TAB PO SCH ×2 (09:53→17:18)
--- NOTE | 2019-09-08 10:06 | NUR ---
Patient reports she will be discharging home tomorrow, 09/09/19, as originally planned. IMM discussed with patient. Patient reports she is ready to go home and has no plans to appeal discharge. Signature obtained.
--- NOTE | 2019-09-08 10:55 | Progress Note ---
[facility] 09/08/19 1055: Progress Note CC: Right Hip Fracture Hospital Course: Pt was admitted to rehab unit from [facility] after having surgery to repair a right hip fracture. She was in a state of minor delirium upon admission and required a slower pace at the initiation of therapy. After she became adjusted to the pace and structure of the rehab unit she began to have improvement in her confidence and ability to use a walker. She require some IV iron replacement to help with low Hgb levels, which improved after receiving the infusions. She continued her improvement to the point of not needing assistance for ADLs and using the walker unassisted. She will return home to live with her having her son and jimbo lujan living across the street available to help her as well. JOANNE ESCOBAR DO 09/08/192026: Supervisory-Addendum Brief Verification & Attestation Participated in pt care: history, MDM, physical Personally performed: exam, history, MDM, supervision of care Care discussed with: Medical Student Procedures: n/a Results interpretation: Verified all documentation Verification and Attestation of Medical Student E/M Service A medical student performed and documented this service in my presence. I reviewed and verified all information documented by the medical student and made modifications to such information, when appropriate. I personally performed the physical exam and medical decision making. Joanne Escobar, Sep 08, 2019,20:27 JUNE CHAPPELL Sep 08, 2019 10:55 JOANNE PATEL DO Sep 08, 2019 20:27 POS
--- NOTE | 2019-09-08 10:57 | Occupational Ther Daily Note ---
OT Current Status-Daily Note Subjective Pt sitting EOB, agrees to therapy. Pt reports "soreness" in right hip. ADL-Treatment Agrees to shower. Sit to stand from EOB without assist. Pt retrieved clothing from closet using FWW for balance. Gait to restroom with FWW. Transfer to walk in shower with cues for safety. Pt doffed clothing without assist. Seated bathing completed using hand held shower. Upper body bathing completed with set up. Pt able to wash mayo area and bilateral upper legs. Used long handled sponge to wash lower legs and feet. Don pullover shirt without assist. Pt used medical professionals to thread bilateral LE into underwear and pants. Stood with good balance during pant hike. Pt donned slipped on shoes with SBA and verbal cues using long handled shoe horn. Pt stood at sink to comb hair with modified independence. Pt has already completed oral care, states she completed without assist. Pt demonstrated ability to perform toilet transfer with modified independence to [facility] over toilet. Pt denied need to use restroom at this time. Nurse aide reports pt is able to complete toileting hygiene and clothing management without assist. Plan is for pt to d/c home tomorrow. Pt has a FWW, toilet riser, shower chair, and grab bars in bathroom. Pt states son will cook meals. Pt has no questions or concerns at this time regarding ADLs or home safety. Therapy Code Descriptions/Definitions Functional [place] Measure: 0=Not Assessed/NA 4=Minimal Assistance 1=Total Assistance 5=Supervision or Setup 2=Maximal Assistance 6=Modified [place] 3=Moderate Assistance 7=Complete IndependenceSCALE: Activities may be completed with or without assistive devices. 0-Oigdmyxtbz-xyfdgly completes the activity by him/herself with no assistance from a helper. 5-Set-up or Clean-up Assistance-helper sets up or cleans up; patient completes activity. [place] assists only prior to or following the activity. 4-Supervision or Touching Assistance-helper provides verbal cues and/or touching/steadying and/or contact guard assistance as patient completes activity. Assistance may be provided throughout the activity or intermittently. 3-Partial/Moderate Assistance-helper does LESS THAN HALF the effort. [place] lifts, holds or supports trunk or limbs, but provides less than half the effort. 2-Substantial/Maximal Assistance-helper does MORE THAN HALF the effort. [place] lifts or holds trunk or limbs and provides more than half the effort. 9-Yvgfgcjif-ckagdg does ALL the effort. Patient does none of the effort to complete the activity. Or, the assistance of 2 or more helpers is required for the patient to complete the activity. If activity was not attempted, code reason: 7-Patient Refused. 9-Not Applicable-not attempted and the patient did not perform the activity be fore the current illness, exacerbation or injury. 10-Not Attempted due to Environmental Limitations-(lack of equipment, weather restraints, etc.). 88-Not Attempted due to Medical Conditions or Safety Concerns. Eating (QC): 6 (by report) Oral Hygiene (QC): 6 Shower/Bathe Self (QC): 5 Upper Body Dressing (QC): 6 Lower Body Dressing (QC): 5 Toileting Hygiene (QC): 6 Toilet Transfer (QC): 6 Footwear QC: 4 (SBA/verbal cues) Other Treatment Gait to therapy gym with FWW, no LOB noted. Pt completed arm bike [id number] to increase overall strength and activity tolerance needed for functional task completion. Pt completed task with moderate resistance and steady pace. One rest break taken. Pt returned to room, sitting in chair with needs met after session. OT Short Term Goals Short Term Goals Time Frame: Sep 01, 2019 Lower Body Dressing(FIM): 4 Toileting(FIM): 4 Toilet/Commode Transfer(FIM): 4 Additional Short Term Goals: 2-Verbalize Understanding, 3-ImproveStrength/Miah 1=Demonstrate adherence to instructed precautions during ADL tasks. 2=Patient will verbalize/demonstrate understanding of assistive devices/modifications for ADL. 3=Patient will improve strength/tolerance for activity to enable patient to perform ADL's. OT Custodial Goals Orthopaedic Physician Assistant Goals Time Frame: Sep 15, 2019 Eating (QC): 6 (met 09/08/19) Oral Hygiene (QC): 6 (met 09/08/19) Shower/Bathe Self (QC): 5 (met 09/08/19) Upper Body Dressing (QC): 6 (met 09/08/19) Lower Body Dressing (QC): 5 (met09/08/19) On/Off Footwear (QC): 5 (not met) Toileting Hygiene (QC): 6 (met 09/08/19) Toilet/Commode Transfer (QC): 6 (met 09/08/19) Additional Goals: 1-Demonstrate ADL Tasks, 2-Verbalize Understanding, 3- ImproveStrength/Miah 1=Demonstrate adherence to instructed precautions during ADL tasks. 2=Patient will verbalize/demonstrate understanding of assistive devices/modifications for ADL. 3=Patient will improve strength/tolerance for activity to enable patient to perform ADL's. OT Education/Plan Discharge Recommendations Plan/Recommendations: Continue POC Treatment Plan/Plan of Care Patient would benefit from OT for education, treatment and training to promote independence in ADL's, mobility, safety and/or upper extremity function for ADL's. Plan of Care: ADL Retraining, Functional Mobility, Group Exercise/Act as Ind, U E Funct Exercise/Act Treatment Duration: Sep 15, 2019 Frequency: At least 5 of 7 days/Wk (IRF) Estimated Hrs Per Day: 1.5 hours per day Rehab Potential: Fair Time/GCodes Start Time: 08:00 Stop Time: 09:15 Total Time Billed (hr/min): 75 Billed Treatment Time 1 visit, ADLx4(60minutes), Ex(15minutes) PEGGY CAO OT Sep 08, 2019 10:57 POS
--- NOTE | 2019-09-08 11:12 | Physical Therapy Daily Note ---
PT Daily Note-Current Subjective Pt agreeable to PT session. States she will be having her and son at home with her when she goes home tomorrow. Is planning on doing thanksgiving for the family at her [facility]. Pain Numeric Pain Scale: 0-No Pain Appearance Upon arrival, pt sitting up in recliner, awake and alert. Pt requesting and assisted to restroom. At end of session, pt sitting up in recliner with lunch in front of her, call light, phone and bedside table within reach Mental Status Patient Orientation: Person, Place, Time, Eyes Open, Situation Transfers SCALE: Activities may be completed with or without assistive devices. 8-Wtpzlusjqd-bccewft completes the activity by him/herself with no assistance from a helper. 5-Set-up or Clean-up Assistance-helper sets up or cleans up; patient completes activity. [place] assists only prior to or following the activity. 4-Supervision or Touching Assistance-helper provides verbal cues and/or touching/steadying and/or contact guard assistance as patient completes activity. Assistance may be provided throughout the activity or intermittently. 3-Partial/Moderate Assistance-helper does LESS THAN HALF the effort. [place] lifts, holds or supports trunk or limbs, but provides less than half the effort. 2-Substantial/Maximal Assistance-helper does MORE THAN HALF the effort. [place] lifts or holds trunk or limbs and provides more than half the effort. 7-Siolfhlaw-prlqyq does ALL the effort. Patient does none of the effort to complete the activity. Or, the assistance of 2 or more helpers is required for the patient to complete the activity. If activity was not attempted, code reason: 7-Patient Refused. 9-Not Applicable-not attempted and the patient did not perform the activity before the current illness, exacerbation or injury. 10-Not Attempted due to Environmental Limitations-(lack of equipment, weather restraints, etc.). 88-Not Attempted due to Medical Conditions or Safety Concerns. Roll Left to Right (QC): 6 Sit to Lying (QC): 6 Sit to Stand (QC): 6 Chair/Ykq-bc-Dyfqw Xfer(QC): 6 Car Transfer (QC): 6 Weight Bearing Right Lower Extremity: Right Weight Bearing/Tolerated Left Lower Extremity: Left Full Weight Bearing Gait Training Distance: 150 x2 Walk 10 feet (QC): 6 Walk 50 ft with 2 Turns(QC): 6 Walk 150 ft (QC): 6 Walking 10ft/uneven surface-QC: 4 Gait Persons Needed: 1 Gait Assistive Device: FWW slight antalgic gait pattern, slow to fair speed, unequal step length, fair step length, feet clear floor with step height, no LOB or unsteadiness on even surface. Slow and cautious on uneven surfaces requiring SBA to CGA for safety due to slight increased antalgic gait pattern leading to minimal unsteadiness Stair Training Stair Training: Handrails/: 2 handrails #of Steps: 12 1 Step (curb) (QC): 4 4 Steps (QC): 4 12 Steps (QC): 4 Stairs: Pattern: Step to Level of Assist: 4 (SBA and skilled verb inst required for correct sequencing and to decrease R hip IR and circumduction) Balance Picking up an Object (QC): 6 (standing in FWW, use of floral associate picking pen up off floor and placing it onto bed, no LOB) Exercises NuStep Minutes: 15 NuStep Workload: 3 (Seat 8, no UE's. Adjustment of seat and skilled inst to maintain <90* hip flex and to decrease R hip IR) Treatments education, safety, bed mobility, bed chair and car transfers, gait with FWW on even and uneven surfaces, review of hip precautions, activity tolerance, functional mobility, strength and balance Assessment Current Status: Good Progress PT Short Term Goals Short Term Goals Time Frame: Sep 01, 2019 Gait Distance Comment: 50' Gait Assistive Device: FWW (CGA) Wheelchair Distance: 150' PT Jail Goals Jail Goals PT Education Program Coordinator Goals Time Frame: Sep 15, 2019 Sit to Lying (QC): 4 (CGA) Lying-Sitting on Side/Bed(QC): 4 (CGA) Sit to Stand (QC): 4 (CGA) Roll Left to Right (QC): 4 (SBA) Chair/Cyw-zk-Dixjj Xfer(QC): 4 (CGA) Car Transfer (QC): 4 (CGA) Does the Patient Walk: Yes Distance: 150' Walk 10 feet (QC): 4 (SBA) Walk 10ft-Uneven Surface(QC): 4 (CGA) Walk 50ft with 2 Turns (QC): 4 (CGA) Walk 150 ft (QC): 4 (SBA) Gait Assistive Device: FWW Distance: 300' Wheel 50 feet with 2 turns (QC: 4 (SBA) PT Plan Treatment/Plan Treatment Plan: Continue Plan of Care Treatment Plan: Bed Mobility, Concurrent Therapy, Education, Functional Activity Miah, Functional Strength, Group Therapy, Gait, Safety, Therapeutic Exercise, Transfers Treatment Duration: Aug 26, 2019 Frequency: At least 5 of 7 days/Wk (IRF) Estimated Hrs Per Day: 1.5 hours per day Patient and/or Family Agrees t: Yes Safety Risks/Education Patient Education: Gait Training, Transfer Techniques, Steps, Reviewed Precautions, Correct Positioning, Safety Issues Teaching Recipient: Patient Teaching Methods: Demonstration, Discussion Response to Teaching: Verbalize Understanding, Return Demonstration Time/GCodes Time In: 1100 Time Out: 1200 Total Billed Treatment Time: 60 Total Billed Treatment 1 visit, GT x15 min, FA x30 min, EX x15 min ARNAUD MOSES GEOGRAPHIC INFORMATION SYSTEM SURVEYOR Sep 08, 2019 11:12 POS
--- NOTE | 2019-09-08 11:51 | Speech Therapy Daily Note ---
Speech Daily Progress Note Subjective Date Seen by Provider: Sep 08, 2019 Time Seen by Provider: 00:30 Patient was sitting in her recliner when I entered her room. She states she is going home tomorrow. Objective Patient completed a series of problem solving activities for meeting her needs safely upon her return home at 95% with 5% cues. Assessment Assessment Current Status: Good Progress Treatment Plan Discontinue ST, Goals Met Speech Short Term Goals Short Term Goals Short Term Goals 1) The patient will complete memory tasks with 90% or greater given 10% cues. 2) The patient will complete problem solving tasks with 90% or greater given 10% cues. 3) The patient will complete safety awareness tasks with 90% or greater given 10% cues. Speech Halfway Goals Heel [place]ummer Goals Patient will improve cognitive-communication necessary for safety and daily living tasks with minimal assist. Speech-Plan Patient/Family Goals Patient/Family Goals: Patient is discharging to home tomorrow with family. Treatment Plan Speech Therapy Treatment Plan: Discontinue ST, Goals Met Patient has made good progress and met ST goals. Treatment Duration: Sep 09, 2019 Frequency: 5 times per week Estimated Hrs Per Day: .5 hour per day Rehab Potential: Fair Barriers to Learning: Patient has memory deficits, however these have improved as a result of skilled ST. Pt/Family Agrees to Plan: Yes Safety Risks/Education Teaching Recipient: Patient Teaching Methods: Demonstration, Discussion Response to Teaching: Verbalize Understanding, Return Demonstration Education Topics Provided: Continued safety upon her return home. Time Speech Therapy Time In: 09:30 Speech Therapy Time Out: 10:00 Total Billed Time: 30 Billed Treatment Time 1, AVNI Brito Sep 08, 2019 11:51 POS
--- NOTE | 2019-09-08 13:34 | Physical Therapy Daily Note ---
PT Daily Note-Current Subjective Patient agrees to PT at this time. Reports pain in hip d/t dressing change earlier at initiation of treatment, but able to adjust and pull pocket lining of pants out from dressing and relieve pain. Pain Numeric Pain Scale: 0-No Pain Location: No Pain Reported Mental Status Patient Orientation: Normal For Age Transfers SCALE: Activities may be completed with or without assistive devices. 6-Mkvurjtgge-yzebpdj completes the activity by him/herself with no assistance from a helper. 5-Set-up or Clean-up Assistance-helper sets up or cleans up; patient completes activity. [place] assists only prior to or following the activity. 4-Supervision or Touching Assistance-helper provides verbal cues and/or touching/steadying and/or contact guard assistance as patient completes activity. Assistance may be provided throughout the activity or intermittently. 3-Partial/Moderate Assistance-helper does LESS THAN HALF the effort. [place] lift s, holds or supports trunk or limbs, but provides less than half the effort. 2-Substantial/Maximal Assistance-helper does MORE THAN HALF the effort. [place] lifts or holds trunk or limbs and provides more than half the effort. 4-Twnyngesk-gbmlyq does ALL the effort. Patient does none of the effort to complete the activity. Or, the assistance of 2 or more helpers is required for the patient to complete the activity. If activity was not attempted, code reason: 7-Patient Refused. 9-Not Applicable-not attempted and the patient did not perform the activity before the current illness, exacerbation or injury. 10-Not Attempted due to Environmental Limitations-(lack of equipment, weather restraints, etc.). 88-Not Attempted due to Medical Conditions or Safety Concerns. Transfers (B, C, W/C): 6 Sit to Stand (QC): 6 Weight Bearing Right Lower Extremity: Right Weight Bearing/Tolerated Left Lower Extremity: Left Full Weight Bearing Gait Training Does the Patient Walk?: Yes (250) Gait: 6 Distance: 250' Walk 10 feet (QC): 6 Walk 50 ft with 2 Turns(QC): 6 Walk 150 ft (QC): 6 Gait Assistive Device: FWW Slightly antalgic Exercises Seated Therapy Exercises: Ankle pumps, Long arc quads, Hip abd/add Seated Reps: 10 Assessment Patient performed seated exercises in chair before ambulation. Patient stood and ambulated independently with FWW, demonstrating slightly antalgic gait. Patient able to ambulate 250' before taking a rest. Patient then ambulated 125' back to room. Patient positioned supine in bed. PT Short Term Goals Short Term Goals Time Frame: Sep 01, 2019 Gait Distance Comment: 50' Gait Assistive Device: FWW (CGA) Wheelchair Distance: 150' PT Wind Technician Goals Custodial Goals PT Wind Technician Goals Time Frame: Sep 15, 2019 Sit to Lying (QC): 4 (CGA) Lying-Sitting on Side/Bed(QC): 4 (CGA) Sit to Stand (QC): 4 (CGA) Roll Left to Right (QC): 4 (SBA) Chair/Dmg-wr-Fegzo Xfer(QC): 4 (CGA) Car Transfer (QC): 4 (CGA) Does the Patient Walk: Yes Distance: 150' Walk 10 feet (QC): 4 (SBA) Walk 10ft-Uneven Surface(QC): 4 (CGA) Walk 50ft with 2 Turns (QC): 4 (CGA) Walk 150 ft (QC): 4 (SBA) Gait Assistive Device: FWW Distance: 300' Wheel 50 feet with 2 turns (QC: 4 (SBA) PT Plan Treatment/Plan Treatment Plan: Continue Plan of Care Treatment Plan: Bed Mobility, Concurrent Therapy, Education, Functional Activity Miah, Functional Strength, Group Therapy, Gait, Safety, Therapeutic Exercise, Transfers Treatment Duration: Aug 26, 2019 Frequency: At least 5 of 7 days/Wk (IRF) Estimated Hrs Per Day: 1.5 hours per day Patient and/or Family Agrees t: Yes Time/GCodes Time In: 1300 Time Out: 1315 Total Billed Treatment Time: 15 Total Billed Treatment 1 visit FA 15min GLENDY KRISHNAMURTHY PT Sep 08, 2019 13:34 POS
[2019-09-08 16:21] VITALS: BP 103/64
[2019-09-08] MEDS: amLODIPine 10 MG (NORVASC) TAB PO SCH (20:22)
[2019-09-08] MEDS: OMEGA 3 (FISH OIL) 1000 MG CAP PO SCH (20:22)
[2019-09-08] MEDS: HYDROcodone/APAP 5 MG/325 MG (LORTAB) TAB PO PRN (20:23)
[2019-09-08] MEDS: ACETAMINOPHEN 325 MG TABLET PO SCH (20:23)
[2019-09-09 05:07] VITALS: BP 121/74
[2019-09-09] MEDS: MULTIVIT W/MINERALS TAB (THERAGRAN M) PO SCH (06:13)
[2019-09-09] MEDS: TRIM/SULFAMETH 160/800 (SEPTRA DS) TAB PO SCH (06:13)
[2019-09-09] MEDS: VITAMIN D3 1,000 UNITS (CHOLECALCIFEROL) TABLET PO SCH (09:19)
[2019-09-09] MEDS: LOSARTAN 100 MG (COZAAR) TABLET PO SCH (09:19)
[2019-09-09] MEDS: CYANOCOBALAMIN 1,000 MCG (VITAMIN B-12) TABLET PO SCH (09:19)
[2019-09-09] MEDS: ASCORBIC ACID (VIT C) 500 MG TABLET PO SCH (09:19)
[2019-09-09] MEDS: DOCUSATE SODIUM 100 MG (COLACE) CAP PO SCH (09:19)
[2019-09-09] MEDS: meTOprolol TARTRATE 50 MG (LOPRESSOR) TAB PO SCH (09:19)
[2019-09-09] MEDS: MUPIROCIN 2% OINT 22 GM (BACTROBAN) TUBE TOP SCH (09:20)
[2019-09-09] MEDS: TRIAMCINOLONE 0.1% CR (KENALOG) 15 GM TUBE TOP SCH (09:20)
[2019-09-09] MEDS: DICLOFENAC 1% GEL 100 GM (VOLTAREN) TUBE TOP SCH (09:20)
[2019-09-09] MEDS: MICONAZOLE 2% POWDER (DESENEX AF) 90 GM TOP SCH (09:20)
[2019-09-09] MEDS: ENOXAPARIN 40 MG/0.4 ML (LOVENOX) SYR SC SCH (09:20)
--- NOTE | 2019-09-09 10:04 | Therapy Team Discharge Summary ---
Therapy Discharge Summary Discharge Recommendations Date of Discharge Occupational Therapy Decreased Activ Tolerance, Decreased UE Strength, Impaired Self-Care Skills Speech-Language Pathology Patient is a 79 year old female who was admitted to the ARU s/p fractured leg. Patient was given the SLUMS with a mild deficit in cognitive function noted. Patient received skilled ST with focus on safety awareness and independence. Patient met all ST goals. Patient is discharging to home with family this date. She is discharged from skilled ST as well. PT [place] Goals [place] Goals PT Group Home Goals Time Frame: Sep 15, 2019 Roll Left to Right (QC): 4 (SBA) Sit to Lying (QC): 4 (CGA) Lying-Sitting on Side/Bed(QC): 4 (CGA) Sit to Stand (QC): 4 (CGA) Chair/Ozs-bf-Kwjxv Xfer(QC): 4 (CGA) Car Transfer (QC): 4 (CGA) Does the Patient Walk: Yes Distance: 150' Walk 10 feet (QC): 4 (SBA) Walk 10ft-Uneven Surface(QC): 4 (CGA) Walk 50ft with 2 Turns (QC): 4 (CGA) Walk 150 ft (QC): 4 (SBA) Gait Assistive Device: FWW Distance: 300' Wheel 50 feet with 2 turns (QC: 4 (SBA) OT Group Home Goals [place] Goals Time Frame: Sep 15, 2019 Eating (FIM): 6 Eating (QC): 6 (met 09/08/19) Oral Hygiene (QC): 6 (met 09/08/19) Shower/Bathe Self (QC): 5 (met 09/08/19) Upper Body Dressing (QC): 6 (met 09/08/19) Lower Body Dressing (QC): 5 (met09/08/19) On/Off Footwear (QC): 5 (not met) Toileting(FIM): 6 Toileting Hygiene (QC): 6 (met 09/08/19) Toilet/Commode Transfer (QC): 6 (met 09/08/19) Additional Goals: 1-Demonstrate ADL Tasks, 2-Verbalize Understanding, 3-I mproveStrength/Miah 1=Demonstrate adherence to instructed precautions during ADL tasks. 2=Patient will verbalize/demonstrate understanding of assistive devices/modifications for ADL. 3=Patient will improve strength/tolerance for activity to enable patient to perform ADL's. Speech [place] Goals [place] Goals Patient will improve cognitive-communication necessary for safety and daily living tasks with minimal assist. Met AVNI DIAZ Sep 09, 2019 10:03 POS
--- NOTE | 2019-09-09 11:00 | Therapy Team Discharge Summary ---
Therapy Discharge Summary Discharge Recommendations Date of Discharge 09/09/2019 Physical Therapy This patient presented to ARU post acute hospital stay due to a fall that resulted in right hip fx that was repaired with THR. Prior to her fall, she was indep with all mobility. Upon admission to this unit, she was min assist with all functional transfers, walked 20 ft with FWW with min assist. Treatment has focused on functional strength and balance training as well as transfer and gait training to allow her to be at a mod indep level of mobility to return home. At co, she was mod indep with transfers, gait (except uneven surfaces, SBA); went up/down up to 12 steps with SBA and was able to pick an object off the floor mod indep. She has made excellent progress and is ready for discharge at this time. Recommend post acute therapy services for continued functional strengthening. Occupational Therapy Decreased Activ Tolerance, Decreased UE Strength, Impaired Self-Care Skills PT Housing Relocation Goals Alf Goals PT Alf Goals Time Frame: Sep 15, 2019 Roll Left to Right (QC): 4 (SBA) Sit to Lying (QC): 4 (CGA) Lying-Sitting on Side/Bed(QC): 4 (CGA) Sit to Stand (QC): 4 (CGA) Chair/Lpg-uf-Ikcsv Xfer(QC): 4 (CGA) Car Transfer (QC): 4 (CGA) Does the Patient Walk: Yes Distance: 150' Walk 10 feet (QC): 4 (SBA) Walk 10ft-Uneven Surface(QC): 4 (CGA) Walk 50ft with 2 Turns (QC): 4 (CGA) Walk 150 ft (QC): 4 (SBA) Gait Assistive Device: FWW Distance: 300' Wheel 50 feet with 2 turns (QC: 4 (SBA) Pt exceeded all goals set at evaluation. OT Housing Relocation Goals Alf Goals Time Frame: Sep 15, 2019 Eating (FIM): 6 Eating (QC): 6 (met 09/08/19) Oral Hygiene (QC): 6 (met 09/08/19) Shower/Bathe Self (QC): 5 (met 09/08/19) Upper Body Dressing (QC): 6 (met 09/08/19) Lower Body Dressing (QC): 5 (met09/08/19) On/Off Footwear (QC): 5 (not met) Toileting(FIM): 6 Toileting Hygiene (QC): 6 (met 09/08/19) Toilet/Commode Transfer (QC): 6 (met 09/08/19) Additional Goals: 1-Demonstrate ADL Tasks, 2-Verbalize Understanding, 3- ImproveStrength/Miah 1=Demonstrate adherence to instructed precautions during ADL tasks. 2=Patient will verbalize/demonstrate understanding of assistive devic es/modifications for ADL. 3=Patient will improve strength/tolerance for activity to enable patient to perform ADL's. Speech Alf Goals Housing Relocation Goals Patient will improve cognitive-communication necessary for safety and daily living tasks with minimal assist. Met CONOR SMART PT Sep 09, 2019 11:00 POS
--- NOTE | 2019-09-09 11:57 | Therapy Team Discharge Summary ---
Therapy Discharge Summary Discharge Recommendations Date of Discharge Occupational Therapy Pt admitted to ARU following right CAITLYN with decreased ADL functioning, mobility, and strength. On admission pt required max assist with LE dressing and toileting, and mod assist with bathing. Skilled OT intervention focused on ADL training, transfers, strengthening, and adaptive equipment training. Pt made good progress with therapy and by discharge is completing eating, oral care, toilet transfer, and toileting with modified independence and set up for LE dressing and bathing. SBA/verbal cues required to don footwear. Pt met all OT LTG except on/off footwear. Pt discharging home this date. D/c ARU OT. Decreased Activ Tolerance, Decreased UE Strength, Impaired Self-Care Skills PT Carpet Layer Helper Goals Carpet Layer Helper Goals PT Care Home Goals Time Frame: Sep 15, 2019 Roll Left to Right (QC): 4 (SBA) Sit to Lying (QC): 4 (CGA) Lying-Sitting on Side/Bed(QC): 4 (CGA) Sit to Stand (QC): 4 (CGA) Chair/Hkg-hc-Qzrea Xfer(QC): 4 (CGA) Car Transfer (QC): 4 (CGA) Does the Patient Walk: Yes Distance: 150' Walk 10 feet (QC): 4 (SBA) Walk 10ft-Uneven Surface(QC): 4 (CGA) Walk 50ft with 2 Turns (QC): 4 (CGA) Walk 150 ft (QC): 4 (SBA) Gait Assistive Device: FWW Distance: 300' Wheel 50 feet with 2 turns (QC: 4 (SBA) OT Care Home Goals Carpet Layer Helper Goals Time Frame: Sep 15, 2019 Eating (FIM): 6 Eating (QC): 6 (met 09/08/19) Oral Hygiene (QC): 6 (met 09/08/19) Shower/Bathe Self (QC): 5 (met 09/08/19) Upper Body Dressing (QC): 6 (met 09/08/19) Lower Body Dressing (QC): 5 (met09/08/19) On/Off Footwear (QC): 5 (not met) Toileting(FIM): 6 Toileting Hygiene (QC): 6 (met 09/08/19) Toilet/Commode Transfer (QC): 6 (met 09/08/19) Additional Goals: 1-Demonstrate ADL Tasks, 2-Verbalize Understanding, 3- ImproveStrength/Miah 1=Demonstrate adherence to instructed precautions during ADL tasks. 2=Patient will verbalize/demonstrate understanding of assistive devices/modifications for ADL. 3=Patient will improve strength/tolerance for activity to enable patient to perform ADL's. Speech Care Home Goals Care Home Goals Patient will improve cognitive-communication necessary for safety and daily living tasks with minimal assist. Met PEGGY CAO OT Sep 09, 2019 11:56 POS
--- NOTE | 2019-09-09 12:00 | Discharge Summary ---
Diagnosis/Chief Complaint Date of Admission Aug 25, 2019 at 12:04 Date of Discharge Discharge Date: Sep 09, 2019 Discharge Diagnosis Assessment: s/p right hip fracture repair following fall POD # 18 HTN Memory loss? Post op delirium Post op anemia Mild elevation in ALT Decreased albumin Plan: Monitor hgb IRF protocol but slower pace is successful Pain meds BM regimen Much improved the pain today and feels like she is making progress IV iron completed Monitor staple line closely DC planned for tomorrow (1) Hip fracture, right Qualifiers: Qualified Codes: S72.001A - Fracture of unspecified part of neck of right femur, initial encounter for closed fracture (2) Delirium (3) Hypertension (4) Fall (5) Memory deficit (6) Postoperative anemia (7) Transfusion of blood during current hospitalisation (8) Abnormal albumin (9) ALT (SGPT) level raised Discharge Summary Discharge Physical Examination Allergies: Coded Allergies: lisinopril (Verified Adverse Reaction, Unknown, COUGH, 08/25/19) Vitals & I&Os Vital Signs Date Time Temp Pulse Resp B/P (MAP) Pulse Ox O2 Delivery O2 Flow Rate FiO2 09/09/19 08:10 Room Air 09/09/19 05:07 36.8 57 16 121/74 (90) 96 General Appearance: Alert, Oriented X3, Cooperative Respiratory: Clear to Auscultation Cardiovascular: Regular Rate Neuro: Normal Gait, Normal Speech, Strength at 5/5 X4 Ext Psych/Mental Status: Mental Status NL, Mood NL Hospital Course Was the Problem List Reviewed?: Yes Pt had an uneventful but lengthy hospital course for 16 days after she was moved from [facility] bed for intensive therapy in order to regain enough function for ADLs and ambulatory skills in 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 Pt did complete 4/5 iron infusion with good results and return of Hgb to near normal. Pt incision appeared to be slightly red and pt was placed on Bactrim the day before DC from PCP in addition to using Bactroban and will be ready for follow up with Dr. Haney and Dr. Benitez and those appointments were scheduled. Pt was doing well on a minimal amount of pain medication and bowel function returned back to normal. Labs (last 24 hrs) Laboratory Tests 08/26/19 04:30: White Blood Count 7.2, Red Blood Count 3.25L, Hemoglobin 9.7L, Hematocrit 30L, Mean Corpuscular Volume 91, Mean Corpuscular Hemoglobin 30, Mean Corpuscular H emoglobin Concent 33, Red Cell Distribution Width 13.3, Platelet Count 247, Mean Platelet Volume 11.3H, Neutrophils (%) (Auto) 63, Lymphocytes (%) (Auto) 20, Monocytes (%) (Auto) 12, Eosinophils (%) (Auto) 4, Basophils (%) (Auto) 0, Ne utrophils # (Auto) 4.5, Lymphocytes # (Auto) 1.4, Monocytes # (Auto) 0.9, Eosinophils # (Auto) 0.3, Basophils # (Auto) 0.0 08/26/19 04:40: Sodium Level 138, Potassium Level 4.4, Chloride Level 103, Carbon Dioxide Level 25, Anion Gap 10, Blood Urea Nitrogen 16, Creatinine 0.76, Estimat Glomerular Filtration Rate > 60, BUN/Creatinine Ratio 21, Glucose Level 107H, Calcium Level 9.2, Corrected Calcium 10.0, Iron Level 26L, Total Bilirubin 1.7H, Aspartate Amino Transf (AST/SGOT) 50H, Alanine Aminotransferase (ALT/SGPT) 38, Alkaline P hosphatase 105, Total Protein 5.7L, Albumin 3.0L 08/28/19 14:40: White Blood Count 9.6, Red Blood Count 3.56L, Hemoglobin 10.6L, Hematocrit 33L, Mean Corpuscular Volume 92, Mean Corpuscular Hemoglobin 30, Mean Corpuscular Hemoglobin Concent 32, Red Cell Distribution Width 13.0, Platelet Count 338, Mean Platelet Volume 10.4, Sodium Level 140, Potassium Level 4.0, Chloride Level 102, Carbon Dioxide Level 24, Anion Gap 14, Blood Urea Nitrogen 19H, Creatinine 0.87, Estimat Glomerular Filtration Rate > 60, BUN/Creatinine Ratio 22, Glucose Level 112H, Calcium Level 9.1, Corrected Calcium 9.6, Total Bilirubin 1.2H, Aspartate Amino Transf (AST/SGOT) 31, Alanine Aminotransferase (ALT/SGPT) 29, Alkaline Phosphatase 106, Total Protein 6.2L, Albumin 3.4 08/31/19 05:37: White Blood Count 9.3, Red Blood Count 3.71L, Hemoglobin 11.0L, Hematocrit 34L, Mean Corpuscular Volume 92, Mean Corpuscular Hemoglobin 30, Mean Corpuscular Hemoglobin Concent 32, Red Cell Distribution Width 13.7, Platelet Count 414H, Mean Platelet Volume 10.3, Neutrophils (%) (Auto) 64, Lymphocytes (%) (Auto) 23, Monocytes (%) (Auto) 8, Eosinophils (%) (Auto) 5, Basophils (%) (Auto) 1, Neutrophils # (Auto) 5.9, Lymphocytes # (Auto) 2.1, Monocytes # (Auto) 0.7, Eosinophils # (Auto) 0.5H, Basophils # (Auto) 0.1, Sodium Level 139, Potassium Level 4.2, Chloride Level 103, Carbon Dioxide Level 24, Anion Gap 12, Blood Urea Nitrogen 14, Creatinine 0.82, Estimat Glomerular Filtration Rate > 60, BUN/Creatinine Ratio 17, Glucose Level 95, Calcium Level 9.7, Corrected Calcium 10.0, Total Bilirubin 1.0, Aspartate Amino Transf (AST/SGOT) 25, Alanine Aminotransferase (ALT/SGPT) 22, Alkaline Phosphatase 88, Total Protein 6.3L, Albumin 3.6 09/07/19 04:50: White Blood Count 5.6, Red Blood Count 3.62L, Hemoglobin 10.9L, Hematocrit 33L, Mean Corpuscular Volume 92, Mean Corpuscular Hemoglobin 30, Mean Corpuscular Hem oglobin Concent 33, Red Cell Distribution Width 15.0H, Platelet Count 301, Mean Platelet Volume 10.3, Neutrophils (%) (Auto) 51, Lymphocytes (%) (Auto) 28, Monocytes (%) (Auto) 13H, Eosinophils (%) (Auto) 7, Basophils (%) (Auto) 1, Neutrophils # (Auto) 2.9, Lymphocytes # (Auto) 1.6, Monocytes # (Auto) 0.7, Eosinophils # (Auto) 0.4H, Basophils # (Auto) 0.0, Sodium Level 138, Potassium Level 3.9, Chloride Level 105, Carbon Dioxide Level 24, Anion Gap 9, Blood Urea Nitrogen 7, Creatinine 0.76, Estimat Glomerular Filtration Rate > 60, BUN/Creatinine Ratio 9, Glucose Level 92, Calcium Level 9.2, Corrected Calcium 9.6, Total Bilirubin 0.7, Aspartate Amino Transf (AST/SGOT) 17, Alanine Aminotransferase (ALT/SGPT) 16, Alkaline Phosphatase 76, Total Protein 5.8L, Albumin 3.5 Microbiology 09/01/19 Influenza Types A,B Antigen ([facility]) - Final, Complete 09/08/19 Gram Stain - Final, Resulted 09/08/19 Wound Culture - Preliminary, Resulted Staphylococcus aureus Culture In Progress Pending Labs Microbiology Date/Time Source Procedure Growth Status 09/01/19 20:30 Nasal Aspirate Influenza Types A,B Antigen ([facility]) - Final Complete 09/08/19 09:25 Incision Hip, Right Gram Stain - Final Resulted 09/08/19 09:25 Wound Culture - Preliminary Staphylococcus aureus Culture In Progress Resulted Laboratory Tests 08/26/19 04:30: White Blood Count 7.2, Red Blood Count 3.25, Hemoglobin 9.7, Hematocrit 30, Mean Corpuscular Volume 91, Mean Corpuscular Hemoglobin 30, Mean Corpuscular Hemoglobin Concent 33, Red Cell Distribution Width 13.3, Platelet Count 247, Mean Platelet Volume 11.3, Neutrophils (%) (Auto) 63, Lymphocytes (%) (Auto) 20, Monocytes (%) (Auto) 12, Eosinophils (%) (Auto) 4, Basophils (%) (Auto) 0, Neutrophils # (Auto) 4.5, Lymphocytes # (Auto) 1.4, Monocytes # (Auto) 0.9, Eosinophils # (Auto) 0.3, Basophils # (Auto) 0.0 08/26/19 04:40: Sodium Level 138, Potassium Level 4.4, Chloride Level 103, Carbon Dioxide Level 25, Anion Gap 10, Blood Urea Nitrogen 16, Creatinine 0.76, Estimat Glomerular Filtration Rate > 60, BUN/Creatinine Ratio 21, Glucose Level 107, Calcium Level 9.2, Corrected Calcium 10.0, Iron Level 26, Total Bilirubin 1.7, Aspartate Amino Transf (AST/SGOT) 50, Alanine Aminotransferase (ALT/SGPT) 38, Alkaline Phosphatase 105, Total Protein 5.7, Albumin 3.0 08/28/19 14:40: White Blood Count 9.6, Red Blood Count 3.56, Hemoglobin 10.6, Hematocrit 33, Mean Corpuscular Volume 92, Mean Corpuscular Hemoglobin 30, Mean Corpuscular Hemoglobin Concent 32, Red Cell Distribution Width 13.0, Platelet Count 338, Mean Platelet Volume 10.4, Sodium Level 140, Potassium Level 4.0, Chloride Level 102, Carbon Dioxide Level 24, Anion Gap 14, Blood Urea Nitrogen 19, Creatinine 0.87, Estimat Glomerular Filtration Rate > 60, BUN/Creatinine Ratio 22, Glucose Level 112, Calcium Level 9.1, Corrected Calcium 9.6, Total Bilirubin 1.2, Aspartate Amino Transf (AST/SGOT) 31, Alanine Aminotransferase (ALT/SGPT) 29, Alkaline Phosphatase 106, Total Protein 6.2, Albumin 3.4 08/31/19 05:37: White Blood Count 9.3, Red Blood Count 3.71, Hemoglobin 11.0, Hematocrit 34, Mean Corpuscular Volume 92, Mean Corpuscular Hemoglobin 30, Mean Corpuscular Hemoglobin Concent 32, Red Cell Distribution Width 13.7, Platelet Count 414, Mean Platelet Volume 10.3, Neutrophils (%) (Auto) 64, Lymphocytes (%) (Auto) 23, Monocytes (%) (Auto) 8, Eosinophils (%) (Auto) 5, Basophils (%) (Auto) 1, Neutrophils # (Auto) 5.9, Lymphocytes # (Auto) 2.1, Monocytes # (Auto) 0.7, Eosinophils # (Auto) 0.5, Basophils # (Auto) 0.1, Sodium Level 139, Potassium Level 4.2, Chloride Level 103, Carbon Dioxide Level 24, Anion Gap 12, Blood Urea Nitrogen 14, Creatinine 0.82, Estimat Glomerular Filtration Rate > 60, BUN/Creatinine Ratio 17, Glucose Level 95, Calcium Level 9.7, Corrected Calcium 10.0, Total Bilirubin 1.0, Aspartate Amino Transf (AST/SGOT) 25, Alanine Aminotransferase (ALT/SGPT) 22, Alkaline Phosphatase 88, Total Protein 6.3, Albumin 3.6 09/07/19 04:50: White Blood Count 5.6, Red Blood Count 3.62, Hemoglobin 10.9, Hematocrit 33, Mean Corpuscular Volume 92, Mean Corpuscular Hemoglobin 30, Mean Corpuscular Hemoglobin Concent 33, Red Cell Distribution Width 15.0, Platelet Count 301, Mean Platelet Volume 10.3, Neutrophils (%) (Auto) 51, Lymphocytes (%) (Auto) 28, Monocytes (%) (Auto) 13, Eosinophils (%) (Auto) 7, Basophils (%) (Auto) 1, Neutrophils # (Auto) 2.9, Lymphocytes # (Auto) 1.6, Monocytes # (Auto) 0.7, Eosinophils # (Auto) 0.4, Basophils # (Auto) 0.0, Sodium Level 138, Potassium Level 3.9, Chloride Level 105, Carbon Dioxide Level 24, Anion Gap 9, Blood Urea Nitrogen 7, Creatinine 0.76, Estimat Glomerular Filtration Rate > 60, BUN/Creatinine Ratio 9, Glucose Level 92, Calcium Level 9.2, Corrected Calcium 9.6, Total Bilirubin 0.7, Aspartate Amino Transf (AST/SGOT) 17, Alanine Aminotransferase (ALT/SGPT) 16, Alkaline Phosphatase 76, Total Protein 5.8, Albumin 3.5 Discharge Home Medications: Active Scripts Active Bactrim Ds Tablet (Sulfamethoxazole/Trimethoprim) 1 Each Tablet 1 Each PO BID Mupirocin 22 Gm Oint...g. 1 Gm TOP BID Citalopram HBr (Citalopram Hydrobromide) 10 Mg Tablet 10 Mg PO DAILY Hydrocodone/Acetaminophen 5/325mg Tablet (Acetaminophen/Hydrocodone Bitart) 1 Tab Tab 1-2 Tab PO Q4H PRN Reported Fluticasone Propionate 16 Gm [place].susp 2 Sprays NS DAILY PRN Meloxicam 15 Mg Tablet 15 Mg PO DAILY Vitamin D3 (Cholecalciferol (Vitamin D3)) 1,000 Unit Capsule 2,000 Unit PO DAILY Vision Formula Tablet (Vit A/C/E/Zinc/Selenium/Copper) 1 Each Tablet 1 Tab PO DAILY Nystatin 1 Each Powder.ea. TOP TID PRN Metoprolol Tartrate 100 Mg Tablet 100 Mg PO BID Losartan Potassium 100 Mg Tablet 100 Mg PO DAILY Fish Oil 1,000 mg Capsule ([place] 3 Polyunsat Fatty Acids) 1,000 Mg Cap 1,000 Mg PO HS Colace (Docusate Sodium) 100 Mg Capsule 100 Mg PO BID Diclofenac Sodium 100 Gm Gel..gram. TOP QID APPLY TO BOTH HANDS AND KNEES Vitamin B-12 (Cyanocobalamin (Vitamin B-12)) 1,000 Mcg Tablet 1,000 Mcg PO DAILY Vitamin C (Ascorbate Calcium) 500 Mg Tablet 1,000 Mg PO DAILY TAKES 2 (500MG) TABLETS Amlodipine Besylate 10 Mg Tablet 10 Mg PO HS Tylenol (Acetaminophen) 325 Mg Tablet 650 Mg PO HS TAKES 2 (325MG) TABLETS Instructions to patient/family Please see electronic discharge instructions given to patient. Diagnosis/Problems Diagnosis/Problems (1) Hip fracture, right Qualifiers: Qualified Codes: S72.001A - Fracture of unspecified part of neck of right femur, initial encounter for closed fracture (2) Delirium (3) Hypertension (4) Fall (5) Memory deficit (6) Postoperative anemia (7) Transfusion of blood during current hospitalisation (8) Abnormal albumin (9) ALT (SGPT) level raised Clinical Quality Measures DVT/VTE Risk/Contraindication: Risk Factor Score Per Nursin RFS Level Per Nursing on Admit: 4+=Very High DANIEL ESCOBAR DO Sep 09, 2019 12:00 POS
--- NOTE | 2019-09-09 15:22 | NUR ---
"RD ASSESSMENT PMHx: HTN PT INTERACTION: Pt was awake and pleasant during nutrition follow-up. Pt states eating well since last assessment. Note pt avg PO intake was 37% x3d, per chart review. Pt states no issues with n/v since last assessment. Pt states some episodes of diarrhea since last assessment. Note last BM was 09/07 and pt currently on bowel regimen of colace BID; bisacodyl PRN; miralax PRN, per chart review. Pt states tolerating the supplements very well. ABNORMAL NUTRITION-RELATED LAB VALUES: Pro 5.8 (L) Est. kcal needs: 0788-7258 kcal (25-30 kcal/kg) Est. Pro needs: 54-68 g Pro (0.8-1.0 g Pro/kg) PES STATEMENT: Inadequate oral intake (NI-2.1) related to loss of appetite as evidenced by pt interview | avg PO intake 37% x3d INTERVENTION: Continue with current diet order of Heart Healthy diet. Continue with current supplementation order of Ensure Plus with meals TID. Provides 350 kcal and 13 g Pro per serving. MONITOR/EVALUATE: PO Intake; Plan of Care; Hydration Status; Weight Status; Lab Values Shon Walton, MS, RD, LD"
== END 2019-09-09 13:10 | disposition home or self-care (01) | DRG 561 ==
PROVIDERS: ADMIT Internal Medicine; ATTEND Internal Medicine
DX: S72.001D Fracture of unspecified part of neck of right femur, subsequent encounter for closed fracture with routine healing (principal); R41.0 Disorientation, unspecified; I10 Essential (primary) hypertension; D64.9 Anemia, unspecified; E78.5 Hyperlipidemia, unspecified; F32.9 Major depressive disorder, single episode, unspecified; M19.91 Primary osteoarthritis, unspecified site; K59.09 Other constipation; W18.09XD Striking against other object with subsequent fall, subsequent encounter; Y92.22 Religious institution as the place of occurrence of the external cause; Y99.2 Volunteer activity
CPT/HCPCS: 36415; 73502; 73552; 73562; 80053; 83540; 85025; 85027; 87070; 87077; 87186; 87205; 87804

== ENCOUNTER 2021-01-23 10:51 | Emergency (ER) | payer MEDICARE ==
[~2021-01-23] VITALS: Ht 160 cm; Wt 59.4 kg
[~2021-01-23 10:51] MED LIST changes: +ACET325T38 PO; +ACHD5005 PO; +AMLO-251 PO; +ASCO-262 PO; +CHOL10007 PO; +CITA10TA7 PO; +CYAN-41 PO; +DICL100G31 TOP; +DOCU-143 PO; +ESCI5TAB16 PO; +FLUT16SP22 NS; +MELO15TA39 PO; +METO100T12 PO; +MUPI22OI2 TOP; +NYST1POW4 TOP; +OMG1KC PO; +SULF1TAB35 PO; +VIT-10 PO
[2021-01-23] MEDS ORDERED: LACTATED RINGERS 1,000 ML IV SCH (11:30)
[2021-01-23 11:33] LABS: BASOPHILS # (AUTO) 0.1 10^3/uL (0.0-0.1); BASOPHILS % (AUTO) 1 % (0-10); EOSINOPHILS # (AUTO) 0.1 10^3/uL (0.0-0.3); EOSINOPHILS % (AUTO) 1 % (0-10); HEMATOCRIT 37 % (35-52); HEMOGLOBIN 12.5 g/dL (11.5-16.0); LYMPHOCYTES # (AUTO) 2.2 10^3/uL (1.0-4.0); LYMPHOCYTES % (AUTO) 21 % (12-44); MEAN CORPUSCULAR HEMOGLOBIN 30 pg (25-34); MEAN CORPUSCULAR HGB CONC 34 g/dL (32-36); MEAN CORPUSCULAR VOLUME 89 fL (80-99); MEAN PLATELET VOLUME 10.5 fL (9.0-12.2); MONOCYTES # (AUTO) 0.9 10^3/uL (0.0-1.0); MONOCYTES % (AUTO) 9 % (0-12); NEUTROPHILS # (AUTO) 7.2 10^3/uL (1.8-7.8); NEUTROPHILS % (AUTO) 68 % (42-75); PLATELET COUNT 296 10^3/uL (130-400); WHITE BLOOD COUNT 10.6 10^3/uL (4.3-11.0)
[2021-01-23 11:41] LABS: BILIRUBIN,URINE 2+ (NEGATIVE); CLARITY,URINE CLEAR; COLOR,URINE YELLOW; GLUCOSE, URINE (UA) NEGATIVE (NEGATIVE); KETONES,URINE TRACE (NEGATIVE); LEUKOCYTE ESTERASE ,URINE NEGATIVE (NEGATIVE); NITRITE,URINE NEGATIVE (NEGATIVE); PH,URINE 5.5 (5-9); PROTEIN,URINE TRACE (NEGATIVE)
[2021-01-23 11:42] LABS: ALBUMIN 4.4 GM/DL (3.2-4.5); POTASSIUM 3.7 MMOL/L (3.6-5.0)
[2021-01-23 11:44] LABS: CALCIUM 9.8 MG/DL (8.5-10.1)
[2021-01-23 11:45] LABS: TOTAL PROTEIN 7.6 GM/DL (6.4-8.2)
[2021-01-23 11:46] LABS: BILIRUBIN,TOTAL 0.7 MG/DL (0.1-1.0)
[2021-01-23 11:48] LABS: CREATININE SERUM 1.34 MG/DL (0.60-1.30)
--- NOTE | 2021-01-23 11:49 | ED Abdominal Pain ---
General Chief Complaint: Abdominal/GI Problems Stated Complaint: ABD PAIN Nursing Triage Note: PT AMBULATE TO TRIAGE WITH C/O ABD PAIN, N/V/D. PT REPORTS CONSTIPATION X5 DAY AND THEN THE DIARRHEA STARTED. PT REPORTS UPPER ABD PAIN AND VOMITING THIS MORNING. PT REPORTS TAKING MOM FOR DIARRHEA WHICH HELPED. Sepsis Screen: No Definite Risk Source of Information: Patient Exam Limitations: No Limitations History of Present Illness Date Seen by Provider: Jan 23, 2021 Time Seen by Provider: 10:57 Initial Comments To ER accompanied by her son with reports of diffuse abdominal pain. She had constipation for about 5 days and then took milk of magnesia which resulted in diarrhea. She is had some intermittent nausea but her biggest concern is the abdominal pain. She has never had any abdominal surgery. 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 Timing/Duration: 4-5 Days Severity/Quality: Moderate Location: Generalized Abdomen Radiation: No Radiation Activities at Onset: None Associated Symptoms: Nausea/Vomiting (intermittent nasuea but none currently) Allergies and Home Medications Allergies Coded Allergies: lisinopril (Verified Adverse Reaction, Unknown, COUGH, 08/25/19) Home Medications Acetaminophen 325 Mg Tablet, 650 MG PO HS, (Reported) TAKES 2 (325MG) TABLETS Amlodipine Besylate 10 Mg Tablet, 10 MG PO HS, (Reported) Ascorbate Calcium 500 Mg Tablet, 1,000 MG PO DAILY, (Reported) TAKES 2 (500MG) TABLETS Cholecalciferol (Vitamin D3) 1,000 Unit Capsule, 2,000 UNIT PO DAILY, (Reported) Citalopram Hydrobromide 10 Mg Tablet, 10 MG PO DAILY Prescribed by: DANIEL ESCOBAR on 09/08/19914 Cyanocobalamin (Vitamin B-12) 1,000 Mcg Tablet, 1,000 MCG PO DAILY, (Reported) Diclofenac Sodium 100 Gm Gel..gram., TOP QID, (Reported) APPLY TO BOTH HANDS AND KNEES Docusate Sodium 100 Mg Capsule, 100 MG PO BID, (Reported) Fluticasone Propionate 16 Gm [place].susp, 2 SPRAYS NS DAILY PRN for ALLERGIES, (Reported) Hydrocodone Bit/Acetaminophen 1 Tab Tab, 1-2 TAB PO Q4H PRN for PAIN-MODERATE Prescribed by: DANIEL ESCOBAR on 09/08/19 0915 Losartan Potassium 100 Mg Tablet, 100 MG PO DAILY, (Reported) Meloxicam 15 Mg Tablet, 15 MG PO DAILY, (Reported) Metoprolol Tartrate 100 Mg Tablet, 100 MG PO BID, (Reported) Mupirocin 22 Gm Oint...g., 1 GM TOP BID Prescribed by: DANIEL ESCOBAR on 09/08/19 09 Nystatin 1 Each Powder.ea., TOP TID PRN for RASH, (Reported) [place] 3 Polyunsat Fatty Acids 1,000 Mg Cap, 1,000 MG PO HS, (Reported) Ondansetron 8 Mg Tab.rapdis, 8 MG PO Q6H PRN for NAUSEA/VOMITING Prescribed by: CATRINA HAMEED on 01/23/21 1305 Pantoprazole Sodium 40 Mg Tablet.dr, 40 MG PO DAILY Prescribed by: CATRINA HAMEED on 01/23/21 130 Sulfamethoxazole/Trimethoprim 1 Each Tablet, 1 EACH PO BID Prescribed by: BEL HANEY on 09/08/19926 Vit A/C/E/Zinc/Selenium/Copper 1 Each Tablet, 1 TAB PO DAILY, (Reported) Patient Home Medication List Home Medication List Reviewed: Yes Review of Systems Review of Systems Constitutional: see HPI; No chills, No fever EENTM: No Symptoms Reported Respiratory: No Symptoms Reported Cardiovascular: See HPI Gastrointestinal: See HPI, Abdominal Pain, Diarrhea, Nausea Genitourinary: No Symptoms Reported Musculoskeletal: no symptoms reported Skin: no symptoms reported Psychiatric/Neurological: No Symptoms Reported Endocrine: No Symptoms Reported Hematologic/Lymphatic: No Symptoms Reported Past [id number]-[id number]-Mpuoap Hx Patient Social History Alcohol Use: Denies Use Smoking Status: Never a Smoker 2nd Hand Smoke Exposure: No Recent Infectious Disease Expo: No Recent Hopitalizations: No Immunizations Up To Date PED Vaccines UTD: No Date of Pneumonia Vaccine: Jul 28, 2019 Date of Influenza Vaccine: Jul 28, 2019 Seasonal Allergies Seasonal Allergies: Yes Past Medical History Surgeries: Yes (RIGHT HIP REPLACEMENT, LEFT KNEE REPLACEMENT, ) Orthopedic Respiratory: No Currently Using CPAP: No Currently Using BIPAP: No Cardiac: Yes Hypertension Neurological: No Female Reproductive Disorders: Denies Sexually Transmitted Disease: No HIV/AIDS: No Genitourinary: No Gastrointestinal: No Musculoskeletal: Yes Fractures Endocrine: No HEENT: No Cancer: No Did You Recieve Any Treatments: No Psychosocial: No Integumentary: No Blood Disorders: No Adverse Reaction/Blood Tranf: No Family Medical History No Pertinent Family Hx Physical Exam Vital Signs Vital Signs - First Documented 01/23/21 11:02 Temp 36.4 Pulse 101 Resp 18 B/P (MAP) 109/70 (83) O2 Delivery Room Air Capillary Refill : Less Than 3 Seconds Height/Weight/BMI Height: 5'0" Weight: 140lbs. oz. 63.838648ek; 23.00 BMI Method:Stated General Appearance: WD/WN, no apparent distress Neck: non-tender, full range of motion Respiratory: no respiratory distress, no accessory muscle use Cardiovascular: regular rate, rhythm, no murmur Gastrointestinal: normal bowel sounds, soft, tenderness (minimal ) Extremities: normal range of motion, non-tender Neurologic/Psychiatric: alert, normal mood/affect, oriented x 3 Skin: normal color, warm/dry Progress/Results/Core Measures Results/Orders Lab Results Laboratory Tests Test 01/23/21 11:24 01/23/21 11:32 Range/Units White Blood Count 10.6 4.3-11.0 10^3/uL Red Blood Count 4.13 3.80-5.11 10^6/uL Hemoglobin 12.5 11.5-16.0 g/dL Hematocrit 37 35-52 % Mean Corpuscular Volume 89 80-99 fL Mean Corpuscular Hemoglobin 30 25-34 pg Mean Corpuscular Hemoglobin Concent 34 32-36 g/dL Red Cell Distribution Width 11.9 10.0-14.5 % Platelet Count 296 130-400 10^3/uL Mean Platelet Volume 10.5 9.0-12.2 fL Immature Granulocyte % (Auto) 1 % Neutrophils (%) (Auto) 68 42-75 % Lymphocytes (%) (Auto) 21 12-44 % Monocytes (%) (Auto) 9 0-12 % Eosinophils (%) (Auto) 1 0-10 % Basophils (%) (Auto) 1 0-10 % Neutrophils # (Auto) 7.2 1.8-7.8 10^3/uL Lymphocytes # (Auto) 2.2 1.0-4.0 10^3/uL Monocytes # (Auto) 0.9 0.0-1.0 10^3/uL Eosinophils # (Auto) 0.1 0.0-0.3 10^3/uL Basophils # (Auto) 0.1 0.0-0.1 10^3/uL Immature Granulocyte # (Auto) 0.1 0.0-0.1 10^3/uL Sodium Level 133 L 135-145 MMOL/L Potassium Level 3.7 3.6-5.0 MMOL/L Chloride Level 96 L 98-107 MMOL/L Carbon Dioxide Level 24 21-32 MMOL/L Anion Gap 13 5-14 MMOL/L Blood Urea Nitrogen 28 H 7-18 MG/DL Creatinine 1.34 H 0.60-1.30 MG/DL Estimat Glomerular Filtration Rate 38 BUN/Creatinine Ratio 21 Glucose Level 127 H 70-105 MG/DL Calcium Level 9.8 8.5-10.1 MG/DL Corrected Calcium 9.5 8.5-10.1 MG/DL Total Bilirubin 0.7 0.1-1.0 MG/DL Aspartate Amino Transf (AST/SGOT) 15 5-34 U/L Alanine Aminotransferase (ALT/SGPT) 10 0-55 U/L Alkaline Phosphatase 84 40-136 U/L Total Protein 7.6 6.4-8.2 GM/DL Albumin 4.4 3.2-4.5 GM/DL Lipase 31 8-78 U/L Urine Color YELLOW Urine Clarity CLEAR Urine pH 5.5 5-9 Urine Specific [place] 1.025 H 1.016-1.022 Urine Protein TRACE H NEGATIVE Urine Glucose (UA) NEGATIVE NEGATIVE Urine Ketones TRACE H NEGATIVE Urine Nitrite NEGATIVE NEGATIVE Urine Bilirubin 2+ H NEGATIVE Urine Urobilinogen 0.2 < = 1.0 MG/DL Urine Leukocyte Esterase NEGATIVE NEGATIVE Urine RBC (Auto) NEGATIVE NEGATIVE Urine RBC 2-5 H /HPF Urine WBC 2-5 /HPF Urine Squamous Epithelial Cells 10-25 H /HPF Urine Crystals PRESENT H /LPF Urine Amorphous Sediment FEW BRITTANI URATES H /LPF Urine Bacteria FEW H /HPF Urine Casts PRESENT /LPF Urine Hyaline Casts 5-10 H /LPF Urine Mucus NEGATIVE /LPF Urine Culture Indicated YES My Orders Orders - CATRINA HAMEED STAINED GLASS GLAZIER HELPER Cbc With Automated Diff (01/23/21 11:26) Lipase (01/23/21 11:26) Comprehensive Metabolic Panel (01/23/21 11:26) Ua Culture If Indicated (01/23/21 11:26) Ed Iv/Invasive Line Start (01/23/21 11:26) Lactated Ringers (Lr 1000 Ml Iv Solution (01/23/21 11:30) Fentanyl Inj (Sublimaze Injection) (01/23/21 12:00) Urine Culture (01/23/21 11:32) Ct Abdomen/Pelvis Wo (01/23/21 11:57) Hyoscyamine Sl Tablet (Levsin Sl Tablet) (01/23/21 13:00) Helicobacter Pylori Mallory Igg (01/23/21 12:52) Pantoprazole Injection (Protonix Injecti (01/23/21 13:00) Antacid Suspension (Mylanta Suspension (01/23/21 13:15) Lidocaine 2% Viscous 15 Ml (Xylocaine Vi (01/23/21 13:15) Medications Given in ED Current Medications Medications Dose Ordered Sig/Carolyn Route Start Time Stop Time Status Last Admin Dose Admin Fentanyl Citrate 25 mcg ONCE ONCE IVP 01/23/21 12:00 01/23/21 12:01 DC 01/23/21 12:16 25 MCG Vital Signs/I&O 01/23/21 11:02 Temp 36.4 Pulse 101 Resp 18 B/P (MAP) 109/70 (83) O2 Delivery Room Air Blood Pressure Mean: 83 Departure Impression Primary Impression: Gastritis and duodenitis Disposition: HOME, SELF-CARE Condition: Stable Departure-Patient Inst. Decision time for Depature: 13:02 Referrals: BEL HANEY MD (PCP/Family) Primary Care Physician Patient Instructions: Gastritis (DC) Add. Discharge Instructions: 1. Follow-up with Dr. Haney on Saturday as scheduled. Take the acid ios developer as directed. Take the nausea medication as needed for nausea and before eating to help facilitate eating and keeping up with your fluids. We did an additional blood test for Helicobacter pylori a type of bacteria that can cause stomach ulcers. Follow-up with Dr. Haney for these results. Return to ER for any worsening. All discharge instructions reviewed with patient and/or family. Voiced understanding. Scripts Pantoprazole Sodium (Protonix) 40 Mg Tablet. 40 MG PO DAILY, #30 TAB Prov: CATRINA HAMEED STAINED GLASS GLAZIER HELPER 01/23/21 Ondansetron (Ondansetron Odt) 8 Mg Tab.rapdis 8 MG PO Q6H PRN for NAUSEA/VOMITING, #10 TAB Prov: CATRINA HAMEED STAINED GLASS GLAZIER HELPER 3/29/21 Copy Copies To 1: BEL HANEY MD, PETER J APRN Jan 23, 2021 11:49
[2021-01-23 11:51] LABS: AMORPHOUS SEDIMENT,UR FEW AMOR URATES /LPF; BACTERIA,URINE FEW /HPF
[2021-01-23] MEDS ORDERED: fentaNYL INJ 100 MCG/2 ML AMP IVP ONE (12:00)
--- NOTE | 2021-01-23 12:50 | Diagnostic Imaging Report ---
EXAMINATION: CT abdomen/pelvis wo. TECHNIQUE: Unenhanced CT imaging of the abdomen and pelvis was performed. 2-D reformats are created and submitted for interpretation. Automatic exposure controls were utilized to optimize patient dose. INDICATION: Abdominal pain. COMPARISON: CT abdomen and pelvis of 06/19/2011. FINDINGS: Evaluation of the abdominal viscera is mildly limited without contrast. Lower chest: The lung bases are clear. No pericardial or pleural effusion. Peritoneum: No free intraperitoneal air or fluid. Liver and biliary system: Unenhanced liver is normal. Cholecystectomy. No pathologic biliary duct dilatation. Spleen and Pancreas: Spleen is normal. Unenhanced pancreas is grossly normal. Adrenals: Normal. tract: Stable 2 mm nonobstructing stone in the lower pole of the right kidney. No ureteral stones. Urinary bladder is decompressed and not well evaluated. There is streak artifact from right total hip arthroplasty that does limit assessment of the pelvis. GI tract: Small sliding type hiatal hernia. There is potential mild wall thickening in the distal stomach and proximal duodenum which can be seen with peptic ulcer disease. No features of perforated ulcer. No bowel obstruction. No pericolonic inflammatory changes. Sigmoid colon diverticulosis without diverticulitis. Normal appendix. Vasculature and Lymph nodes: Normal caliber aorta has extensive atherosclerotic plaquing. No abdominal or pelvic lymphadenopathy. Musculoskeletal: No concerning osseous lesion. Right total hip arthroplasty. IMPRESSION: 1. Mild wall thickening in the gastric antrum and proximal duodenum may represent gastritis/duodenitis. However, there are no features of ruptured ulcer. If patient does not have clinical symptoms that fit in this scenario, then this is most likely due to incomplete distention of these portions of the bowel. 2. Nonobstructing 2 mm right renal stone is unchanged since 2010. 3. Sigmoid colon diverticulosis without diverticulitis. Dictated by: Dictated on workstation # [id number]
[2021-01-23] MEDS ORDERED: HYOSCYAMINE 0.125 MG (LEVSIN) TAB PO ONE (13:00)
[2021-01-23] MEDS ORDERED: PANTOPRAZOLE 40 MG (PROTONIX) VIAL IV ONE (13:00)
[2021-01-23] MEDS ORDERED: PANT40TA2 PO (13:05)
[2021-01-23] MEDS ORDERED: ONDA8TAB13 PO (13:05)
[2021-01-23] MEDS ORDERED: LIDOCAINE 2% VISCOUS 15 ML UDC PO ONE (13:15)
[2021-01-23] MEDS ORDERED: ANTACID SUSP 30 ML UDC (MYLANTA) PO ONE (13:15)
[2021-01-23 13:54] VITALS: BP 106/67
== END 2021-01-23 13:54 | disposition home or self-care (01) ==
LOC: EDUNIT# 10:51 → ER 10:56
DX: K29.90 Gastroduodenitis, unspecified, without bleeding (principal); I10 Essential (primary) hypertension; Z88.8 Allergy status to other drugs, medicaments and biological substances
CPT/HCPCS: 36415; 74176; 80053; 81000; 83690; 85025; 86677; 87077; 87088